=== PATIENT | male | born 1950 | race Caucasian/White ===

== ENCOUNTER → 2017-07-02 | Outpatient (CLI) | payer MEDICARE ==
[2017-07-02 14:55] LABS: Basophils # (A) 0.1 k/uL (0-0.2); Basophils % (A) 1 %; Eosinophils # (A) 0.3 k/uL (0-0.7); Eosinophils % (A) 2 %; HCT 39.7 % (39.0-53.0); HGB 12.6 gm/dL (13.0-17.5); Lymphocytes # (A) 1.2 k/uL (1.0-4.8); Lymphocytes % (A) 12 %; MCH 31.8 pg (25.0-35.0); MCHC 31.8 g/dL (31.0-37.0); MCV 99.9 fL (80.0-100.0); Mean Platelet Volume 7.4; Monocytes # (A) 0.6 k/uL (0-1.0); Monocytes % (A) 5 %; Neutrophils # (A) 8.3 k/uL (1.3-7.7); Neutrophils % (A) 79 %; Platelet Count 384 k/uL (150-450); RBC 3.98 m/uL (4.30-5.90); WBC 10.5 k/uL (3.8-10.6)
[2017-07-02 15:05] LABS: Anion Gap 10 mmol/L; Carbon Dioxide 27 mmol/L (22-30); Chloride 105 mmol/L (98-107); Glucose 65 mg/dL (74-99); Potassium 4.9 mmol/L (3.5-5.1); Sodium 142 mmol/L (137-145)
[2017-07-02 15:06] LABS: ALT 26 U/L (21-72); AST 16 U/L (17-59); Alkaline Phosphatase 98 U/L (38-126); Blood Urea Nitrogen 20 mg/dL (9-20); Calcium 9.2 mg/dL (8.4-10.2); Total Bilirubin 0.2 mg/dL (0.2-1.3); Total Protein 6.8 g/dL (6.3-8.2)
--- NOTE | 2017-07-02 15:07 | US ---
EXAMINATION TYPE: US kidneys/renal and bladder DATE OF EXAM: 07/02/2017 COMPARISON: NONE CLINICAL HISTORY: N14 Analgesic Nephropathy. Patient stated has urinary frequency since had prostatec tasha 2014 EXAM MEASUREMENTS: Right Kidney: 9.0 x 4.1 x 3.5 cm Left Kidney: 10.0 x 5.2 x 5.2 cm Post Void Residual Volume: 49.2 mL Right Kidney: mid probable cortical cyst = 0.6 x 0.7 x 0.7cm, too small to accurately characterize. No hydronephrosis or nephrolithiasis. Left Kidney: No hydronephrosis or nephrolithiasis. Bladder: wnl Bilateral Jets seen: Yes Normal Post Void Residual: yes, as still as < 50ml IMPRESSION: 1. Post void residual is borderline abnormal at 49.2 mL with normal less than 50 mL. 2. Probable right renal cyst. No hydronephrosis or nephrolithiasis of either kidney.
== END | disposition home or self-care (01) ==
LOC: RADUSWWP 13:38
PROVIDERS: ATTEND Internal Medicine
DX: N14.0 Analgesic nephropathy (principal)
CPT/HCPCS: 36415; 76770; 80053; 85025

== ENCOUNTER 2022-11-04 15:43 | Inpatient (IN) | payer MEDICARE ==
[2022-11-04] MEDS ORDERED: SODIUM CHLORIDE 0.9% 1,000 ML IV ONE ×2 (16:17→20:17)
--- NOTE | 2022-11-04 16:21 | ED ---
General Adult HPI - General Chief complaint: Fall Stated complaint: Fall Time Seen by Provider: 11/04/22 15:55 Source: patient, EMS, RN notes reviewed, old records reviewed Mode of arrival: EMS Limitations: altered mental status - History of Present Illness Initial comments: This is a 72-year-old male who presents emergency Department via EMS. EMS gave all of the history. Patient himself does not want seizure. EMS states neighbor was concerned because he hadn't seen him in over a day so he called for a well check when they got there patient was found down and was alert and oriented 1 but no one is able to tell us what his baseline is. Patient has no complaints at this point time but he is history is unreliable and he doesn't really know why is here. - Related Data Home Medications Medication Instructions Recorded Confirmed Albuterol Inhaler [Ventolin Hfa 1 puff INHALATION RT-Q4H PRN 11/04/22 11/04/22 Inhaler] Budesonide/Formoterol Fumarate 2 puff INHALATION RT-BID 11/04/22 11/04/22 [Symbicort 160-4.5 Mcg Inhaler] Divalproex Sodium 250 mg PO BID 11/04/22 11/04/22 LORazepam [Ativan] 0.5 mg PO HS 11/04/22 11/04/22 Metoprolol Tartrate [Lopressor] 25 mg PO DAILY 11/04/22 11/04/22 Montelukast [Singulair] 10 mg PO DAILY 11/04/22 11/04/22 Primidone [Mysoline] 50 mg PO TID 11/04/22 11/04/22 QUEtiapine [SEROquel] 200 mg PO DAILY 11/04/22 11/04/22 Simvastatin [Zocor] 40 mg PO DAILY 11/04/22 11/04/22 Topiramate [Topamax] 1 dose PO DIRECTED 11/04/22 11/04/22 amLODIPine [Norvasc] 10 mg PO DAILY 11/04/22 11/04/22 Allergies Allergy/AdvReac Type Severity Reaction Status Date / Time hops Allergy Rash/Hives Verified 11/04/22 17:29 mold AdvReac Rash/Hives Verified 11/04/22 17:29 Review of Systems ROS Statement: Those systems with pertinent positive or pertinent negative responses have been documented in the HPI. ROS Other: All systems not noted in ROS Statement are negative. Past Medical History Past Medical History: Unable to Obtain History of Any Multi-Drug Resistant Organisms: Unobtainable Past Surgical History: Unable to Obtain Past Psychological History: Unable to Obtain Smoking Status: Unknown if ever smoked Past Alcohol Use History: Unable to Obtain Past Drug Use History: Unable to Obtain General Exam - General Exam Comments Initial Comments: GENERAL: Patient is well-developed and well-nourished. Patient is nontoxic and well- hydrated and is in no acute distress. ENT: Neck is soft and supple. No significant lymphadenopathy is noted. Oropharynx is clear. Moist mucous membranes. Neck has full range of motion without eliciting any pain. EYES: The sclera were anicteric and conjunctiva were pink and moist. Extraocular movements were intact and pupils were equal round and reactive to light. Eyelids were unremarkable. PULMONARY: Unlabored respirations. Good breath sounds bilaterally. No audible rales rhonchi or wheezing was noted. CARDIOVASCULAR: There is a regular rate and rhythm without any murmurs gallops or rubs. ABDOMEN: Soft and nontender with normal bowel sounds. SKIN: Skin is clear with no lesions or rashes and otherwise unremarkable. NEUROLOGIC: Patient is alert and oriented 1. Cranial nerves II through XII are grossly intact. Motor and sensory are also intact. Normal speech, volume and content. Symmetrical smile. MUSCULOSKELETAL: Normal extremities with adequate strength and full range of motion. No lower extremity swelling or edema. No calf tenderness. LYMPHATICS: No significant lymphadenopathy is noted PSYCHIATRIC: Unable to assess Limitations: altered mental status Course Vital Signs 11/04/22 15:45 Temperature 97.0 F L Pulse Rate 87 Respiratory 18 Rate Blood Pressure 175/116 O2 Sat by Pulse 97 Oximetry Medical Decision Making - Medical Decision Making EKG as interpreted by myself EKG shows sinus rhythm at [address] interval 255 QRSs 81 QT interval 334 QTC is 378. Was pt. sent in by a medical professional or institution (, [facility], SPIKE MACHINE OPERATOR, urgent care, hospital, or retirement...) When possible be specific @ -No Did you speak to anyone other than the patient for history (EMS, parent, family, police, friend...)? What history was obtained from this source @ -No Did you review nursing and triage notes (agree or disagree)? Why? @ -I reviewed and agree with nursing and triage notes Were old charts reviewed (outside hosp., previous admission, EMS record, old EKG, old radiological studies, urgent care reports/EKG's, retirement records)? Report findings @ -Prior charts on this patient as well as prior lab work. Differential Diagnosis (chest pain, altered mental status, abdominal pain women, abdominal pain men, vaginal bleeding, weakness, fever, dyspnea, syncope, headache, dizziness, GI bleed, back pain, seizure, CVA, palpatations, mental health, musculoskeletal)? @ -Differential altered mental status EKG interpreted by me (3pts min.). @ -As above X-rays interpreted by me (1pt min.). @ -Chest x-ray is interpreted by myself I see no acute abnormality. CT interpreted by me (1pt min.). @ -CT of the brain shows no acute abnormality U/S interpreted by me (1pt. min.). @ -None done What testing was considered but not performed or refused? (CT, X-rays, U/S, labs)? Why? @ -None What meds were considered but not given or refused? Why? @ -None Did you discuss the management of the patient with other professionals (professionals i.e. , PA, SPIKE MACHINE OPERATOR, lab, RT, psych nurse, social media job titles, department specialist, teacher, gunnery/ordnance officer, housing case manager)? Give summary @ -[facility] Was smoking cessation discussed for >3mins.? @ -No Was critical care preformed (if so, how long)? @ -No Were there social determinants of health that impacted care today? How? (Homelessness, low income, unemployed, alcoholism, drug addiction, transportation, low edu. Level, literacy, decrease access to med. care, custodial, rehab)? @ -No Was there de-escalation of care discussed even if they declined (Discuss DNR or withdrawal of care, Hospice)? DNR status @ -No What co-morbidities impacted this encounter? (DM, HTN, Smoking, COPD, CAD, Cancer, CVA, ARF, Chemo, Hep., AIDS, mental health diagnosis, sleep apnea, morbid obesity)? @ -None Was patient admitted / discharged? Hospital course, mention meds given and route, prescriptions, significant lab abnormalities, going to OR and other pertinent info. @ -Patient had rhabdomyolysis but continued to be altered. Family states is not at his baseline yet. I placed the patient on D5W with 3 A of bicarb at 75 mL an hour. I spoke with [facility] hospitalist agreed to admit the patient admitted the patient I consult the nephrology Undiagnosed new problem with uncertain prognosis? @ -No Drug Therapy requiring intensive monitoring for toxicity (Heparin, Nitro, Insulin, Cardizem)? @ -No Were any procedures done? @ -No Diagnosis/symptom? @ -Rhabdomyolysis Acute, or Chronic, or Acute on Chronic? @ -Acute Uncomplicated (without systemic symptoms) or Complicated (systemic symptoms)? @ -Complicated Side effects of treatment? @ -No Exacerbation, Progression, or Severe Exacerbation? @ -No Poses a threat to life or bodily function? How? (Chest pain, [place], CA, pneumonia, PE, COPD, DKA, ARF, appy, cholecystitis, CVA, Diverticulitis, Homicidal, Suicidal, threat to staff... and all critical care pts) @ -Yes this could lead to completely kidney dysfunction which lead to significant morbidity or mortality Diagnosis/symptom? @ -Altered mental status Acute, or Chronic, or Acute on Chronic? @ -Acute Uncomplicated (without systemic symptoms) or Complicated (systemic symptoms)? @ -Complicated Side effects of treatment? @ -none Exacerbation, Progression, or Severe Exacerbation] @ -no Poses a threat to life or bodily function? @ -no - Lab Data Result diagrams: 11/04/22 16:35 11/04/22 16:35 Lab Results 11/04/22 11/04/22 11/04/22 Range/Units 16:35 16:35 16:35 WBC 12.8 H (3.8-10.6) k/uL RBC 4.22 L (4.30-5.90) m/uL Hgb 13.8 (13.0-17.5) gm/dL Hct 41.1 (39.0-53.0) % MCV 97.2 (80.0-100.0) fL MCH 32.7 (25.0-35.0) pg MCHC 33.6 (31.0-37.0) g/dL RDW 13.7 (11.5-15.5) % Plt Count 325 (150-450) k/uL MPV 7.6 Neutrophils % 84 % Lymphocytes % 8 % Monocytes % 6 % Eosinophils % 0 % Basophils % 0 % Neutrophils # 10.8 H (1.3-7.7) k/uL Lymphocytes # 1.0 (1.0-4.8) k/uL Monocytes # 0.8 (0-1.0) k/uL Eosinophils # 0.0 (0-0.7) k/uL Basophils # 0.0 (0-0.2) k/uL PT 10.3 (9.0-12.0) sec INR 1.0 (<1.2) APTT 22.1 (22.0-30.0) sec Sodium 145 (137-145) mmol/L Potassium 4.1 (3.5-5.1) mmol/L Chloride 110 H (98-107) mmol/L Carbon Dioxide 19 L (22-30) mmol/L Anion Gap 16 mmol/L BUN 35 H (9-20) mg/dL Creatinine 1.29 H (0.66-1.25) mg/dL Est GFR (CKD-EPI)AfAm 64 (>60 ml/min/1.73 sqM) Est GFR (CKD-EPI)NonAf 56 (>60 ml/min/1.73 sqM) Glucose 111 H (74-99) mg/dL Calcium 9.1 (8.4-10.2) mg/dL Total Bilirubin 0.7 (0.2-1.3) mg/dL AST 48 (17-59) U/L ALT 22 (4-49) U/L Alkaline Phosphatase 95 (38-126) U/L Creatine Kinase 2741 H* (55-170) U/L Troponin I (0.000-0.034) ng/mL Total Protein 7.3 (6.3-8.2) g/dL Albumin 4.4 (3.5-5.0) g/dL Urine Color Urine Appearance (Clear) Urine pH (5.0-8.0) Ur Specific [place] (1.001-1.035) Urine Protein (Negative) Urine Glucose (UA) (Negative) Urine Ketones (Negative) Urine Blood (Negative) Urine Nitrite (Negative) Urine Bilirubin (Negative) Urine Urobilinogen (<2.0) mg/dL Ur Leukocyte Esterase (Negative) Urine Opiates Screen (NotDetected) Ur Oxycodone Screen (NotDetected) Urine Methadone Screen (NotDetected) Ur Propoxyphene Screen (NotDetected) Ur Barbiturates Screen (NotDetected) U Tricyclic Antidepress (NotDetected) Ur Phencyclidine Scrn (NotDetected) Ur Amphetamines Screen (NotDetected) U Methamphetamines Scrn (NotDetected) U Benzodiazepines Scrn (NotDetected) Urine Cocaine Screen (NotDetected) U Marijuana (THC) Screen (NotDetected) 11/04/22 11/04/22 Range/Units 16:35 19:31 WBC (3.8-10.6) k/uL RBC (4.30-5.90) m/uL Hgb (13.0-17.5) gm/dL Hct (39.0-53.0) % MCV (80.0-100.0) fL MCH (25.0-35.0) pg MCHC (31.0-37.0) g/dL RDW (11.5-15.5) % Plt Count (150-450) k/uL MPV Neutrophils % % Lymphocytes % % Monocytes % % Eosinophils % % Basophils % % Neutrophils # (1.3-7.7) k/uL Lymphocytes # (1.0-4.8) k/uL Monocytes # (0-1.0) k/uL Eosinophils # (0-0.7) k/uL Basophils # (0-0.2) k/uL PT (9.0-12.0) sec INR (<1.2) APTT (22.0-30.0) sec Sodium (137-145) mmol/L Potassium (3.5-5.1) mmol/L Chloride (98-107) mmol/L Carbon Dioxide (22-30) mmol/L Anion Gap mmol/L BUN (9-20) mg/dL Creatinine (0.66-1.25) mg/dL Est GFR (CKD-EPI)AfAm (>60 ml/min/1.73 sqM) Est GFR (CKD-EPI)NonAf (>60 ml/min/1.73 sqM) Glucose (74-99) mg/dL Calcium (8.4-10.2) mg/dL Total Bilirubin (0.2-1.3) mg/dL AST (17-59) U/L ALT (4-49) U/L Alkaline Phosphatase (38-126) U/L Creatine Kinase (55-170) U/L Troponin I <0.012 (0.000-0.034) ng/mL Total Protein (6.3-8.2) g/dL Albumin (3.5-5.0) g/dL Urine Color Yellow Urine Appearance Clear (Clear) Urine pH 5.5 (5.0-8.0) Ur Specific [place] 1.023 (1.001-1.035) Urine Protein Trace H (Negative) Urine Glucose (UA) Negative (Negative) Urine Ketones 2+ H (Negative) Urine Blood Negative (Negative) Urine Nitrite Negative (Negative) Urine Bilirubin Negative (Negative) Urine Urobilinogen 2.0 (<2.0) mg/dL Ur Leukocyte Esterase Negative (Negative) Urine Opiates Screen Not Detected (NotDetected) Ur Oxycodone Screen Not Detected (NotDetected) Urine Methadone Screen Not Detected (NotDetected) Ur Propoxyphene Screen Not Detected (NotDetected) Ur Barbiturates Screen Detected H (NotDetected) U Tricyclic Antidepress Not Detected (NotDetected) Ur Phencyclidine Scrn Not Detected (NotDetected) Ur Amphetamines Screen Not Detected (NotDetected) U Methamphetamines Scrn Not Detected (NotDetected) U Benzodiazepines Scrn Not Detected (NotDetected) Urine Cocaine Screen Not Detected (NotDetected) U Marijuana (THC) Screen Not Detected (NotDetected) Disposition Clinical Impression: Fall, Altered mental status, Rhabdomyolysis Disposition: ADMITTED IP TO THIS HOSP Referrals: None,Stated [REFERRING] - 1-2 days Time of Disposition: 20:17
[2022-11-04 16:49] LABS: Basophils % (A) 0 %; Eosinophils % (A) 0 %; HCT 41.1 % (39.0-53.0); HGB 13.8 gm/dL (13.0-17.5); Lymphocytes % (A) 8 %; MCH 32.7 pg (25.0-35.0); MCHC 33.6 g/dL (31.0-37.0); MCV 97.2 fL (80.0-100.0); Mean Platelet Volume 7.6; Monocytes # (A) 0.8 k/uL (0-1.0); Monocytes % (A) 6 %; Neutrophils # (A) 10.8 k/uL (1.3-7.7); Neutrophils % (A) 84 %; Platelet Count 325 k/uL (150-450); RBC 4.22 m/uL (4.30-5.90); RDW 13.7 % (11.5-15.5); WBC 12.8 k/uL (3.8-10.6)
[2022-11-04 17:00] LABS: Albumin 4.4 g/dL (3.5-5.0); Calcium 9.1 mg/dL (8.4-10.2); Partial Thromboplastin Time 22.1 sec (22.0-30.0); Potassium 4.1 mmol/L (3.5-5.1); Prothrombin Time 10.3 sec (9.0-12.0); Total Bilirubin 0.7 mg/dL (0.2-1.3); Total Protein 7.3 g/dL (6.3-8.2)
--- NOTE | 2022-11-04 17:04 | XR ---
EXAMINATION TYPE: XR chest 2V DATE OF EXAM: 11/04/2022 COMPARISON: None INDICATION: Altered mental status TECHNIQUE: Frontal and lateral views of the chest are obtained. FINDINGS: The heart size is normal. The pulmonary vasculature is normal. The lungs are clear. IMPRESSION: 1. No acute pulmonary process.
--- NOTE | 2022-11-04 17:25 | CT ---
EXAMINATION TYPE: CT brain wo con DATE OF EXAM: 11/04/2022 COMPARISON: None INDICATION: AMS. pt found on floor by neighbor DLP: 1251.4 mGycm, Automated exposure control for dose reduction was used. CONTRAST: None CT of the brain is performed utilizing 3 mm thick sections through the posterior fossa and 3 mm thick sections through the remaining calvarium. Study is performed within 24 hours of arrival to the hosp ital. No abnormal hyperdensity is present to suggest an acute intracranial hemorrhage. No mass lesion is evident. No acute infarcts are evident. Ventricles and sulci are prominent for the patient age. Paranasal sinuses and mastoid air cells within the [id number] are clear. IMPRESSIONS: 1. Age-related atrophy 2. No acute intracranial process. Follow-up MRI can be performed as clinically indicated
[2022-11-04 19:54] LABS: Appearance,Urine Clear (Clear); Bilirubin,Urine Negative (Negative); Blood,Urine Negative (Negative); Color,Urine Yellow; Glucose,Urine (UA) Negative (Negative); Leukocyte Esterase,Urine Negative (Negative); Nitrite,Urine Negative (Negative); PH, Urine 5.5 (5.0-8.0); Protein,Urine Trace (Negative); Specific Gravity,Urine 1.023 (1.001-1.035)
[2022-11-04 20:01] LABS: Ketones,Urine 2+ (Negative)
[2022-11-04 20:03] LABS: Amphetamine Screen,Urine Not Detected (NotDetected); Barbiturate Screen,Urine Detected (NotDetected); Benzodiazepines Screen,Urine Not Detected (NotDetected); Cocaine Screen,Urine Not Detected (NotDetected); Methadone Screen, Urine Not Detected (NotDetected); Opiate Screen,Urine Not Detected (NotDetected); Oxycodone Screen, Urine Not Detected (NotDetected); Phencyclidine Screen,Urine Not Detected (NotDetected); Tricyclic Antidepressant,Urine Not Detected (NotDetected); Urn Cannabinoid Scrn Not Detected (NotDetected)
[2022-11-04] MEDS: DEXTROSE 5% IN WATER 1,000 ML with SODIUM BICARB (1 MEQ/ML) 150 ML IV SCH (20:45)
[2022-11-04] MEDS ORDERED: LORazepam 0.5 MG TAB PO ONE (22:50)
[2022-11-05] MEDS ORDERED: ALBUTEROL NEBULIZED 2.5 MG/3 ML INHALATION PRN (09:49)
[2022-11-05 11:11] LABS: Glucose,Whole Blood 109 mg/dL (70-110)
--- NOTE | 2022-11-05 11:50 | P.NPCON ---
History of Present Illness - Reason for Consult acute renal failure - History of Present Illness Patient is a 72-year-old male who was admitted to the hospital with complaints of increased weakness. Patient stated he also felt he was confused. He has not been eating much for the past few days as his is sick and has hurt her back. Patient also apparently fell at home and was found by neighbor. He had been down for about a day. Difficult to obtain further details. No previous history of kidney diseases Blood pressure has not been low No history of use of NSAIDs Serum creatinine 1.29 yesterday. CK was elevated at 2741. Patient has been voiding Currently maintained on IV bicarb Review of Systems As per HPI Past Medical History Past Medical History: Unable to Obtain Additional Past Medical History / Comment(s): Prostate Cancer, essential tremors, History of Any Multi-Drug Resistant Organisms: Unobtainable Past Surgical History: Unable to Obtain Past Psychological History: Unable to Obtain Smoking Status: Unknown if ever smoked Past Alcohol Use History: Unable to Obtain Past Drug Use History: Unable to Obtain Medications and Allergies Home Medications Medication Instructions Recorded Confirmed Type Albuterol Inhaler [Ventolin Hfa 1 puff INHALATION RT-Q4H PRN 11/04/22 11/04/22 History Inhaler] Budesonide/Formoterol Fumarate 2 puff INHALATION RT-BID 11/04/22 11/04/22 History [Symbicort 160-4.5 Mcg Inhaler] Divalproex Sodium 250 mg PO BID 11/04/22 11/04/22 History LORazepam [Ativan] 0.5 mg PO HS 11/04/22 11/04/22 History Metoprolol Tartrate [Lopressor] 25 mg PO DAILY 11/04/22 11/04/22 History Montelukast [Singulair] 10 mg PO DAILY 11/04/22 11/04/22 History Primidone [Mysoline] 50 mg PO TID 11/04/22 11/04/22 History QUEtiapine [SEROquel] 200 mg PO DAILY 11/04/22 11/04/22 History Simvastatin [Zocor] 40 mg PO DAILY 11/04/22 11/04/22 History Topiramate [Topamax] See Taper PO DIRECTED 11/04/22 11/05/22 History amLODIPine [Norvasc] 10 mg PO DAILY 11/04/22 11/04/22 History Allergies Allergy/AdvReac Type Severity Reaction Status Date / Time hops Allergy Rash/Hives Verified 11/04/22 17:29 mold AdvReac Rash/Hives Verified 11/04/22 17:29 Physical Exam Vitals: Vital Signs Temp Pulse Resp BP Pulse Ox 11/05/22 11:00 97.4 F L 70 14 147/103 97 11/05/22 10:00 60 16 151/82 97 11/05/22 09:00 66 15 138/93 95 11/05/22 08:00 66 14 146/91 93 L 11/05/22 06:59 64 18 148/93 95 11/05/22 05:25 69 18 96 11/05/22 04:21 67 18 157/97 96 11/05/22 02:23 69 18 152/85 95 11/05/22 00:59 77 18 147/93 98 11/04/22 23:55 74 16 153/107 96 11/04/22 22:27 80 18 146/84 97 11/04/22 21:06 79 20 11/04/22 15:45 97.0 F L 87 18 175/116 97 Intake and Output 11/04/22 11/05/22 11/05/22 22:59 06:59 14:59 Output Total 450 Balance -450 Output: Urine 450 Other: Weight 65.771 kg Patient is awake, comfortable, no acute distress Examination of the heart S1 and S2 Examination of the lungs bilateral breath sounds are heard Abdomen is soft nontender Examination lower extremity shows no significant edema 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 Acute kidney injury, associated with volume depletion currently maintained on IV fluids. Mild component of rhabdo my lysis. Rule out urine retention. 2. Rhabdo my lysis status post fall. Patient is currently off of statins 3. Mild gap metabolic acidosis maintained on IV bicarb etiology possibly r elated to use of Topamax as well as component of acute kidney injury. Possible starvation ketosis as well given the positive ketones in the urine 4. History of fall 5. History of hypertension maintained on Norvasc Lopressor prior to admission Plan: Continue with IV bicarb Check bladder scan rule out urine retention Repeat labs in a.m. Continue to hold statins Thank you for the consultation. We will continue to follow the patient with you during his hospitalization.
--- NOTE | 2022-11-05 13:43 | P.HPIM ---
History of Present Illness H&P Date: 11/05/22 history of present illness; patient is a 72-year-old gentleman with past medical history significant for hypertension, hyperlipidemia, COPD presented to the ER because of altered mental status. Most of the history has been taken from the EMR. Patient was brought in by EMS after being notified by the patient's neighbor who did a wellness check on the patient as he had not seen him in a day.EMS found the patient lying on the floor, patient currently alert to self. Patient was immediately brought to the ER of [facility]. initial lab work done in the ER showedWBC 12.8, hemoglobin 13.8, platelet count 325, sodium 145, potassium 4.1, chloride 110, BUN 35, creatinine 1.29, CK 2741 Chest x-ray negative for acute pulmonary process CT brain showed age-related atrophy, no acute intracranial process Patient was admitted to internal medicine service REVIEW OF SYSTEMS: CONSTITUTIONAL: No fever, no malaise, no fatigue. HEENT: No recent visual problems or hearing problems. Denied any sore throat. CARDIOVASCULAR: No chest pain, orthopnea, PND, no palpitations, no syncope. PULMONARY: No shortness of breath, no cough, no hemoptysis. GASTROINTESTINAL: No diarrhea, no nausea, no vomiting, no abdominal pain. NEUROLOGICAL: No headaches, no weakness, no numbness. HEMATOLOGICAL: Denies any bleeding or petechiae. GENITOURINARY: Denies any burning micturition, frequency, or urgency. MUSCULOSKELETAL/RHEUMATOLOGICAL: Denies any joint pain, swelling, or any muscle pain. ENDOCRINE: Denies any polyuria or polydipsia. The rest of the 14-point review of systems is negative. PHYSICAL EXAMINATION: GENERAL: The patient is alert self place, he gets confused about time, mental status is waxing and waning, not in any acute distress. Well developed, well nourished. HEENT: Pupils are round and equally reacting to light. EOMI. No scleral icterus. No conjunctival pallor. Normocephalic, atraumatic. No pharyngeal erythema. No thyromegaly. CARDIOVASCULAR: S1 and S2 present. No murmurs, rubs, or gallops. PULMONARY: Chest is clear to auscultation, no wheezing or crackles. ABDOMEN: Soft, nontender, nondistended, normoactive bowel sounds. No palpable organomegaly. MUSCULOSKELETAL: No joint swelling or deformity. EXTREMITIES: No cyanosis, clubbing, or pedal edema. NEUROLOGICAL: Gross neurological examination did not reveal any focal deficits. SKIN: No rashes. Assessment and plan Rhabdomyolysis Acute Kidney injury Fall Acute metabolic encephalopathy seizure disorder Hypertension Hyperlipidemia COPD monitor vital signs Monitor CBC Avoid nephrotoxic agents Continue IV fluids Ordered EEG Resume home meds Consult neurology Consult nephrology DVT prophylaxis: Past Medical History Past Medical History: Unable to Obtain Additional Past Medical History / Comment(s): Prostate Cancer, essential tremors, History of Any Multi-Drug Resistant Organisms: Unobtainable Past Surgical History: Unable to Obtain Past Psychological History: Unable to Obtain Smoking Status: Unknown if ever smoked Past Alcohol Use History: Unable to Obtain Past Drug Use History: Unable to Obtain Medications and Allergies Home Medications Medication Instructions Recorded Confirmed Type Albuterol Inhaler [Ventolin Hfa 1 puff INHALATION RT-Q4H PRN 11/04/22 11/04/22 History Inhaler] Budesonide/Formoterol Fumarate 2 puff INHALATION RT-BID 11/04/22 11/04/22 History [Symbicort 160-4.5 Mcg Inhaler] Divalproex Sodium 250 mg PO BID 11/04/22 11/04/22 History LORazepam [Ativan] 0.5 mg PO HS 11/04/22 11/04/22 History Metoprolol Tartrate [Lopressor] 25 mg PO DAILY 11/04/22 11/04/22 History Montelukast [Singulair] 10 mg PO DAILY 11/04/22 11/04/22 History Primidone [Mysoline] 50 mg PO TID 11/04/22 11/04/22 History QUEtiapine [SEROquel] 200 mg PO DAILY 11/04/22 11/04/22 History Simvastatin [Zocor] 40 mg PO DAILY 11/04/22 11/04/22 History Topiramate [Topamax] See Taper PO DIRECTED 11/04/22 11/05/22 History amLODIPine [Norvasc] 10 mg PO DAILY 11/04/22 11/04/22 History Allergies Allergy/AdvReac Type Severity Reaction Status Date / Time hops Allergy Rash/Hives Verified 11/04/22 17:29 mold AdvReac Rash/Hives Verified 05/22/23 17:29 Physical Exam Vitals: Vital Signs Temp Pulse Resp BP Pulse Ox 11/05/22 06:59 64 18 148/93 95 11/05/22 05:25 69 18 96 11/05/22 04:21 67 18 157/97 96 11/05/22 02:23 69 18 152/85 95 11/05/22 00:59 77 18 147/93 98 11/04/22 23:55 74 16 153/107 96 11/04/22 22:27 80 18 146/84 97 11/04/22 21:06 79 20 11/04/22 15:45 97.0 F L 87 18 175/116 97 Intake and Output 11/04/22 11/05/22 11/05/22 22:59 06:59 14:59 Other: Weight 65.771 kg Results CBC & Chem 7: 11/04/22 16:35 11/04/22 16:35 Labs: Abnormal Lab Results - Last 24 Hours (Table) 11/04/22 11/04/22 11/04/22 Range/Units 16:35 16:35 19:31 WBC 12.8 H (3.8-10.6) k/uL RBC 4.22 L (4.30-5.90) m/uL Neutrophils # 10.8 H (1.3-7.7) k/uL Chloride 110 H (98-107) mmol/L Carbon Dioxide 19 L (22-30) mmol/L BUN 35 H (9-20) mg/dL Creatinine 1.29 H (0.66-1.25) mg/dL Glucose 111 H (74-99) mg/dL Creatine Kinase 2741 H* (55-170) U/L Urine Protein Trace H (Negative) Urine Ketones 2+ H (Negative) Ur Barbiturates Screen Detected H (NotDetected)
[2022-11-05] MEDS: DEXTROSE 5% IN WATER 1,000 ML with SODIUM BICARB (1 MEQ/ML) 150 ML IV SCH (15:04)
[2022-11-05 15:53] LABS: Chol/HDL Ratio 3.17 Ratio; LDL Cholesterol,Calculated 60.2 mg/dL (0.0-131.0)
--- NOTE | 2022-11-05 16:04 | P.CNNES ---
History of Present Illness Consult date: 11/05/22 Requesting physician: Fracisco Jaimes Reason for Consult: altered mental status History of Present Illness: This is a 72-year-old gentleman with history of essential tremor who presented emergency department because he was found down on the floor. Some of the history is obtained from the patient's sister as well as medical record. She resides with his but recently the has been at in rehab and the per the patient's sister she does not know much other than that he falls off with his primary takes care of him. According to the sister is seems the patient has an tremor and that he had workup for Parkinson's by his primary and he was told he does not have Parkinson's unsure what workup he had. Patient could not tell us regarding the episode the of how he was found on the floor. Patient denies any history of seizures. Patient is on Topamax at home, which is used for primidone and I'll not sure if it should also use for migraines or any other medical condition. Patient is also on primidone. He is also on Depakote 250 mg 1 tablet twice a day and according to the patient's sister it's for his psych condition. Per the sister he was on even more medications than this. Again patient does not follow up with a neurologist as an outpatient and the he's being managed by his primary physician as an outpatient. Some of the workup during his hospital visit consist of: She is afebrile Initial white blood cell is 12.8 thousand slightly neutrophilic. CK levels 2741. TSH is 1.410. His sodium, calcium, AST ALT are within normal limits. Localizes 111. BUN is 35 and creatinine is 1.29 Urine drug screen is positive for barbiturates. CT of the head is reported as age-related atrophy. No acute intracranial process. Follow-up MRI can be performed as clinically indicated. Review of Systems Review of system is limited with apparent positive and negative as per HPI. Past Medical History Past Medical History: Unable to Obtain Additional Past Medical History / Comment(s): Prostate Cancer, essential tremors, History of Any Multi-Drug Resistant Organisms: Unobtainable Past Surgical History: Unable to Obtain Past Psychological History: Unable to Obtain Smoking Status: Unknown if ever smoked Past Alcohol Use History: Unable to Obtain Past Drug Use History: Unable to Obtain Medications and Allergies Home Medications Medication Instructions Recorded Confirmed Type Albuterol Inhaler [Ventolin Hfa 1 puff INHALATION RT-Q4H PRN 11/04/22 11/04/22 History Inhaler] Budesonide/Formoterol Fumarate 2 puff INHALATION RT-BID 11/04/22 11/04/22 History [Symbicort 160-4.5 Mcg Inhaler] Divalproex Sodium 250 mg PO BID 11/04/22 11/04/22 History LORazepam [Ativan] 0.5 mg PO HS 11/04/22 11/04/22 History Metoprolol Tartrate [Lopressor] 25 mg PO DAILY 11/04/22 11/04/22 History Montelukast [Singulair] 10 mg PO DAILY 11/04/22 11/04/22 History Primidone [Mysoline] 50 mg PO TID 11/04/22 11/04/22 History QUEtiapine [SEROquel] 200 mg PO DAILY 11/04/22 11/04/22 History Simvastatin [Zocor] 40 mg PO DAILY 11/04/22 11/04/22 History Topiramate [Topamax] See Taper PO DIRECTED 11/04/22 11/05/22 History amLODIPine [Norvasc] 10 mg PO DAILY 11/04/22 11/04/22 History Allergies Allergy/AdvReac Type Severity Reaction Status Date / Time hops Allergy Rash/Hives Verified 11/04/22 17:29 mold AdvReac Rash/Hives Verified 11/04/22 17:29 Physical Examination - Vital Signs Vital Signs: Vital Signs Temp Pulse Pulse Resp BP BP Pulse Ox 11/05/22 15:09 97 11/05/22 15:01 98.9 F 69 20 157/55 97 11/05/22 11:00 97.4 F L 70 14 147/103 97 11/05/22 10:00 60 16 151/82 97 11/05/22 09:00 66 15 138/93 95 11/05/22 08:00 66 14 146/91 93 L 11/05/22 06:59 64 18 148/93 95 11/05/22 05:25 69 18 96 11/05/22 04:21 67 18 157/97 96 11/05/22 02:23 69 18 152/85 95 11/05/22 00:59 77 18 147/93 98 11/04/22 23:55 74 16 153/107 96 11/04/22 22:27 80 18 146/84 97 11/04/22 21:06 79 20 Intake and Output 11/05/22 11/05/22 11/05/22 06:59 14:59 22:59 Output Total 450 Balance -450 Output: Urine 450 GENERAL: The patient is lying in bed and is not in acute distress. CHEST: No edema in lowers. LUNG: Not labored breathing. NEUROLOGICAL: Higher mental function: The patient is awake, alert, oriented to self. With options he stated he was in the hospital. He was able to stated the month was October with options but states the year is 2002. He is very slow responding. He is able to name few simple objects (pen and watch). Language is limited. No neglect. Cranial nerves: The pupils are round, equal and reactive to light. NO facial weakness. No dysarthria. Has hypophonia. Otherwise rest of cranial nerves are limited. Motor: The strength is lifting all extremities above gravity without focality. Normal tone and bulk. Has resting tremor of right upper extremity. Cerebellum: Noticed tremor with finger to nose but no ataxia or neglect. Sensation: Sensation is normal to touch throughout. Reflexes (right/left): 1+ throughout. Plantars are mute bilaterally. Results - Laboratory Findings CBC and BMP: 11/04/22 16:35 11/04/22 16:35 Abnormal Lab Findings: Abnormal Labs 11/04/22 11/04/22 11/04/22 16:35 16:35 19:31 WBC 12.8 H RBC 4.22 L Neutrophils # 10.8 H Chloride 110 H Carbon Dioxide 19 L BUN 35 H Creatinine 1.29 H Glucose 111 H Creatine Kinase 2741 H* Urine Protein Trace H Urine Ketones 2+ H Ur Barbiturates Screen Detected H Assessment and Plan Assessment: Is seems the patient was found down at home on the floor. Syncopal episode: Unsure cause. Altered mental status; encephalopathy of unknown etiology at this time. Rhabdomyolysis due to #1 Tremor and it's reported the patient has essential tremor but on examination I felt possibly he has Parkinson's Mood disorder and he is on Depakote Polypharmacy Plan: I'll start the patient on Sinemet 48848 tablet 3 times a day to assess for his Parkinson's and if there is improvement in the tremor. Recommend holding off Topamax. Patient is resumed on his home medication of pipe midone 50 mg 1 tablet 3 times a day for his history of reported essential tremor. But if improvement in tremor with Sinemet then will discontinue Primidone. I ordered MRI of the brain w/ and w/o to assess other causes of tremor. Recommend orthostatic vitals. EEG is ordered by the primary team Vitamin B12, folate is ordered and is pending Recommend psychiatry consultation since patient is on Depakote and Depakote and can cause tremor and patient needs modification of his medication as a result. We'll defer the rest of the medical measure the primary team The plan was discussed with the patient's sister was at bedside as well as the patient nurse Thank you for the consultation Time with Patient: Greater than 30
[2022-11-05] MEDS: CARBIDOPA-LEVODOPA 25-100 MG 1 EACH TAB PO SCH ×2 (17:34→20:34)
[2022-11-05] MEDS: PRIMIDONE 50 MG TAB PO SCH ×2 (17:34→20:34)
[2022-11-05] MEDS: LORazepam 0.5 MG TAB PO SCH (20:34)
[2022-11-05] MEDS: DIVALPROEX 250 MG TABLET.DR PO SCH (20:35)
--- NOTE | 2022-11-05 21:17 | EEG ---
ELECTROENCEPHALOGRAM REPORT CLINICAL HISTORY: This is a 72-year-old gentleman with syncopal episode outside the hospital. The video EEG is obtained to evaluate for seizure epileptiform activity. RELEVANT MEDICATIONS: 1. Topamax. 2. Depakote. 3. Primidone. EEG TYPE: A routine 21-channel EEG is performed with video using the 10/20 electrode placement system. DESCRIPTION: Wakefulness is only obtained. During awake state, the background consists of low-to- moderate voltage of 6 to 7 hertz activity. There is no physiological sleep architecture. There is no focal slowing. There is moderate to significant myogenic artifact. Interictal and ictal is none. ACTIVATION PROCEDURE: Photic stimulation and hyperventilation are not performed. CLINICAL INTERPRETATION: This is an abnormal routine EEG. The background slowing suggestive of mild encephalopathy. Otherwise, there is no focal slowing, epileptiform discharge, or seizure on the EEG. Clinical correlation is recommended. FANNIE / VIKTORIA: [id number] / MTDD
[2022-11-05] MEDS: SYMBICORT 160-4.5 MCG INHALER INHALATION SCH (21:59)
[2022-11-06] MEDS: ACETAMINOPHEN TAB 325 MG TAB PO PRN ×2 (00:40→21:09)
[2022-11-06] MEDS: DEXTROSE 5% IN WATER 1,000 ML with SODIUM BICARB (1 MEQ/ML) 150 ML IV SCH (05:17)
[2022-11-06] MEDS: METOPROLOL TARTRATE 25 MG TAB PO SCH (09:13)
[2022-11-06] MEDS: MONTELUKAST 10 MG TAB PO SCH (09:13)
[2022-11-06] MEDS: amLODIPine 10 MG TAB PO SCH (09:13)
[2022-11-06] MEDS: DIVALPROEX 250 MG TABLET.DR PO SCH ×2 (09:14→21:09)
[2022-11-06] MEDS: QUEtiapine 200 MG TAB PO SCH (09:14)
[2022-11-06] MEDS: PRIMIDONE 50 MG TAB PO SCH ×3 (09:14→21:09)
[2022-11-06] MEDS: CARBIDOPA-LEVODOPA 25-100 MG 1 EACH TAB PO SCH ×3 (09:14→21:09)
[2022-11-06] MEDS: SYMBICORT 160-4.5 MCG INHALER INHALATION SCH ×2 (10:12→21:25)
--- NOTE | 2022-11-06 10:41 | P.PN ---
Subjective Patient is seen for follow-up for acute kidney injury and mild rhabdo my lysis. No complaints today Patient has been voiding No new labs available. Creatinine was 1.29 on initial admission with CK at 2741. Bladder scan was ordered. I do not see a charted Objective - Vital Signs Vital signs: Vital Signs Temp 99.2 F 11/06/22 08:06 Pulse 78 11/06/22 08:06 Resp 18 11/06/22 08:06 BP 158/83 11/06/22 08:06 Pulse Ox 96 11/06/22 10:15 FiO2 Intake & Output 11/05/22 11/06/22 11/06/22 18:59 06:59 18:59 Intake Total 405 0 Output Total 950 900 Balance -545 -900 0 Weight 65.771 kg Intake: Intake, IV Titration 225 Amount Dextrose 5% in Water 1, 225 000 ml @ 75 mls/hr IV . [id number] ESSIE with Sodium Bicarb (1 Meq/ml) 150 ml Rx#:[id number] Oral 180 0 Output: Urine 950 900 Other: Voiding Method Diaper Diaper Diaper External Catheter External Catheter External Catheter # Bowel Movements 1 1 - Exam Patient is awake, comfortable, in no acute distress Examination of the heart S1 and S2 Examination of the lungs bilateral breath sounds are heard Abdomen is soft nontender Examination of lower extremities shows no evidence of edema DUST PULLER exam grossly intact - Labs CBC & Chem 7: 11/04/22 16:35 11/04/22 16:35 Labs: Abnormal Lab Results - Last 24 Hours (Table) 11/05/22 Range/Units 10:07 Triglycerides 154.00 H (0.00-149.00) mg/dL Assessment and Plan Assessment: 1. Acute kidney injury, associated with volume depletion currently maintained on IV fluids. Mild component of rhabdo myolysis. Rule out urine retention. 2. Rhabdo my lysis status post fall. Patient is currently off of statins 3. Mild gap metabolic acidosis maintained on IV bicarb etiology possibly related to use of Topamax as well as component of acute kidney injury. Possible starvation ketosis as well given the positive ketones in the urine 4. History of fall 5. History of hypertension maintained on Norvasc Lopressor prior to admission Plan: Check labs today DC IV bicarb Switch to normal saline Check bladder scan Check ultrasound of the kidneys Repeat labs in a.m.
[2022-11-06 11:01] LABS: Basophils # (A) 0.1 k/uL (0-0.2); Basophils % (A) 1 %; Eosinophils # (A) 0.1 k/uL (0-0.7); Eosinophils % (A) 1 %; HCT 39.5 % (39.0-53.0); HGB 13.6 gm/dL (13.0-17.5); Lymphocytes # (A) 1.3 k/uL (1.0-4.8); Lymphocytes % (A) 12 %; MCH 33.3 pg (25.0-35.0); MCHC 34.3 g/dL (31.0-37.0); MCV 97.1 fL (80.0-100.0); Mean Platelet Volume 8.2; Monocytes # (A) 0.9 k/uL (0-1.0); Monocytes % (A) 9 %; Neutrophils # (A) 8.3 k/uL (1.3-7.7); Neutrophils % (A) 77 %; Platelet Count 262 k/uL (150-450); RBC 4.07 m/uL (4.30-5.90); RDW 13.5 % (11.5-15.5); WBC 10.8 k/uL (3.8-10.6)
[2022-11-06 11:20] LABS: Calcium 8.5 mg/dL (8.4-10.2); Potassium 3.3 mmol/L (3.5-5.1)
[2022-11-06] MEDS: SODIUM CHLORIDE 0.9% 1,000 ML IV SCH (11:24)
[2022-11-06 11:37] LABS: Glucose,Whole Blood 152 mg/dL (70-110)
[2022-11-06] MEDS ORDERED: POTASSIUM CHLORIDE 20 MEQ in WATER FOR INJECTION 1 100ML.BAG IVPB STA (11:55)
--- NOTE | 2022-11-06 12:21 | CT ---
EXAMINATION TYPE: CT brain wo con DATE OF EXAM: 11/06/2022 HISTORY: AMS, not responding CT DLP: 1275.4 mGycm. Automated Exposure Control for Dose Reduction was Utilized. TECHNIQUE: CT scan of the head is performed without contrast. COMPARISON: CT brain 2 days ago. FINDINGS: There is no acute intracranial hemorrhage or midline shift identified. There is mild to m oderate diffuse ventricular and sulcal prominence redemonstrated. Sharp-white matter preparation is fa irly well preserved. The globes are intact and the visualized sinuses are clear. IMPRESSION: No acute intracranial hemorrhage or midline shift. There is [id number] diffuse ce rebral atrophy and chronic small vessel ischemic change redemonstrated. No significant change from r ecent prior CT.
--- NOTE | 2022-11-06 14:14 | US ---
EXAMINATION TYPE: US kidneys/renal and bladder DATE OF EXAM: 11/06/2022 Exam done portable COMPARISON: US 2018 CLINICAL INDICATION: Male, 72 years old with history of cheri; EXAM MEASUREMENTS: Right Kidney: 8.7 x 4.8 x 4.3 cm Left Kidney: 5.5 cm width Right Kidney: 1.4cm anechoic area medial superior pole, cortical medullary differentiation maintaine d. Left Kidney: inferior pole obscured by overlying bowel gas , cortical medullary differentiation main tained. Bladder: wnl IMPRESSION: 1. No evidence for obstructive uropathy. 2. Right renal cyst.
--- NOTE | 2022-11-06 16:29 | P.PN ---
Subjective Progress Note Date: 11/06/22 The patient seen at bedside and upon seeing the patient according to the nurse he was extremely confused and was nonresponsive. Upon seeing him patient was not verbalizing and seems very lethargic but was following few simple commands. Objective - Vital Signs Vital signs: Vital Signs Temp 99.7 F H 11/06/22 16:00 Pulse 94 11/06/22 16:00 Resp 18 11/06/22 16:00 BP 151/80 11/06/22 16:00 Pulse Ox 94 L 11/06/22 16:00 FiO2 Intake & Output 11/05/22 11/06/22 11/06/22 18:59 06:59 18:59 Intake Total 405 0 Output Total 950 900 Balance -545 -900 0 Weight 65.771 kg Intake: Intake, IV Titration 225 Amount Dextrose 5% in Water 1, 225 000 ml @ 75 mls/hr IV . [id number] ESSIE with Sodium Bicarb (1 Meq/ml) 150 ml Rx#:[id number] Oral 180 0 Output: Urine 950 900 Other: Voiding Method Diaper Diaper Diaper External Catheter External Catheter External Catheter # Bowel Movements 1 1 - Exam Neuro: Limited because of his condition. He is appears lethargic but is following few simple commands such as showing thumbs up smiling sticking out his tongue wiggling his toes lifted upper extr emities. He is not verbalizing. Briefly opens his eyes. No facial weakness. Motor strength is limited because of his condition but briefly lifts up his upper extremities above gravity and wiggle his toes. Some of the workup during his hospital visit consist of: is afebrile CK levels 2741--> 1164. TSH is 1.410. Rectal soft folate is 531 Vitamin B12 is 365 His sodium, calcium, AST ALT are within normal limits. Localizes 111. BUN is 35 and creatinine is 1.29 Urine drug screen is positive for barbiturates. CT of the head is reported as age-related atrophy. No acute intracranial process. Follow-up MRI can be performed as clinically indicated. Routine EEG is abnormal. The background slowing suggestive of mild encephalopathy. Otherwise there is no focal slowing, epileptiform discharges or seizure in the EEG. - Labs CBC & Chem 7: 11/06/22 10:44 11/06/22 10:20 Labs: Abnormal Lab Results - Last 24 Hours (Table) 05/24/23 05/24/23 05/24/23 Range/Units 10:20 10:44 11:36 WBC 10.8 H (3.8-10.6) k/uL RBC 4.07 L (4.30-5.90) m/uL Neutrophils # 8.3 H (1.3-7.7) k/uL Sodium 135 L (137-145) mmol/L Potassium 3.3 L (3.5-5.1) mmol/L Chloride 97 L (98-107) mmol/L Glucose 132 H (74-99) mg/dL POC Glucose (mg/dL) 152 H (70-110) mg/dL Creatine Kinase 1164 H* (55-170) U/L Assessment and Plan Assessment: Is seems the patient was found down at home on the floor. Syncopal episode: Unsure cause. Routine EEG is negative for seizure or discharge Altered mental status; encephalopathy of unknown etiology at this time. Rhabdomyolysis due to #1 Tremor and it's reported the patient has essential tremor but on examination I felt possibly he has Parkinson's Mood disorder and he is on Depakote Polypharmacy Plan: Because of his worsening of his altered mental status or get a repeat EEG. And CT of the head is ordered that. MRI the brain is pending Pending orthostatic vitals Continue Sinemet 25-100 1 tab tid which was started during this admission to assess whether there is any improvement in the Parkinson's tremor movements. Recommend holding off Topamax Patient is resumed on his home medication of primidone 50 mg 1 tablet 3 times a day for his history of reported essential tremor. But if improvement in tremor with Sinemet then will discontinue Primidone. Recommend psychiatry consultation since patient is on Depakote and Depakote and can cause tremor and patient needs modification of his medication as a result. We'll defer the rest of the medical measure the primary team The plan was discussed with the patient's nurse. Time with Patient: Less than 30
--- NOTE | 2022-11-06 17:19 | MR ---
EXAMINATION TYPE: MR brain wo/w con DATE OF EXAM: 11/06/2022 COMPARISON: CT brain 11/06/2022 HISTORY: AMS, encephalopathy of unknown cause. CONTRAST: Performed utilizing 7 mL intravenous Gadavist gadolinium contrast. TECHNIQUE: Multiplanar, multiecho imaging on a 3.0 Char magnet is performed through the brain. Stud y is performed within 24 hours of arrival to the hospital. The craniovertebral junction is normal. The pituitary is normal. Optic chiasm is normal. Diffusion-weighted imaging is performed. No abnormal hyperintensity is present to suggest an acute i ntracranial infarct or acute ischemic change. There are scattered punctate areas of hyperintensity on T2 and Inversion Recovery weighted sequences which are non-specific but can be related to microvascular ischemic changes. Ventricles and sulci are prominent for the patient age. No temporal horn dilatation is evident. Following contrast administration, no suspicious enhancement is evident. IMPRESSIONS: 1. Some age-related atrophy. 2. No acute intracranial process.
--- NOTE | 2022-11-06 19:29 | EEG ---
ELECTROENCEPHALOGRAM REPORT CLINICAL HISTORY: This is a 72-year-old gentleman, who presented to the emergency department because of syncopal episode, who has worsening of his confusion today. The video EEG is obtained to evaluate for seizure epileptiform activity. RELEVANT MEDICATIONS: 1. Seroquel. 2. Primidone. 3. Depakote. EEG TYPE: A routine 21-channel EEG is performed with video using the 10/20 electrode placement system. DESCRIPTION: Wakefulness is obtained. The background consists of iib-ec-ummrqbfs voltage of 5 hertz activity. At times, the background consists of nonrhythmic 1 to 2 hertz delta activity. There is no physiological stage 2 sleep architecture. There is no focal slowing. Interictal and ictal is none. ACTIVATION PROCEDURE: Photic stimulation did not evoke a posterior driving response. There is no abnormality during the photic stimulation. Hyperventilation is not performed. CLINICAL INTERPRETATION: This is an abnormal routine EEG. The background slowing is suggestive of moderate-to- severe encephalopathy. Otherwise, there is no focal slowing, epileptiform discharges, or seizure on the EEG. Clinical correlation is recommended. MMEKATERINAL / RAULN: [id number] / LOLIS
[2022-11-06] MEDS: LORazepam 0.5 MG TAB PO SCH (21:09)
--- NOTE | 2022-11-06 21:14 | CDI ---
Documentation Clarification Form Date: 11/06/2022 8:55:40 PM From: Mary Orellana RN CCDS Phone: [phone] Admit Date: 11/04/2022 8:19:00 PM Patient Name: Isidro Wells Visit Number: [id number] Discharge Date: ATTENTION: The Clinical Documentation Specialists (CDI) and [facility] Coding Staff appreciate your assistance in clarifying documentation. Please respond to the clarification below the line at the bottom and electronically sign. The CDI & [facility] Coding staff will review the response and follow-up if needed. Please note: Queries are made part of the Legal Health Record. If you have any questions, please contact the author of this message via ITS. Dr Nice Rhabdomyolysis is documented 11/05, H&P. Additional clarification regarding the type of rhabdomyolysis is requested. History/Risk Factors: 72-year-old Male presents to ED via EMS after a wellness check found the patient lying on the floor and alert to self. Medical History: HTN, COPD and HLD. 11/05, H&P. Clinical Indicators: Creatinine Kinase - 11/04: 2741; 11/06: 1164 11/05, Nephrology consult: Patient also apparently fell at home and was found by neighbor. He had been down for about a day. Treatment: 0.9 NS 1L bolus x 1; 0.9ns 75cc/hr; Dextrose / Water with Sodium Bicarbonate IVPB Please clarify the type of rhabdomyolysis, if known: [ ] Traumatic rhabdomyolysis due to fall [ ] Traumatic rhabdomyolysis due to prolonged immobility [ ] Other, please specify [ ] Unable to Determine (Template Last Revised: August 2020) Traumatic rhabdomyolysis due to fall MTDD
[2022-11-06] MEDS: VANCOMYCIN 1,250 MG in SODIUM CHLORIDE 0.9% 250 ML IVPB SCH (21:26)
[2022-11-07] MEDS ORDERED: CEFEPIME 1 GM in SODIUM CHLORIDE 0.9% 50 ML IVPB SCH ×2
[2022-11-07] MEDS: CEFEPIME 2 GM in SODIUM CHLORIDE 0.9% 100 ML IVPB SCH ×3 (00:19→21:19)
[2022-11-07] MEDS: SODIUM CHLORIDE 0.9% 1,000 ML IV SCH ×2 (00:20→15:35)
[2022-11-07] MEDS: CARBIDOPA-LEVODOPA 25-100 MG 1 EACH TAB PO SCH (08:01)
[2022-11-07] MEDS: amLODIPine 10 MG TAB PO SCH (08:01)
[2022-11-07] MEDS: PRIMIDONE 50 MG TAB PO SCH ×3 (08:01→21:21)
[2022-11-07] MEDS: METOPROLOL TARTRATE 25 MG TAB PO SCH (08:01)
[2022-11-07] MEDS: MONTELUKAST 10 MG TAB PO SCH (08:01)
[2022-11-07] MEDS: DIVALPROEX 250 MG TABLET.DR PO SCH (08:02)
[2022-11-07] MEDS: QUEtiapine 200 MG TAB PO SCH (08:03)
[2022-11-07] MEDS: SYMBICORT 160-4.5 MCG INHALER INHALATION SCH ×2 (08:25→21:18)
[2022-11-07 08:59] LABS: Basophils # (A) 0.1 k/uL (0-0.2); Basophils % (A) 1 %; Eosinophils % (A) 0 %; HCT 40.9 % (39.0-53.0); HGB 13.5 gm/dL (13.0-17.5); Lymphocytes # (A) 1.1 k/uL (1.0-4.8); Lymphocytes % (A) 9 %; MCH 32.7 pg (25.0-35.0); MCHC 32.9 g/dL (31.0-37.0); MCV 99.4 fL (80.0-100.0); Mean Platelet Volume 7.7; Monocytes # (A) 1.1 k/uL (0-1.0); Monocytes % (A) 9 %; Neutrophils # (A) 9.3 k/uL (1.3-7.7); Neutrophils % (A) 79 %; Platelet Count 287 k/uL (150-450); RBC 4.11 m/uL (4.30-5.90); RDW 13.3 % (11.5-15.5); WBC 11.7 k/uL (3.8-10.6)
[2022-11-07 09:34] LABS: Calcium 8.5 mg/dL (8.4-10.2); Potassium 3.6 mmol/L (3.5-5.1)
--- NOTE | 2022-11-07 11:25 | P.PN ---
Subjective Patient is seen for follow-up for acute kidney injury and mild rhabdomyolysis. No complaints today Patient has an external catheter Serum creatinine down to 1.0. CK was down to 1164 Maintained on IV fluids at 75 mL an hour Objective - Vital Signs Vital signs: Vital Signs Temp 98.9 F 11/07/22 08:00 Pulse 101 H 11/07/22 08:00 Resp 18 11/07/22 08:00 BP 169/92 11/07/22 08:00 Pulse Ox 94 L 11/07/22 08:27 FiO2 Intake & Output 11/06/22 11/07/22 11/07/22 18:59 06:59 18:59 Intake Total 0 110 Output Total 250 Balance -250 110 Intake: Oral 0 110 Output: Urine 250 Other: Voiding Method Diaper Diaper Diaper External Catheter External Catheter External Catheter # Bowel Movements 1 1 - Exam Patient is awake, comfortable, in no acute distress Examination of the heart S1 and S2 Examination of the lungs bilateral breath sounds are heard Abdomen is soft nontender Examination of lower extremities shows no evidence of edema JOB HONER exam grossly intact - Labs CBC & Chem 7: 11/07/22 08:41 11/07/22 08:41 Labs: Abnormal Lab Results - Last 24 Hours (Table) 11/06/22 11/06/22 11/06/22 Range/Units 10:20 11:36 23:00 WBC (3.8-10.6) k/uL RBC (4.30-5.90) m/uL Neutrophils # (1.3-7.7) k/uL Monocytes # (0-1.0) k/uL Sodium 135 L (137-145) mmol/L Potassium 3.3 L (3.5-5.1) mmol/L Chloride 97 L (98-107) mmol/L Carbon Dioxide (22-30) mmol/L BUN (9-20) mg/dL Glucose 132 H (74-99) mg/dL POC Glucose (mg/dL) 152 H (70-110) mg/dL Creatine Kinase 1164 H* (55-170) U/L Procalcitonin 0.41 H (0.02-0.09) ng/mL 11/07/22 11/07/22 Range/Units 08:41 08:41 WBC 11.7 H (3.8-10.6) k/uL RBC 4.11 L (4.30-5.90) m/uL Neutrophils # 9.3 H (1.3-7.7) k/uL Monocytes # 1.1 H (0-1.0) k/uL Sodium (137-145) mmol/L Potassium (3.5-5.1) mmol/L Chloride (98-107) mmol/L Carbon Dioxide 21 L (22-30) mmol/L BUN 21 H (9-20) mg/dL Glucose 116 H (74-99) mg/dL POC Glucose (mg/dL) (70-110) mg/dL Creatine Kinase (55-170) U/L Procalcitonin (0.02-0.09) ng/mL Assessment and Plan Assessment: 1. Acute kidney injury, associated with volume depletion currently maintained on IV fluids. Mild component of rhabdo myolysis. No obstructive uropathy on ultrasound. 2. Rhabdo my lysis status post fall. Patient is currently off of statins 3. Mild gap metabolic acidosis maintained on IV bicarb etiology possibly relat ed to use of Topamax as well as component of acute kidney injury. Possible starvation ketosis as well given the positive ketones in the urine 4. History of fall 5. History of hypertension maintained on Norvasc Lopressor prior to admission Plan: Continue to encourage increased oral intake Continue with IV fluids Repeat labs in a.m.
--- NOTE | 2022-11-07 13:38 | P.PN ---
Subjective Progress Note Date: 11/07/22 The patient seen at bedside he continues to be sleepy. Patient is accompanied with her sister. Patient was waking up minimally upon seeing him. Patient had very low grade fever T-max of 100.8 during this admission. This seems the patient had the abdominal distention upon speaking to the primary team. Objective - Vital Signs Vital signs: Vital Signs Temp 98.2 F 11/07/22 12:00 Pulse 90 11/07/22 12:00 Resp 18 11/07/22 12:00 BP 147/77 11/07/22 12:00 Pulse Ox 100 11/07/22 12:00 FiO2 Intake & Output 11/06/22 11/07/22 11/07/22 18:59 06:59 18:59 Intake Total 0 110 Output Total 250 Balance -250 110 Intake: Oral 0 110 Output: Urine 250 Other: Voiding Method Diaper Diaper Diaper External Catheter External Catheter External Catheter # Bowel Movements 1 1 - Exam Neuro: Limited because of his condition. He is appears very drowsy but is awake of a lot of voice. He'll open his eyes and that is oriented to self as well as place. He'll follow simple commands such as showing thumbs up wiggling the toes smiling. His tongue. Language is very limited. No neglect. Briefly opens his eyes. No facial weakness. Severe hypophonia. Motor strength is limited because of his condition but briefly lifts up his upper extremities above gravity and wiggle his toes. Some of the workup during his hospital visit consist of: is afebrile CK levels 2741--> 1164. TSH is 1.410. Rectal soft folate is 531 Vitamin B12 is 365 His sodium, calcium, AST ALT are within normal limits. Localizes 111. BUN is 35 and creatinine is 1.29 Urine drug screen is positive for barbiturates. CT of the head is reported as age-related atrophy. No acute intracranial process. Follow-up MRI can be performed as clinically indicated. PT CT of the head is reported as no acute intracranial hemorrhage or midline shift. There is mild to moderate diffuse cerebral atrophy and chronic small vessel ischemic changes redemonstrated. No significant change from recent prior CT. Routine EEG is abnormal. The background slowing suggestive of mild ence phalopathy. Otherwise there is no focal slowing, epileptiform discharges or seizure in the EEG. Repeat EEG is abnormal. Tobacco slowing suggestive of moderate to severe encephalopathy. Otherwise there is no focal slowing, epileptiform discharges or seizure on the EEG. MR the brain with and without is reported as some age-related atrophy. No acute intracranial process. - Labs CBC & Chem 7: 11/07/22 08:41 11/07/22 08:41 Labs: Abnormal Lab Results - Last 24 Hours (Table) 11/06/22 11/07/22 11/07/22 Range/Units 23:00 08:41 08:41 WBC 11.7 H (3.8-10.6) k/uL RBC 4.11 L (4.30-5.90) m/uL Neutrophils # 9.3 H (1.3-7.7) k/uL Monocytes # 1.1 H (0-1.0) k/uL Carbon Dioxide 21 L (22-30) mmol/L BUN 21 H (9-20) mg/dL Glucose 116 H (74-99) mg/dL Procalcitonin 0.41 H (0.02-0.09) ng/mL Assessment and Plan Assessment: Is seems the patient was found down at home on the floor. Altered mental status; encephalopathy of unknown etiology at this time. He has very low grade fever of unknown cause: We'll rule out central causes versus other causes of underlying infection: Syncopal episode: Unsure cause. Routine EEG is negative for seizure or discharge Rhabdomyolysis due to #1 Tremor and it's reported the patient has essential tremor but on examination I felt possibly he has Parkinson's Mood disorder and he is on Depakote Polypharmacy Plan: I spoke with the ID team and will pursue well with lumbar puncture. ID at notified me that they will place him on empiric antibiotic as well as antiviral. I discontinued Sinemet because of his confusion and we can readdress it was the patient is more awake to see if that helps with the tremors are not. Recommend holding off Topamax Patient is resumed on his home medication of primidone 50 mg 1 tablet 3 times a day for his history of reported essential tremor. But if improvement in tremor with Sinemet then will discontinue Primidone. Consulted psychiatry consultation since patient is on Depakote and Depakote and can cause tremor and patient needs modification of his medication as a result. We'll defer the rest of the medical measure the primary team The plan was discussed with the patient's primary attending and ID team. Time with Patient: Less than 30
--- NOTE | 2022-11-07 14:17 | P.CN ---
Psychiatric Consult - . Consult date: 11/07/22 Consult:: 11/07/22 13:16 IDENTIFYING DATA: This patient is a 72-year-old female, currently and lives with his , they have 2 daughters. REASON FOR REFERRAL: Psychiatry was consulted for being currently on Depakote and has a tremor. HISTORY OF PRESENT ILLNESS: The patient presented to the hospital initially on 11/04 via EMS. Patient was admitted medically for a fall, altered mental status and AK INR also rhabdomyolysis. Patient apparently was called for a wellness check by his neighbor and was found down in his room. Patient was altered however we do not know his original baseline. Patient's urine toxin was positiv e for barbiturates. Patient has been followed by neurology. Patient was seen today at the bedside and was laying in bed, with his eyes closed sleeping. Patient's sister was also in the room and agreeable to speak to technical writer. She names that she has been sitting with him for the past several days. She states that she is not sure what occurred prior to him coming into the hospital. She states that they have had a distant relationship. She claims that she was having visual hallucinations when he first came in the hospital apparently "seeing cockroaches" however he did improve mildly however today he is more obtunded. She claims that his is in a jail with a broken back and cannot help. [employer] Consultant attempted to see/examine patient however patient had his eyes closed and only responded to his name however was mumbling. He did not follow any commands. He did not answer any questions The rest of the social history was given by patient's sister PAST PSYCHIATRIC HISTORY: Patient has a a history of depression. Patient is currently on Depakote Ativan and also Seroquel.[Patient denies any previous psychiatric hospitalizations][Patient denies any psychiatric outpatient follow- up] According to sister patient apparently attempted suicide 3 times in the past. Past Medical History: Unable to Obtain History of Any Multi-Drug Resistant Organisms: Unobtainable Past Surgical History: Unable to Obtain Past Psychological History: Unable to Obtain Smoking Status: Unknown if ever smoked Past Alcohol Use History: Unable to Obtain Past Drug Use History: Unable to Obtain ALLERGIES: as per EMR. CHEMICAL DEPENDENCY HISTORY: as per HPI. FAMILY PSYCHIATRIC/SUBSTANCE USE HISTORY:[denie] SOCIAL HISTORY: Patient was born and raised in [facility]. Patient then moved to the [place] in [place]. 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 Patient did not have any legal history. He has 2 daughters, a also is . MENTAL STATUS EXAM: General Appearance: Patient appears to be thin, tall, has a montiel, eyes closed. Wearing a hospital gown. Balding. Behavior:[Patient is calmly lying in bed without any agitated behavior] Has his eyes closed. Speech: Patient's speech Spontaneous, mumbling, incoherent. Mood/Affect:Unable to assess Suicidality/Homicidality: Unable to assess Perceptions:Unable to assess Though content/process:Unable to assess Memory and concentration:Unable to assess Judgment and insight:Unable to assess IMPRESSIONS: Delirium, etiology unknown History of depression, possible bipolar disorder PLAN: -At this time patient DOES NOT meet criteria for inpatient psychiatric admission. -Delirium precautions recommended with patient including - avoiding use of narcotics and FURNACE CARETAKER sedatives, limit anticholinergic medications when possible, frequent re-orientation, minimize use of restraints, open window shades during the day and close them at night -Would recommend the following medication changes/additions: will hold depakote and seroquel at this time. check ammonia level. -Communicated plan to patient's nurse -Will continue to follow along -appreciate neurology recs -Please contact with any questions. 11/07/22 14:11
[2022-11-07] MEDS: VANCOMYCIN 1,250 MG in SODIUM CHLORIDE 0.9% 250 ML IVPB SCH (15:05)
[2022-11-07] MEDS: ACYCLOVIR SODIUM 650 MG in SODIUM CHLORIDE 0.9% 100 ML IVPB SCH ×2 (15:21→21:28)
--- NOTE | 2022-11-07 16:28 | CT ---
EXAMINATION TYPE: CT abdomen pelvis w con CT DLP: 1407.9 mGycm, Automated exposure control for dose reduction was used. DATE OF EXAM: 11/07/2022 4:03 PM COMPARISON: None CLINICAL INDICATION:Male, 72 years old with history of Fever, abdominal distension; Fever and abdomin al distention. TECHNIQUE: Axial CT of the abdomen and pelvis. Sagittal and coronal reformats were created on a [employer] workstation. Contrast used:100ml mL of Isovue 300 with IV Contrast, Oral contrast used: without Oral Contrast FINDINGS: LOWER CHEST: Unremarkable ABDOMEN LIVER: Unremarkable GALLBLADDER AND BILE DUCTS: The gallbladder is somewhat distended PANCREAS: Unremarkable. SPLEEN: Unremarkable. ADRENAL GLANDS: Unremarkable. KIDNEYS AND URETERS: No evidence of hydronephrosis or renal calculus. The ureters are unremarkable. Simple appearing renal cysts bilaterally. PELVIS BLADDER: Unremarkable REPRODUCTIVE: Unremarkable. ABDOMEN & PELVIS STOMACH AND BOWEL: No evidence of bowel obstruction. Large stool burden throughout the colon. Appendi x is normal. Frontal rectal wall thickening up to 10 mm. PERITONEUM/RETROPERITONEUM: No evidence of pneumoperitoneum or free fluid. VASCULATURE: No evidence of aortic aneurysm. Mild atherosclerosis of the arterial vasculature. MUSCULOSKELETAL: No acute osseous abnormalities LYMPH NODES: No gross evidence for lymphadenopathy. SOFT TISSUE/ABDOMINAL WALL: Fat-containing umbilical hernia. Left inguinal hernia containing loop of colon. IMPRESSION: 1. Circumferential rectal wall thickening correlate for proctitis. No additional finding within the abdomen or pelvis to explain the patient's symptoms. 2. Left inguinal hernia containing loop of sigmoid colon. No evidence for wall thickening suggests s trangulation. 3. Large stool burden throughout the colon.
[2022-11-07] MEDS: ACETAMINOPHEN IV (For NPO) 1,000 MG in EMPTY BAG 1 BAG IVPB PRN (16:48)
--- NOTE | 2022-11-07 18:49 | XR ---
EXAMINATION TYPE: XR chest 1V DATE OF EXAM: 11/07/2022 COMPARISON: 11/04/2022 HISTORY: 72-year-old male with fever TECHNIQUE: Single frontal view of the chest is obtained. FINDINGS: Low lung volumes. Heart size accentuated, likely upper limits of normal. Rightward patient rotation a lters a normal cardiac mediastinal contours. There is patchy retrocardiac/left basilar opacity. No pl eural effusion. IMPRESSION: Hypoventilatory changes. Rotated exam. Patchy retrocardiac atelectasis versus early infi ltrate.
[2022-11-07] MEDS: LORazepam 0.5 MG TAB PO SCH (21:20)
[2022-11-07] MEDS ORDERED: FUROSEMIDE 10 MG/ML 2 ML VIAL IV ONE (22:13)
--- NOTE | 2022-11-07 22:18 | P.CONS ---
History of Present Illness - Reason for Consult Consult date: 11/07/22 Fever, diarrhea Requesting physician: Princess Shrestha - Chief Complaint Mental status changes and weakness x few days - History of Present Illness Patient is a 72-year-old male with a past medical history significant for hypertension hyperlipidemia was brought into the ER on 11/04/2022 by EMS after apparently neighbor was concerned because he has not seen him over the and call for well check patient was found to be on the floor alert and oriented x1 and subsequently was brought into the ER on presentation to the hospital patient was afebrile initially however the patient subsequently has been running a fever with initial fever on 11/05/2022 of 100.8 degrees following right he did have fever 100.4 yesterday and fever 100 degrees Fahrenheit this morning patient remains to be lethargic and unresponsive as per the sister at the bedside no clear history of any nausea or vomiting there was 1 history of possible diarrhea on presentation not confirmed patient is hemodynamically stable and is breathing comfortably on room air most information has been obtained from the chart and talking nursing staff work-up so far including patient did have elevated white count 4.4 admission that is trending down he did have a normal kidney function CK was elevated liver enzymes are normal Protos was mildly elevated 0.41 urine has been negative urine testing was positive for barbiturates COVID testing was negative patient did have a chest x-ray no acute pulmonary process he did have a 2 CTs and MRI did not show any acute findings consult infectious disease for his fever after the patient has been hospitalized for 3 days Review of Systems Positive points has been mentioned in HPI complete review could not be obtained because of his underlying mental status Past Medical History Past Medical History: Unable to Obtain Additional Past Medical History / Comment(s): Prostate Cancer, essential tremors, History of Any Multi-Drug Resistant Organisms: Unobtainable Past Surgical History: Unable to Obtain Past Psychological History: Unable to Obtain Smoking Status: Unknown if ever smoked Past Alcohol Use History: Unable to Obtain Past Drug Use History: Unable to Obtain Medications and Allergies Home Medications Medication Instructions Recorded Confirmed Type Albuterol Inhaler [Ventolin Hfa 1 puff INHALATION RT-Q4H PRN 11/04/22 11/04/22 History Inhaler] Budesonide/Formoterol Fumarate 2 puff INHALATION RT-BID 11/04/22 11/04/22 History [Symbicort 160-4.5 Mcg Inhaler] LORazepam [Ativan] 0.5 mg PO HS 11/04/22 11/04/22 History Montelukast [Singulair] 10 mg PO DAILY 11/04/22 11/04/22 History Primidone [Mysoline] 50 mg PO TID 11/04/22 11/04/22 History Simvastatin [Zocor] 40 mg PO DAILY 11/04/22 11/04/22 History amLODIPine [Norvasc] 10 mg PO DAILY 11/04/22 11/04/22 History Cyanocobalamin [Vitamin B-12 1,000 mcg IM DAILY 2 Days #2 each 11/14/22 Rx Injection] Cyanocobalamin [Vitamin B-12] 1,000 mcg PO DAILY 30 Days #30 tab 11/14/22 Rx Docusate [Colace] 100 mg PO BID cap 11/14/22 Rx HYDROcodone/APAP 5-325MG [Wiley 1 tab PO Q12HR PRN 3 Days #6 tab 11/14/22 Rx 5-325] Metoprolol Tartrate [Lopressor] 25 mg PO BID tab 11/14/22 Rx QUEtiapine [SEROquel] 25 mg PO BID PRN tab 11/14/22 Rx Doxycycline [Vibramycin] 100 mg PO BID 5 Days #10 capsule 11/29/22 Rx Moxifloxacin HCl [Avelox] 400 mg PO DAILY 5 Days #5 tab 11/29/22 Rx Allergies Allergy/AdvReac Type Severity Reaction Status Date / Time hops Allergy Rash/Hives Verified 11/04/22 17:29 mold AdvReac Rash/Hives Verified 11/04/22 17:29 Physical Exam Vitals: Vital Signs Temp Pulse Resp BP BP Pulse Ox 11/07/22 08:27 94 L 11/07/22 08:00 98.9 F 101 H 18 169/92 96 11/07/22 04:00 100 F H 91 20 137/83 93 L 11/07/22 02:00 82 22 11/07/22 00:00 99.5 F 82 22 113/73 92 L 11/06/22 20:00 100.4 F H 83 20 151/81 95 11/06/22 16:00 99.7 F H 94 18 151/80 94 L 11/06/22 14:00 81 18 05/24/23 11:56 81 18 130/75 94 L Intake and Output 11/06/22 11/07/22 11/07/22 22:59 06:59 14:59 Intake Total 0 110 Output Total 250 Balance -250 110 Intake: Oral 0 110 Output: Urine 250 Other: Voiding Method Diaper Diaper Diaper External Catheter External Catheter External Catheter # Bowel Movements 1 1 GENERAL DESCRIPTION: Elderly male lying in bed, no distress. No tachypnea or accessory muscle of respiration use. HEENT: Shows Pallor , no scleral icterus. Oral mucous membrane is dry. No pharyngeal erythema or thrush NECK: Trachea central, no thyromegaly. LUNGS: Unlabored breathing. Decreased breath sounds at the base HEART: S1, S2, regular rate and rhythm. No loud murmur ABDOMEN: Soft, mild distention and left-sided tenderness EXTREMITIES: No edema of feet. SKIN: No rash, no masses palpable. NEUROLOGICAL: The patient is lethargic orientation could not be determined Results CBC & Chem 7: 11/27/22 07:54 11/29/22 07:06 Labs: Abnormal Lab Results - Last 24 Hours (Table) 11/06/22 11/07/22 11/07/22 Range/Units 23:00 08:41 08:41 WBC 11.7 H (3.8-10.6) k/uL RBC 4.11 L (4.30-5.90) m/uL Neutrophils # 9.3 H (1.3-7.7) k/uL Monocytes # 1.1 H (0-1.0) k/uL Carbon Dioxide 21 L (22-30) mmol/L BUN 21 H (9-20) mg/dL Glucose 116 H (74-99) mg/dL Procalcitonin 0.41 H (0.02-0.09) ng/mL Assessment and Plan (1) Fever Status: Acute Code(s): R50.9 - FEVER, UNSPECIFIED SNOMED Code(s): 889580850 Plan: 1patient with fever elevated white count tachycardia meeting criteria for SIRS./Sepsis in this patient presenting to the hospital with decreased level of responsiveness and fall source possibly abdominal and the patient was noted to have significant abdominal distention however the patient also have mental status changes and neck rigidity underlying AIRDROP SYSTEMS TECHNICIAN infection/encephalitis not ready excluded 2-we will obtain a CT of abdominal pelvis with IV contrast we cannot use oral contrast because of his mental status IV contrast was cleared with nephrology 3-obtain anesthesia consult for LP send CSF for cell count differential glucose protein HSV DNA by PCR 4-patient is covered with cefepime and vancomycin we will add acyclovir while waiting for the work-up to be completed Sister at the bedside question concern answered We will follow on clinical condition and cultures to further adjust medication if needed Thank you for this consultation we will follow the patient along with you Time with Patient: Greater than 30
[2022-11-08] MEDS: ACETAMINOPHEN IV (For NPO) 1,000 MG in EMPTY BAG 1 BAG IVPB PRN (00:46)
[2022-11-08 04:04] LABS: Basophils # (A) 0.1 k/uL (0-0.2); Basophils % (A) 1 %; Eosinophils % (A) 0 %; HCT 36.2 % (39.0-53.0); HGB 12.2 gm/dL (13.0-17.5); Lymphocytes % (A) 9 %; MCH 33.3 pg (25.0-35.0); MCHC 33.6 g/dL (31.0-37.0); Mean Platelet Volume 8.1; Monocytes # (A) 0.8 k/uL (0-1.0); Monocytes % (A) 7 %; Neutrophils # (A) 9.1 k/uL (1.3-7.7); Neutrophils % (A) 81 %; Platelet Count 260 k/uL (150-450); RBC 3.66 m/uL (4.30-5.90); RDW 13.3 % (11.5-15.5); WBC 11.2 k/uL (3.8-10.6)
[2022-11-08 04:36] LABS: Calcium 8.2 mg/dL (8.4-10.2); Potassium 3.3 mmol/L (3.5-5.1)
[2022-11-08] MEDS: VANCOMYCIN 1,250 MG in SODIUM CHLORIDE 0.9% 250 ML IVPB SCH (05:07)
[2022-11-08] MEDS: ACYCLOVIR SODIUM 650 MG in SODIUM CHLORIDE 0.9% 100 ML IVPB SCH ×2 (05:11→14:27)
[2022-11-08] MEDS: SYMBICORT 160-4.5 MCG INHALER INHALATION SCH ×2 (08:07→21:17)
--- NOTE | 2022-11-08 09:03 | P.GSCN ---
History of Present Illness Consult date: 11/08/22 Reason for Consult: Incarcerated left inguinal hernia History of present illness: This a 72-year-old male who was admitted to the hospital after being found down at home. She was apparently down for 1 day. He's being treated for rhabdomyolysis. Patient awake CAT scan of the abdomen yesterday. CAT scan shows evidence of a incarcerated left inguinal hernia with sigmoid colon. There is no evidence of bowel obstruction or strangulation on the CAT scan. Clinically the patient does not complain of significant pain at the hernia site. He denies any nausea or vomiting today. Past Medical History Past Medical History: Unable to Obtain Additional Past Medical History / Comment(s): Prostate Cancer, essential tremors, History of Any Multi-Drug Resistant Organisms: Unobtainable Past Surgical History: Unable to Obtain Past Psychological History: Unable to Obtain Smoking Status: Unknown if ever smoked Past Alcohol Use History: Unable to Obtain Past Drug Use History: Unable to Obtain Medications and Allergies Home Medications Medication Instructions Recorded Confirmed Type Albuterol Inhaler [Ventolin Hfa 1 puff INHALATION RT-Q4H PRN 11/04/22 11/04/22 History Inhaler] Budesonide/Formoterol Fumarate 2 puff INHALATION RT-BID 11/04/22 11/04/22 History [Symbicort 160-4.5 Mcg Inhaler] Divalproex Sodium 250 mg PO BID 11/04/22 11/04/22 History LORazepam [Ativan] 0.5 mg PO HS 11/04/22 11/04/22 History Metoprolol Tartrate [Lopressor] 25 mg PO DAILY 11/04/22 11/04/22 History Montelukast [Singulair] 10 mg PO DAILY 11/04/22 11/04/22 History Primidone [Mysoline] 50 mg PO TID 11/04/22 11/04/22 History QUEtiapine [SEROquel] 200 mg PO DAILY 11/04/22 11/04/22 History Simvastatin [Zocor] 40 mg PO DAILY 11/04/22 11/04/22 History Topiramate [Topamax] See Taper PO DIRECTED 11/04/22 11/05/22 History amLODIPine [Norvasc] 10 mg PO DAILY 11/04/22 11/04/22 History Allergies Allergy/AdvReac Type Severity Reaction Status Date / Time hops Allergy Rash/Hives Verified 11/04/22 17:29 mold AdvReac Rash/Hives Verified 11/04/22 17:29 Surgical - Exam Vital Signs Temp Pulse Resp BP Pulse Ox 97.0 F L 87 18 175/116 97 11/04/22 15:45 11/04/22 15:45 11/04/22 15:45 11/04/22 15:45 11/04/22 15:45 - General well nourished, no distress - Eyes PERRL - ENT normal pinna - Neck no masses - Respiratory normal expansion - Cardiovascular Rhythm: regular - Abdomen Incarcerated left inguinal hernia Abdomen: soft, non tender Results - Labs 11/08/22 03:53 11/08/22 03:53 Abnormal Lab Results - Last 24 Hours (Table) 11/07/22 11/08/22 11/08/22 Range/Units 08:41 03:53 03:53 WBC 11.2 H (3.8-10.6) k/uL RBC 3.66 L (4.30-5.90) m/uL Hgb 12.2 L (13.0-17.5) gm/dL Hct 36.2 L (39.0-53.0) % Neutrophils # 9.1 H (1.3-7.7) k/uL Potassium 3.3 L (3.5-5.1) mmol/L Carbon Dioxide 21 L (22-30) mmol/L BUN 21 H 23 H (9-20) mg/dL Glucose 116 H 100 H (74-99) mg/dL Calcium 8.2 L (8.4-10.2) mg/dL Diabetes panel 11/07/22 11/08/22 Range/Units 08:41 03:53 Sodium 138 139 (137-145) mmol/L Potassium 3.6 3.3 L (3.5-5.1) mmol/L Chloride 104 106 (98-107) mmol/L Carbon Dioxide 21 L 22 (22-30) mmol/L BUN 21 H 23 H (9-20) mg/dL Creatinine 1.08 1.13 (0.66-1.25) mg/dL Glucose 116 H 100 H (74-99) mg/dL Calcium 8.5 8.2 L (8.4-10.2) mg/dL Calcium panel 11/07/22 11/08/22 Range/Units 08:41 03:53 Calcium 8.5 8.2 L (8.4-10.2) mg/dL Pituitary panel 11/07/22 11/08/22 Range/Units 08:41 03:53 Sodium 138 139 (137-145) mmol/L Potassium 3.6 3.3 L (3.5-5.1) mmol/L Chloride 104 106 (98-107) mmol/L Carbon Dioxide 21 L 22 (22-30) mmol/L BUN 21 H 23 H (9-20) mg/dL Creatinine 1.08 1.13 (0.66-1.25) mg/dL Glucose 116 H 100 H (74-99) mg/dL Calcium 8.5 8.2 L (8.4-10.2) mg/dL Adrenal panel 11/07/22 11/08/22 Range/Units 08:41 03:53 Sodium 138 139 (137-145) mmol/L Potassium 3.6 3.3 L (3.5-5.1) mmol/L Chloride 104 106 (98-107) mmol/L Carbon Dioxide 21 L 22 (22-30) mmol/L BUN 21 H 23 H (9-20) mg/dL Creatinine 1.08 1.13 (0.66-1.25) mg/dL Glucose 116 H 100 H (74-99) mg/dL Calcium 8.5 8.2 L (8.4-10.2) mg/dL - Imaging CT scan - abdomen: report reviewed (Sigmoid colon in left inguinal hernia) Assessment and Plan Assessment: Incarcerated left inguinal hernia. Patient should have this repaired when he is stable. We will plan for surgery on Friday.
[2022-11-08] MEDS: CEFEPIME 2 GM in SODIUM CHLORIDE 0.9% 100 ML IVPB SCH ×2 (09:45→21:52)
[2022-11-08] MEDS: polyethylene glycoL 3350 17 GM POWD.PACK PO SCH (10:06)
[2022-11-08] MEDS: DOCUSATE 100 MG CAP PO SCH ×3 (10:06→21:53)
--- NOTE | 2022-11-08 10:14 | P.PN ---
Subjective Patient is seen for follow-up for acute kidney injury and mild rhabdomyolysis. No complaints today Patient has an external catheter Serum creatinine down to 1.1. CK was down to 1164 Maintained on IV fluids at 75 mL an hour Abdominal CT done yesterday shows incarcerated left inguinal hernia with sigmoid colon. Currently asymptomatic. Being followed by surgery. Objective - Vital Signs Vital signs: Vital Signs Temp 98.0 F 11/08/22 09:01 Pulse 98 11/08/22 09:01 Resp 19 11/08/22 09:01 BP 154/85 11/08/22 09:01 Pulse Ox 95 11/08/22 09:01 FiO2 Intake & Output 11/07/22 11/08/22 11/08/22 18:59 06:59 18:59 Intake Total 110 Output Total 550 1100 Balance -440 -1100 Weight 65.771 kg Intake: Oral 110 Output: Urine 550 1100 Other: Voiding Method Diaper Diaper Diaper External Catheter External Catheter External Catheter # Voids 1 # Bowel Movements 1 1 - Exam Patient is awake, comfortable, in no acute distress Examination of the heart S1 and S2 Examination of the lungs bilateral breath sounds are heard Abdomen is soft nontender Examination of lower extremities shows no evidence of edema BODYWORK THERAPIST exam grossly intact - Labs CBC & Chem 7: 11/08/22 03:53 11/08/22 03:53 Labs: Abnormal Lab Results - Last 24 Hours (Table) 11/08/22 11/08/22 Range/Units 03:53 03:53 WBC 11.2 H (3.8-10.6) k/uL RBC 3.66 L (4.30-5.90) m/uL Hgb 12.2 L (13.0-17.5) gm/dL Hct 36.2 L (39.0-53.0) % Neutrophils # 9.1 H (1.3-7.7) k/uL Potassium 3.3 L (3.5-5.1) mmol/L BUN 23 H (9-20) mg/dL Glucose 100 H (74-99) mg/dL Calcium 8.2 L (8.4-10.2) mg/dL Assessment and Plan Assessment: 1. Acute kidney injury, associated with volume depletion currently maintained on IV fluids. Mild component of rhabdo myolysis. No obstructive uropathy on ultrasound. 2. Rhabdo my lysis status post fall. Patient is currently off of statins 3. Mild gap metabolic acidosis maintained on IV bicarb etiology possibly rel ated to use of Topamax as well as component of acute kidney injury. Possible starvation ketosis as well given the positive ketones in the urine 4. History of fall 5. History of hypertension maintained on Norvasc Lopressor prior to admission 6. Incarcerated left inguinal hernia, currently asymptomatic, being followed by surgery. Plan: Continue to encourage increased oral intake Continue with IV fluids Repeat labs in a.m.
[2022-11-08] MEDS: METOPROLOL TARTRATE 25 MG TAB PO SCH (10:21)
[2022-11-08] MEDS: amLODIPine 10 MG TAB PO SCH (10:21)
[2022-11-08] MEDS: MONTELUKAST 10 MG TAB PO SCH (10:21)
[2022-11-08] MEDS: PRIMIDONE 50 MG TAB PO SCH ×3 (10:21→21:53)
--- NOTE | 2022-11-08 11:08 | P.PCN ---
Date of Procedure: 11/08/22 Procedure(s) Performed: Preoperative diagnosis: 1-acute encephalitis. 2-altered mental statins Post operative diagnoses: Same as preop diagnosis Procedure= lumbar puncture Anesthesia= local infiltration with lidocaine 1% 2 mL. Condition: stable Complication: none. Description of the procedure procedure risk and benefits discussed with the family, consent signed. Patient in room 379 placed in sitting position , back prepped with chlorhexidine 3 times been local infiltration of the skin and subcutaneous tissue with lidocaine 1% 2 mL for skin and subcu interstitial frustrations at L4 5 levels then 22-gauge Quincke-type needle advanced slowly at L4- 5 interlaminar space there was positive cerebrospinal fluid which was clear, no heme, no paresthesia ,total of 8 ML of clear cerebrospinal fluid collected in 4 different tubes 2 mL in each, then the needle removed and a Band-Aid applied and patient tolerated the procedure well without any complications.
--- NOTE | 2022-11-08 11:58 | P.PN ---
Subjective Progress Note Date: 11/08/22 Patient continues to be spike and fevers and the T-max of 102.2 that was at midnight. Looks somewhat lethargic. Objective - Vital Signs Vital signs: Vital Signs Temp 98.5 F 11/08/22 11:38 Pulse 88 11/08/22 11:38 Resp 20 11/08/22 11:38 BP 154/53 11/08/22 11:38 Pulse Ox 95 11/08/22 11:38 FiO2 Intake & Output 11/07/22 11/08/22 11/08/22 18:59 06:59 18:59 Intake Total 110 Output Total 550 1100 Balance -440 -1100 Weight 65.771 kg Intake: Oral 110 Output: Urine 550 1100 Other: Voiding Method Diaper Diaper Diaper External Catheter External Catheter External Catheter # Voids 1 # Bowel Movements 1 1 - Exam Neuro: Limited because of his condition. He is appears mildly drowsy but is awake of a lot of voice. He'll open his eyes and that is oriented to self as well as place. is able to identify objects such as pen and watch. He'll follow simple commands. Language is very limited. No neglect. Briefly opens his eyes. No facial weakness. Severe hypophonia. Motor strength is limited because of his condition but briefly lifts up his upper extremities above gravity and wiggle his toes. Some of the workup during his hospital visit consist of: febrile with a T-max of 102.2 CK levels 2741--> 1164. TSH is 1.410. Rectal soft folate is 531 Vitamin B12 is 365 His sodium, calcium, AST ALT are within normal limits. Localizes 111. BUN is 35 and creatinine is 1.29 Urine drug screen is positive for barbiturates. CT of the head is reported as age-related atrophy. No acute intracranial process. Follow-up MRI can be performed as clinically indicated. PT CT of the head is reported as no acute intracranial hemorrhage or midline shift. There is mild to moderate diffuse cerebral atrophy and chronic small vessel ischemic changes redemonstrated. No significant change from recent prior CT. Routine EEG is abnormal. The background slowing suggestive of mild encephalopathy. Otherwise there is no focal slowing, epileptiform discharges or seizure in the EEG. Repeat EEG is abnormal. Tobacco slowing suggestive of moderate to severe encephalopathy. Otherwise there is no focal slowing, epileptiform discharges or seizure on the EEG. MR the brain with and without is reported as some age-related atrophy. No acute intracranial process. CT abdomen pelvis is reported as stroke conference old rectal wall thickening correlate for proctitis large stool burden throughout the colon. - Labs CBC & Chem 7: 11/08/22 03:53 11/08/22 03:53 Labs: Abnormal Lab Results - Last 24 Hours (Table) 11/08/22 11/08/22 Range/Units 03:53 03:53 WBC 11.2 H (3.8-10.6) k/uL RBC 3.66 L (4.30-5.90) m/uL Hgb 12.2 L (13.0-17.5) gm/dL Hct 36.2 L (39.0-53.0) % Neutrophils # 9.1 H (1.3-7.7) k/uL Potassium 3.3 L (3.5-5.1) mmol/L BUN 23 H (9-20) mg/dL Glucose 100 H (74-99) mg/dL Calcium 8.2 L (8.4-10.2) mg/dL Microbiology - Last 24 Hours (Table) 11/08/22 05:10 Stool Culture - Preliminary Stool 11/06/22 21:11 Blood Culture - Preliminary Blood 11/06/22 21:05 Blood Culture - Preliminary Blood Assessment and Plan Assessment: Is seems the patient was found down at home on the floor. Altered mental status; encephalopathy of unknown etiology at this time. Patient has a fever unknown exact cause but on the CT of the abdomen and pelvis he has proctitis we'll with large stool in the colon. Cannot rule out central cause. Syncopal episode: Unsure cause. Routine EEG is negative for seizure or discharge Rhabdomyolysis due to #1 Tremor and it's reported the patient has essential tremor but on examination I felt possibly he has Parkinson's Mood disorder and he is on Depakote Polypharmacy Plan: I spoke with the ID team and will pursue well with lumbar puncture. ID placed him on empiric antibiotic as well as antiviral. I discontinued Sinemet because of his confusion and we can readdress it was the patient is more awake to see if that helps with the tremors are not. Recommend holding off Topamax Patient is resumed on his home medication of primidone 50 mg 1 tablet 3 times a day for his history of reported essential tremor. But if improvement in tremor with Sinemet then will discontinue Primidone. Consulted psychiatry consultation since patient is on Depakote and Depakote and can cause tremor and patient needs modification of his medication as a result. We'll defer the rest of the medical measure the primary team Will continue to follow. Time with Patient: Less than 30
[2022-11-08] MEDS ORDERED: POTASSIUM CHLORIDE 20 MEQ in WATER FOR INJECTION 1 100ML.BAG IVPB STA (12:37)
[2022-11-08] MEDS: SODIUM CHLORIDE 0.9% 1,000 ML IV SCH ×2 (13:02→23:33)
[2022-11-08 13:54] LABS: Glucose,CSF 67 mg/dL (40-70); Total Protein,CSF 56 mg/dL (12-60)
[2022-11-08] MEDS ORDERED: QUEtiapine 25 MG TAB PO PRN (13:55)
--- NOTE | 2022-11-08 13:58 | P.PN ---
Progress Note - Text Progress Note Date: 11/08/22 Interval History: Patient was seen today for psychiatric follow-up regarding patient's delirium/ encephalopathy. Patient was seen today laying in bed and had his daughter by his side. Patient was sleeping however was awoken by development writer. He appeared to be mildly more awake today during conversation. He answered more questions compared to yesterday. He knows that he is in "some kind of hospital" and knows his full name. He did state that he is in some pain however was fairly vague on where it is. He did not have any other complaints at this time. He is not able to answer questions about his appetite and also his sleep. At this time patient denies any suicidal or homical ideations, intent or plan. Patient admits to some visual hallucinations however is not experiencing them at this time. Patient denies any side effects from the medications and has been compliant with meds. Mental Status Exam: General Appearance: Patient appears to be thin, tall, has a montiel, more awake today. Wearing a hospital gown. Balding. Behavior:Patient is calmly lying in bed without any agitated behavior, more awake today. Speech: Patient's speech Spontaneous, mumbling, improving mildly Mood/Affect: "Okay" and has a constricted affect Suicidality/Homicidality: Denies Perceptions: Admits to some visual hallucinations, no auditory hallucinations. Though content/process: [place], no delusions. Memory and concentration: He knows his full name, does not know exactly where he is or today's date. Improving concentration. Judgment and insight: Improving mildly IMPRESSIONS: Delirium, etiology unknown History of depression, possible bipolar disorder PLAN: -At this time patient DOES NOT meet criteria for inpatient psychiatric admission. -Delirium precautions recommended with patient including - avoiding use of narcotics and CYCLE LIAISON sedatives, limit anticholinergic medications when possible, frequent re-orientation, minimize use of restraints, open window shades during the day and close them at night -Would recommend the following medication changes/additions: will hold depakote and restart seroquel 25 bid prn for insomnia or psychosis. ammonia level < 9. -Communicated plan to patient's nurse -Will continue to follow along only if needed. -appreciate neurology recs -Please contact with any questions.
[2022-11-08 14:13] LABS: Appearance,CSF Clear; CSF Tube Number 2
[2022-11-08 14:14] LABS: Nucleated Cells, CSF 1 u/L (0-5); Red Blood Cell,CSF 0 u/L (0-10)
[2022-11-08] MEDS ORDERED: ACETAMINOPHEN IV (For NPO) 1,000 MG in EMPTY BAG 1 BAG IVPB STA (15:54)
[2022-11-08] MEDS: metroNIDAZOLE-NS PMX 500 MG in SALINE 1 100ML.BAG IVPB SCH ×2 (16:05→23:32)
[2022-11-08] MEDS: ACETAMINOPHEN TAB 500 MG TAB PO PRN (18:13)
[2022-11-08] MEDS: LORazepam 0.5 MG TAB PO SCH (21:53)
--- NOTE | 2022-11-08 22:27 | P.PN ---
Subjective Progress Note Date: 11/08/22 Principal diagnosis: Fever Patient is a 72-year-old male presenting to the hospital with mental status changes patient was found to be on the floor and this patient has been running a fever with a CT abdominal pelvis did shows evidence of severe stool burden and initial concern for possible strangulated hernia that has been rule out patient also have LP completed which was normal On today's evaluation that is 11/08/2022 the patient overall feels better and has improved he did have a low-grade fever of 99.7 this morning patient is more awake and alert and he is breathing comfortably on room air denies any chest pain or shortness with occasional cough no vomiting has been reported Objective - Vital Signs Vital signs: Vital Signs Temp 98.0 F 11/08/22 09:01 Pulse 98 11/08/22 09:01 Resp 19 11/08/22 09:01 BP 154/85 11/08/22 09:01 Pulse Ox 95 11/08/22 09:01 FiO2 Intake & Output 11/07/22 11/08/22 11/08/22 18:59 06:59 18:59 Intake Total 110 Output Total 550 1100 Balance -440 -1100 Weight 65.771 kg Intake: Oral 110 Output: Urine 550 1100 Other: Voiding Method Diaper Diaper Diaper External Catheter External Catheter External Catheter # Voids 1 # Bowel Movements 1 1 - Exam GENERAL DESCRIPTION: Elderly male lying in bed in no distress RESPIRATORY SYSTEM: Unlabored breathing , decreased breath sounds at bases HEART: S1 S2 regular rate and rhythm ,no loud murmurs ABDOMEN: Soft , no tenderness EXTREMITIES: No edema feet - Labs CBC & Chem 7: 11/08/22 03:53 11/08/22 03:53 Labs: Abnormal Lab Results - Last 24 Hours (Table) 11/08/22 11/08/22 Range/Units 03:53 03:53 WBC 11.2 H (3.8-10.6) k/uL RBC 3.66 L (4.30-5.90) m/uL Hgb 12.2 L (13.0-17.5) gm/dL Hct 36.2 L (39.0-53.0) % Neutrophils # 9.1 H (1.3-7.7) k/uL Potassium 3.3 L (3.5-5.1) mmol/L BUN 23 H (9-20) mg/dL Glucose 100 H (74-99) mg/dL Calcium 8.2 L (8.4-10.2) mg/dL Microbiology - Last 24 Hours (Table) 11/08/22 05:10 Stool Culture - Preliminary Stool 11/06/22 21:11 Blood Culture - Preliminary Blood 11/06/22 21:05 Blood Culture - Preliminary Blood Assessment and Plan (1) Fever Current Visit: Yes Status: Acute Code(s): R50.9 - FEVER, UNSPECIFIED SNOMED Code(s): 105070819 Plan: 1patient with fever elevated white count tachycardia meeting criteria for SIRS./Sepsis in this patient presenting to the hospital with decreased level of responsiveness and fall source possibly abdominal and the patient was noted to have significant abdominal distention however the patient also have mental status changes and neck rigidity underlying GLASS CUTTER HAND infection/encephalitis not ready excluded 2- CT of abdominal pelvis with IV contrast CT did shows circumferential rectal wall thickening correlate for proctitis large stool burden patient LP was normal. 3-We will continue patient on cefepime and Flagyl to cover for GI aerobes and anaerobes discontinue vancomycin and acyclovir. Daughter at the bedside question concern answered Time with Patient: Less than 30
--- NOTE | 2022-11-08 22:31 | P.PN ---
Subjective Progress Note Date: 11/06/22 patient is a 72-year-old gentleman with past medical history significant for hypertension, hyperlipidemia, COPD presented to the ER because of altered mental status. Most of the history has been taken from the EMR. Patient was brought in by EMS after being notified by the patient's neighbor who did a wellness check on the patient as he had not seen him in a day.EMS found the patient lying on the floor, patient currently alert to self. Patient was immediately brought to the ER of [facility]. initial lab work done in the ER showedWBC 12.8, hemoglobin 13.8, platelet count 325, sodium 145, potassium 4.1, chloride 110, BUN 35, creatinine 1.29, CK 2741 Chest x-ray negative for acute pulmonary process CT brain showed age-related atrophy, no acute intracranial process Patient was admitted to internal medicine service 11/06/2022 Patient is currently in the telemetry unit. Extremity continues and nonresponsive. Patient is a lethargic but able to moan and follows simple commands. Rapid response team was called due to unresponsiveness. Patient had CT head done yesterday which showed no acute intracranial hemorrhage or midline shift. There is mild to moderate diffuse cerebral atrophy and chronic small vessel ischemic changes redemonstrated. No significant change from recent prior CT. EEG and MRI was ordered as per neurology recommendations. Patient was also febrile overnight with Tmax 100.8. Currently afebrile. Laboratory data showed WBC 10.8 hemoglobin 13.6 and platelets 262 Sodium 135 potassium 3.3 chloride 97 bicarb is 28, BUN 19 and creatinine 1.05 blood sugar 132 and CPK level trending down to 1164. Bicarb drip has been discontinued. Nephrology and neurology is on board. Current medications reviewed. REVIEW OF SYSTEMS: Review of systems could not be obtained from the patient. PHYSICAL EXAMINATION: GENERAL: The patient is confused about time, mental status is waxing and waning, not in any acute distress. Well developed, well nourished. HEENT: Pupils are round and equally reacting to light. EOMI. No scleral icterus. No conjunctival pallor. Normocephalic, atraumatic. No pharyngeal erythema. No thyromegaly. CARDIOVASCULAR: S1 and S2 present. No murmurs, rubs, or gallops. PULMONARY: Chest is clear to auscultation, no wheezing or crackles. ABDOMEN: Soft, nontender, nondistended, normoactive bowel sounds. No palpable organomegaly. MUSCULOSKELETAL: No joint swelling or deformity. EXTREMITIES: No cyanosis, clubbing, or pedal edema. NEUROLOGICAL: Gross neurological examination did not reveal any focal deficits. Patient is lethargic and somnolent. SKIN: No rashes. Assessment and plan Acute metabolic encephalopathy. fall and Patient was found on the floor. Acute rhabdomyolysis Acute Kidney injury History of mood disorder hypertension Hyperlipidemia COPD Polypharmacy monitor vital signs Monitor CBC and BMP Avoid nephrotoxic agents Patient was on bicarb drip which has been discontinued. MRI and EEG was ordered as per neurology recommendations. Septic work-up with the patient becomes febrile again. Nephrology and neurology is on board. DVT prophylaxis: Heparin subcu Objective - Vital Signs Vital signs: Vital Signs Temp 100.4 F H 11/06/22 20:00 Pulse 83 11/06/22 20:00 Resp 20 11/06/22 20:00 BP 151/81 11/06/22 20:00 Pulse Ox 95 11/06/22 20:00 FiO2 Intake & Output 11/06/22 11/06/22 11/07/22 06:59 18:59 06:59 Intake Total 0 Output Total 900 250 Balance -900 -250 Intake: Oral 0 Output: Urine 900 250 Other: Voiding Method Diaper Diaper Diaper External Catheter External Catheter External Catheter # Bowel Movements 1 1 - Labs CBC & Chem 7: 11/08/22 03:53 11/08/22 03:53 Labs: Abnormal Lab Results - Last 24 Hours (Table) 11/06/22 11/06/22 11/06/22 Range/Units 10:20 10:44 11:36 WBC 10.8 H (3.8-10.6) k/uL RBC 4.07 L (4.30-5.90) m/uL Neutrophils # 8.3 H (1.3-7.7) k/uL Sodium 135 L (137-145) mmol/L Potassium 3.3 L (3.5-5.1) mmol/L Chloride 97 L (98-107) mmol/L Glucose 132 H (74-99) mg/dL POC Glucose (mg/dL) 152 H (70-110) mg/dL Creatine Kinase 1164 H* (55-170) U/L
--- NOTE | 2022-11-08 22:42 | P.PN ---
Subjective Progress Note Date: 11/07/22 patient is a 72-year-old gentleman with past medical history significant for hypertension, hyperlipidemia, COPD presented to the ER because of altered mental status. Most of the history has been taken from the EMR. Patient was brought in by EMS after being notified by the patient's neighbor who did a wellness check on the patient as he had not seen him in a day.EMS found the patient lying on the floor, patient currently alert to self. Patient was immediately brought to the ER of [facility]. initial lab work done in the ER showedWBC 12.8, hemoglobin 13.8, platelet count 325, sodium 145, potassium 4.1, chloride 110, BUN 35, creatinine 1.29, CK 2741 Chest x-ray negative for acute pulmonary process CT brain showed age-related atrophy, no acute intracranial process Patient was admitted to internal medicine service 11/06/2022 Patient is currently in the telemetry unit. Extremity continues and nonresponsive. Patient is a lethargic but able to moan and follows simple commands. Rapid response team was called due to unresponsiveness. Patient had CT head done yesterday which showed no acute intracranial hemorrhage or midline shift. There is mild to moderate diffuse cerebral atrophy and chronic small vessel ischemic changes redemonstrated. No significant change from recent prior CT. EEG and MRI was ordered as per neurology recommendations. Patient was also febrile overnight with Tmax 100.8. Currently afebrile. Laboratory data showed WBC 10.8 hemoglobin 13.6 and platelets 262 Sodium 135 potassium 3.3 chloride 97 bicarb is 28, BUN 19 and creatinine 1.05 blood sugar 132 and CPK level trending down to 1164. Bicarb drip has been discontinued. Nephrology and neurology is on board. 11/07/2022 Patient is currently laying in bed. Able to open his eyes better today. Follows simple commands. Still lethargic and sleepy. Overnight patient was febrile again with Tmax of 100.8. Due to encephalopathy and fever possibly COLLAR STAY FUSER TENDER infection is being considered. Patient was started on broad-spectrum antibiotics. Patient was also noted to have abdominal distention. EEG showed moderate to severe encephalopathic picture. MRI of the brain was done yesterday which showed some age-related atrophy. No acute intracranial process. ID was consulted due to fever and encephalopathy. Laboratory pressure WBC 11.7 hemoglobin 13.5 and platelets 287 Sodium 138 potassium 3.6 chloride 104 bicarb is 21 BUN 21 and creatinine 1.08. Blood sugar is 116 Procalcitonin level is at 0.41. Current medications reviewed. REVIEW OF SYSTEMS: Review of systems could not be obtained from the patient. PHYSICAL EXAMINATION: GENERAL: The patient is confused about time, mental status is waxing and waning, not in any acute distress. Well developed, well nourished. HEENT: Pupils are round and equally reacting to light. EOMI. No scleral icterus. No conjunctival pallor. Normocephalic, atraumatic. No pharyngeal erythema. No thyromegaly. CARDIOVASCULAR: S1 and S2 present. No murmurs, rubs, or gallops. PULMONARY: Chest is clear to auscultation, no wheezing or crackles. ABDOMEN: Soft, nontender, nondistended, normoactive bowel sounds. No palpable organomegaly. MUSCULOSKELETAL: No joint swelling or deformity. EXTREMITIES: No cyanosis, clubbing, or pedal edema. NEUROLOGICAL: Gross neurological examination did not reveal any focal deficits. Patient is lethargic and somnolent. SKIN: No rashes. Assessment and plan Acute metabolic encephalopathy. fall and Patient was found on the floor. Fever. Possible COLLAR STAY FUSER TENDER infection is being considered. Acute rhabdomyolysis. Improving Acute Kidney injury History of mood disorder Hypertension Hyperlipidemia COPD Polypharmacy monitor vital signs Monitor CBC and BMP Avoid nephrotoxic agents Patient was on bicarb drip which has been discontinued. Continue with IV hydration with normal saline. MRI and EEG was was done and reported as above.. Patient will be continued on broad-spectrum antibiotics with vancomycin and cefepime and ID consulted. CT of the abdomen pelvis was ordered. ID, nephrology and neurology is on board. Continue to follow closely. DVT prophylaxis: Heparin subcu Objective - Vital Signs Vital signs: Vital Signs Temp 101.0 F H 11/07/22 14:45 Pulse 95 11/07/22 14:45 Resp 18 11/07/22 14:45 BP 158/78 11/07/22 14:45 Pulse Ox 95 11/07/22 14:45 FiO2 Intake & Output 11/06/22 11/07/22 11/07/22 18:59 06:59 18:59 Intake Total 0 110 Output Total 250 Balance -250 110 Weight 65.771 kg Intake: Oral 0 110 Output: Urine 250 Other: Voiding Method Diaper Diaper Diaper External Catheter External Catheter External Catheter # Bowel Movements 1 1 - Labs CBC & Chem 7: 11/08/22 03:53 11/08/22 03:53 Labs: Abnormal Lab Results - Last 24 Hours (Table) 11/06/22 11/07/22 11/07/22 Range/Units 23:00 08:41 08:41 WBC 11.7 H (3.8-10.6) k/uL RBC 4.11 L (4.30-5.90) m/uL Neutrophils # 9.3 H (1.3-7.7) k/uL Monocytes # 1.1 H (0-1.0) k/uL Carbon Dioxide 21 L (22-30) mmol/L BUN 21 H (9-20) mg/dL Glucose 116 H (74-99) mg/dL Procalcitonin 0.41 H (0.02-0.09) ng/mL
--- NOTE | 2022-11-08 22:49 | P.PN ---
Subjective Progress Note Date: 11/08/22 patient is a 72-year-old gentleman with past medical history significant for hypertension, hyperlipidemia, COPD presented to the ER because of altered mental status. Most of the history has been taken from the EMR. Patient was brought in by EMS after being notified by the patient's neighbor who did a wellness check on the patient as he had not seen him in a day.EMS found the patient lying on the floor, patient currently alert to self. Patient was immediately brought to the ER of [facility]. initial lab work done in the ER showedWBC 12.8, hemoglobin 13.8, platelet count 325, sodium 145, potassium 4.1, chloride 110, BUN 35, creatinine 1.29, CK 2741 Chest x-ray negative for acute pulmonary process CT brain showed age-related atrophy, no acute intracranial process Patient was admitted to internal medicine service 11/06/2022 Patient is currently in the telemetry unit. Extremity continues and nonresponsive. Patient is a lethargic but able to moan and follows simple commands. Rapid response team was called due to unresponsiveness. Patient had CT head done yesterday which showed no acute intracranial hemorrhage or midline shift. There is mild to moderate diffuse cerebral atrophy and chronic small vessel ischemic changes redemonstrated. No significant change from recent prior CT. EEG and MRI was ordered as per neurology recommendations. Patient was also febrile overnight with Tmax 100.8. Currently afebrile. Laboratory data showed WBC 10.8 hemoglobin 13.6 and platelets 262 Sodium 135 potassium 3.3 chloride 97 bicarb is 28, BUN 19 and creatinine 1.05 blood sugar 132 and CPK level trending down to 1164. Bicarb drip has been discontinued. Nephrology and neurology is on board. 11/07/2022 Patient is currently laying in bed. Able to open his eyes better today. Follows simple commands. Still lethargic and sleepy. Overnight patient was febrile again with Tmax of 100.8. Due to encephalopathy and fever possibly DESTINATION SPECIALIST infection is being considered. Patient was started on broad-spectrum antibiotics. Patient was also noted to have abdominal distention. EEG showed moderate to severe encephalopathic picture. MRI of the brain was done yesterday which showed some age-related atrophy. No acute intracranial process. ID was consulted due to fever and encephalopathy. Laboratory pressure WBC 11.7 hemoglobin 13.5 and platelets 287 Sodium 138 potassium 3.6 chloride 104 bicarb is 21 BUN 21 and creatinine 1.08. Blood sugar is 116 Procalcitonin level is at 0.41. 11/08/2022 Patient is more awake and oriented today. Patient was able to communicate with his sister at bedside. Patient did have fever with Tmax of 101.0 yesterday afternoon. Currently on room air. Patient is able to tolerate liquids with one-to-one feeding. Status post LP today. CT of the abdomen pelvis showed circumferential rectal wall thickening correlate for proctitis. No additional finding within the abdomen or pelvis to explain patient's symptoms. Left inguinal hernia containing loops of sigmoid colon. No evidence for wall thickening suggesting strangulation. Large stool burden throughout the colon. Patient did have multiple episodes of diarrhea yesterday. CT was negative. General surgery was consulted for further evaluation of the abnormal CT. Patient was seen by psychiatry and currently Depakote is on hold at continue with Seroquel as needed. Laboratory data showed WBC 11.2 hemoglobin 12.20 platelets 260 sodium 139 potassium 3.3 which is being replaced BUN 20. Creatinine 1.13 and calcium 8.2. Coronavirus PCR not detected. Current medications reviewed. REVIEW OF SYSTEMS: Review of systems could not be obtained from the patient. PHYSICAL EXAMINATION: GENERAL: The patient is awake and alert and oriented x1-2. Not in any acute distress. Well developed, well nourished. HEENT: Pupils are round and equally reacting to light. EOMI. No scleral icterus. No conjunctival pallor. Normocephalic, atraumatic. No pharyngeal erythema. No thyromegaly. CARDIOVASCULAR: S1 and S2 present. No murmurs, rubs, or gallops. PULMONARY: Chest is clear to auscultation, no wheezing or crackles. ABDOMEN: Soft, nontender, nondistended, normoactive bowel sounds. No palpable organomegaly. MUSCULOSKELETAL: No joint swelling or deformity. EXTREMITIES: No cyanosis, clubbing, or pedal edema. NEUROLOGICAL: Gross neurological examination did not reveal any focal deficits. SKIN: No rashes. Assessment and plan Acute metabolic encephalopathy. fall and Patient was found on the floor. Fever. Possible DESTINATION SPECIALIST infection is being considered. Status post LP today. Circumferential rectal wall thickening correlate for proctitis as per CT Left inguinal hernia containing sigmoid colon. No evidence of strangulation. Large stool burden throughout the colon. Acute rhabdomyolysis. Improving Acute Kidney injury History of mood disorder Hypertension Hyperlipidemia COPD Polypharmacy monitor vital signs Monitor CBC and BMP Avoid nephrotoxic agents Patient was on bicarb drip which has been discontinued. Continue with IV hydration with normal saline. MRI and EEG was was done and reported as above.. Patient will be continued on broad-spectrum antibiotics with vancomycin and cefepime and and acyclovir. Follow-up CSF analysis. General surgery was consulted due to likely inguinal hernia. . ID, nephrology and neurology is on board. Continue to follow closely. DVT prophylaxis: Heparin subcu Objective - Vital Signs Vital signs: Vital Signs Temp 98.1 F 11/08/22 20:00 Pulse 85 11/08/22 20:00 Resp 20 11/08/22 20:00 BP 153/84 11/08/22 20:00 Pulse Ox 96 11/08/22 20:00 FiO2 Intake & Output 11/08/22 11/08/22 11/09/22 06:59 18:59 06:59 Intake Total 720 Output Total 1100 500 Balance -1100 220 Weight 65.771 kg Intake: Oral 720 Output: Urine 1100 500 Other: Voiding Method Diaper Diaper External Catheter External Catheter # Voids 1 # Bowel Movements 1 1 - Labs CBC & Chem 7: 11/08/22 03:53 11/08/22 03:53 Labs: Abnormal Lab Results - Last 24 Hours (Table) 11/08/22 11/08/22 Range/Units 03:53 03:53 WBC 11.2 H (3.8-10.6) k/uL RBC 3.66 L (4.30-5.90) m/uL Hgb 12.2 L (13.0-17.5) gm/dL Hct 36.2 L (39.0-53.0) % Neutrophils # 9.1 H (1.3-7.7) k/uL Potassium 3.3 L (3.5-5.1) mmol/L BUN 23 H (9-20) mg/dL Glucose 100 H (74-99) mg/dL Calcium 8.2 L (8.4-10.2) mg/dL Microbiology - Last 24 Hours (Table) 11/08/22 10:50 CSF Culture - Preliminary Cerebral Spinal Fluid 11/08/22 05:10 Stool Culture - Preliminary Stool 11/06/22 21:11 Blood Culture - Preliminary Blood 11/06/22 21:05 Blood Culture - Preliminary Blood
[2022-11-08] MEDS: HEPARIN SODIUM,PORCINE/PF 5,000 UNIT/0.5 ML SYRINGE SQ SCH (23:35)
[2022-11-09] MEDS: SYMBICORT 160-4.5 MCG INHALER INHALATION SCH ×2 (07:44→21:52)
[2022-11-09 08:36] LABS: Basophils % (A) 0 %; Eosinophils % (A) 0 %; HCT 36.7 % (39.0-53.0); HGB 11.9 gm/dL (13.0-17.5); Lymphocytes # (A) 0.9 k/uL (1.0-4.8); Lymphocytes % (A) 9 %; MCH 32.5 pg (25.0-35.0); MCHC 32.4 g/dL (31.0-37.0); MCV 100.3 fL (80.0-100.0); Mean Platelet Volume 8.4; Monocytes # (A) 0.7 k/uL (0-1.0); Monocytes % (A) 7 %; Neutrophils # (A) 8.5 k/uL (1.3-7.7); Neutrophils % (A) 82 %; Platelet Count 301 k/uL (150-450); RBC 3.66 m/uL (4.30-5.90); RDW 13.2 % (11.5-15.5); WBC 10.4 k/uL (3.8-10.6)
[2022-11-09] MEDS: metroNIDAZOLE-NS PMX 500 MG in SALINE 1 100ML.BAG IVPB SCH ×2 (08:56→17:13)
[2022-11-09] MEDS: HEPARIN SODIUM,PORCINE/PF 5,000 UNIT/0.5 ML SYRINGE SQ SCH ×2 (08:56→17:13)
[2022-11-09] MEDS: METOPROLOL TARTRATE 25 MG TAB PO SCH ×3 (08:57→21:58)
[2022-11-09] MEDS: MONTELUKAST 10 MG TAB PO SCH (08:57)
[2022-11-09] MEDS: polyethylene glycoL 3350 17 GM POWD.PACK PO SCH (08:57)
[2022-11-09] MEDS: CEFEPIME 2 GM in SODIUM CHLORIDE 0.9% 100 ML IVPB SCH ×2 (08:57→21:57)
[2022-11-09] MEDS: DOCUSATE 100 MG CAP PO SCH ×2 (08:57→21:58)
[2022-11-09] MEDS: amLODIPine 10 MG TAB PO SCH (08:57)
[2022-11-09] MEDS: PRIMIDONE 50 MG TAB PO SCH ×3 (08:57→21:58)
--- NOTE | 2022-11-09 09:51 | P.PN ---
Progress Note - Text Progress Note Date: 11/09/22 Patient's resting comfortably in his bed. He denies any significant abdominal pain. On exam vital signs are stable. Abdomen soft. Left inguinal hernia is stable. The hernia is partially incarcerated. Large left inguinal hernia containing sigmoid colon. Patient will undergo repair on Friday.
--- NOTE | 2022-11-09 09:54 | P.PN ---
Subjective Progress Note Date: 11/09/22 Principal diagnosis: This is a 72-year-old male seen in consultation because of acute kidney injury because of volume depletion as well as mild rhabdomyolysis from fall. CK levels was trace and 41, went down to 1164 today's ago Creatinine was 1.29, improved to 1.08 and further to 1.13 as of yesterday today's labs are pending He is somewhat weak and tired but denies any other complaints. No chest pain nausea vomiting headache fever chills shortness of breath Objective - Vital Signs Vital signs: Vital Signs Temp 97.9 F 11/09/22 04:00 Pulse 97 11/09/22 04:00 Resp 20 11/09/22 04:00 BP 171/85 11/09/22 04:00 Pulse Ox 92 L 11/09/22 04:00 FiO2 Intake & Output 11/08/22 11/09/22 11/09/22 18:59 06:59 18:59 Intake Total 720 715 110 Output Total 500 Balance 220 715 110 Weight 65.771 kg Intake: Intake, IV Titration 475 Amount Sodium Chloride 0.9% 1, 375 000 ml @ 75 mls/hr IV . [id number] [facility] Rx#:[id number] metroNIDAZOLE-NS PMX 500 100 mg In Saline 1 100ml.bag @ 100 mls/hr IVPB Q8HR [facility] Rx#:[id number] Oral 720 240 110 Output: Urine 500 Other: Voiding Method Diaper Diaper External Catheter External Catheter # Voids 800 # Bowel Movements 1 Exam she is awake alert oriented but weak and somewhat slow to respond HEENT exam no JVP neck is supple no facial asymmetry Lungs clear to auscultation good air entry Heart sounds unremarkable Abdomen soft nontender Extremity no edema Neurologically awake alert - Labs CBC & Chem 7: 11/09/22 08:06 11/08/22 03:53 Labs: Abnormal Lab Results - Last 24 Hours (Table) 11/09/22 Range/Units 08:06 RBC 3.66 L (4.30-5.90) m/uL Hgb 11.9 L (13.0-17.5) gm/dL Hct 36.7 L (39.0-53.0) % MCV 100.3 H (80.0-100.0) fL Neutrophils # 8.5 H (1.3-7.7) k/uL Lymphocytes # 0.9 L (1.0-4.8) k/uL Microbiology - Last 24 Hours (Table) 11/06/22 21:11 Blood Culture - Preliminary Blood 11/06/22 21:05 Blood Culture - Preliminary Blood 11/08/22 10:50 CSF Culture - Preliminary Cerebral Spinal Fluid 11/08/22 05:10 Stool Culture - Preliminary Stool Assessment and Plan Assessment: Impression 1. Acute kidney injury secondary to volume depletion and mild have rhabdomyolysis from fall. Creatinine improved to 2. Hypertension blood pressure about target. 3. Incarcerated left inguinal hernia currently being followed by surgery Recommendation 1. Patient is off of IV fluids. Will watch him with labs today and further management will follow
[2022-11-09 11:03] LABS: African American GFR (CKD) >90 (>60 ml/min/1.73 sqM); Anion Gap 13 mmol/L; Blood Urea Nitrogen 23 mg/dL (9-20); Calcium 8.7 mg/dL (8.4-10.2); Carbon Dioxide 20 mmol/L (22-30); Chloride 107 mmol/L (98-107); Glucose 116 mg/dL (74-99); Non-African American GFR(CKD) 82 (>60 ml/min/1.73 sqM); Potassium 3.6 mmol/L (3.5-5.1); Sodium 140 mmol/L (137-145)
[2022-11-09 11:04] LABS: ALT 29 U/L (4-49); AST 44 U/L (17-59); Alkaline Phosphatase 99 U/L (38-126); Total Bilirubin 0.8 mg/dL (0.2-1.3); Total Protein 5.8 g/dL (6.3-8.2)
[2022-11-09 11:05] LABS: C Reactive Protein 44.3 mg/dL (<1.0)
[2022-11-09] MEDS: ACETAMINOPHEN TAB 500 MG TAB PO PRN ×2 (12:38→21:58)
--- NOTE | 2022-11-09 16:10 | P.PN ---
Subjective Progress Note Date: 11/09/22 Patient seen at bedside and he is about the same. He continues to have low grade fevers. Objective - Vital Signs Vital signs: Vital Signs Temp 100.6 F H 11/09/22 12:00 Pulse 92 11/09/22 14:00 Resp 18 11/09/22 14:00 BP 179/95 11/09/22 12:00 Pulse Ox 95 11/09/22 12:00 FiO2 Intake & Output 11/08/22 11/09/22 11/09/22 18:59 06:59 18:59 Intake Total 720 715 110 Output Total 500 Balance 220 715 110 Weight 65.771 kg Intake: Intake, IV Titration 475 Amount Sodium Chloride 0.9% 1, 375 000 ml @ 75 mls/hr IV . [id number] [facility] Rx#:[id number] metroNIDAZOLE-NS PMX 500 100 mg In Saline 1 100ml.bag @ 100 mls/hr IVPB Q8HR [facility] Rx#:[id number] Oral 720 240 110 Output: Urine 500 Other: Voiding Method Diaper Diaper Diaper External Catheter External Catheter External Catheter # Voids 800 # Bowel Movements 1 1 - Exam Neuro: Limited because of his condition. He is appears mildly drowsy but is awake of a lot of voice. He'll open his eyes and that is oriented to self as well as place. is able to identify objects such as pen and watch. He'll follow simple commands. Language is very limited. No neglect. Briefly opens his eyes. No facial weakness. Severe hypophonia. Motor strength is limited because of his condition but briefly lifts up his upper extremities above gravity and wiggle his toes. Some of the workup during his hospital visit consist of: febrile: 100.6 CK levels 2741--> 1164. TSH is 1.410. Serum folate is 531 Vitamin B12 is 365 Sodium, calcium, AST ALT are within normal limits. Localizes 111. BUN is 35 and creatinine is 1.29 Urine drug screen is positive for barbiturates. CSF: clear, colorless, rbc 0, total nucelated cell 1, glucose 67, protein 56. HSVI/II not detected CT of the head is reported as age-related atrophy. No acute intracranial process. Follow-up MRI can be performed as clinically indicated. PT CT of the head is reported as no acute intracranial hemorrhage or midline shift. There is mild to moderate diffuse cerebral atrophy and chronic small vessel ischemic changes redemonstrated. No significant change from recent prior CT. Routine EEG is abnormal. The background slowing suggestive of mild encephalopathy. Otherwise there is no focal slowing, epileptiform discharges or seizure in the EEG. Repeat EEG is abnormal. Tobacco slowing suggestive of moderate to severe encephalopathy. Otherwise there is no focal slowing, epileptiform discharges or seizure on the EEG. MR the brain with and without is reported as some age-related atrophy. No acute intracranial process. CT abdomen pelvis is reported as stroke conference old rectal wall thickening correlate for proctitis large stool burden throughout the colon. - Labs CBC & Chem 7: 11/09/22 08:06 11/09/22 08:06 Labs: Abnormal Lab Results - Last 24 Hours (Table) 11/09/22 11/09/22 Range/Units 08:06 08:06 RBC 3.66 L (4.30-5.90) m/uL Hgb 11.9 L (13.0-17.5) gm/dL Hct 36.7 L (39.0-53.0) % MCV 100.3 H (80.0-100.0) fL Neutrophils # 8.5 H (1.3-7.7) k/uL Lymphocytes # 0.9 L (1.0-4.8) k/uL Carbon Dioxide 20 L (22-30) mmol/L BUN 23 H (9-20) mg/dL Glucose 116 H (74-99) mg/dL C-Reactive Protein 44.3 H (<1.0) mg/dL Total Protein 5.8 L (6.3-8.2) g/dL Albumin 3.0 L (3.5-5.0) g/dL Microbiology - Last 24 Hours (Table) 11/06/22 21:11 Blood Culture - Preliminary Blood 11/06/22 21:05 Blood Culture - Preliminary Blood 11/08/22 10:50 CSF Culture - Preliminary Cerebral Spinal Fluid Assessment and Plan Assessment: Is seems the patient was found down at home on the floor. Altered mental status; encephalopathy of unknown etiology at this time. Patient has a fever unknown exact cause but on the CT of the abdomen and pelvis he has proctitis we'll with large stool in the colon. CSF study is negative. Syncopal episode: Unsure cause. Routine EEG is negative for seizure or discharge Rhabdomyolysis due to #1 Tremor and it's reported the patient has essential tremor but on examination I felt possibly he has Parkinson's Mood disorder and he is on Depakote Polypharmacy Plan: ID team and will defer antibiotic management to them. CSF study is negative. I was told by nurse that general surgery is considering surgery this Friday for large left inguinal hernia. I discontinued Sinemet because of his confusion and we can readdress it was the patient is more awake to see if that helps with the tremors are not. Recommend holding off Topamax Patient is resumed on his home medication of p rimidone 50 mg 1 tablet 3 times a day for his history of reported essential tremor. But if improvement in tremor with Sinemet then will discontinue Primidone. Consulted psychiatry consultation since patient is on Depakote and Depakote and can cause tremor and patient needs modification of his medication as a result. We'll defer the rest of the medical measure the primary team The plan is discussed with I.D. team Maribell and his nurse. Will continue to follow sporadically. Time with Patient: Less than 30
[2022-11-09] MEDS: SODIUM CHLORIDE 0.9% 1,000 ML IV SCH (17:13)
[2022-11-09] MEDS: LORazepam 0.5 MG TAB PO SCH (21:58)
[2022-11-10] MEDS: metroNIDAZOLE-NS PMX 500 MG in SALINE 1 100ML.BAG IVPB SCH ×3 (00:14→16:11)
[2022-11-10] MEDS: HEPARIN SODIUM,PORCINE/PF 5,000 UNIT/0.5 ML SYRINGE SQ SCH ×3 (00:14→16:11)
[2022-11-10] MEDS: SODIUM CHLORIDE 0.9% 1,000 ML IV SCH ×2 (01:36→16:11)
[2022-11-10] MEDS: METOPROLOL TARTRATE 25 MG TAB PO SCH ×2 (08:43→21:25)
[2022-11-10] MEDS: CEFEPIME 2 GM in SODIUM CHLORIDE 0.9% 100 ML IVPB SCH ×2 (08:43→21:25)
[2022-11-10] MEDS: amLODIPine 10 MG TAB PO SCH (08:43)
[2022-11-10] MEDS: PRIMIDONE 50 MG TAB PO SCH ×3 (08:43→21:25)
[2022-11-10] MEDS: MONTELUKAST 10 MG TAB PO SCH (08:43)
[2022-11-10] MEDS: polyethylene glycoL 3350 17 GM POWD.PACK PO SCH (08:45)
[2022-11-10] MEDS: DOCUSATE 100 MG CAP PO SCH ×2 (08:46→21:25)
[2022-11-10] MEDS: SYMBICORT 160-4.5 MCG INHALER INHALATION SCH ×2 (09:02→20:46)
--- NOTE | 2022-11-10 09:02 | P.PN ---
Subjective Progress Note Date: 11/10/22 Principal diagnosis: This is a 72-year-old male seen in consultation because of acute kidney injury because of volume depletion as well as mild rhabdomyolysis from fall. CK levels was 2741 , went down to 1164 dated 11/06/2022. Creatinine was 1.29, improved to 0.9 as of yesterday He is profoundly weak, has a low-grade temperature of 100.6 as of yesterday but afebrile this morning. and has 2 loose stools according to nursing staff. C. diff is negative He denies chest pain nausea vomiting headache fever chills shortness of breath His blood pressure is somewhat high, 173/ 77, 182/78 with a heart rate in the 80s, currently on amlodipine 10 mg metoprolol 25 twice a day dose increased yesterday from 1 tablet 2 tablets yesterday . He is also on IV normal 75 mL an hour Objective - Vital Signs Vital signs: Vital Signs Temp 98.3 F 11/10/22 04:00 Pulse 89 11/10/22 07:42 Resp 22 11/10/22 07:42 BP 173/77 11/10/22 04:00 Pulse Ox 94 L 11/10/22 04:00 FiO2 Intake & Output 11/09/22 11/10/22 11/10/22 18:59 06:59 18:59 Intake Total 220 10 10 Output Total 400 Balance 220 -390 10 Intake: IV 10 10 Invasive Line 3 10 10 Oral 220 Output: Urine 400 Other: Voiding Method Diaper Diaper Diaper External Catheter External Catheter External Catheter # Bowel Movements 1 1 On examination is awake alert but profoundly weak and somewhat tremulous. HEENT exam no JVP neck is supple no facial asymmetry Lungs clear to auscultation but air entry is less than optimal Heart sounds unremarkable Abdomen soft nontender Extremity exam was no edema neurologically awake alert but profoundly weak - Labs CBC & Chem 7: 11/09/22 08:06 11/09/22 08:06 Labs: Abnormal Lab Results - Last 24 Hours (Table) 11/09/22 Range/Units 08:06 Carbon Dioxide 20 L (22-30) mmol/L BUN 23 H (9-20) mg/dL Glucose 116 H (74-99) mg/dL C-Reactive Protein 44.3 H (<1.0) mg/dL Total Protein 5.8 L (6.3-8.2) g/dL Albumin 3.0 L (3.5-5.0) g/dL Microbiology - Last 24 Hours (Table) 11/08/22 05:10 Stool Culture - Preliminary Stool 11/08/22 10:50 CSF Gram Stain - Preliminary Cerebral Spinal Fluid CSF Culture - Preliminary 11/06/22 21:11 Blood Culture - Preliminary Blood 11/06/22 21:05 Blood Culture - Preliminary Blood Assessment and Plan Assessment: Impression 1. Acute kidney injury secondary to volume depletion and mild rhabdomyolysis from fall. Creatinine improved to 0.9 2. Hypertension blood pressure above target, but given he fell and 8 is unclear why blood pressure should be allowed to remain somewhat high in the 140-150 range. 3. Low-grade temperature not feeling well tired. Does have Incarcerated left inguinal hernia currently being followed by surgery Recommendation 1. Maintain IV fluids normal saline at 75 an hour given his low intake and 2 loose stools. 2. He needs to be worked up for the cause of his not feeling well and low-grade temperature We will sign off as his renal function is normal
--- NOTE | 2022-11-10 10:28 | P.PN ---
Progress Note - Text Progress Note Date: 11/10/22 Patient Marcelina stable. His left inguinal hernia. Partially incarcerated. Abdomen is soft. There is no significant tenderness. Patient be scheduled for elective repair of incarcerated left inguinal hernia on Friday.
[2022-11-10 10:50] LABS: Basophils % (A) 0 %; Eosinophils % (A) 0 %; HCT 34.2 % (39.0-53.0); HGB 11.4 gm/dL (13.0-17.5); Lymphocytes % (A) 10 %; MCHC 33.4 g/dL (31.0-37.0); Mean Platelet Volume 8.1; Monocytes # (A) 0.8 k/uL (0-1.0); Monocytes % (A) 8 %; Neutrophils # (A) 7.7 k/uL (1.3-7.7); Neutrophils % (A) 80 %; Platelet Count 322 k/uL (150-450); RBC 3.45 m/uL (4.30-5.90); RDW 13.2 % (11.5-15.5); WBC 9.6 k/uL (3.8-10.6)
[2022-11-10 10:59] LABS: African American GFR (CKD) >90 (>60 ml/min/1.73 sqM); Anion Gap 11 mmol/L; Blood Urea Nitrogen 22 mg/dL (9-20); Calcium 8.1 mg/dL (8.4-10.2); Carbon Dioxide 21 mmol/L (22-30); Chloride 109 mmol/L (98-107); Glucose 117 mg/dL (74-99); Non-African American GFR(CKD) 86 (>60 ml/min/1.73 sqM); Potassium 3.3 mmol/L (3.5-5.1); Sodium 141 mmol/L (137-145)
[2022-11-10] MEDS ORDERED: Potassium Replacement Protocol 1 EACH MISC MISCELLANE PRN (11:56)
--- NOTE | 2022-11-10 12:42 | P.PN ---
Subjective Progress Note Date: 11/10/22 The patient is seen at bedside and per nurse is about the same. Objective - Vital Signs Vital signs: Vital Signs Temp 99.8 F H 11/10/22 08:00 Pulse 96 11/10/22 08:00 Resp 20 11/10/22 08:00 BP 176/87 11/10/22 08:00 Pulse Ox 94 L 11/10/22 09:02 FiO2 Intake & Output 11/09/22 11/10/22 11/10/22 18:59 06:59 18:59 Intake Total 220 10 10 Output Total 400 Balance 220 -390 10 Intake: IV 10 10 Invasive Line 3 10 10 Oral 220 Output: Urine 400 Other: Voiding Method Diaper Diaper Diaper External Catheter External Catheter External Catheter # Voids 3 # Bowel Movements 1 1 - Exam Neuro: Limited because of his condition. He is appears mildly drowsy but is awake of a lot of voice. He'll open his eyes and that is oriented to self as well as place. is able to identify objects such as pen and watch. He'll follow simple commands. Language is very limited. No neglect. Briefly opens his eyes. No facial weakness. Severe hypophonia. Motor strength is limited because of his condition but briefly lifts up his upper extremities above gravity and wiggle his toes. Some of the workup during his hospital visit consist of: febrile: 100.6 CK levels 2741--> 1164. TSH is 1.410. Serum folate is 531 Vitamin B12 is 365 Sodium, calcium, AST ALT are within normal limits. Localizes 111. BUN is 35 and creatinine is 1.29 Urine drug screen is positive for barbiturates. CSF: clear, colorless, rbc 0, total nucelated cell 1, glucose 67, protein 56. HSVI/II not detected CT of the head is reported as age-related atrophy. No acute intracranial process. Follow-up MRI can be performed as clinically indicated. PT CT of the head is reported as no acute intracranial hemorrhage or midline shift. There is mild to moderate diffuse cerebral atrophy and chronic small vessel ischemic changes redemonstrated. No significant change from recent prior CT. Routine EEG is abnormal. The background slowing suggestive of mild e ncephalopathy. Otherwise there is no focal slowing, epileptiform discharges or seizure in the EEG. Repeat EEG is abnormal. Tobacco slowing suggestive of moderate to severe encephalopathy. Otherwise there is no focal slowing, epileptiform discharges or seizure on the EEG. MR the brain with and without is reported as some age-related atrophy. No acute intracranial process. CT abdomen pelvis is reported as stroke conference old rectal wall thickening correlate for proctitis large stool burden throughout the colon. - Labs CBC & Chem 7: 11/10/22 09:57 11/10/22 09:57 Labs: Abnormal Lab Results - Last 24 Hours (Table) 11/10/22 11/10/22 Range/Units 09:57 09:57 RBC 3.45 L (4.30-5.90) m/uL Hgb 11.4 L (13.0-17.5) gm/dL Hct 34.2 L (39.0-53.0) % Potassium 3.3 L (3.5-5.1) mmol/L Chloride 109 H (98-107) mmol/L Carbon Dioxide 21 L (22-30) mmol/L BUN 22 H (9-20) mg/dL Glucose 117 H (74-99) mg/dL Calcium 8.1 L (8.4-10.2) mg/dL Microbiology - Last 24 Hours (Table) 11/08/22 16:20 Blood Culture - Preliminary Blood 11/06/22 21:11 Blood Culture - Preliminary Blood 11/06/22 21:05 Blood Culture - Preliminary Blood 11/08/22 05:10 Stool Culture - Preliminary Stool 11/08/22 10:50 CSF Gram Stain - Preliminary Cerebral Spinal Fluid CSF Culture - Preliminary Assessment and Plan Assessment: Is seems the patient was found down at home on the floor. Altered mental status; encephalopathy of unknown etiology at this time. Patient has a fever unknown exact cause but on the CT of the abdomen and pelvis he has proctitis we'll with large stool in the colon. CSF study is negative. Syncopal episode: Unsure cause. Routine EEG is negative for seizure or discharge Rhabdomyolysis due to #1 Tremor and it's reported the patient has essential tremor but on examination I felt possibly he has Parkinson's Mood disorder and he is on Depakote Polypharmacy Plan: ID team is on board and will defer antibiotic management to them. CSF study is negative. General surgery is considering surgery this Friday for large left inguinal hernia. I discontinued Sinemet couple days ago (which was tried here during hospital) because of his confusion and we can readdress it once patient is more awake to see if that helps with the tremors are not for concern of Parkinson's disease. Recommend continue holding off Topamax Patient is resumed on his home medic ation of primidone 50 mg 1 tablet 3 times a day for his history of reported essential tremor. But if improvement in tremor with Sinemet then will discontinue Primidone. Consulted psychiatry consultation since patient is on Depakote and Depakote and can cause tremor and patient needs modification of his medication as a result. We'll defer the rest of the medical measure the primary team The plan is discussed with his niece and his nurse. Will continue to follow sporadically. Dr. Maynard will start neurology service tomorrow A.M. Time with Patient: Less than 30
[2022-11-10] MEDS: POTASSIUM CHLORIDE ER 20 MEQ TAB.ER PO SCH ×2 (15:00→16:10)
[2022-11-10] MEDS: LORazepam 0.5 MG TAB PO SCH (21:25)
[2022-11-10] MEDS: ACETAMINOPHEN TAB 500 MG TAB PO PRN (21:26)
[2022-11-11] MEDS: metroNIDAZOLE-NS PMX 500 MG in SALINE 1 100ML.BAG IVPB SCH ×3 (00:50→15:34)
[2022-11-11] MEDS: HEPARIN SODIUM,PORCINE/PF 5,000 UNIT/0.5 ML SYRINGE SQ SCH ×3 (00:50→15:33)
--- NOTE | 2022-11-11 02:50 | P.PN ---
Subjective Progress Note Date: 11/09/22 patient is a 72-year-old gentleman with past medical history significant for hypertension, hyperlipidemia, COPD presented to the ER because of altered mental status. Most of the history has been taken from the EMR. Patient was brought in by EMS after being notified by the patient's neighbor who did a wellness check on the patient as he had not seen him in a day.EMS found the patient lying on the floor, patient currently alert to self. Patient was immediately brought to the ER of [facility]. initial lab work done in the ER showedWBC 12.8, hemoglobin 13.8, platelet count 325, sodium 145, potassium 4.1, chloride 110, BUN 35, creatinine 1.29, CK 2741 Chest x-ray negative for acute pulmonary process CT brain showed age-related atrophy, no acute intracranial process Patient was admitted to internal medicine service 11/06/2022 Patient is currently in the telemetry unit. Extremity continues and nonresponsive. Patient is a lethargic but able to moan and follows simple commands. Rapid response team was called due to unresponsiveness. Patient had CT head done yesterday which showed no acute intracranial hemorrhage or midline shift. There is mild to moderate diffuse cerebral atrophy and chronic small vessel ischemic changes redemonstrated. No significant change from recent prior CT. EEG and MRI was ordered as per neurology recommendations. Patient was also febrile overnight with Tmax 100.8. Currently afebrile. Laboratory data showed WBC 10.8 hemoglobin 13.6 and platelets 262 Sodium 135 potassium 3.3 chloride 97 bicarb is 28, BUN 19 and creatinine 1.05 blood sugar 132 and CPK level trending down to 1164. Bicarb drip has been discontinued. Nephrology and neurology is on board. 11/07/2022 Patient is currently laying in bed. Able to open his eyes better today. Follows simple commands. Still lethargic and sleepy. Overnight patient was febrile again with Tmax of 100.8. Due to encephalopathy and fever possibly FERMENTATION SCIENTIST infection is being considered. Patient was started on broad-spectrum antibiotics. Patient was also noted to have abdominal distention. EEG showed moderate to severe encephalopathic picture. MRI of the brain was done yesterday which showed some age-related atrophy. No acute intracranial process. ID was consulted due to fever and encephalopathy. Laboratory pressure WBC 11.7 hemoglobin 13.5 and platelets 287 Sodium 138 potassium 3.6 chloride 104 bicarb is 21 BUN 21 and creatinine 1.08. Blood sugar is 116 Procalcitonin level is at 0.41. 11/08/2022 Patient is more awake and oriented today. Patient was able to communicate with his sister at bedside. Patient did have fever with Tmax of 101.0 yesterday afternoon. Currently on room air. Patient is able to tolerate liquids with one-to-one feeding. Status post LP today. CT of the abdomen pelvis showed circumferential rectal wall thickening correlate for proctitis. No additional finding within the abdomen or pelvis to explain patient's symptoms. Left inguinal hernia containing loops of sigmoid colon. No evidence for wall thickening suggesting strangulation. Large stool burden throughout the colon. Patient did have multiple episodes of diarrhea yesterday. CT was negative. General surgery was consulted for further evaluation of the abnormal CT. Patient was seen by psychiatry and currently Depakote is on hold at continue with Seroquel as needed. Laboratory data showed WBC 11.2 hemoglobin 12.20 platelets 260 sodium 139 potassium 3.3 which is being replaced BUN 20. Creatinine 1.13 and calcium 8.2. Coronavirus PCR not detected. 11/09/2022 Patient is currently resting in the bed. Awake alert but slow to respond. Mentation is much improved. Feels very weak. Denies any complaints of chest pain or shortness of breath. Patient has been afebrile. Laboratory data showed WBC 10.4 hemoglobin 11.9 platelets 301, sodium 140 potassium 3.6 chloride 107 bicarb is 20 BUN 23 and creatinine 0.94 and blood sugar 116. CRP 44.3. Patient is being continued on antibiotics in the form of cefepime and metronidazole. General surgery is on board. Current medications reviewed. REVIEW OF SYSTEMS: Review of systems could not be obtained from the patient. PHYSICAL EXAMINATION: GENERAL: The patient is awake and alert and oriented x1-2. Not in any acute distress. Well developed, well nourished. HEENT: Pupils are round and equally reacting to light. EOMI. No scleral icterus. No conjunctival pallor. Normocephalic, atraumatic. No pharyngeal erythema. No thyromegaly. CARDIOVASCULAR: S1 and S2 present. No murmurs, rubs, or gallops. PULMONARY: Chest is clear to auscultation, no wheezing or crackles. ABDOMEN: Soft, nontender, nondistended, normoactive bowel sounds. No palpable organomegaly. MUSCULOSKELETAL: No joint swelling or deformity. EXTREMITIES: No cyanosis, clubbing, or pedal edema. NEUROLOGICAL: Gross neurological examination did not reveal any focal deficits. SKIN: No rashes. Assessment and plan Acute metabolic encephalopathy. fall and Patient was found on the floor. improving. Circumferential rectal wall thickening correlate for proctitis as per CT Left inguinal hernia containing sigmoid colon. No evidence of strangulation. Large stool burden throughout the colon. resolved. Fever. Status post LP. CSF analysis showed no evidence of infection. Acute rhabdomyolysis. Improving Acute Kidney injury. resolved, History of mood disorder Hypertension Hyperlipidemia COPD Polypharmacy monitor vital signs Monitor CBC and BMP Avoid nephrotoxic agents Patient was on bicarb drip which has been discontinued. Continue with IV hydration with normal saline. MRI and EEG was was done and reported as above.. Status post LP. No evidence of infection. Vancomycin has been discontinued. General surgery was consulted due to likely inguinal hernia.Patient is on cefepime and Flagyl for intra-abdominal infection . ID, nephrology and neurology is on board. Continue to follow closely. DVT prophylaxis: Heparin subcu Objective - Vital Signs Vital signs: Vital Signs Temp 101.3 F H 11/09/22 20:00 Pulse 93 11/09/22 20:00 Resp 28 H 11/09/22 20:00 BP 176/83 11/09/22 20:00 Pulse Ox 93 L 11/09/22 20:00 FiO2 Intake & Output 11/09/22 11/09/22 11/10/22 06:59 18:59 06:59 Intake Total 715 220 Balance 715 220 Intake: Intake, IV Titration 475 Amount Sodium Chloride 0.9% 1, 375 000 ml @ 75 mls/hr IV . [id number] ESSIE Rx#:[id number] metroNIDAZOLE-NS PMX 500 100 mg In Saline 1 100ml.bag @ 100 mls/hr IVPB Q8HR ESSIE Rx#:[id number] Oral 240 220 Other: Voiding Method Diaper Diaper External Catheter External Catheter # Voids 800 # Bowel Movements 1 - Labs CBC & Chem 7: 11/10/22 09:57 11/10/22 09:57 Labs: Abnormal Lab Results - Last 24 Hours (Table) 11/09/22 11/09/22 Range/Units 08:06 08:06 RBC 3.66 L (4.30-5.90) m/uL Hgb 11.9 L (13.0-17.5) gm/dL Hct 36.7 L (39.0-53.0) % MCV 100.3 H (80.0-100.0) fL Neutrophils # 8.5 H (1.3-7.7) k/uL Lymphocytes # 0.9 L (1.0-4.8) k/uL Carbon Dioxide 20 L (22-30) mmol/L BUN 23 H (9-20) mg/dL Glucose 116 H (74-99) mg/dL C-Reactive Protein 44.3 H (<1.0) mg/dL Total Protein 5.8 L (6.3-8.2) g/dL Albumin 3.0 L (3.5-5.0) g/dL Microbiology - Last 24 Hours (Table) 11/06/22 21:11 Blood Culture - Preliminary Blood 11/06/22 21:05 Blood Culture - Preliminary Blood
--- NOTE | 2022-11-11 02:52 | P.PN ---
Subjective Progress Note Date: 11/10/22 patient is a 72-year-old gentleman with past medical history significant for hypertension, hyperlipidemia, COPD presented to the ER because of altered mental status. Most of the history has been taken from the EMR. Patient was brought in by EMS after being notified by the patient's neighbor who did a wellness check on the patient as he had not seen him in a day.EMS found the patient lying on the floor, patient currently alert to self. Patient was immediately brought to the ER of [facility]. initial lab work done in the ER showedWBC 12.8, hemoglobin 13.8, platelet count 325, sodium 145, potassium 4.1, chloride 110, BUN 35, creatinine 1.29, CK 2741 Chest x-ray negative for acute pulmonary process CT brain showed age-related atrophy, no acute intracranial process Patient was admitted to internal medicine service 11/06/2022 Patient is currently in the telemetry unit. Extremity continues and nonresponsive. Patient is a lethargic but able to moan and follows simple commands. Rapid response team was called due to unresponsiveness. Patient had CT head done yesterday which showed no acute intracranial hemorrhage or midline shift. There is mild to moderate diffuse cerebral atrophy and chronic small vessel ischemic changes redemonstrated. No significant change from recent prior CT. EEG and MRI was ordered as per neurology recommendations. Patient was also febrile overnight with Tmax 100.8. Currently afebrile. Laboratory data showed WBC 10.8 hemoglobin 13.6 and platelets 262 Sodium 135 potassium 3.3 chloride 97 bicarb is 28, BUN 19 and creatinine 1.05 blood sugar 132 and CPK level trending down to 1164. Bicarb drip has been discontinued. Nephrology and neurology is on board. 11/07/2022 Patient is currently laying in bed. Able to open his eyes better today. Follows simple commands. Still lethargic and sleepy. Overnight patient was febrile again with Tmax of 100.8. Due to encephalopathy and fever possibly LANOLIN PLANT OPERATOR infection is being considered. Patient was started on broad-spectrum antibiotics. Patient was also noted to have abdominal distention. EEG showed moderate to severe encephalopathic picture. MRI of the brain was done yesterday which showed some age-related atrophy. No acute intracranial process. ID was consulted due to fever and encephalopathy. Laboratory pressure WBC 11.7 hemoglobin 13.5 and platelets 287 Sodium 138 potassium 3.6 chloride 104 bicarb is 21 BUN 21 and creatinine 1.08. Blood sugar is 116 Procalcitonin level is at 0.41. 11/08/2022 Patient is more awake and oriented today. Patient was able to communicate with his sister at bedside. Patient did have fever with Tmax of 101.0 yesterday afternoon. Currently on room air. Patient is able to tolerate liquids with one-to-one feeding. Status post LP today. CT of the abdomen pelvis showed circumferential rectal wall thickening correlate for proctitis. No additional finding within the abdomen or pelvis to explain patient's symptoms. Left inguinal hernia containing loops of sigmoid colon. No evidence for wall thickening suggesting strangulation. Large stool burden throughout the colon. Patient did have multiple episodes of diarrhea yesterday. CT was negative. General surgery was consulted for further evaluation of the abnormal CT. Patient was seen by psychiatry and currently Depakote is on hold at continue with Seroquel as needed. Laboratory data showed WBC 11.2 hemoglobin 12.20 platelets 260 sodium 139 potassium 3.3 which is being replaced BUN 20. Creatinine 1.13 and calcium 8.2. Coronavirus PCR not detected. 11/09/2022 Patient is currently resting in the bed. Awake alert but slow to respond. Mentation is much improved. Feels very weak. Denies any complaints of chest pain or shortness of breath. Patient has been afebrile. Laboratory data showed WBC 10.4 hemoglobin 11.9 platelets 301, sodium 140 potassium 3.6 chloride 107 bicarb is 20 BUN 23 and creatinine 0.94 and blood sugar 116. CRP 44.3. Patient is being continued on antibiotics in the form of cefepime and metronidazole. General surgery is on board. 11/10/2022 Patient is currently lying in the bed. Awake alert but lethargic and weak and drowsy. No complaints of chest pain or shortness of breath. Patient does have left inguinal hernia and possible partially incarcerated. With general surgery is planning for elective repair of hearing on Friday. Otherwise patient is afebrile. Potassium was replaced as per protocol. Laboratory data showed WBC 9.6 hemoglobin 11.1 and platelets 322, sodium 141 potassium 3.3 chloride 109 bicarb is 21 BUN 22 and creatinine 0.9 and calcium 8.1. Current medications reviewed. REVIEW OF SYSTEMS: Review of systems could not be obtained from the patient. PHYSICAL EXAMINATION: GENERAL: The patient is awake and alert and oriented x1-2. Not in any acute distress. Well developed, well nourished. HEENT: Pupils are round and equally reacting to light. EOMI. No scleral icterus. No conjunctival pallor. Normocephalic, atraumatic. No pharyngeal erythema. No thyromegaly. CARDIOVASCULAR: S1 and S2 present. No murmurs, rubs, or gallops. PULMONARY: Chest is clear to auscultation, no wheezing or crackles. ABDOMEN: Soft, nontender, nondistended, normoactive bowel sounds. No palpable organomegaly. MUSCULOSKELETAL: No joint swelling or deformity. EXTREMITIES: No cyanosis, clubbing, or pedal edema. NEUROLOGICAL: Gross neurological examination did not reveal any focal deficits. SKIN: No rashes. Assessment and plan Acute metabolic encephalopathy. fall and Patient was found on the floor. improving. Circumferential rectal wall thickening correlate for proctitis as per CT Left inguinal hernia containing sigmoid colon. Possible partial incarceration.. Large stool burden throughout the colon. resolved. Fever. Status post LP. CSF analysis showed no evidence of infection. Acute rhabdomyolysis. Improving Acute Kidney injury. resolved, History of mood disorder Hypertension Hyperlipidemia COPD Polypharmacy monitor vital signs Monitor CBC and BMP Avoid nephrotoxic agents Patient was on bicarb drip which has been discontinued. Continue with IV hydration with normal saline. MRI and EEG was was done and reported as above.. Status post LP. No evidence of infection. Vancomycin has been discontinued. General surgery was consulted due to likely inguinal hernia.Patient is on cefepime and Flagyl for intra-abdominal infection . ID, nephrology and neurology is on board. General surgery is planning for hernia repair on Friday. Continue to follow closely. DVT prophylaxis: Heparin subcu Objective - Vital Signs Vital signs: Vital Signs Temp 100.9 F H 11/10/22 16:00 Pulse 86 11/10/22 16:00 Resp 18 11/10/22 16:00 BP 130/72 11/10/22 16:00 Pulse Ox 93 L 11/10/22 16:00 FiO2 Intake & Output 11/10/22 11/10/22 11/11/22 06:59 18:59 06:59 Intake Total 10 250 Output Total 400 Balance -390 250 Intake: IV 10 10 Invasive Line 3 10 10 Oral 240 Output: Urine 400 Other: Voiding Method Diaper Diaper External Catheter External Catheter # Voids 4 # Bowel Movements 1 1 - Labs CBC & Chem 7: 11/10/22 09:57 11/10/22 09:57 Labs: Abnormal Lab Results - Last 24 Hours (Table) 11/10/22 11/10/22 Range/Units 09:57 09:57 RBC 3.45 L (4.30-5.90) m/uL Hgb 11.4 L (13.0-17.5) gm/dL Hct 34.2 L (39.0-53.0) % Potassium 3.3 L (3.5-5.1) mmol/L Chloride 109 H (98-107) mmol/L Carbon Dioxide 21 L (22-30) mmol/L BUN 22 H (9-20) mg/dL Glucose 117 H (74-99) mg/dL Calcium 8.1 L (8.4-10.2) mg/dL Microbiology - Last 24 Hours (Table) 11/08/22 10:50 CSF Gram Stain - Preliminary Cerebral Spinal Fluid CSF Culture - Preliminary 11/08/22 16:20 Blood Culture - Preliminary Blood 11/06/22 21:11 Blood Culture - Preliminary Blood 11/06/22 21:05 Blood Culture - Preliminary Blood 11/08/22 05:10 Stool Culture - Preliminary Stool
[2022-11-11] MEDS: SODIUM CHLORIDE 0.9% 1,000 ML IV SCH ×2 (06:14→15:34)
[2022-11-11] MEDS: CEFEPIME 2 GM in SODIUM CHLORIDE 0.9% 100 ML IVPB SCH ×2 (07:57→15:33)
[2022-11-11] MEDS: METOPROLOL TARTRATE 25 MG TAB PO SCH ×2 (07:58→20:59)
[2022-11-11] MEDS: DOCUSATE 100 MG CAP PO SCH ×2 (07:58→21:00)
[2022-11-11] MEDS: amLODIPine 10 MG TAB PO SCH (07:58)
[2022-11-11] MEDS: MONTELUKAST 10 MG TAB PO SCH (07:58)
[2022-11-11] MEDS: PRIMIDONE 50 MG TAB PO SCH ×3 (07:58→20:59)
[2022-11-11] MEDS ORDERED: MIDAZOLAM 2 MG/2 ML VIAL IV PRN (08:46)
[2022-11-11] MEDS ORDERED: ONDANSETRON 4 MG/2 ML VIAL IVP ONE (08:46)
[2022-11-11] MEDS ORDERED: LIDOCAINE 1% (10MG/ML) FOR IV START INTRADERMA PRN (08:46)
[2022-11-11] MEDS ORDERED: DEXAMETHASONE SOD PHOSPHATE 4 MG/ML 1 ML VIAL IV ONE (08:46)
[2022-11-11] MEDS ORDERED: LACTATED RINGERS 1,000 ML IV SCH (08:46)
[2022-11-11] MEDS: SYMBICORT 160-4.5 MCG INHALER INHALATION SCH ×2 (08:48→20:36)
[2022-11-11 09:17] LABS: African American GFR (CKD) >90 (>60 ml/min/1.73 sqM); Anion Gap 10 mmol/L; Blood Urea Nitrogen 23 mg/dL (9-20); Calcium 8.4 mg/dL (8.4-10.2); Carbon Dioxide 20 mmol/L (22-30); Chloride 108 mmol/L (98-107); Creatine Kinase 43 U/L (55-170); Glucose 143 mg/dL (74-99); Non-African American GFR(CKD) >90 (>60 ml/min/1.73 sqM); Potassium 3.8 mmol/L (3.5-5.1); Sodium 138 mmol/L (137-145)
--- NOTE | 2022-11-11 09:27 | P.PN ---
Progress Note - Text Progress Note Date: 11/11/22 Patient's resting comfortable in his bed. He has no new complaints. On exam vitals are stable. Abdomen soft. There is incarcerated left inguinal hernia. Patient will be scheduled for repair of pressure left inguinal hernia tomorrow.
[2022-11-11 10:07] LABS: Basophils % (A) 0 %; Eosinophils # (A) 0.1 k/uL (0-0.7); Eosinophils % (A) 0 %; HCT 37.1 % (39.0-53.0); HGB 12.4 gm/dL (13.0-17.5); Lymphocytes # (A) 1.1 k/uL (1.0-4.8); Lymphocytes % (A) 10 %; MCH 32.9 pg (25.0-35.0); MCHC 33.5 g/dL (31.0-37.0); MCV 98.2 fL (80.0-100.0); Mean Platelet Volume 9.3; Monocytes # (A) 0.7 k/uL (0-1.0); Monocytes % (A) 7 %; Neutrophils % (A) 82 %; Platelet Count 329 k/uL (150-450); RBC 3.78 m/uL (4.30-5.90); RDW 13.8 % (11.5-15.5)
--- NOTE | 2022-11-11 13:01 | P.PN ---
Subjective Progress Note Date: 11/09/22 Principal diagnosis: Fever Patient is a 72-year-old male presenting to the hospital with mental status changes patient was found to be on the floor and this patient has been running a fever with a CT abdominal pelvis did shows evidence of severe stool burden and initial concern for possible strangulated hernia that has been rule out patient also have LP completed which was normal On today's evaluation that is 11/09/2022 the patient did have a low-grade fever of 99.8 this morning patient is more awake and alert, the patient is breathing comfortably on room air denies any chest pain or shortness with occasional cough no vomiting has been reported Objective - Vital Signs Vital signs: Vital Signs Temp 97.9 F 11/09/22 04:00 Pulse 97 11/09/22 04:00 Resp 20 11/09/22 04:00 BP 171/85 11/09/22 04:00 Pulse Ox 92 L 11/09/22 04:00 FiO2 Intake & Output 11/08/22 11/09/22 11/09/22 18:59 06:59 18:59 Intake Total 720 715 110 Output Total 500 Balance 220 715 110 Weight 65.771 kg Intake: Intake, IV Titration 475 Amount Sodium Chloride 0.9% 1, 375 000 ml @ 75 mls/hr IV . [id number] ESSIE Rx#:[id number] metroNIDAZOLE-NS PMX 500 100 mg In Saline 1 100ml.bag @ 100 mls/hr IVPB Q8HR ESSIE Rx#:[id number] Oral 720 240 110 Output: Urine 500 Other: Voiding Method Diaper Diaper External Catheter External Catheter # Voids 800 # Bowel Movements 1 - Exam Elderly male lying in bed in no distress Lungs decreased breath sound on the base Abdomen soft on clinical examination Exam completed with the help of ASSET MANAGEMENT COORDINATOR - Labs CBC & Chem 7: 11/11/22 07:48 11/11/22 07:48 Labs: Abnormal Lab Results - Last 24 Hours (Table) 11/09/22 Range/Units 08:06 RBC 3.66 L (4.30-5.90) m/uL Hgb 11.9 L (13.0-17.5) gm/dL Hct 36.7 L (39.0-53.0) % MCV 100.3 H (80.0-100.0) fL Neutrophils # 8.5 H (1.3-7.7) k/uL Lymphocytes # 0.9 L (1.0-4.8) k/uL Microbiology - Last 24 Hours (Table) 11/06/22 21:11 Blood Culture - Preliminary Blood 11/06/22 21:05 Blood Culture - Preliminary Blood 11/08/22 10:50 CSF Culture - Preliminary Cerebral Spinal Fluid 11/08/22 05:10 Stool Culture - Preliminary Stool Assessment and Plan (1) Fever Current Visit: Yes Status: Acute Code(s): R50.9 - FEVER, UNSPECIFIED SNOMED Code(s): 809064479 Plan: This was a telehealth visit 1patient with fever elevated white count tachycardia meeting criteria for SIRS./Sepsis in this patient presenting to the hospital with decreased level of responsiveness and fall source possibly abdominal and the patient was noted to have significant abdominal distention however the patient also have mental status changes and neck rigidity underlying ELECTRICAL EQUIPMENT TESTER infection/encephalitis not ready excluded 2- CT of abdominal pelvis with IV contrast CT did shows circumferential rectal wall thickening correlate for proctitis large stool burden patient LP was normal. 3-the patient will continue patient on cefepime and Flagyl to cover for GI aerobes and anaerobes and monitor clinical course closely Time with Patient: Less than 30
--- NOTE | 2022-11-11 13:03 | P.PN ---
Subjective Progress Note Date: 11/10/22 Principal diagnosis: Fever Patient is a 72-year-old male presenting to the hospital with mental status changes patient was found to be on the floor and this patient has been running a fever with a CT abdominal pelvis did shows evidence of severe stool burden and initial concern for possible strangulated hernia that has been rule out patient also have LP completed which was normal On today's evaluation that is 11/10/2022 the patient did spike a fever last evening of 101F however did have a low-grade fever of 99.8 this morning patient is more awake and alert, the patient is breathing comfortably on room air denies any chest pain or shortness with occasional cough no vomiting has been reported Objective - Vital Signs Vital signs: Vital Signs Temp 98.1 F 11/10/22 11:48 Pulse 87 11/10/22 11:48 Resp 20 11/10/22 11:48 BP 162/77 11/10/22 11:48 Pulse Ox 94 L 11/10/22 11:48 FiO2 Intake & Output 11/09/22 18:59 Intake Total 250 Balance 250 Intake: IV 10 Invasive Line 3 10 Oral 240 Other: Voiding Method Diaper External Catheter # Voids 4 # Bowel Movements 1 - Exam Elderly male lying in bed in no distress Lungs decreased breath sound on the base Abdomen soft on clinical examination Exam completed with the help of PBX REPAIRER - Labs CBC & Chem 7: 11/11/22 07:48 11/11/22 07:48 Labs: Abnormal Lab Results - Last 24 Hours (Table) 11/11/22 11/11/22 Range/Units 07:48 07:48 WBC 11.0 H (3.8-10.6) k/uL RBC 3.78 L (4.30-5.90) m/uL Hgb 12.4 L (13.0-17.5) gm/dL Hct 37.1 L (39.0-53.0) % Neutrophils # 9.0 H (1.3-7.7) k/uL Chloride 108 H (98-107) mmol/L Carbon Dioxide 20 L (22-30) mmol/L BUN 23 H (9-20) mg/dL Glucose 143 H (74-99) mg/dL Creatine Kinase 43 L (55-170) U/L Microbiology - Last 24 Hours (Table) 11/08/22 16:20 Blood Culture - Preliminary Blood 11/06/22 21:11 Blood Culture - Preliminary Blood 11/06/22 21:05 Blood Culture - Preliminary Blood 11/08/22 10:50 CSF Gram Stain - Preliminary Cerebral Spinal Fluid CSF Culture - Preliminary 11/08/22 05:10 Stool Culture - Final Stool Assessment and Plan (1) Fever Current Visit: Yes Status: Acute Code(s): R50.9 - FEVER, UNSPECIFIED SNOMED Code(s): 628426182 Plan: This was a telehealth visit 1patient with fever elevated white count tachycardia meeting criteria for SIRS./Sepsis in this patient presenting to the hospital with decreased level of responsiveness and fall source possibly abdominal and the patient was noted to have significant abdominal distention however the patient also have mental status changes and neck rigidity underlying CARCASS WASHER infection/encephalitis not ready excluded 2- CT of abdominal pelvis with IV contrast CT did shows circumferential rectal wall thickening correlate for proctitis large stool burden patient LP was normal. 3-the patient is slowly clinically improving and we will continue the patient on cefepime and Flagyl and monitor clinical course closely Time with Patient: Less than 30
--- NOTE | 2022-11-11 13:06 | P.PN ---
Subjective Progress Note Date: 11/11/22 Principal diagnosis: Fever Patient is a 72-year-old male presenting to the hospital with mental status changes patient was found to be on the floor and this patient has been running a fever with a CT abdominal pelvis did shows evidence of severe stool burden and initial concern for possible strangulated hernia that has been rule out patient also have LP completed which was normal On today's evaluation that is 11/11/2022 the patient overall fever pattern has improved the last fever was 100.9 yesterday afternoon, and the patient is afebrile this morning patient is awake and alert he is breathing comfortably on room air denies any chest pain shortness of breath or cough no vomiting or diarrhea has been reported Objective - Vital Signs Vital signs: Vital Signs Temp 98.1 F 11/11/22 11:48 Pulse 87 11/11/22 11:48 Resp 20 11/11/22 11:48 BP 162/77 11/11/22 11:48 Pulse Ox 94 L 11/11/22 11:48 FiO2 Intake & Output 11/10/22 11/11/22 11/11/22 18:59 06:59 18:59 Intake Total 250 200 330 Balance 250 200 330 Intake: IV 10 Invasive Line 3 10 Oral 240 200 330 Other: Voiding Method Diaper Diaper Diaper External Catheter External Catheter # Voids 4 3 2 # Bowel Movements 1 1 - Exam GENERAL DESCRIPTION: An elderly male lying in bed in no distress RESPIRATORY SYSTEM: Unlabored breathing , decreased breath sounds at bases HEART: S1 S2 regular rate and rhythm , ABDOMEN: Soft , mild distention but no tenderness EXTREMITIES: No edema feet - Labs CBC & Chem 7: 11/11/22 07:48 11/11/22 07:48 Labs: Abnormal Lab Results - Last 24 Hours (Table) 11/11/22 11/11/22 Range/Units 07:48 07:48 WBC 11.0 H (3.8-10.6) k/uL RBC 3.78 L (4.30-5.90) m/uL Hgb 12.4 L (13.0-17.5) gm/dL Hct 37.1 L (39.0-53.0) % Neutrophils # 9.0 H (1.3-7.7) k/uL Chloride 108 H (98-107) mmol/L Carbon Dioxide 20 L (22-30) mmol/L BUN 23 H (9-20) mg/dL Glucose 143 H (74-99) mg/dL Creatine Kinase 43 L (55-170) U/L Microbiology - Last 24 Hours (Table) 11/08/22 16:20 Blood Culture - Preliminary Blood 11/06/22 21:11 Blood Culture - Preliminary Blood 11/06/22 21:05 Blood Culture - Preliminary Blood 11/08/22 10:50 CSF Gram Stain - Preliminary Cerebral Spinal Fluid CSF Culture - Preliminary 11/08/22 05:10 Stool Culture - Final Stool Assessment and Plan (1) Fever Current Visit: Yes Status: Acute Code(s): R50.9 - FEVER, UNSPECIFIED SNOMED Code(s): 371913347 Plan: 1patient with fever elevated white count tachycardia meeting criteria for SIRS./Sepsis in this patient presenting to the hospital with decreased level of responsiveness and fall source possibly abdominal and the patient was noted to have significant abdominal distention however the patient also have mental status changes and neck rigidity underlying RN INTERNATIONAL infection/encephalitis not ready excluded 2- CT of abdominal pelvis with IV contrast CT did shows circumferential rectal wall thickening correlate for proctitis large stool burden patient LP was normal. 3-the patient had shown clinical improvement with resolution of his fever we will continue the patient cefepime and Flagyl, surgery is planning for repair of inguinal hernia Time with Patient: Less than 30
--- NOTE | 2022-11-11 19:28 | P.PN ---
Subjective patient is a 72-year-old gentleman with past medical history significant for hypertension, hyperlipidemia, COPD presented to the ER because of altered mental status. Most of the history has been taken from the EMR. Patient was brought in by EMS after being notified by the patient's neighbor who did a wellness check on the patient as he had not seen him in a day.EMS found the patient lying on the floor, patient currently alert to self. Patient was immediately brought to the ER of [facility]. initial lab work done in the ER showedWBC 12.8, hemoglobin 13.8, platelet count 325, sodium 145, potassium 4.1, chloride 110, BUN 35, creatinine 1.29, CK 2741 Chest x-ray negative for acute pulmonary process CT brain showed age-related atrophy, no acute intracranial process Patient was admitted to internal medicine service 11/06/2022 Patient is currently in the telemetry unit. Extremity continues and nonresponsive. Patient is a lethargic but able to moan and follows simple commands. Rapid response team was called due to unresponsiveness. Patient had CT head done yesterday which showed no acute intracranial hemorrhage or midline shift. There is mild to moderate diffuse cerebral atrophy and chronic small vessel ischemic changes redemonstrated. No significant change from recent prior CT. EEG and MRI was ordered as per neurology recommendations. Patient was also febrile overnight with Tmax 100.8. Currently afebrile. Laboratory data showed WBC 10.8 hemoglobin 13.6 and platelets 262 Sodium 135 potassium 3.3 chloride 97 bicarb is 28, BUN 19 and creatinine 1.05 blood sugar 132 and CPK level trending down to 1164. Bicarb drip has been discontinued. Nephrology and neurology is on board. 11/07/2022 Patient is currently laying in bed. Able to open his eyes better today. Follows simple commands. Still lethargic and sleepy. Overnight patient was febrile again with Tmax of 100.8. Due to encephalopathy and fever possibly ENGINEER SYSTEM ADMINISTRATOR infection is being considered. Patient was started on broad-spectrum antibiotics. Patient was also noted to have abdominal distention. EEG showed moderate to severe encephalopathic picture. MRI of the brain was done yesterday which showed some age-related atrophy. No acute intracranial process. ID was consulted due to fever and encephalopathy. Laboratory pressure WBC 11.7 hemoglobin 13.5 and platelets 287 Sodium 138 potassium 3.6 chloride 104 bicarb is 21 BUN 21 and creatinine 1.08. Blood sugar is 116 Procalcitonin level is at 0.41. 11/08/2022 Patient is more awake and oriented today. Patient was able to communicate with his sister at bedside. Patient did have fever with Tmax of 101.0 yesterday afternoon. Currently on room air. Patient is able to tolerate liquids with one-to-one feeding. Status post LP today. CT of the abdomen pelvis showed circumferential rectal wall thickening correlate for proctitis. No additional finding within the abdomen or pelvis to explain patient's symptoms. Left inguinal hernia containing loops of sigmoid colon. No evidence for wall thickening suggesting strangulation. Large stool burden throughout the colon. Patient did have multiple episodes of diarrhea yesterday. CT was negative. General surgery was consulted for further evaluation of the abnormal CT. Patient was seen by psychiatry and currently Depakote is on hold at continue with Seroquel as needed. Laboratory data showed WBC 11.2 hemoglobin 12.20 platelets 260 sodium 139 potass ium 3.3 which is being replaced BUN 20. Creatinine 1.13 and calcium 8.2. Coronavirus PCR not detected. 11/09/2022 Patient is currently resting in the bed. Awake alert but slow to respond. Mentation is much improved. Feels very weak. Denies any complaints of chest pain or shortness of breath. Patient has been afebrile. Laboratory data showed WBC 10.4 hemoglobin 11.9 platelets 301, sodium 140 potassium 3.6 chloride 107 bicarb is 20 BUN 23 and creatinine 0.94 and blood sugar 116. CRP 44.3. Patient is being continued on antibiotics in the form of cefepime and metronidazole. General surgery is on board. 11/10/2022 Patient is currently lying in the bed. Awake alert but lethargic and weak and drowsy. No complaints of chest pain or shortness of breath. Patient does have left inguinal hernia and possible partially incarcerated. With general surgery is planning for elective repair of hearing on Friday. Otherwise patient is afebrile. Potassium was replaced as per protocol. Laboratory data showed WBC 9.6 hemoglobin 11.1 and platelets 322, sodium 141 potassium 3.3 chloride 109 bicarb is 21 BUN 22 and creatinine 0.9 and calcium 8.1. I'm resume the care of the patient 11/11/2022 This is a pleasant 72 years old male with multiple medical problems presents with altered mental status secondary to metabolic encephalopathy and infection was suspected with systemic inflammatory response, his lumbar puncture was unremarkable for ENGINEER SYSTEM ADMINISTRATOR infection, CT was evidence with prostatitis with circumferential wall thickening, his abdomen is still mildly distended. His Rhabdomyolysis and tumor improved Patient is planned by surgery team for left inguinal hernia repair tomorrow Today was awake alert lethargic and weak but is improving, this is confirmed with the daughter at bedside nurse, patient he knows in the hospital he knew the year but could not tell them on 4 date and recognize his daughter and he has insight into his illness. He denies any specific complaint. [facility] thinks he is improving and she is happy with his progress. He still picking up his appetite slowly. He remains on cefepime, IV Flagyl and normal saline and 75 mL/h. Depakote is on hold Objective - Vital Signs Vital signs: Vital Signs Temp 98.1 F 11/11/22 11:48 Pulse 87 11/11/22 11:48 Resp 20 11/11/22 11:48 BP 162/77 11/11/22 11:48 Pulse Ox 94 L 11/11/22 11:48 FiO2 Intake & Output 11/10/22 11/11/22 11/11/22 18:59 06:59 18:59 Intake Total 250 200 330 Balance 250 200 330 Intake: IV 10 Invasive Line 3 10 Oral 240 200 330 Other: Voiding Method Diaper Diaper Diaper External Catheter External Catheter # Voids 4 3 2 # Bowel Movements 1 1 - Exam -GENERAL: The patient is alert and oriented x2-3 partial, lethargic, not in any acute distress. Well developed, well nourished. Generally weak HEENT: Pupils are round and equally reacting to light. EOMI. No scleral icterus. No conjunctival pallor. Normocephalic, atraumatic. No pharyngeal erythema. No thyromegaly. CARDIOVASCULAR: S1 and S2 present. No murmurs, rubs, or gallops. PULMONARY: Chest is clear to auscultation, no wheezing . no crackles. -ABDOMEN: Soft, nontender, mildly distended, normoactive bowel sounds. No palpable organomegaly. MUSCULOSKELETAL: No joint swelling or deformity. EXTREMITIES: No cyanosis, clubbing, or pedal edema. NEUROLOGICAL: Gross neurological examination did not reveal any focal deficits. SKIN: No rashes. no petechiae. - Labs CBC & Chem 7: 11/11/22 07:48 11/11/22 07:48 Labs: Abnormal Lab Results - Last 24 Hours (Table) 11/11/22 11/11/22 Range/Units 07:48 07:48 WBC 11.0 H (3.8-10.6) k/uL RBC 3.78 L (4.30-5.90) m/uL Hgb 12.4 L (13.0-17.5) gm/dL Hct 37.1 L (39.0-53.0) % Neutrophils # 9.0 H (1.3-7.7) k/uL Chloride 108 H (98-107) mmol/L Carbon Dioxide 20 L (22-30) mmol/L BUN 23 H (9-20) mg/dL Glucose 143 H (74-99) mg/dL Creatine Kinase 43 L (55-170) U/L Microbiology - Last 24 Hours (Table) 11/08/22 16:20 Blood Culture - Preliminary Blood 11/06/22 21:11 Blood Culture - Preliminary Blood 11/06/22 21:05 Blood Culture - Preliminary Blood 11/08/22 10:50 CSF Gram Stain - Preliminary Cerebral Spinal Fluid CSF Culture - Preliminary 11/08/22 05:10 Stool Culture - Final Stool Assessment and Plan Assessment: Acute metabolic encephalopathy. fall and Patient was found on the floor. improving. Circumferential rectal wall thickening correlate for proctitis as per CT Left inguinal hernia containing sigmoid colon. Possible partial incarceration.. Large stool burden throughout the colon. resolved. Fever. Status post LP. CSF analysis showed no evidence of infection. Acute rhabdomyolysis. Improving Acute Kidney injury. resolved, History of mood disorder Hypertension Hyperlipidemia COPD Polypharmacy Plan: Continue with antibiotic cefepime and IV Flagyl Continue with normal saline Several consultants on the case including ID, neurologist and general surgery Patient is planned to undergo left inguinal hernia repair on 11/11 Labs and medication were reviewed.. Continue same treatment. Continue with symptomatic treatment. Resume home medication. Monitor labs and vitals. DVT and GI prophylaxis. Further recommendations as per clinical course of the patient DVT prophylaxis: Subcutaneous heparin GI Prophylaxis: Pepcid PT/OT: LONG Prognosis is guarded
[2022-11-11] MEDS: LORazepam 0.5 MG TAB PO SCH (20:59)
[2022-11-11] MEDS: FAMOTIDINE 20 MG/2 ML VIAL IV SCH (21:00)
[2022-11-12] MEDS: metroNIDAZOLE-NS PMX 500 MG in SALINE 1 100ML.BAG IVPB SCH ×4 (00:44→23:18)
[2022-11-12] MEDS: CEFEPIME 2 GM in SODIUM CHLORIDE 0.9% 100 ML IVPB SCH ×4 (00:44→23:18)
[2022-11-12] MEDS: HEPARIN SODIUM,PORCINE/PF 5,000 UNIT/0.5 ML SYRINGE SQ SCH ×4 (00:44→23:19)
[2022-11-12] MEDS: SODIUM CHLORIDE 0.9% 1,000 ML IV SCH ×2 (06:26→20:43)
[2022-11-12] MEDS: LACTATED RINGERS 1,000 ML IV SCH (06:32)
[2022-11-12] MEDS ORDERED: HYDROmorphone 0.5 MG/0.5 ML SYRINGE IVP PRN (07:00)
[2022-11-12] MEDS ORDERED: LIDOCAINE 1% (10MG/ML) FOR IV START INTRADERMA PRN (07:00)
[2022-11-12] MEDS ORDERED: MIDAZOLAM 2 MG/2 ML VIAL IV PRN (07:00)
[2022-11-12] MEDS: FAMOTIDINE 20 MG/2 ML VIAL IV SCH ×2 (07:33→20:42)
[2022-11-12] MEDS: SYMBICORT 160-4.5 MCG INHALER INHALATION SCH ×2 (08:17→20:58)
[2022-11-12] MEDS ORDERED: IV FLUID CONTINUATION 1,000 ML IV ONE (09:30)
[2022-11-12] MEDS ORDERED: ONDANSETRON 4 MG/2 ML VIAL ONE (09:54)
[2022-11-12] MEDS ORDERED: NEOSTIGMINE 1 MG/ML 10 ML VIAL ONE (10:04)
[2022-11-12] MEDS ORDERED: ROCURONIUM 10 MG/ML (5 ML VIAL) IV ONE (10:04)
[2022-11-12] MEDS ORDERED: fentaNYL (PF) 50 MCG/ML 2 ML AMP ONE (10:04)
[2022-11-12] MEDS ORDERED: GLYCOPYRROLATE 0.2 MG/ML 2 ML VIAL ONE (10:04)
[2022-11-12] MEDS ORDERED: PROPOFOL 10 MG/ML 20 ML VIAL IV ONE (10:04)
[2022-11-12] MEDS ORDERED: SUCCINYLCHOLINE CHLORIDE 200 MG/10 ML VIAL IV ONE (10:04)
[2022-11-12] MEDS ORDERED: LIDOCAINE 2% INJ 20 MG/ML (2 ML VIAL) ONE (10:04)
[2022-11-12] MEDS ORDERED: BUPIVACAINE (PF) 0.25% 30 ML VIAL SQ ONE (10:30)
[2022-11-12] MEDS ORDERED: HYDROmorphone 1 MG/ML 1 ML SYRINGE IVP PRN (10:55)
--- NOTE | 2022-11-12 10:55 | P.OP ---
Date of Procedure: 11/12/22 Preoperative Diagnosis: Incarcerated left inguinal hernia Postoperative Diagnosis: Incarcerated left inguinal hernia Procedure(s) Performed: (Repair of incarcerated left inguinal hernia with Prolene hernia mesh system plug Anesthesia: HALI Surgeon: Cb Fischer Estimated Blood Loss (ml): 5 Pathology: none sent Condition: stable Disposition: PACU Description of Procedure: DESCRIPTION OF PROCEDURE: The patient was placed in the supine position after receiving adequate anesthesia. Patients groin was prepped and draped in the usual sterile fashion. A standard hernia incision was made and the subcutaneous tissues were divided with electrocautery. The fascia of the external oblique was exposed. A good the fascia was made with #15 blade. The fascia was then opened with pair of Metzenbaum scissors. A Weitlaner retractor was placed in the wound and the cord structures were grasped and dissected free from the inguinal canal. A rubber Cayetano drain was placed around the cord structures. The hernial sac was seen on the anterior-medial portion of the cord and this was dissected free from the cord. The hernia sac was then invaginated to the peritoneal cavity. Using blunt finger dissection, the preperitoneal space was dissected and then the Prolene hernial mesh plug was placed into the prepared space. The inferior leaf was expanded. The superior leaf was secured to the pubic tubercle using 2-0 Prolene suture. The lateral portion of the superior leaf was incised and cords tied and secured to the transversalis fascia using 2-0 Prolene suture. Fascia of the external oblique was then closed using #0 Vicryl suture. The Cayetano drain was removed. The Scarpas fascia was then closed with 3-0 Vicryl suture and skin was closed with antonio. The patient tolerated the procedure well.
[2022-11-12] MEDS: DOCUSATE 100 MG CAP PO SCH ×2 (11:37→20:42)
[2022-11-12] MEDS: amLODIPine 10 MG TAB PO SCH (12:00)
[2022-11-12] MEDS: PRIMIDONE 50 MG TAB PO SCH ×3 (12:00→20:42)
[2022-11-12] MEDS: MONTELUKAST 10 MG TAB PO SCH (12:01)
[2022-11-12] MEDS: METOPROLOL TARTRATE 25 MG TAB PO SCH ×2 (12:01→20:42)
--- NOTE | 2022-11-12 12:53 | P.PN ---
Subjective Progress Note Date: 11/12/22 Principal diagnosis: Fever Patient is a 72-year-old male presenting to the hospital with mental status changes patient was found to be on the floor and this patient has been running a fever with a CT abdominal pelvis did shows evidence of severe stool burden and initial concern for possible strangulated hernia that has been rule out patient also have LP completed which was normal, a patient is status post left inguinal incarcerated hernia repair completed on 11/02/2022 On today's evaluation that is 11/12/2022 the patient is afebrile this morning , patient is awake and alert , the patient is breathing comfortably on room air denies any chest pain shortness of breath or cough no vomiting or diarrhea has been reported Objective - Vital Signs Vital signs: Vital Signs Temp 98.2 F 11/12/22 11:00 Pulse 92 11/12/22 11:32 Resp 16 11/12/22 11:32 BP 168/89 11/12/22 11:32 Pulse Ox 92 L 11/12/22 11:32 FiO2 Intake & Output 11/11/22 11/12/22 11/12/22 18:59 06:59 18:59 Intake Total 420 60 400 Output Total 1000 400 410 Balance -580 -340 -10 Weight 65.771 kg Intake: IV 10 400 Invasive Line 3 10 Oral 420 50 0 Output: Urine 1000 400 400 Estimated Blood Loss 10 Other: Voiding Method Diaper External Catheter External Catheter External Catheter # Voids 2 - Exam GENERAL DESCRIPTION: An elderly male lying in bed in no distress RESPIRATORY SYSTEM: Unlabored breathing , decreased breath sounds at bases HEART: S1 S2 regular rate and rhythm , ABDOMEN: Soft , mild distention but no tenderness EXTREMITIES: No edema feet - Labs CBC & Chem 7: 11/11/22 07:48 11/11/22 07:48 Labs: Microbiology - Last 24 Hours (Table) 11/08/22 05:10 Stool Culture - Final Stool 11/06/22 21:11 Blood Culture - Final Blood 11/06/22 21:05 Blood Culture - Final Blood 11/08/22 16:20 Blood Culture - Preliminary Blood 11/08/22 10:50 CSF Gram Stain - Preliminary Cerebral Spinal Fluid CSF Culture - Preliminary Assessment and Plan (1) Fever Current Visit: Yes Status: Acute Code(s): R50.9 - FEVER, UNSPECIFIED SNOMED Code(s): 354796744 Plan: 1patient with fever elevated white count tachycardia meeting criteria for SIRS./Sepsis in this patient presenting to the hospital with decreased level of responsiveness and fall source possibly abdominal and the patient was noted to have significant abdominal distention however the patient also have mental status changes and neck rigidity underlying ALTERATION MANAGER infection/encephalitis not ready excluded 2- CT of abdominal pelvis with IV contrast CT did shows circumferential rectal wall thickening correlate for proctitis large stool burden and there was concern for possible incarcerated left inguinal hernia, patient LP was normal. 3-the patient had shown clinical improvement with resolution of his fever, the patient is status post repair of the left inguinal incarcerated hernia will continue cefepime and Flagyl and monitor clinical course closely Multiple family member at the bedside questions were answered Time with Patient: Less than 30
--- NOTE | 2022-11-12 13:42 | P.PN ---
Progress Note - Text Progress Note Date: 11/12/22 Interval History: Patient was seen today for psychiatric follow-up regarding patient's delirium/ encephalopathy. Patient has been taking his medications. He was seen today after being seen and evaluated by RECEIVING INSPECTOR. Patient was lying in bed chewing on crackers. She greeted ghost writer and appeared to be more awake today. He only wasn't able to answer some questions today. He was fairly concrete. He was able to give me his full name and his age. He knew he was in the hospital however did not know which one. He did not know today's date. He had fair attention span. Poor eye contact today. Denying any depression or anxiety at this time. did not answer when asked about his sleep. At this time patient denies any suicidal or homical ideations, intent or plan. Patient denies any visual hallucinations. Patient denies any side effects from the medications and has been compliant with meds. Mental Status Exam: General Appearance: Patient appears to be thin, tall, has a montiel, more awake today. Wearing a hospital gown. Balding. Behavior:Patient is calmly lying in bed without any agitated behavior, more awake today watching television Speech: Patient's speech Spontaneous, moire clear, improving mildly. concrete. Mood/Affect: "Ok" and has a constricted affect Suicidality/Homicidality: Denies Perceptions: Admits to some visual hallucinations, no auditory hallucinations. Though content/process: [place], no delusions. Memory and concentration: He knows his full name, does not know exactly where he is or today's date. Improving concentration. Judgment and insight: limited, Improving mildly IMPRESSIONS: Delirium, etiology unknown History of depression, possible bipolar disorder PLAN: -At this time patient DOES NOT meet criteria for inpatient psychiatric admission. -Delirium precautions recommended with patient including - avoiding use of narcotics and SOAP DRIER OPERATOR sedatives, limit anticholinergic medications when possible, frequent re-orientation, minimize use of restraints, open window shades during the day and close them at night -Would recommend the following medication changes/additions:continue with seroquel 25 bid prn for insomnia or psychosis -Communicated plan to patient's nurse -at this time psychiatry will sign off. -appreciate neurology recs -Please contact with any questions.
--- NOTE | 2022-11-12 19:20 | P.PN ---
Subjective Progress Note Date: 11/12/22 Patient was initially seen by Dr. Los Marin. Please refer to his note for details. Patient is a 72-year-old male came with altered mental status, CSF is negative. Patient has proctitis. Patient does have tremors, need to rule out Parkinson's. Patient is laying comfortably in the bed. He admits to having headache, and states it is 12 on a scale of 1-10. He could not tell home as he lives with. He knows his first name, but could not tell me the last time his age on what building he is in. Telemetry monitoring showing sinus rhythm. Some of the workup during his hospital visit consist of: febrile: 100.6 CK levels 2741--> 1164. TSH is 1.410. Serum folate is 531 Vitamin B12 is 365 Sodium, calcium, AST ALT are within normal limits. Localizes 111. BUN is 35 and creatinine is 1.29 Urine drug screen is positive for barbiturates. CSF: clear, colorless, rbc 0, total nucelated cell 1, glucose 67, protein 56. HSVI/II not detected CT of the head is reported as age-related atrophy. No acute intracranial process. Follow-up MRI can be performed as clinically indicated. PT CT of the head is reported as no acute intracranial hemorrhage or midline shift. There is mild to moderate diffuse cerebral atrophy and chronic small vessel ischemic changes redemonstrated. No significant change from recent prior CT. Routine EEG is abnormal. The background slowing suggestive of mild encephalopathy. Otherwise there is no focal slowing, epileptiform discharges or seizure in the EEG. Repeat EEG is abnormal. Tobacco slowing suggestive of moderate to severe encephalopathy. Otherwise there is no focal slowing, epileptiform discharges or seizure on the EEG. MR the brain with and without is reported as some age-related atrophy. No acute intracranial process. CT abdomen pelvis is reported as stroke conference old rectal wall thickening correlate for proctitis large stool burden throughout the colon. Objective - Vital Signs Vital signs: Vital Signs Temp 98.4 F 11/12/22 16:00 Pulse 92 11/12/22 11:32 Resp 18 11/12/22 16:00 BP 148/89 11/12/22 16:00 Pulse Ox 94 L 11/12/22 16:00 FiO2 Intake & Output 11/11/22 11/12/22 11/12/22 18:59 06:59 18:59 Intake Total 420 60 640 Output Total 1000 400 760 Balance -580 -340 -120 Weight 65.771 kg Intake: IV 10 400 Invasive Line 3 10 Oral 420 50 240 Output: Urine 1000 400 750 Estimated Blood Loss 10 Other: Voiding Method Diaper External Catheter External Catheter External Catheter # Voids 2 - Exam Patient is an elderly male, sitting comfortably in the bed. He has slightly slow mentation. He speaks with husky voice. He has some chin tremor. No tremors of his extremities at rest. However on holding his arms up, there is moderate tremor with posture. Also moderate tremor for [id number] testing. Tone is at least moderately to severely increased bilaterally. No tremors of the lower extremity is. 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 Sporadic very brief resting tremor left upper extremity was noted. - Labs CBC & Chem 7: 11/13/22 07:42 11/13/22 07:42 Labs: Microbiology - Last 24 Hours (Table) 11/08/22 10:50 CSF Gram Stain - Preliminary Cerebral Spinal Fluid CSF Culture - Preliminary 11/08/22 05:10 Stool Culture - Final Stool 11/06/22 21:11 Blood Culture - Final Blood 11/06/22 21:05 Blood Culture - Final Blood 11/08/22 16:20 Blood Culture - Preliminary Blood Assessment and Plan Assessment: Is seems the patient was found down at home on the floor. Altered mental status; encephalopathy of unknown etiology at this time. Patient has a fever unknown exact cause but on the CT of the abdomen and pelvis he has proctitis with large stool burden in the colon. CSF study is negative. Syncopal episode: Unsure cause. Routine EEG is negative for seizure or seizure discharge Rhabdomyolysis due to #1 Postural and intention tremor, moderate degree, with bradykinesia, chin tremor, and moderate rigidity bilaterally, suggestive of possible parkinsonian symptoms. No tremors at rest however noticeable, except only once noted transiently involving left arm.. Mood disorder and he is on Depakote Polypharmacy Plan: ID team is on board and will defer antibiotic management to them. CSF study is negative. General surgery is considering surgery this Friday for large left inguinal hernia. Dr. Marin apparently gave a trial of Sinemet, which did not help, therefore it was discontinued. Recommend patient undergo NEO SCAN as an outpatient. If Parkinson's is confirmed, then would recommend re-introducing Sinemet. Dr. Marin has helped Topamax Patient is resumed on his home medication of primidone 50 mg 1 tablet 3 times a day for his history of reported essential tremor. Psychiatry on board, who believed patient has delirium, and bipolar disorder. Recommended Seroquel 25 mg twice a day, as needed for agitation and insomnia. Patient used to be on Depakote, which has been discontinued. We'll defer the rest of the medical measure the primary team Recommend patient follow up with neurologist as an outpatient for management of tremors.
[2022-11-12] MEDS: LORazepam 0.5 MG TAB PO SCH (20:42)
[2022-11-12] MEDS: HYDROcodone/APAP 7.5-325MG 1 EACH TAB PO PRN (20:52)
--- NOTE | 2022-11-12 22:19 | P.PN ---
Subjective patient is a 72-year-old gentleman with past medical history significant for hypertension, hyperlipidemia, COPD presented to the ER because of altered mental status. Most of the history has been taken from the EMR. Patient was brought in by EMS after being notified by the patient's neighbor who did a wellness check on the patient as he had not seen him in a day.EMS found the patient lying on the floor, patient currently alert to self. Patient was immediately brought to the ER of [facility]. initial lab work done in the ER showedWBC 12.8, hemoglobin 13.8, platelet count 325, sodium 145, potassium 4.1, chloride 110, BUN 35, creatinine 1.29, CK 2741 Chest x-ray negative for acute pulmonary process CT brain showed age-related atrophy, no acute intracranial process Patient was admitted to internal medicine service 11/06/2022 Patient is currently in the telemetry unit. Extremity continues and nonresponsive. Patient is a lethargic but able to moan and follows simple commands. Rapid response team was called due to unresponsiveness. Patient had CT head done yesterday which showed no acute intracranial hemorrhage or midline shift. There is mild to moderate diffuse cerebral atrophy and chronic small vessel ischemic changes redemonstrated. No significant change from recent prior CT. EEG and MRI was ordered as per neurology recommendations. Patient was also febrile overnight with Tmax 100.8. Currently afebrile. Laboratory data showed WBC 10.8 hemoglobin 13.6 and platelets 262 Sodium 135 potassium 3.3 chloride 97 bicarb is 28, BUN 19 and creatinine 1.05 blood sugar 132 and CPK level trending down to 1164. Bicarb drip has been discontinued. Nephrology and neurology is on board. 11/07/2022 Patient is currently laying in bed. Able to open his eyes better today. Follows simple commands. Still lethargic and sleepy. Overnight patient was febrile again with Tmax of 100.8. 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 Patient was started on broad-spectrum antibiotics. Patient was also noted to have abdominal distention. EEG showed moderate to severe encephalopathic picture. MRI of the brain was done yesterday which showed some age-related atrophy. No acute intracranial process. ID was consulted due to fever and encephalopathy. Laboratory pressure WBC 11.7 hemoglobin 13.5 and platelets 287 Sodium 138 potassium 3.6 chloride 104 bicarb is 21 BUN 21 and creatinine 1.08. Blood sugar is 116 Procalcitonin level is at 0.41. 11/08/2022 Patient is more awake and oriented today. Patient was able to communicate with his sister at bedside. Patient did have fever with Tmax of 101.0 yesterday afternoon. Currently on room air. Patient is able to tolerate liquids with one-to-one feeding. Status post LP today. CT of the abdomen pelvis showed circumferential rectal wall thickening correlate for proctitis. No additional finding within the abdomen or pelvis to explain patient's symptoms. Left inguinal hernia containing loops of sigmoid colon. No evidence for wall thickening suggesting strangulation. Large stool burden throughout the colon. Patient did have multiple episodes of diarrhea yesterday. CT was negative. General surgery was consulted for further evaluation of the abnormal CT. Patient was seen by psychiatry and currently Depakote is on hold at continue with Seroquel as needed. Laboratory data showed WBC 11.2 hemoglobin 12.20 platelets 260 sodium 139 potass ium 3.3 which is being replaced BUN 20. Creatinine 1.13 and calcium 8.2. Coronavirus PCR not detected. 11/09/2022 Patient is currently resting in the bed. Awake alert but slow to respond. Mentation is much improved. Feels very weak. Denies any complaints of chest pain or shortness of breath. Patient has been afebrile. Laboratory data showed WBC 10.4 hemoglobin 11.9 platelets 301, sodium 140 potassium 3.6 chloride 107 bicarb is 20 BUN 23 and creatinine 0.94 and blood sugar 116. CRP 44.3. Patient is being continued on antibiotics in the form of cefepime and metronidazole. General surgery is on board. 11/10/2022 Patient is currently lying in the bed. Awake alert but lethargic and weak and drowsy. No complaints of chest pain or shortness of breath. Patient does have left inguinal hernia and possible partially incarcerated. With general surgery is planning for elective repair of hearing on Friday. Otherwise patient is afebrile. Potassium was replaced as per protocol. Laboratory data showed WBC 9.6 hemoglobin 11.1 and platelets 322, sodium 141 potassium 3.3 chloride 109 bicarb is 21 BUN 22 and creatinine 0.9 and calcium 8.1. I'm resume the care of the patient 11/11/2022 This is a pleasant 72 years old male with multiple medical problems presents with altered mental status secondary to metabolic encephalopathy and infection was suspected with systemic inflammatory response, his lumbar puncture was unremarkable for SCHOOL BUSINESS ADMINISTRATOR infection, CT was evidence with prostatitis with circumferential wall thickening, his abdomen is still mildly distended. His Rhabdomyolysis and tumor improved Patient is planned by surgery team for left inguinal hernia repair tomorrow Today was awake alert lethargic and weak but is improving, this is confirmed with the daughter at bedside nurse, patient he knows in the hospital he knew the year but could not tell them on 4 date and recognize his daughter and he has insight into his illness. He denies any specific complaint. Daughter at [facility] thinks he is improving and she is happy with his progress. He still picking up his appetite slowly. He remains on cefepime, IV Flagyl and normal saline and 75 mL/h. Depakote is on hold 11/12/2022 Patient today is awake alert, still very weak generally, he is talking in low voice and looks tired but patient reports improvement compared to yesterday. Patient is improving slowly and gradually. He denies specific complaint however he has poor appetite Patient underwent left inguinal hernia repair today with surgery team Patient methylmalonic acid is still pending for borderline low vitamin B12 Patient remains on cefepime and IV Flagyl. Neurology input is a appreciated and noted Psych consult signed off the case Objective - Vital Signs Vital signs: Vital Signs Temp 98.3 F 11/12/22 12:00 Pulse 92 11/12/22 11:32 Resp 20 11/12/22 12:00 BP 166/89 11/12/22 12:00 Pulse Ox 93 L 11/12/22 12:00 FiO2 Intake & Output 11/11/22 11/12/22 11/12/22 18:59 06:59 18:59 Intake Total 420 60 400 Output Total 1000 400 410 Balance -580 -340 -10 Weight 65.771 kg Intake: IV 10 400 Invasive Line 3 10 Oral 420 50 0 Output: Urine 1000 400 400 Estimated Blood Loss 10 Other: Voiding Method Diaper External Catheter External Catheter External Catheter # Voids 2 - Exam -GENERAL: The patient is alert and oriented x2-3 partial, lethargic, not in any acute distress. Well developed, well nourished. Generally weak HEENT: Pupils are round and equally reacting to light. EOMI. No scleral icterus. No conjunctival pallor. Normocephalic, atraumatic. No pharyngeal erythema. No thyromegaly. CARDIOVASCULAR: S1 and S2 present. No murmurs, rubs, or gallops. PULMONARY: Chest is clear to auscultation, no wheezing . no crackles. -ABDOMEN: Soft, nontender, mildly distended, normoactive bowel sounds. No palpable organomegaly. MUSCULOSKELETAL: No joint swelling or deformity. EXTREMITIES: No cyanosis, clubbing, or pedal edema. NEUROLOGICAL: Gross neurological examination did not reveal any focal deficits. SKIN: No rashes. no petechiae. - Labs CBC & Chem 7: 11/11/22 07:48 11/11/22 07:48 Labs: Microbiology - Last 24 Hours (Table) 11/08/22 05:10 Stool Culture - Final Stool 11/06/22 21:11 Blood Culture - Final Blood 11/06/22 21:05 Blood Culture - Final Blood 11/08/22 16:20 Blood Culture - Preliminary Blood Assessment and Plan Assessment: Acute metabolic encephalopathy. fall and Patient was found on the floor. improving. Circumferential rectal wall thickening correlate for proctitis as per CT Left inguinal hernia containing sigmoid colon. Possible partial incarceration.. Status post hernia repair on 11/12 Large stool burden throughout the colon. resolved. Fever. Status post LP. CSF analysis showed no evidence of infection. Acute rhabdomyolysis. Improving Acute Kidney injury. resolved, History of mood disorder Hypertension Hyperlipidemia COPD Polypharmacy Plan: Continue with antibiotic cefepime and IV Flagyl Continue with normal saline Several consultants on the case including ID, neurologist and general surgery Patient is planned to undergo left inguinal hernia repair on 11/11 Labs and medication were reviewed.. Continue same treatment. Continue with symptomatic treatment. Resume home medication. Monitor labs and vitals. DVT and GI prophylaxis. Further recommendations as per clinical course of the patient DVT prophylaxis: Subcutaneous heparin GI Prophylaxis: Pepcid PT/OT: LONG Prognosis is guarded
[2022-11-13] MEDS: LACTATED RINGERS 1,000 ML IV SCH (06:09)
[2022-11-13] MEDS: SYMBICORT 160-4.5 MCG INHALER INHALATION SCH ×2 (08:34→20:58)
[2022-11-13 08:36] LABS: Basophils % (A) 0 %; Eosinophils # (A) 0.1 k/uL (0-0.7); Eosinophils % (A) 1 %; HCT 34.9 % (39.0-53.0); HGB 11.5 gm/dL (13.0-17.5); Lymphocytes # (A) 1.3 k/uL (1.0-4.8); Lymphocytes % (A) 11 %; MCH 32.5 pg (25.0-35.0); MCHC 32.8 g/dL (31.0-37.0); MCV 98.9 fL (80.0-100.0); Monocytes # (A) 0.6 k/uL (0-1.0); Monocytes % (A) 5 %; Neutrophils # (A) 9.6 k/uL (1.3-7.7); Neutrophils % (A) 81 %; Platelet Count 499 k/uL (150-450); RBC 3.53 m/uL (4.30-5.90); RDW 13.6 % (11.5-15.5); WBC 11.8 k/uL (3.8-10.6)
[2022-11-13] MEDS: HEPARIN SODIUM,PORCINE/PF 5,000 UNIT/0.5 ML SYRINGE SQ SCH ×3 (08:51→23:43)
[2022-11-13] MEDS: PRIMIDONE 50 MG TAB PO SCH ×3 (08:51→20:46)
[2022-11-13] MEDS: DOCUSATE 100 MG CAP PO SCH ×2 (08:51→20:46)
[2022-11-13] MEDS: MONTELUKAST 10 MG TAB PO SCH (08:51)
[2022-11-13] MEDS: amLODIPine 10 MG TAB PO SCH (08:51)
[2022-11-13] MEDS: METOPROLOL TARTRATE 25 MG TAB PO SCH ×2 (08:51→20:46)
[2022-11-13] MEDS: CEFEPIME 2 GM in SODIUM CHLORIDE 0.9% 100 ML IVPB SCH ×3 (08:52→23:43)
[2022-11-13 09:07] LABS: African American GFR (CKD) >90 (>60 ml/min/1.73 sqM); Anion Gap 10 mmol/L; Blood Urea Nitrogen 27 mg/dL (9-20); Calcium 8.2 mg/dL (8.4-10.2); Carbon Dioxide 23 mmol/L (22-30); Chloride 107 mmol/L (98-107); Glucose 98 mg/dL (74-99); Non-African American GFR(CKD) 86 (>60 ml/min/1.73 sqM); Sodium 140 mmol/L (137-145)
[2022-11-13] MEDS: metroNIDAZOLE-NS PMX 500 MG in SALINE 1 100ML.BAG IVPB SCH ×3 (11:43→23:43)
[2022-11-13] MEDS: ACETAMINOPHEN TAB 500 MG TAB PO PRN (11:43)
[2022-11-13] MEDS: FAMOTIDINE 20 MG/2 ML VIAL IV SCH ×2 (11:44→20:46)
--- NOTE | 2022-11-13 12:53 | P.PN ---
Subjective patient is a 72-year-old gentleman with past medical history significant for hypertension, hyperlipidemia, COPD presented to the ER because of altered mental status. Most of the history has been taken from the EMR. Patient was brought in by EMS after being notified by the patient's neighbor who did a wellness check on the patient as he had not seen him in a day.EMS found the patient lying on the floor, patient currently alert to self. Patient was immediately brought to the ER of [facility]. initial lab work done in the ER showedWBC 12.8, hemoglobin 13.8, platelet count 325, sodium 145, potassium 4.1, chloride 110, BUN 35, creatinine 1.29, CK 2741 Chest x-ray negative for acute pulmonary process CT brain showed age-related atrophy, no acute intracranial process Patient was admitted to internal medicine service 11/06/2022 Patient is currently in the telemetry unit. Extremity continues and nonresponsive. Patient is a lethargic but able to moan and follows simple commands. Rapid response team was called due to unresponsiveness. Patient had CT head done yesterday which showed no acute intracranial hemorrhage or midline shift. There is mild to moderate diffuse cerebral atrophy and chronic small vessel ischemic changes redemonstrated. No significant change from recent prior CT. EEG and MRI was ordered as per neurology recommendations. Patient was also febrile overnight with Tmax 100.8. Currently afebrile. Laboratory data showed WBC 10.8 hemoglobin 13.6 and platelets 262 Sodium 135 potassium 3.3 chloride 97 bicarb is 28, BUN 19 and creatinine 1.05 blood sugar 132 and CPK level trending down to 1164. Bicarb drip has been discontinued. Nephrology and neurology is on board. 11/07/2022 Patient is currently laying in bed. Able to open his eyes better today. Follows simple commands. Still lethargic and sleepy. Overnight patient was febrile again with Tmax of 100.8. 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 Patient was started on broad-spectrum antibiotics. Patient was also noted to have abdominal distention. EEG showed moderate to severe encephalopathic picture. MRI of the brain was done yesterday which showed some age-related atrophy. No acute intracranial process. ID was consulted due to fever and encephalopathy. Laboratory pressure WBC 11.7 hemoglobin 13.5 and platelets 287 Sodium 138 potassium 3.6 chloride 104 bicarb is 21 BUN 21 and creatinine 1.08. Blood sugar is 116 Procalcitonin level is at 0.41. 11/08/2022 Patient is more awake and oriented today. Patient was able to communicate with his sister at bedside. Patient did have fever with Tmax of 101.0 yesterday afternoon. Currently on room air. Patient is able to tolerate liquids with one-to-one feeding. Status post LP today. CT of the abdomen pelvis showed circumferential rectal wall thickening correlate for proctitis. No additional finding within the abdomen or pelvis to explain patient's symptoms. Left inguinal hernia containing loops of sigmoid colon. No evidence for wall thickening suggesting strangulation. Large stool burden throughout the colon. Patient did have multiple episodes of diarrhea yesterday. CT was negative. General surgery was consulted for further evaluation of the abnormal CT. Patient was seen by psychiatry and currently Depakote is on hold at continue with Seroquel as needed. Laboratory data showed WBC 11.2 hemoglobin 12.20 platelets 260 sodium 139 potass ium 3.3 which is being replaced BUN 20. Creatinine 1.13 and calcium 8.2. Coronavirus PCR not detected. 11/09/2022 Patient is currently resting in the bed. Awake alert but slow to respond. Mentation is much improved. Feels very weak. Denies any complaints of chest pain or shortness of breath. Patient has been afebrile. Laboratory data showed WBC 10.4 hemoglobin 11.9 platelets 301, sodium 140 potassium 3.6 chloride 107 bicarb is 20 BUN 23 and creatinine 0.94 and blood sugar 116. CRP 44.3. Patient is being continued on antibiotics in the form of cefepime and metronidazole. General surgery is on board. 11/10/2022 Patient is currently lying in the bed. Awake alert but lethargic and weak and drowsy. No complaints of chest pain or shortness of breath. Patient does have left inguinal hernia and possible partially incarcerated. With general surgery is planning for elective repair of hearing on Friday. Otherwise patient is afebrile. Potassium was replaced as per protocol. Laboratory data showed WBC 9.6 hemoglobin 11.1 and platelets 322, sodium 141 potassium 3.3 chloride 109 bicarb is 21 BUN 22 and creatinine 0.9 and calcium 8.1. I'm resume the care of the patient 11/11/2022 This is a pleasant 72 years old male with multiple medical problems presents with altered mental status secondary to metabolic encephalopathy and infection was suspected with systemic inflammatory response, his lumbar puncture was unremarkable for SENIOR COPYWRITER infection, CT was evidence with prostatitis with circumferential wall thickening, his abdomen is still mildly distended. His Rhabdomyolysis and tumor improved Patient is planned by surgery team for left inguinal hernia repair tomorrow Today was awake alert lethargic and weak but is improving, this is confirmed with the daughter at bedside nurse, patient he knows in the hospital he knew the year but could not tell them on 4 date and recognize his daughter and he has insight into his illness. He denies any specific complaint. Daughter at [facility] thinks he is improving and she is happy with his progress. He still picking up his appetite slowly. He remains on cefepime, IV Flagyl and normal saline and 75 mL/h. Depakote is on hold 11/12/2022 Patient today is awake alert, still very weak generally, he is talking in low voice and looks tired but patient reports improvement compared to yesterday. Patient is improving slowly and gradually. He denies specific complaint however he has poor appetite Patient underwent left inguinal hernia repair today with surgery team Patient methylmalonic acid is still pending for borderline low vitamin B12 Patient remains on cefepime and IV Flagyl. Neurology input is a appreciated and noted Psych consult signed off the case \ 11/13/2022 Patient had left inguinal hernia repair yesterday, today wound is healing and closed with significant tenderness. He still has poor appetite. He didn't have bowel movement, no passing gases. No other new complaint, he is generally weak improving slowly and gradually After the help for discharge in 24-48 hours if his GI function improves and he is able to eat more he is remaining on cefepime and IV Flagyl and normal saline 75 ml/h Objective - Vital Signs Vital signs: Vital Signs Temp 98.2 F 11/13/22 08:50 Pulse 89 11/13/22 08:50 Resp 20 11/13/22 08:50 BP 158/77 11/13/22 08:50 Pulse Ox 93 L 11/13/22 08:50 FiO2 Intake & Output 11/12/22 11/13/22 11/13/22 18:59 06:59 18:59 Intake Total 640 340 118 Output Total 760 600 450 Balance -120 -260 -332 Weight 65.771 kg Intake: IV 400 Intake, IV Titration 100 Amount metroNIDAZOLE-NS PMX 500 100 mg In Saline 1 100ml.bag @ 100 mls/hr IVPB Q8HR [facility] Rx#:[id number] Oral 240 240 118 Output: Urine 750 600 450 Estimated Blood Loss 10 Other: Voiding Method External Catheter External Catheter - Exam -GENERAL: The patient is alert and oriented x2-3 partial, lethargic, not in any acute distress. Well developed, well nourished. Generally weak HEENT: Pupils are round and equally reacting to light. EOMI. No scleral icterus. No conjunctival pallor. Normocephalic, atraumatic. No pharyngeal erythema. No thyromegaly. CARDIOVASCULAR: S1 and S2 present. No murmurs, rubs, or gallops. PULMONARY: Chest is clear to auscultation, no wheezing . no crackles. -ABDOMEN: Soft, nontender, mildly distended, normoactive bowel sounds. No palpable organomegaly. MUSCULOSKELETAL: No joint swelling or deformity. EXTREMITIES: No cyanosis, clubbing, or pedal edema. NEUROLOGICAL: Gross neurological examination did not reveal any focal deficits. SKIN: No rashes. no petechiae. - Labs CBC & Chem 7: 11/13/22 07:42 11/13/22 07:42 Labs: Abnormal Lab Results - Last 24 Hours (Table) 11/13/22 11/13/22 Range/Units 07:42 07:42 WBC 11.8 H (3.8-10.6) k/uL RBC 3.53 L (4.30-5.90) m/uL Hgb 11.5 L (13.0-17.5) gm/dL Hct 34.9 L (39.0-53.0) % Plt Count 499 H (150-450) k/uL Neutrophils # 9.6 H (1.3-7.7) k/uL BUN 27 H (9-20) mg/dL Calcium 8.2 L (8.4-10.2) mg/dL Microbiology - Last 24 Hours (Table) 11/08/22 16:20 Blood Culture - Preliminary Blood 11/08/22 10:50 CSF Gram Stain - Final Cerebral Spinal Fluid CSF Culture - Final 11/08/22 05:10 Stool Culture - Final Stool Assessment and Plan Assessment: Acute metabolic encephalopathy. fall and Patient was found on the floor. improving. Circumferential rectal wall thickening correlate for proctitis as per CT Left inguinal hernia containing sigmoid colon. Possible partial incarceration.. Status post hernia repair on 11/12 Large stool burden throughout the colon. resolved. Fever. Status post LP. CSF analysis showed no evidence of infection. Acute rhabdomyolysis. Improving Acute Kidney injury. resolved, History of mood disorder Hypertension Hyperlipidemia COPD Polypharmacy Plan: Continue with antibiotic cefepime and IV Flagyl Continue with normal saline Several consultants on the case including ID, neurologist and general surgery Patient is planned to undergo left inguinal hernia repair on 11/11 Labs and medication were reviewed.. Continue same treatment. Continue with symptomatic treatment. Resume home medication. Monitor labs and vitals. DVT and GI prophylaxis. Further recommendations as per clinical course of the patient DVT prophylaxis: Subcutaneous heparin GI Prophylaxis: Pepcid PT/OT: LONG Prognosis is guarded
--- NOTE | 2022-11-13 13:52 | P.PN ---
Subjective Progress Note Date: 11/13/22 Principal diagnosis: Fever Patient is a 72-year-old male presenting to the hospital with mental status changes patient was found to be on the floor and this patient has been running a fever with a CT abdominal pelvis did shows evidence of severe stool burden and initial concern for possible strangulated hernia that has been rule out patient also have LP completed which was normal, a patient is status post left inguinal incarcerated hernia repair completed on 11/12/2022 On today's evaluation that is 11/13/2022 the patient remains to be afebrile, the patient is breathing comfortably on room air, the patient denies any chest pain shortness of breath or cough no vomiting or diarrhea has been reported Objective - Vital Signs Vital signs: Vital Signs Temp 98.2 F 11/13/22 08:50 Pulse 89 11/13/22 08:50 Resp 20 11/13/22 08:50 BP 158/77 11/13/22 08:50 Pulse Ox 93 L 11/13/22 08:50 FiO2 Intake & Output 11/12/22 11/13/22 11/13/22 18:59 06:59 18:59 Intake Total 640 340 118 Output Total 760 600 450 Balance -120 -260 -332 Weight 65.771 kg Intake: IV 400 Intake, IV Titration 100 Amount metroNIDAZOLE-NS PMX 500 100 mg In Saline 1 100ml.bag @ 100 mls/hr IVPB Q8HR [facility] Rx#:[id number] Oral 240 240 118 Output: Urine 750 600 450 Estimated Blood Loss 10 Other: Voiding Method External Catheter External Catheter - Exam GENERAL DESCRIPTION: An elderly male lying in bed in no distress RESPIRATORY SYSTEM: Unlabored breathing , decreased breath sounds at bases HEART: S1 S2 regular rate and rhythm , ABDOMEN: Soft , mild distention but no tenderness EXTREMITIES: No edema feet - Labs CBC & Chem 7: 11/13/22 07:42 11/13/22 07:42 Labs: Abnormal Lab Results - Last 24 Hours (Table) 11/13/22 11/13/22 Range/Units 07:42 07:42 WBC 11.8 H (3.8-10.6) k/uL RBC 3.53 L (4.30-5.90) m/uL Hgb 11.5 L (13.0-17.5) gm/dL Hct 34.9 L (39.0-53.0) % Plt Count 499 H (150-450) k/uL Neutrophils # 9.6 H (1.3-7.7) k/uL BUN 27 H (9-20) mg/dL Calcium 8.2 L (8.4-10.2) mg/dL Microbiology - Last 24 Hours (Table) 11/08/22 16:20 Blood Culture - Preliminary Blood 11/08/22 10:50 CSF Gram Stain - Final Cerebral Spinal Fluid CSF Culture - Final 11/08/22 05:10 Stool Culture - Final Stool 11/06/22 21:11 Blood Culture - Final Blood 11/06/22 21:05 Blood Culture - Final Blood Assessment and Plan (1) Fever Current Visit: Yes Status: Acute Code(s): R50.9 - FEVER, UNSPECIFIED SNOMED Code(s): 813564578 Plan: 1patient with fever elevated white count tachycardia meeting criteria for SIRS./Sepsis in this patient presenting to the hospital with decreased level of responsiveness and fall source possibly abdominal and the patient was noted to have significant abdominal distention however the patient also have mental sta tus changes and neck rigidity underlying [employer] infection/encephalitis not ready excluded 2- CT of abdominal pelvis with IV contrast CT did shows circumferential rectal wall thickening correlate for proctitis large stool burden and there was concern for possible incarcerated left inguinal hernia, patient LP was normal. 3-the patient had shown clinical improvement with resolution of his fever, the patient is status post repair of the left inguinal incarcerated hernia 4- patient will continue cefepime and Flagyl and monitor clinical course closely Time with Patient: Less than 30
[2022-11-13] MEDS: SODIUM CHLORIDE 0.9% 1,000 ML IV SCH ×2 (15:05→23:54)
--- NOTE | 2022-11-13 15:24 | P.PN ---
Subjective Progress Note Date: 11/13/22 CHIEF COMPLAINT: Incarcerated left inguinal hernia HISTORY OF PRESENT ILLNESS: Patient is postop day #1 status post open repair of incarcerated left inguinal hernia with Prolene hernia mesh system plug for incarcerated left inguinal hernia. Patient reports pain is controlled. Denies any nausea or vomiting. He is having flatus. Tolerating regular diet. Afebrile. WBC 11.8 Hgb 11.5 PHYSICAL EXAM: VITAL SIGNS: Reviewed. GENERAL: Well-developed in no acute distress. ABDOMEN: Soft. Nondistended. Nontender. Left inguinal incision clean dry and intact NEUROLOGIC: Alert and oriented. Cranial nerves II through XII grossly intact. ASSESSMENT: 1. Incarcerated left inguinal hernia status post open repair of incarcerated left inguinal hernia with Prolene hernia mesh system plug 2. Proctitis PLAN: -Continue supportive care -Continue antibiotics per ID service -Continue pain management -Encouraged patient to increase activity level -Patient can be discharged from surgical standpoint when medically cleared Physician Investigations Consultant note has been reviewed by physician. Signing provider agrees with the documented findings, assessment, and plan of care. Objective - Vital Signs Vital signs: Vital Signs Temp 98.2 F 11/13/22 08:50 Pulse 89 11/13/22 08:50 Resp 20 11/13/22 08:50 BP 158/77 11/13/22 08:50 Pulse Ox 93 L 11/13/22 08:50 FiO2 Intake & Output 11/12/22 11/13/22 11/13/22 18:59 06:59 18:59 Intake Total 640 340 118 Output Total 760 600 450 Balance -120 260 -332 Weight 65.771 kg 65.771 kg Intake: IV 400 Intake, IV Titration 100 Amount metroNIDAZOLE-NS PMX 500 100 mg In Saline 1 100ml.bag @ 100 mls/hr IVPB Q8HR [facility] Rx#:[id number] Oral 240 240 118 Output: Urine 750 600 450 Estimated Blood Loss 10 Other: Voiding Method External Catheter External Catheter - Labs CBC & Chem 7: 11/13/22 07:42 11/13/22 07:42 Labs: Abnormal Lab Results - Last 24 Hours (Table) 11/13/22 11/13/22 Range/Units 07:42 07:42 WBC 11.8 H (3.8-10.6) k/uL RBC 3.53 L (4.30-5.90) m/uL Hgb 11.5 L (13.0-17.5) gm/dL Hct 34.9 L (39.0-53.0) % Plt Count 499 H (150-450) k/uL Neutrophils # 9.6 H (1.3-7.7) k/uL BUN 27 H (9-20) mg/dL Calcium 8.2 L (8.4-10.2) mg/dL Microbiology - Last 24 Hours (Table) 11/08/22 16:20 Blood Culture - Preliminary Blood 11/08/22 10:50 CSF Gram Stain - Final Cerebral Spinal Fluid CSF Culture - Final
[2022-11-13] MEDS: HYDROcodone/APAP 7.5-325MG 1 EACH TAB PO PRN (16:41)
--- NOTE | 2022-11-13 18:21 | P.PN ---
Subjective Progress Note Date: 11/13/22 11/13/2022: Patient was seen for a follow-up. Patient is laying comfortably in the bed. Offers no complaints. 11/12/2022: Patient was initially seen by Dr. Los Marin. Please refer to his note for details. Patient is a 72-year-old male came with altered mental status, CSF is negative. Patient has proctitis. Patient does have tremors, need to rule out Parkinson's. Patient is laying comfortably in the bed. He admits to having headache, and states it is 12 on a scale of 1-10. He could not tell home as he lives with. He knows his first name, but could not tell me the last time his age on what building he is in. Telemetry monitoring showing sinus rhythm. Some of the workup during his hospital visit consist of: febrile: 100.6 CK levels 2741--> 1164. TSH is 1.410. Serum folate is 531 Vitamin B12 is 365 Sodium, calcium, AST ALT are within normal limits. Localizes 111. BUN is 35 and creatinine is 1.29 Urine drug screen is positive for barbiturates. CSF: clear, colorless, rbc 0, total nucelated cell 1, glucose 67, protein 56. HSVI/II not detected CT of the head is reported as age-related atrophy. No acute intracranial process. Follow-up MRI can be performed as clinically indicated. PT CT of the head is reported as no acute intracranial hemorrhage or midline shift. There is mild to moderate diffuse cerebral atrophy and chronic small vessel ischemic changes redemonstrated. No significant change from recent prior CT. Routine EEG is abnormal. The background slowing suggestive of mild encephalopathy. Otherwise there is no focal slowing, epileptiform discharges or seizure in the EEG. Repeat EEG is abnormal. Tobacco slowing suggestive of moderate to severe encephalopathy. Otherwise there is no focal slowing, epileptiform discharges or seizure on the EEG. MR the brain with and without is reported as some age-related atrophy. No acute intracranial process. CT abdomen pelvis is reported as stroke conference old rectal wall thickening correlate for proctitis large stool burden throughout the colon. Objective - Vital Signs Vital signs: Vital Signs Temp 98.2 F 11/13/22 08:50 Pulse 91 11/13/22 12:00 Resp 18 11/13/22 12:00 BP 140/79 11/13/22 12:00 Pulse Ox 94 L 05/31/23 12:00 FiO2 Intake & Output 11/12/22 11/13/22 11/13/22 18:59 06:59 18:59 Intake Total 640 340 128 Output Total 760 600 450 Balance -120 260 -322 Weight 65.771 kg 65.771 kg Intake: IV 400 10 Invasive Line 3 10 Intake, IV Titration 100 Amount metroNIDAZOLE-NS PMX 500 100 mg In Saline 1 100ml.bag @ 100 mls/hr IVPB Q8HR [facility] Rx#:[id number] Oral 240 240 118 Output: Urine 750 600 450 Estimated Blood Loss 10 Other: Voiding Method External Catheter External Catheter External Catheter - Exam Patient is an elderly male, laying comfortably in the bed. He has slightly slow mentation. He speaks with husky voice. He has some chin tremor. No tremors of his extremities at rest. However on holding his arms up, there is moderate tremor with posture. Also moderate tremor for [id number] testing. Tone is increases mild to moderately on the right with cogwheeling, and moderately on the left. No tremors at rest noted. No tremors of the lower extremity is. 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 - Labs CBC & Chem 7: 11/13/22 07:42 11/13/22 07:42 Labs: Abnormal Lab Results - Last 24 Hours (Table) 11/11/22 11/13/22 11/13/22 Range/Units 07:48 07:42 07:42 WBC 11.8 H (3.8-10.6) k/uL RBC 3.53 L (4.30-5.90) m/uL Hgb 11.5 L (13.0-17.5) gm/dL Hct 34.9 L (39.0-53.0) % Plt Count 499 H (150-450) k/uL Neutrophils # 9.6 H (1.3-7.7) k/uL BUN 27 H (9-20) mg/dL Calcium 8.2 L (8.4-10.2) mg/dL Methylmalonic Acid 0.52 H (<0.40) umol/L Microbiology - Last 24 Hours (Table) 11/08/22 16:20 Blood Culture - Preliminary Blood 11/08/22 10:50 CSF Gram Stain - Final Cerebral Spinal Fluid CSF Culture - Final Assessment and Plan Assessment: It seems the patient was found down at home on the floor. Altered mental status; encephalopathy of unknown etiology at this time. Patient has a fever unknown exact cause but on the CT of the abdomen and pelvis he has proctitis with large stool burden in the colon. CSF study is negative. Syncopal episode: Unsure cause. Routine EEG is negative for seizure or seizure discharge Rhabdomyolysis due to #1 Postural and intention tremor, moderate degree, with bradykinesia, chin tremor, and moderate rigidity bilaterally, suggestive of possible parkinsonian symptoms. No tremors at rest however noticeable, except only once noted transiently involving left arm.. Mood disorder and he is on Depakote Polypharmacy Plan: ID team is on board and will defer antibiotic management to them. CSF study is negative. General surgery is considering surgery this Friday for large left inguinal hernia. Dr. Marin apparently gave a trial of Sinemet, which did not help, therefore it was discontinued. Recommend patient undergo NEO SCAN as an outpatient. If Parkinson's is confirmed, then would recommend re-introducing Sinemet. Dr. Marin has held [facility] Patient is resumed on his home medication of primidone 50 mg 1 tablet 3 times a day for his history of reported essential t remor. Psychiatry on board, who believed patient has delirium, and bipolar disorder. Recommended Seroquel 25 mg twice a day, as needed for agitation and insomnia. Patient used to be on Depakote, which has been discontinued. We'll defer the rest of the medical measure the primary team Recommend patient follow up with neurologist as an outpatient for management of tremors. Neurologically clear. Dr. Los Marin resuming neurology service in the morning.
[2022-11-13] MEDS: LORazepam 0.5 MG TAB PO SCH (20:46)
[2022-11-14] MEDS: ACETAMINOPHEN TAB 500 MG TAB PO PRN (04:31)
[2022-11-14] MEDS: SYMBICORT 160-4.5 MCG INHALER INHALATION SCH ×2 (08:31→20:34)
[2022-11-14] MEDS: CYANOCOBALAMIN 1,000 MCG/ML 1 ML VIAL IM SCH (08:59)
[2022-11-14] MEDS: FAMOTIDINE 20 MG/2 ML VIAL IV SCH ×2 (08:59→21:14)
[2022-11-14] MEDS: CEFEPIME 2 GM in SODIUM CHLORIDE 0.9% 100 ML IVPB SCH ×3 (08:59→23:33)
[2022-11-14] MEDS: metroNIDAZOLE-NS PMX 500 MG in SALINE 1 100ML.BAG IVPB SCH ×3 (08:59→23:33)
[2022-11-14] MEDS: DOCUSATE 100 MG CAP PO SCH ×2 (09:00→21:14)
[2022-11-14] MEDS: PRIMIDONE 50 MG TAB PO SCH ×3 (09:00→21:13)
[2022-11-14] MEDS: amLODIPine 10 MG TAB PO SCH (09:00)
[2022-11-14] MEDS: HYDROcodone/APAP 7.5-325MG 1 EACH TAB PO PRN (09:00)
[2022-11-14] MEDS: MONTELUKAST 10 MG TAB PO SCH (09:00)
[2022-11-14] MEDS: METOPROLOL TARTRATE 25 MG TAB PO SCH ×2 (09:00→21:13)
[2022-11-14] MEDS: HEPARIN SODIUM,PORCINE/PF 5,000 UNIT/0.5 ML SYRINGE SQ SCH ×3 (09:00→23:33)
--- NOTE | 2022-11-14 14:03 | P.PN ---
Subjective Progress Note Date: 11/14/22 Principal diagnosis: Fever Patient is a 72-year-old male presenting to the hospital with mental status changes patient was found to be on the floor and this patient has been running a fever with a CT abdominal pelvis did shows evidence of severe stool burden and initial concern for possible strangulated hernia that has been rule out patient also have LP completed which was normal, a patient is status post left inguinal incarcerated hernia repair completed on 11/12/2022 On today's evaluation that is 11/14/2022 the patient to be afebrile, the patient is breathing comfortably on room air, the patient denies any chest pain shortness of breath or cough, but denies any nausea no vomiting or diarrhea has been reported Objective - Vital Signs Vital signs: Vital Signs Temp 96.6 F L 11/14/22 08:58 Pulse 79 11/14/22 08:58 Resp 18 11/14/22 08:58 BP 152/86 11/14/22 08:58 Pulse Ox 97 11/14/22 08:58 FiO2 Intake & Output 11/13/22 11/14/22 11/14/22 18:59 06:59 18:59 Intake Total 128 340 10 Output Total 450 600 Balance -322 -260 10 Weight 65.771 kg Intake: IV 10 10 Invasive Line 3 10 10 Intake, IV Titration 100 Amount metroNIDAZOLE-NS PMX 500 100 mg In Saline 1 100ml.bag @ 100 mls/hr IVPB Q8HR [facility] Rx#:[id number] Oral 118 240 Output: Urine 450 600 Other: Voiding Method External Catheter External Catheter External Catheter - Exam GENERAL DESCRIPTION: An elderly male lying in bed in no distress RESPIRATORY SYSTEM: Unlabored breathing , decreased breath sounds at bases HEART: S1 S2 regular rate and rhythm , ABDOMEN: Soft , mild distention but no tenderness EXTREMITIES: No edema feet - Labs CBC & Chem 7: 11/13/22 07:42 11/13/22 07:42 Labs: Abnormal Lab Results - Last 24 Hours (Table) 11/11/22 Range/Units 07:48 Methylmalonic Acid 0.52 H (<0.40) umol/L Microbiology - Last 24 Hours (Table) 11/08/22 16:20 Blood Culture - Final Blood Assessment and Plan (1) Fever Current Visit: Yes Status: Acute Code(s): R50.9 - FEVER, UNSPECIFIED SNOMED Code(s): 495804606 Plan: 1patient with fever elevated white count tachycardia meeting criteria for SIRS./Sepsis in this patient presenting to the hospital with decreased level of responsiveness and fall source possibly abdominal and the patient was noted to have significant abdominal distention however the patient also have mental status changes and neck rigidity underlying [employer] infection/encephalitis not ready excluded 2- CT of abdominal pelvis with IV contrast CT did shows circumferential rectal wall thickening correlate for proctitis large stool burden and there was concern for possible incarcerated left inguinal hernia, patient LP was normal.the patient is status post repair of the left inguinal incarcerated hernia 3-the patient had shown clinical improvement with resolution of his fever, patient will continue cefepime and Flagyl and we will try a short course of oral Ceftin and Flagyl on discharged Time with Patient: Less than 30
[2022-11-14] MEDS: LACTATED RINGERS 1,000 ML IV SCH (14:42)
[2022-11-14] MEDS: SODIUM CHLORIDE 0.9% 1,000 ML IV SCH (14:42)
--- NOTE | 2022-11-14 14:46 | P.DS ---
Providers Date of admission: 11/04/22 20:19 Attending physician: Starr Vargas Consults: 11/04/22 20:17 Consult Physician Urgent Consulting Provider: Lisa Alfaro Consult Reason/Comments: Rhabdomyolysis Do you want consulting provider notified?: Yes 11/05/22 09:49 Consult Physician Urgent Consulting Provider: Los Marin Consult Reason/Comments: altered mental status Do you want consulting provider notified?: Yes 11/06/22 16:29 Consult Physician Routine Consulting Provider: Moses aCrney Consult Reason/Comments: on depakote for mental but has tremor Do you want consulting provider notified?: Already Contacted 11/06/22 20:48 Consult Physician Routine Consulting Provider: Twin Torrez Consult Reason/Comments: fevers, diarrhea Do you want consulting provider notified?: Yes, Notify in am 11/07/22 12:55 Consult to Anesthesia Stat Consulting Provider: Anesthesia,Services Consult Reason/Comments: LP/CSF 11/07/22 20:04 Consult Physician Routine Consulting Provider: Cb Fischer Consult Reason/Comments: hernia strangulation Do you want consulting provider notified?: Yes Primary care physician: [facility] Course: Diagnoses: Acute metabolic encephalopathy. fall and Patient was found on the floor. improving. Circumferential rectal wall thickening correlate for proctitis as per CT Left inguinal hernia containing sigmoid colon. Possible partial incarceration.. Status post hernia repair on 11/12 Large stool burden throughout the colon. resolved. Fever. Status post LP. CSF analysis showed no evidence of infection. Acute rhabdomyolysis. Improving Acute Kidney injury. resolved, History of mood disorder Hypertension Hyperlipidemia COPD Polypharmacy Hospital course: patient is a 72-year-old gentleman with past medical history significant for hypertension, hyperlipidemia, COPD presented to the ER because of altered mental status. Patient found to have metabolic/toxic encephalopathy secondary to colitis and prostatitis. Also he had tremor and rhabdomyolysis. And his been evaluated by several consultants including neurologist vp [employer] general surgery and infectious disease team as well as psychiatrist. (Psychiatrist and n ephrologist signed off) patient had CT of the abdomen pelvis showed circumferential rectal wall thickening correlate for proctitis. Patient has been treated with broad-spectrum antibiotics cefepime and Flagyl and patient showed interval improvement. A neurological workup like CSF was negative. Also patient underwent left inguinal hernia repair with Gen. surgery team 2 days ago and he tolerated the procedure well. Patient keep improving every day and he feels better and he thinks he can be discharged to rehab today. Patient still generally weak and with low voice but is improving slowly and e very day. He denies any more abdominal pain, he has small bowel movement. He is picking up his diet slowly and gradually as well. He has evidence of low vitamin B12 which is replacement is a started. Patient may benefit from checking the level of vitamin B12 and 2-3 months. Patient on the day of discharge denies chest pain or dyspnea, no other new neurological: GI or urinary symptoms. Patient was cleared for discharge by all consultants including infectious disease team, neurologist and general surgery team (confirmed with bed side nurse) Patient will be discharged on short course of oral antibiotics psychiatrist stopped his Depakote because of his tremor, history of murmur improved however neurologist recommends NEO scan as an outpatient. Also patient will require follow-up with the neurologist as an outpatient Problems and management plan were discussed with the patient and he verbalized understanding and acceptance Patient was found stable and can be discharged home in guarded prognosis however he needs follow-up as an outpatient. Patient was instructed to follow up with PCP within one week and patient agrees Recommend patient follow up with surgeon Dr. Perla in 1-2 weeks Recommend patient follow up with neurologist Dr. Trimble or Dr. Street in 1-2 weeks.(Neurologist Recommend patient undergo NEO SCAN as an outpatient. If Parkinson's is confirmed, then would recommend re-introducing Sinemet.) Physical exam -Gen: patient is a AAOx3, no distress. Generally weak CVS: S1-S2, RRR, no murmur Lungs: B/L CTA, no wheezing Abdomen: soft, no distention, no tenderness, positive bowel sounds Extremity: no leg edema or induration Neuro: Cranial nerves are grossly intact. No tremor. Sensation is intact. Motor is symmetrical with no evidence of weakness. Time spent more than 35 minutes Plan - Discharge Summary Discharge Rx Participant: No New Discharge Prescriptions: New cefUROXime axetiL [Ceftin] 500 mg PO BID 7 Days #14 tab metroNIDAZOLE [Flagyl] 500 mg PO TID #21 tab Cyanocobalamin [Vitamin B-12] 1,000 mcg PO DAILY 30 Days #30 tab Cyanocobalamin [Vitamin B-12 Injection] 1,000 mcg IM DAILY 2 Days #2 each Docusate [Colace] 100 mg PO BID cap Metoprolol Tartrate [Lopressor] 25 mg PO BID tab HYDROcodone/APAP 5-325MG [Makinen 5-325] 1 tab PO Q12HR PRN 3 Days #6 tab PRN Reason: Pain QUEtiapine [SEROquel] 25 mg PO BID PRN tab PRN Reason: psychosis or insomnia Continue Budesonide/Formoterol Fumarate [Symbicort 160-4.5 Mcg Inhaler] 2 puff INHALATION RT-BID Albuterol Inhaler [Ventolin Hfa Inhaler] 1 puff INHALATION RT-Q4H PRN PRN Reason: Shortness Of Breath Primidone [Mysoline] 50 mg PO TID Montelukast [Singulair] 10 mg PO DAILY Simvastatin [Zocor] 40 mg PO DAILY LORazepam [Ativan] 0.5 mg PO HS amLODIPine [Norvasc] 10 mg PO DAILY Discontinued Divalproex Sodium 250 mg PO BID Topiramate [Topamax] See Taper PO DIRECTED Metoprolol Tartrate [Lopressor] 25 mg PO DAILY QUEtiapine [SEROquel] 200 mg PO DAILY Discharge Medication List Albuterol Inhaler [Ventolin Hfa Inhaler] 1 puff INHALATION RT-Q4H PRN 11/04/22 [History] Budesonide/Formoterol Fumarate [Symbicort 160-4.5 Mcg Inhaler] 2 puff INHALATION RT-BID 11/04/22 [History] LORazepam [Ativan] 0.5 mg PO HS 11/04/22 [History] Montelukast [Singulair] 10 mg PO DAILY 11/04/22 [History] Primidone [Mysoline] 50 mg PO TID 11/04/22 [History] Simvastatin [Zocor] 40 mg PO DAILY 11/04/22 [History] amLODIPine [Norvasc] 10 mg PO DAILY 11/04/22 [History] Cyanocobalamin [Vitamin B-12 Injection] 1,000 mcg IM DAILY 2 Days #2 each 11/14/22 [Rx] Cyanocobalamin [Vitamin B-12] 1,000 mcg PO DAILY 30 Days #30 tab 11/14/22 [Rx] Docusate [Colace] 100 mg PO BID cap 11/14/22 [Rx] HYDROcodone/APAP 5-325MG [Makinen 5-325] 1 tab PO Q12HR PRN 3 Days #6 tab 11/14/22 [Rx] Metoprolol Tartrate [Lopressor] 25 mg PO BID tab 11/14/22 [Rx] QUEtiapine [SEROquel] 25 mg PO BID PRN tab 11/14/22 [Rx] cefUROXime axetiL [Ceftin] 500 mg PO BID 7 Days #14 tab 11/14/22 [Rx] metroNIDAZOLE [Flagyl] 500 mg PO TID #21 tab 11/14/22 [Rx] Follow up Appointment(s)/Referral(s): Chaim Street MD [Medical Doctor] - 2 Weeks (Neurologist Recommend patient undergo NEO SCAN as an outpatient. If Parkinson's is confirmed, then would recommend re-introducing Sinemet.) None,Stated [REFERRING] - 1-2 days Edgar Trimble DO [STAFF PHYSICIAN] - 2 Weeks (Neurologist Recommend patient undergo NEO SCAN as an outpatient. If Parkinson's is confirmed, then would recommend re-introducing Sinemet.) Cb Fischer MD [STAFF PHYSICIAN] - 1 Week Activity/Diet/Wound Care/Special Instructions: Neurologist Recommend patient undergo NEO SCAN as an outpatient (for his tremor). If Parkinson's is confirmed, then would recommend re-introducing Sinemet. we recommend dysphagia level I.pureed diet with nectar thick liquids and one-to-one supervision Activity as tolerated Discharge Disposition: TRANSFER TO SNF/ECF
--- NOTE | 2022-11-14 15:07 | P.PN ---
Subjective Progress Note Date: 11/14/22 CHIEF COMPLAINT: Incarcerated left inguinal hernia HISTORY OF PRESENT ILLNESS: Patient is postop day #2 status post open repair of incarcerated left inguinal hernia with Prolene hernia mesh system plug for incarcerated left inguinal hernia. Patient reports pain is controlled. Denies any nausea or vomiting. He is having flatus. Tolerating regular diet. Afebrile. Patient anticipating discharge to [facility] possibly today. PHYSICAL EXAM: VITAL SIGNS: Reviewed. GENERAL: Well-developed in no acute distress. ABDOMEN: Soft. Nondistended. Nontender. Left inguinal incision clean dry and intact ASSESSMENT: 1. Incarcerated left inguinal hernia status post open repair of incarcerated left inguinal hernia with Prolene hernia mesh system plug 2. Proctitis PLAN: -Okay for discharge from surgical standpoint -Antibiotics per infectious disease service -Surgical service will sign off. Please call with any questions or concerns. Physician Director Skills note has been reviewed by physician. Signing provider agrees with the documented findings, assessment, and plan of care. Objective - Vital Signs Vital signs: Vital Signs Temp 96.6 F L 11/14/22 08:58 Pulse 84 11/14/22 12:00 Resp 18 11/14/22 12:00 BP 140/79 11/14/22 12:00 Pulse Ox 97 11/14/22 12:00 FiO2 Intake & Output 11/13/22 11/14/22 11/14/22 18:59 06:59 18:59 Intake Total 128 340 20 Output Total 450 600 Balance -322 -260 20 Weight 65.771 kg Intake: IV 10 20 Invasive Line 3 10 20 Intake, IV Titration 100 Amount metroNIDAZOLE-NS PMX 500 100 mg In Saline 1 100ml.bag @ 100 mls/hr IVPB Q8HR [facility] Rx#:[id number] Oral 118 240 Output: Urine 450 600 Other: Voiding Method External Catheter External Catheter External Catheter - Labs CBC & Chem 7: 11/13/22 07:42 11/13/22 07:42 Labs: Abnormal Lab Results - Last 24 Hours (Table) 11/11/22 Range/Units 07:48 Methylmalonic Acid 0.52 H (<0.40) umol/L Microbiology - Last 24 Hours (Table) 11/08/22 16:20 Blood Culture - Final Blood
[2022-11-14] MEDS: LORazepam 0.5 MG TAB PO SCH (21:13)
[2022-11-15] MEDS: SODIUM CHLORIDE 0.9% 1,000 ML IV SCH ×2 (01:46→21:17)
[2022-11-15] MEDS: LACTATED RINGERS 1,000 ML IV SCH (05:40)
--- NOTE | 2022-11-15 08:35 | US ---
EXAMINATION TYPE: US venous doppler duplex UE LT DATE OF EXAM: 11/15/2022 COMPARISON: NONE CLINICAL INDICATION: Male, 72 years old with history of swollen limb; edema SIDE PERFORMED: Left Left Arm: Negative for DVT Grayscale, color doppler, spectral doppler imaging performed of the deep veins of the left upper extr emity. There is normal flow, compressibility and vascular waveforms. IMPRESSION: No ultrasound evidence for acute deep or superficial venous thrombosis in the left upper extremity.
[2022-11-15] MEDS: SYMBICORT 160-4.5 MCG INHALER INHALATION SCH ×2 (09:08→21:56)
[2022-11-15] MEDS: HEPARIN SODIUM,PORCINE/PF 5,000 UNIT/0.5 ML SYRINGE SQ SCH ×2 (09:12→17:16)
[2022-11-15] MEDS: amLODIPine 10 MG TAB PO SCH (09:13)
[2022-11-15] MEDS: DOCUSATE 100 MG CAP PO SCH ×2 (09:13→21:25)
[2022-11-15] MEDS: METOPROLOL TARTRATE 25 MG TAB PO SCH ×2 (09:13→21:25)
[2022-11-15] MEDS: MONTELUKAST 10 MG TAB PO SCH (09:13)
[2022-11-15] MEDS: metroNIDAZOLE-NS PMX 500 MG in SALINE 1 100ML.BAG IVPB SCH ×2 (09:13→17:16)
[2022-11-15] MEDS: PRIMIDONE 50 MG TAB PO SCH ×3 (09:13→21:25)
[2022-11-15] MEDS: FAMOTIDINE 20 MG/2 ML VIAL IV SCH ×2 (09:14→21:25)
[2022-11-15] MEDS: CYANOCOBALAMIN 1,000 MCG/ML 1 ML VIAL IM SCH (09:15)
[2022-11-15] MEDS: CEFEPIME 2 GM in SODIUM CHLORIDE 0.9% 100 ML IVPB SCH ×2 (10:49→17:17)
[2022-11-15] MEDS: HYDROcodone/APAP 7.5-325MG 1 EACH TAB PO PRN (12:16)
--- NOTE | 2022-11-15 15:15 | P.PN ---
Subjective Progress Note Date: 11/15/22 Principal diagnosis: Fever Patient is a 72-year-old male presenting to the hospital with mental status changes patient was found to be on the floor and this patient has been running a fever with a CT abdominal pelvis did shows evidence of severe stool burden and initial concern for possible strangulated hernia that has been rule out patient also have LP completed which was normal, a patient is status post left inguinal incarcerated hernia repair completed on 11/12/2022 On today's evaluation that is 11/15/2022 the patient remains to be afebrile, the patient is sitting up in the chair and is breathing comfortably on room air, the patient denies any chest pain shortness of breath or cough, but denies any nausea no vomiting or diarrhea has been reported Objective - Vital Signs Vital signs: Vital Signs Temp 98.1 F 11/15/22 11:13 Pulse 85 11/15/22 11:13 Resp 16 11/15/22 11:13 BP 108/69 11/15/22 11:13 Pulse Ox 95 11/15/22 11:13 FiO2 Intake & Output 11/14/22 11/15/22 11/15/22 18:59 06:59 18:59 Intake Total 500 118 Output Total 700 650 Balance -200 -650 118 Weight 65.771 kg Intake: IV 20 Invasive Line 3 20 Oral 480 118 Output: Urine 700 650 Other: Voiding Method External Catheter External Catheter External Catheter - Exam GENERAL DESCRIPTION: An elderly male lying in bed in no distress RESPIRATORY SYSTEM: Unlabored breathing , decreased breath sounds at bases HEART: S1 S2 regular rate and rhythm , ABDOMEN: Soft , mild distention but no tenderness EXTREMITIES: No edema feet - Labs CBC & Chem 7: 11/13/22 07:42 11/13/22 07:42 Labs: Microbiology - Last 24 Hours (Table) 11/08/22 16:20 Blood Culture - Final Blood Assessment and Plan (1) Fever Current Visit: Yes Status: Acute Code(s): R50.9 - FEVER, UNSPECIFIED SNOMED Code(s): 460343893 Plan: 1patient with fever elevated white count tachycardia meeting criteria for SIRS./Sepsis in this patient presenting to the hospital with decreased level of responsiveness and fall source possibly abdominal and the patient was noted to have significant abdominal distention however the patient also have mental status changes and neck rigidity underlying [employer] infection/encephalitis not ready excluded 2- CT of abdominal pelvis with IV contrast CT did shows circumferential rectal wall thickening correlate for proctitis large stool burden and there was concern for possible incarcerated left inguinal hernia, patient LP was normal.the patient is status post repair of the left inguinal incarcerated hernia 3-the patient has shownown clinical improvement and did have resolution of his fever, patient will continue cefepime and Flagyl , plan is to finish therapy with short course of oral Ceftin and Flagyl on discharge Time with Patient: Less than 30
[2022-11-15] MEDS: LORazepam 0.5 MG TAB PO SCH (21:25)
--- NOTE | 2022-11-15 22:56 | P.PN ---
Subjective patient is a 72-year-old gentleman with past medical history significant for hypertension, hyperlipidemia, COPD presented to the ER because of altered mental status. Most of the history has been taken from the EMR. Patient was brought in by EMS after being notified by the patient's neighbor who did a wellness check on the patient as he had not seen him in a day.EMS found the patient lying on the floor, patient currently alert to self. Patient was immediately brought to the ER of [facility]. initial lab work done in the ER showedWBC 12.8, hemoglobin 13.8, platelet count 325, sodium 145, potassium 4.1, chloride 110, BUN 35, creatinine 1.29, CK 2741 Chest x-ray negative for acute pulmonary process CT brain showed age-related atrophy, no acute intracranial process Patient was admitted to internal medicine service 11/06/2022 Patient is currently in the telemetry unit. Extremity continues and nonresponsive. Patient is a lethargic but able to moan and follows simple commands. Rapid response team was called due to unresponsiveness. Patient had CT head done yesterday which showed no acute intracranial hemorrhage or midline shift. There is mild to moderate diffuse cerebral atrophy and chronic small vessel ischemic changes redemonstrated. No significant change from recent prior CT. EEG and MRI was ordered as per neurology recommendations. Patient was also febrile overnight with Tmax 100.8. Currently afebrile. Laboratory data showed WBC 10.8 hemoglobin 13.6 and platelets 262 Sodium 135 potassium 3.3 chloride 97 bicarb is 28, BUN 19 and creatinine 1.05 blood sugar 132 and CPK level trending down to 1164. Bicarb drip has been discontinued. Nephrology and neurology is on board. 11/07/2022 Patient is currently laying in bed. Able to open his eyes better today. Follows simple commands. Still lethargic and sleepy. Overnight patient was febrile again with Tmax of 100.8. Due to encephalopathy and fever possibly [employer] infection is being considered. Patient was started on broad-spectrum antibiotics. Patient was also noted to have abdominal distention. EEG showed moderate to severe encephalopathic picture. MRI of the brain was done yesterday which showed some age-related atrophy. No acute intracranial process. ID was consulted due to fever and encephalopathy. Laboratory pressure WBC 11.7 hemoglobin 13.5 and platelets 287 Sodium 138 potassium 3.6 chloride 104 bicarb is 21 BUN 21 and creatinine 1.08. Blood sugar is 116 Procalcitonin level is at 0.41. 11/08/2022 Patient is more awake and oriented today. Patient was able to communicate with his sister at bedside. Patient did have fever with Tmax of 101.0 yesterday afternoon. Currently on room air. Patient is able to tolerate liquids with one-to-one feeding. Status post LP today. CT of the abdomen pelvis showed circumferential rectal wall thickening correlate for proctitis. No additional finding within the abdomen or pelvis to explain patient's symptoms. Left inguinal hernia containing loops of sigmoid colon. No evidence for wall thickening suggesting strangulation. Large stool burden throughout the colon. Patient did have multiple episodes of diarrhea yesterday. CT was negative. General surgery was consulted for further evaluation of the abnormal CT. Patient was seen by psychiatry and currently Depakote is on hold at continue with Seroquel as needed. Laboratory data showed WBC 11.2 hemoglobin 12.20 platelets 260 sodium 139 potass ium 3.3 which is being replaced BUN 20. Creatinine 1.13 and calcium 8.2. Coronavirus PCR not detected. 11/09/2022 Patient is currently resting in the bed. Awake alert but slow to respond. Mentation is much improved. Feels very weak. Denies any complaints of chest pain or shortness of breath. Patient has been afebrile. Laboratory data showed WBC 10.4 hemoglobin 11.9 platelets 301, sodium 140 potassium 3.6 chloride 107 bicarb is 20 BUN 23 and creatinine 0.94 and blood sugar 116. CRP 44.3. Patient is being continued on antibiotics in the form of cefepime and metronidazole. General surgery is on board. 11/10/2022 Patient is currently lying in the bed. Awake alert but lethargic and weak and drowsy. No complaints of chest pain or shortness of breath. Patient does have left inguinal hernia and possible partially incarcerated. With general surgery is planning for elective repair of hearing on Friday. Otherwise patient is afebrile. Potassium was replaced as per protocol. Laboratory data showed WBC 9.6 hemoglobin 11.1 and platelets 322, sodium 141 potassium 3.3 chloride 109 bicarb is 21 BUN 22 and creatinine 0.9 and calcium 8.1. I'm resume the care of the patient 11/11/2022 This is a pleasant 72 years old male with multiple medical problems presents with altered mental status secondary to metabolic encephalopathy and infection was suspected with systemic inflammatory response, his lumbar puncture was unremarkable for [employer]INE[employer] infection, CT was evidence with prostatitis with circumferential wall thickening, his abdomen is still mildly distended. His Rhabdomyolysis and tumor improved Patient is planned by surgery team for left inguinal hernia repair tomorrow Today was awake alert lethargic and weak but is improving, this is confirmed with the daughter at bedside nurse, patient he knows in the hospital he knew the year but could not tell them on 4 date and recognize his daughter and he has insight into his illness. He denies any specific complaint. Daughter at [facility] thinks he is improving and she is happy with his progress. He still picking up his appetite slowly. He remains on cefepime, IV Flagyl and normal saline and 75 mL/h. Depakote is on hold 11/12/2022 Patient today is awake alert, still very weak generally, he is talking in low voice and looks tired but patient reports improvement compared to yesterday. Patient is improving slowly and gradually. He denies specific complaint however he has poor appetite Patient underwent left inguinal hernia repair today with surgery team Patient methylmalonic acid is still pending for borderline low vitamin B12 Patient remains on cefepime and IV Flagyl. Neurology input is a appreciated and noted Psych consult signed off the case \ 11/13/2022 Patient had left inguinal hernia repair yesterday, today wound is healing and closed with significant tenderness. He still has poor appetite. He didn't have bowel movement, no passing gases. No other new complaint, he is generally weak improving slowly and gradually After the help for discharge in 24-48 hours if his GI function improves and he is able to eat more he is remaining on cefepime and IV Flagyl and normal saline 75 ml/h 11/15/2022 Today patient was noticed to have left upper extremity swelling, ultrasound showed negative for DVT Also patient today. This is still not eating much despite several encouragements, I discussed the case with dietitian, tube feeding could be considered as an option Patient remains confused poor historian and cannot provide much information and answer some of the questions and others does not answer. I discussed the case with caser in who advised patient has a guardian his niece Martha whom I called at [phone]. I discussed the case with her including his clinical situation, discharge placement and feeding. She will come and visit him tomorrow and she will try to encourage him to eat, she wants to wait for 1-2 days before they decide about tube feeding , patient however able to eat some snacks but apparently is not enough for him. Plan of care discussed with the guardian and she is in agreement As per caser in it is difficult placement because patient may need long-term placement and not only rehab. however prognosis remains guarded Currently he is kept on cefepime, IV Flagyl normal saline will be discontinued He remains on intravenous vitamin B12 replacement therapy Objective - Vital Signs Vital signs: Vital Signs Temp 98.1 F 11/15/22 11:13 Pulse 85 11/15/22 13:59 Resp 16 11/15/22 13:59 BP 108/69 11/15/22 11:13 Pulse Ox 95 11/15/22 11:13 FiO2 Intake & Output 11/14/22 11/15/22 11/15/22 18:59 06:59 18:59 Intake Total 500 118 Output Total 700 650 Balance -200 -650 118 Weight 65.771 kg Intake: IV 20 Invasive Line 3 20 Oral 480 118 Output: Urine 700 650 Other: Voiding Method External Catheter External Catheter External Catheter - Exam -GENERAL: The patient is alert and oriented x2-3 partial, lethargic, not in any acute distress. Well developed, well nourished. Generally weak HEENT: Pupils are round and equally reacting to light. EOMI. No scleral icterus. No conjunctival pallor. Normocephalic, atraumatic. No pharyngeal erythema. No thyromegaly. CARDIOVASCULAR: S1 and S2 present. No murmurs, rubs, or gallops. PULMONARY: Chest is clear to auscultation, no wheezing . no crackles. -ABDOMEN: Soft, nontender, mildly distended, normoactive bowel sounds. No pa lpable organomegaly. MUSCULOSKELETAL: No joint swelling or deformity. EXTREMITIES: No cyanosis, clubbing, or pedal edema. NEUROLOGICAL: Gross neurological examination did not reveal any focal deficits. SKIN: No rashes. no petechiae. - Labs CBC & Chem 7: 11/13/22 07:42 11/13/22 07:42 Labs: Microbiology - Last 24 Hours (Table) 11/08/22 16:20 Blood Culture - Final Blood Assessment and Plan Assessment: Acute metabolic encephalopathy. fall and Patient was found on the floor. improving. Circumferential rectal wall thickening correlate for proctitis as per CT Left inguinal hernia containing sigmoid colon. Possible partial incarceration.. Status post hernia repair on 11/12 Large stool burden throughout the colon. resolved. Fever. Status post LP. CSF analysis showed no evidence of infection. Acute rhabdomyolysis. Improving Acute Kidney injury. resolved, History of mood disorder Hypertension Hyperlipidemia COPD Polypharmacy Plan: Continue with antibiotic cefepime and IV Flagyl Discontinue normal saline Patient has poor eating habits. PEG tube is suggested by dietitian, discussed with the guardian who will come and try to encourage the patient to eat before they decide about tube feeding, also she wants to discuss with his daughter Several consultants on the case including ID, neurologist and general surgery manager inventory on the case for placement Labs and medication were reviewed.. Continue same treatment. Continue with symptomatic treatment. Resume home medication. Monitor labs and vitals. DVT and GI prophylaxis. Further recommendations as per clinical course of the patient DVT prophylaxis: Subcutaneous heparin GI Prophylaxis: Pepcid PT/OT: LONG Prognosis is guarded
[2022-11-16] MEDS: HEPARIN SODIUM,PORCINE/PF 5,000 UNIT/0.5 ML SYRINGE SQ SCH ×3 (01:23→16:59)
[2022-11-16] MEDS: metroNIDAZOLE-NS PMX 500 MG in SALINE 1 100ML.BAG IVPB SCH ×3 (01:23→16:59)
[2022-11-16] MEDS: CEFEPIME 2 GM in SODIUM CHLORIDE 0.9% 100 ML IVPB SCH ×3 (01:23→16:59)
[2022-11-16] MEDS: LACTATED RINGERS 1,000 ML IV SCH (05:29)
[2022-11-16] MEDS: SYMBICORT 160-4.5 MCG INHALER INHALATION SCH ×2 (08:57→21:14)
[2022-11-16] MEDS: amLODIPine 10 MG TAB PO SCH (09:16)
[2022-11-16] MEDS: CYANOCOBALAMIN 1,000 MCG/ML 1 ML VIAL IM SCH (09:16)
[2022-11-16] MEDS: DOCUSATE 100 MG CAP PO SCH ×2 (09:17→20:11)
[2022-11-16] MEDS: PRIMIDONE 50 MG TAB PO SCH ×3 (09:17→20:11)
[2022-11-16] MEDS: FAMOTIDINE 20 MG/2 ML VIAL IV SCH ×2 (09:17→20:10)
[2022-11-16] MEDS: METOPROLOL TARTRATE 25 MG TAB PO SCH ×2 (09:17→20:11)
[2022-11-16] MEDS: MONTELUKAST 10 MG TAB PO SCH (09:17)
--- NOTE | 2022-11-16 15:51 | P.PN ---
Subjective Progress Note Date: 11/16/22 72-year-old gentleman with past medical history significant for hypertension, hyperlipidemia, COPD presented to the ER because of altered mental status. Most of the history has been taken from the EMR. Patient was brought in by EMS after being notified by the patient's neighbor who did a wellness check on the patient as he had not seen him in a day.EMS found the patient lying on the floor, patient currently alert to self. Patient was immediately brought to the ER of [facility]. initial lab work done in the ER showedWBC 12.8, hemoglobin 13.8, platelet count 325, sodium 145, potassium 4.1, chloride 110, BUN 35, creatinine 1.29, CK 2741 Chest x-ray negative for acute pulmonary process CT brain showed age-related atrophy, no acute intracranial process Patient was admitted to internal medicine service 11/06/2022 Patient is currently in the telemetry unit. Extremity continues and nonre sponsive. Patient is a lethargic but able to moan and follows simple commands. Rapid response team was called due to unresponsiveness. Patient had CT head done yesterday which showed no acute intracranial hemorrhage or midline shift. There is mild to moderate diffuse cerebral atrophy and chronic small vessel ischemic changes redemonstrated. No significant change from recent prior CT. EEG and MRI was ordered as per neurology recommendations. Patient was also febrile overnight with Tmax 100.8. Currently afebrile. Laboratory data showed WBC 10.8 hemoglobin 13.6 and platelets 262 Sodium 135 potassium 3.3 chloride 97 bicarb is 28, BUN 19 and creatinine 1.05 blood sugar 132 and CPK level trending down to 1164. Bicarb drip has been discontinued. Nephrology and neurology is on board. 11/07/2022 Patient is currently laying in bed. Able to open his eyes better today. Follows simple commands. Still lethargic and sleepy. Overnight patient was febrile again with Tmax of 100.8. Due to encephalopathy and fever possibly NURSING HOME MANAGER infection is being considered. Patient was started on broad-spectrum antibiotics. Patient was also noted to have abdominal distention. EEG showed moderate to severe encephalopathic picture. MRI of the brain was done yesterday which showed some age-related atrophy. No acute intracranial process. ID was consulted due to fever and encephalopathy. Laboratory pressure WBC 11.7 hemoglobin 13.5 and platelets 287 Sodium 138 potassium 3.6 chloride 104 bicarb is 21 BUN 21 and creatinine 1.08. Blood sugar is 116 Procalcitonin level is at 0.41. 11/08/2022 Patient is more awake and oriented today. Patient was able to communicate with his sister at bedside. Patient did have fever with Tmax of 101.0 yesterday afternoon. Currently on room air. Patient is able to tolerate liquids with one-to-one feeding. Status post LP today. CT of the abdomen pelvis showed circumferential rectal wall thickening correlate for proctitis. No additional finding within the abdomen or pelvis to explain patient's symptoms. Left inguinal hernia containing loops of sigmoid colon. No evidence for wall thickening suggesting strangulation. Large stool burden throughout the colon. Patient did have multiple episodes of diarrhea yesterday. CT was negative. General surgery was consulted for further evaluation of the abnormal CT. Patient was seen by psychiatry and currently Depakote is on hold at continue with Seroquel as needed. Laboratory data showed WBC 11.2 hemoglobin 12.20 platelets 260 sodium 139 potassium 3.3 which is being replaced BUN 20. Creatinine 1.13 and calcium 8.2. Coronavirus PCR not detected. 11/09/2022 Patient is currently resting in the bed. Awake alert but slow to respond. Mentation is much improved. Feels very weak. Denies any complaints of chest pain or shortness of breath. Patient has been afebrile. Laboratory data showed WBC 10.4 hemoglobin 11.9 platelets 301, sodium 140 potassium 3.6 chloride 107 bicarb is 20 BUN 23 and creatinine 0.94 and blood sugar 116. CRP 44.3. Patient is being continued on antibiotics in the form of cefepime and metronidazole. General surgery is on board. 11/10/2022 Patient is currently lying in the bed. Awake alert but lethargic and weak and drowsy. No complaints of chest pain or shortness of breath. Patient does have left inguinal hernia and possible partially incarcerated. With general surgery is planning for elective repair of hearing on Friday. Otherwise patient is afebrile. Potassium was replaced as per protocol. Laboratory data showed WBC 9.6 hemoglobin 11.1 and platelets 322, sodium 141 po tassium 3.3 chloride 109 bicarb is 21 BUN 22 and creatinine 0.9 and calcium 8.1. I'm resume the care of the patient 11/11/2022 This is a pleasant 72 years old male with multiple medical problems presents with altered mental status secondary to metabolic encephalopathy and infection was suspected with systemic inflammatory response, his lumbar puncture was unremarkable for NURSING HOME MANAGER infection, CT was evidence with prostatitis with circumferential wall thickening, his abdomen is still mildly distended. His Rhabdomyolysis and tumor improved Patient is planned by surgery team for left inguinal hernia repair tomorrow Today was awake alert lethargic and weak but is improving, this is confirmed with the daughter at bedside nurse, patient he knows in the hospital he knew the year but could not tell them on 4 date and recognize his daughter and he has insight into his illness. He denies any specific complaint. Daughter at bedside thinks he is improving and she is happy with his progress. He still picking up his appetite slowly. He remains on cefepime, IV Flagyl and normal saline and 75 mL/h. Depakote is on hold 11/12/2022 Patient today is awake alert, still very weak generally, he is talking in low voice and looks tired but patient reports improvement compared to yesterday. Patient is improving slowly and gradually. He denies specific complaint however he has poor appetite Patient underwent left inguinal hernia repair today with surgery team Patient methylmalonic acid is still pending for borderline low vitamin B12 Patient remains on cefepime and IV Flagyl. Neurology input is a appreciated and noted Psych consult signed off the case \ 11/13/2022 Patient had left inguinal hernia repair yesterday, today wound is healing and closed with significant tenderness. He still has poor appetite. He didn't have bowel movement, no passing gases. No other new complaint, he is generally weak improving slowly and gradually After the help for discharge in 24-48 hours if his GI function improves and he is able to eat more he is remaining on cefepime and IV Flagyl and normal saline 75 ml/h 11/15/2022 Today patient was noticed to have left upper extremity swelling, ultrasound showed negative for DVT Also patient today. This is still not eating much despite several encouragements, I discussed the case with dietitian, tube feeding could be considered as an option Patient remains confused poor historian and cannot provide much information and answer some of the questions and others does not answer. I discussed the case with employment evaluator/case manager who advised patient has a guardian his niece Martha whom I called at [phone]. I discussed the case with her including his clinical situation, discharge placement and feeding. She will come and visit him tomorrow and she will try to encourage him to eat, she wants to wait for 1-2 days before they decide about tube feeding , patient however able to eat some snacks but apparently is not enough for him. Plan of care discussed with the guardian and she is in agreement As per employment evaluator/case manager it is difficult placement because patient may need long-term placement and not only rehab. however prognosis remains guarded Currently he is kept on cefepime, IV Flagyl normal saline will be discontinued He remains on intravenous vitamin B12 replacement therapy 11/16 No new events, Per DPOA okay for feeding tube Will consult Surgery Objective - Vital Signs Vital signs: Vital Signs Temp 96.9 F L 11/16/22 09:13 Pulse 75 11/16/22 14:00 Resp 16 11/16/22 14:00 BP 145/77 11/16/22 12:00 Pulse Ox 96 11/16/22 12:00 FiO2 Intake & Output 11/15/22 11/16/22 11/16/22 18:59 06:59 18:59 Intake Total 236 240 Output Total 800 Balance 236 -800 240 Weight 65.771 kg Intake: Oral 236 240 Output: Urine 800 Other: Voiding Method External Catheter External Catheter External Catheter - Exam GENERAL: The patient is alert and oriented x1 lethargic, not in any acute distress. Well developed,mal nourished. Generally weak HEENT: Pupils are round and equally reacting to light. EOMI. No scleral icterus. No conjunctival pallor. Normocephalic, atraumatic. No pharyngeal erythema. No thyromegaly. CARDIOVASCULAR: S1 and S2 present. No murmurs, rubs, or gallops. PULMONARY: Chest is clear to auscultation, no wheezing . no crackles. ABDOMEN: Soft, nontender, mildly distended, . No palpable organomegaly. MUSCULOSKELETAL: No joint swelling or deformity. EXTREMITIES: No cyanosis, clubbing, or pedal edema. NEUROLOGICAL: Gross neurological examination did not reveal any focal deficits. SKIN: No rashes. no petechiae. - Labs CBC & Chem 7: 11/13/22 07:42 11/13/22 07:42 Assessment and Plan Assessment: Assessment: * Acute metabolic encephalopathy. * Acute Circumferential rectal wall thickening proctitis as per CT * Left inguinal hernia containing sigmoid colon. Possible partial incarceration.. Status post hernia repair on 11/12/22 * Malnutrition * Fever. Status post LP. CSF analysis showed no evidence of infection. * Acute rhabdomyolysis * Acute Kidney injury. resolved, * History of mood disorder * Hypertension * Hyperlipidemia * COPD * Polypharmacy Plan: Continue with antibiotic cefepime and IV Flagyl> ID following PEG tube is suggested by dietitian,per guardian discussed with his daughter, Zora for feeding tube consultants on the case including ID, neurologist and general surgery contract administration manager on the case for placement Labs and medication were reviewed. DVT prophylaxis: Subcutaneous heparin GI Prophylaxis: Pepcid
--- NOTE | 2022-11-16 17:24 | P.GSCN ---
History of Present Illness Consult date: 11/16/22 History of present illness: Consult for feeding tube placement. He denies abdominal pain. He is on pureed diet. Will need further assessment for feeding tube. Past Medical History Past Medical History: Unable to Obtain Additional Past Medical History / Comment(s): Prostate Cancer, essential tremors, History of Any Multi-Drug Resistant Organisms: Unobtainable Past Surgical History: Unable to Obtain Past Psychological History: Unable to Obtain Smoking Status: Unknown if ever smoked Past Alcohol Use History: Unable to Obtain Past Drug Use History: Unable to Obtain Medications and Allergies Home Medications Medication Instructions Recorded Confirmed Type Albuterol Inhaler [Ventolin Hfa 1 puff INHALATION RT-Q4H PRN 11/04/22 11/04/22 History Inhaler] Budesonide/Formoterol Fumarate 2 puff INHALATION RT-BID 11/04/22 11/04/22 History [Symbicort 160-4.5 Mcg Inhaler] LORazepam [Ativan] 0.5 mg PO HS 11/04/22 11/04/22 History Montelukast [Singulair] 10 mg PO DAILY 11/04/22 11/04/22 History Primidone [Mysoline] 50 mg PO TID 11/04/22 11/04/22 History Simvastatin [Zocor] 40 mg PO DAILY 11/04/22 11/04/22 History amLODIPine [Norvasc] 10 mg PO DAILY 11/04/22 11/04/22 History Cyanocobalamin [Vitamin B-12 1,000 mcg IM DAILY 2 Days #2 each 11/14/22 Rx Injection] Cyanocobalamin [Vitamin B-12] 1,000 mcg PO DAILY 30 Days #30 tab 11/14/22 Rx Docusate [Colace] 100 mg PO BID cap 11/14/22 Rx HYDROcodone/APAP 5-325MG [Ismay 1 tab PO Q12HR PRN 3 Days #6 tab 11/14/22 Rx 5-325] Metoprolol Tartrate [Lopressor] 25 mg PO BID tab 11/14/22 Rx QUEtiapine [SEROquel] 25 mg PO BID PRN tab 11/14/22 Rx cefUROXime axetiL [Ceftin] 500 mg PO BID 7 Days #14 tab 11/14/22 Rx metroNIDAZOLE [Flagyl] 500 mg PO TID #21 tab 11/14/22 Rx Allergies Allergy/AdvReac Type Severity Reaction Status Date / Time hops Allergy Rash/Hives Verified 11/04/22 17:29 mold AdvReac Rash/Hives Verified 11/04/22 17:29 Surgical - Exam Vital Signs Temp Pulse Resp BP Pulse Ox 97.0 F L 87 18 175/116 97 11/04/22 15:45 11/04/22 15:45 11/04/22 15:45 11/04/22 15:45 11/04/22 15:45 Results - Labs 11/13/22 07:42 11/13/22 07:42
--- NOTE | 2022-11-16 19:44 | P.PN ---
Subjective Progress Note Date: 11/16/22 Principal diagnosis: Fever Patient is a 72-year-old male presenting to the hospital with mental status changes patient was found to be on the floor and this patient has been running a fever with a CT abdominal pelvis did shows evidence of severe stool burden and initial concern for possible strangulated hernia that has been rule out patient also have LP completed which was normal, a patient is status post left inguinal incarcerated hernia repair completed on 11/12/2022 On today's evaluation that is 11/16/2022 the patient continues to be afebrile, the patient is breathing comfortably on room air, the patient denies any chest pain shortness of breath or cough,Pt denies any nausea no vomiting or diarrhea has been reported Objective - Vital Signs Vital signs: Vital Signs Temp 96.9 F L 11/16/22 09:13 Pulse 85 11/16/22 09:34 Resp 16 11/16/22 09:34 BP 152/81 11/16/22 09:13 Pulse Ox 96 11/16/22 09:13 FiO2 Intake & Output 11/15/22 11/16/22 11/16/22 18:59 06:59 18:59 Intake Total 236 120 Output Total 800 Balance 236 -800 120 Weight 65.771 kg Intake: Oral 236 120 Output: Urine 800 Other: Voiding Method External Catheter External Catheter External Catheter - Exam GENERAL DESCRIPTION: An elderly male lying in bed in no distress RESPIRATORY SYSTEM: Unlabored breathing , decreased breath sounds at bases HEART: S1 S2 regular rate and rhythm , ABDOMEN: Soft , mild distention but no tenderness EXTREMITIES: No edema feet - Labs CBC & Chem 7: 11/13/22 07:42 11/13/22 07:42 Assessment and Plan (1) Fever Current Visit: Yes Status: Acute Code(s): R50.9 - FEVER, UNSPECIFIED SNOMED Code(s): 894614600 Plan: 1patient with fever elevated white count tachycardia meeting criteria for SIRS./Sepsis in this patient presenting to the hospital with decreased level of responsiveness and fall source possibly abdominal and the patient was noted to have significant abdominal distention however the patient also have mental status changes and neck rigidity 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
[2022-11-16] MEDS: HYDROcodone/APAP 7.5-325MG 1 EACH TAB PO PRN (20:11)
[2022-11-16] MEDS: LORazepam 0.5 MG TAB PO SCH (20:11)
[2022-11-16] MEDS: ACETAMINOPHEN TAB 500 MG TAB PO PRN (20:11)
[2022-11-17] MEDS: metroNIDAZOLE-NS PMX 500 MG in SALINE 1 100ML.BAG IVPB SCH ×3 (00:23→17:29)
[2022-11-17] MEDS: CEFEPIME 2 GM in SODIUM CHLORIDE 0.9% 100 ML IVPB SCH ×3 (00:23→17:28)
[2022-11-17] MEDS: HEPARIN SODIUM,PORCINE/PF 5,000 UNIT/0.5 ML SYRINGE SQ SCH ×3 (00:24→17:29)
[2022-11-17 07:41] LABS: HCT 35.3 % (39.0-53.0); HGB 11.4 gm/dL (13.0-17.5); MCH 32.6 pg (25.0-35.0); MCHC 32.4 g/dL (31.0-37.0); MCV 100.8 fL (80.0-100.0); Mean Platelet Volume 8.3; Platelet Count 815 k/uL (150-450); RDW 13.5 % (11.5-15.5); WBC 14.1 k/uL (3.8-10.6)
[2022-11-17 07:43] LABS: African American GFR (CKD) >90 (>60 ml/min/1.73 sqM); Anion Gap 7 mmol/L; Blood Urea Nitrogen 18 mg/dL (9-20); Calcium 8.1 mg/dL (8.4-10.2); Carbon Dioxide 24 mmol/L (22-30); Chloride 104 mmol/L (98-107); Glucose 102 mg/dL (74-99); Non-African American GFR(CKD) >90 (>60 ml/min/1.73 sqM); Potassium 4.4 mmol/L (3.5-5.1); Sodium 135 mmol/L (137-145)
[2022-11-17] MEDS: SYMBICORT 160-4.5 MCG INHALER INHALATION SCH ×2 (09:48→20:41)
[2022-11-17] MEDS: METOPROLOL TARTRATE 25 MG TAB PO SCH ×2 (10:07→20:46)
[2022-11-17] MEDS: amLODIPine 10 MG TAB PO SCH (10:08)
[2022-11-17] MEDS: DOCUSATE 100 MG CAP PO SCH ×2 (10:08→20:46)
[2022-11-17] MEDS: MONTELUKAST 10 MG TAB PO SCH (10:08)
[2022-11-17] MEDS: PRIMIDONE 50 MG TAB PO SCH ×3 (10:08→20:46)
[2022-11-17] MEDS: FAMOTIDINE 20 MG/2 ML VIAL IV SCH ×2 (10:09→20:46)
[2022-11-17] MEDS: CYANOCOBALAMIN 1,000 MCG/ML 1 ML VIAL IM SCH (10:09)
--- NOTE | 2022-11-17 13:33 | P.PN ---
Subjective Progress Note Date: 11/17/22 Pathology note reviewed with features of oropharyngeal dysphagia. May benefit from gastrostomy tube placement. Further assessment pending discussion with his surgeon. Objective - Vital Signs Vital signs: Vital Signs Temp 97.5 F L 11/17/22 12:00 Pulse 76 11/17/22 12:00 Resp 16 11/17/22 12:00 BP 153/77 11/17/22 12:00 Pulse Ox 96 11/17/22 12:00 FiO2 Intake & Output 11/16/22 11/17/22 11/17/22 18:59 06:59 18:59 Intake Total 360 240 Output Total 750 1100 550 Balance -390 -1100 -310 Intake: Oral 360 240 Output: Urine 750 1100 550 Other: Voiding Method External Catheter External Catheter External Catheter - Labs CBC & Chem 7: 11/17/22 06:13 11/17/22 06:13 Labs: Abnormal Lab Results - Last 24 Hours (Table) 11/17/22 11/17/22 Range/Units 06:13 06:13 WBC 14.1 H (3.8-10.6) k/uL RBC 3.50 L (4.30-5.90) m/uL Hgb 11.4 L (13.0-17.5) gm/dL Hct 35.3 L (39.0-53.0) % MCV 100.8 H (80.0-100.0) fL Plt Count 815 H (150-450) k/uL Sodium 135 L (137-145) mmol/L Glucose 102 H (74-99) mg/dL Calcium 8.1 L (8.4-10.2) mg/dL
--- NOTE | 2022-11-17 14:17 | P.PN ---
Subjective Progress Note Date: 11/17/22 72-year-old gentleman with past medical history significant for hypertension, hyperlipidemia, COPD presented to the ER because of altered mental status. Most of the history has been taken from the EMR. Patient was brought in by EMS after being notified by the patient's neighbor who did a wellness check on the patient as he had not seen him in a day.EMS found the patient lying on the floor, patient currently alert to self. Patient was immediately brought to the ER of [facility]. initial lab work done in the ER showedWBC 12.8, hemoglobin 13.8, platelet count 325, sodium 145, potassium 4.1, chloride 110, BUN 35, creatinine 1.29, CK 2741 Chest x-ray negative for acute pulmonary process CT brain showed age-related atrophy, no acute intracranial process Patient was admitted to internal medicine service 11/06/2022 Patient is currently in the telemetry unit. Extremity continues and nonre sponsive. Patient is a lethargic but able to moan and follows simple commands. Rapid response team was called due to unresponsiveness. Patient had CT head done yesterday which showed no acute intracranial hemorrhage or midline shift. There is mild to moderate diffuse cerebral atrophy and chronic small vessel ischemic changes redemonstrated. No significant change from recent prior CT. EEG and MRI was ordered as per neurology recommendations. Patient was also febrile overnight with Tmax 100.8. Currently afebrile. Laboratory data showed WBC 10.8 hemoglobin 13.6 and platelets 262 Sodium 135 potassium 3.3 chloride 97 bicarb is 28, BUN 19 and creatinine 1.05 blood sugar 132 and CPK level trending down to 1164. Bicarb drip has been discontinued. Nephrology and neurology is on board. 11/07/2022 Patient is currently laying in bed. Able to open his eyes better today. Follows simple commands. Still lethargic and sleepy. Overnight patient was febrile again with Tmax of 100.8. Due to encephalopathy and fever possibly [employer] infection is being considered. Patient was started on broad-spectrum antibiotics. Patient was also noted to have abdominal distention. EEG showed moderate to severe encephalopathic picture. MRI of the brain was done yesterday which showed some age-related atrophy. No acute intracranial process. ID was consulted due to fever and encephalopathy. Laboratory pressure WBC 11.7 hemoglobin 13.5 and platelets 287 Sodium 138 potassium 3.6 chloride 104 bicarb is 21 BUN 21 and creatinine 1.08. Blood sugar is 116 Procalcitonin level is at 0.41. 11/08/2022 Patient is more awake and oriented today. Patient was able to communicate with his sister at bedside. Patient did have fever with Tmax of 101.0 yesterday afternoon. Currently on room air. Patient is able to tolerate liquids with one-to-one feeding. Status post LP today. CT of the abdomen pelvis showed circumferential rectal wall thickening correlate for proctitis. No additional finding within the abdomen or pelvis to explain patient's symptoms. Left inguinal hernia containing loops of sigmoid colon. No evidence for wall thickening suggesting strangulation. Large stool burden throughout the colon. Patient did have multiple episodes of diarrhea yesterday. CT was negative. General surgery was consulted for further evaluation of the abnormal CT. Patient was seen by psychiatry and currently Depakote is on hold at continue with Seroquel as needed. Laboratory data showed WBC 11.2 hemoglobin 12.20 platelets 260 sodium 139 potassium 3.3 which is being replaced BUN 20. Creatinine 1.13 and calcium 8.2. Coronavirus PCR not detected. 11/09/2022 Patient is currently resting in the bed. Awake alert but slow to respond. Mentation is much improved. Feels very weak. Denies any complaints of chest pain or shortness of breath. Patient has been afebrile. Laboratory data showed WBC 10.4 hemoglobin 11.9 platelets 301, sodium 140 potassium 3.6 chloride 107 bicarb is 20 BUN 23 and creatinine 0.94 and blood sugar 116. CRP 44.3. Patient is being continued on antibiotics in the form of cefepime and metronidazole. General surgery is on board. 11/10/2022 Patient is currently lying in the bed. Awake alert but lethargic and weak and drowsy. No complaints of chest pain or shortness of breath. Patient does have left inguinal hernia and possible partially incarcerated. With general surgery is planning for elective repair of hearing on Friday. Otherwise patient is afebrile. Potassium was replaced as per protocol. Laboratory data showed WBC 9.6 hemoglobin 11.1 and platelets 322, sodium 141 po tassium 3.3 chloride 109 bicarb is 21 BUN 22 and creatinine 0.9 and calcium 8.1. I'm resume the care of the patient 11/11/2022 This is a pleasant 72 years old male with multiple medical problems presents with altered mental status secondary to metabolic encephalopathy and infection was suspected with systemic inflammatory response, his lumbar puncture was unremarkable for [employer] infection, CT was evidence with prostatitis with circumferential wall thickening, his abdomen is still mildly distended. His Rhabdomyolysis and tumor improved Patient is planned by surgery team for left inguinal hernia repair tomorrow Today was awake alert lethargic and weak but is improving, this is confirmed with the daughter at bedside nurse, patient he knows in the hospital he knew the year but could not tell them on 4 date and recognize his daughter and he has insight into his illness. He denies any specific complaint. Daughter at bedside thinks he is improving and she is happy with his progress. He still picking up his appetite slowly. He remains on cefepime, IV Flagyl and normal saline and 75 mL/h. Depakote is on hold 11/12/2022 Patient today is awake alert, still very weak generally, he is talking in low voice and looks tired but patient reports improvement compared to yesterday. Patient is improving slowly and gradually. He denies specific complaint however he has poor appetite Patient underwent left inguinal hernia repair today with surgery team Patient methylmalonic acid is still pending for borderline low vitamin B12 Patient remains on cefepime and IV Flagyl. Neurology input is a appreciated and noted Psych consult signed off the case \ 11/13/2022 Patient had left inguinal hernia repair yesterday, today wound is healing and closed with significant tenderness. He still has poor appetite. He didn't have bowel movement, no passing gases. No other new complaint, he is generally weak improving slowly and gradually After the help for discharge in 24-48 hours if his GI function improves and he is able to eat more he is remaining on cefepime and IV Flagyl and normal saline 75 ml/h 11/15/2022 Today patient was noticed to have left upper extremity swelling, ultrasound showed negative for DVT Also patient today. This is still not eating much despite several encouragements, I discussed the case with dietitian, tube feeding could be considered as an option Patient remains confused poor historian and cannot provide much information and answer some of the questions and others does not answer. I discussed the case with manager of case management who advised patient has a guardian his niece Martha whom I called at [phone]. I discussed the case with her including his clinical situation, discharge placement and feeding. She will come and visit him tomorrow and she will try to encourage him to eat, she wants to wait for 1-2 days before they decide about tube feeding , patient however able to eat some snacks but apparently is not enough for him. Plan of care discussed with the guardian and she is in agreement As per manager of case management it is difficult placement because patient may need long-term placement and not only rehab. however prognosis remains guarded Currently he is kept on cefepime, IV Flagyl normal saline will be discontinued He remains on intravenous vitamin B12 replacement therapy 11/16 No new events, Per DPOA okay for feeding tube Will consult Surgery 11/17 Right ankle swollen , X ray ordered , Denies pain Objective - Vital Signs Vital signs: Vital Signs Temp 97.5 F L 11/17/22 12:00 Pulse 76 11/17/22 12:00 Resp 16 11/17/22 12:00 BP 153/77 11/17/22 12:00 Pulse Ox 96 11/17/22 12:00 FiO2 Intake & Output 11/16/22 11/17/22 11/17/22 18:59 06:59 18:59 Intake Total 360 240 Output Total 750 1100 550 Balance -390 -1100 -310 Intake: Oral 360 240 Output: Urine 750 1100 550 Other: Voiding Method External Catheter External Catheter External Catheter - Exam GENERAL: The patient is alert and oriented x1 lethargic, not in any acute distress. Well developed,mal nourished. Generally weak HEENT: Pupils are round and equally reacting to light. EOMI. No scleral icterus. No conjunctival pallor. Normocephalic, atraumatic. No pharyngeal erythema. No thyromegaly. CARDIOVASCULAR: S1 and S2 present. No murmurs, rubs, or gallops. PULMONARY: Chest is clear to auscultation, no wheezing . no crackles. ABDOMEN: Soft, nontender, mildly distended, . No palpable organomegaly. MUSCULOSKELETAL:Right ankle swelling EXTREMITIES: No cyanosis, clubbing, or pedal edema. NEUROLOGICAL: Gross neurological examination did not reveal any focal deficits. SKIN: No rashes. no petechiae. - Labs CBC & Chem 7: 11/17/22 06:13 11/17/22 06:13 Labs: Abnormal Lab Results - Last 24 Hours (Table) 11/17/22 11/17/22 Range/Units 06:13 06:13 WBC 14.1 H (3.8-10.6) k/uL RBC 3.50 L (4.30-5.90) m/uL Hgb 11.4 L (13.0-17.5) gm/dL Hct 35.3 L (39.0-53.0) % MCV 100.8 H (80.0-100.0) fL Plt Count 815 H (150-450) k/uL Sodium 135 L (137-145) mmol/L Glucose 102 H (74-99) mg/dL Calcium 8.1 L (8.4-10.2) mg/dL Assessment and Plan Assessment: Assessment: * Acute metabolic encephalopathy. * Acute Circumferential rectal wall thickening proctitis as per CT * Left inguinal hernia containing sigmoid colon. Possible partial incarceration.. Status post hernia repair on 11/12/22 * Malnutrition * Fever. Status post LP. CSF analysis showed no evidence of infection. * Acute rhabdomyolysis * Acute Kidney injury. resolved, * History of mood disorder * Hypertension * Hyperlipidemia * COPD * Polypharmacy Plan: Continue with antibiotic cefepime and IV Flagyl> ID following PEG tube is suggested by dietitian,per guardian discussed with his daughter, Ernst lorenz for feeding tube [employer] consulted Consultants on the case including ID, neurologist and general surgery senior accounting manager on the case for placement Labs and medication were reviewed. DVT prophylaxis: Subcutaneous heparin GI Prophylaxis: Pepcid
--- NOTE | 2022-11-17 16:10 | US ---
EXAMINATION TYPE: US venous doppler duplex LE RT DATE OF EXAM: 11/17/2022 4:01 PM COMPARISON: NONE CLINICAL INDICATION: Male, 72 years old with history of swelling, r/o dvt; Swelling R/O DVT. SIDE PERFORMED: Right TECHNIQUE: The lower extremity deep venous system is examined utilizing real time linear array sonog chaim with graded compression, doppler sonography and color-flow sonography. VESSELS IMAGED: Common Femoral Vein Deep Femoral Vein Greater Saphenous Vein * Femoral Vein Popliteal Vein Small Saphenous Vein * Proximal Calf Veins (* superficial vessels) Right Leg: No evidence of DVT. IMPRESSION: No evidence for DVT at this time.
--- NOTE | 2022-11-17 18:34 | XR ---
EXAMINATION TYPE: XR ankle limited RT DATE OF EXAM: 11/17/2022 6:16 PM INDICATION: Patient age:Male; 72 years old; Reason for study: pain; PHH. COMPARISON: No relevant priors TECHNIQUE: The right ankle is imaged in frontal, lateral and oblique projections. FINDINGS: There is no evidence of acute osseous pathology. The joint spaces are well-preserved without evidenc e of subluxation or dislocation. Moderate soft tissue swelling around the ankle. No radiopaque foreig n bodies are identified. Small calcaneal bone spur is identified. Degenerative changes of the mid and hindfoot. IMPRESSION: 1. No evidence of acute fracture. 2. Subcutaneous swelling around the ankle likely secondary to underlying soft tissue injury. 2. Mild osteoarthritic changes.
[2022-11-17] MEDS: LORazepam 0.5 MG TAB PO SCH (20:46)
[2022-11-17] MEDS: LACTATED RINGERS 1,000 ML IV SCH (20:47)
--- NOTE | 2022-11-17 22:29 | P.PN ---
Subjective Progress Note Date: 11/17/22 Principal diagnosis: Fever Patient is a 72-year-old male presenting to the hospital with mental status changes patient was found to be on the floor and this patient has been running a fever with a CT abdominal pelvis did shows evidence of severe stool burden and initial concern for possible strangulated hernia that has been rule out patient also have LP completed which was normal, a patient is status post left inguinal incarcerated hernia repair completed on 11/12/2022 On today's evaluation that is 11/17/2022 the patient remains to be afebrile, the patient is breathing comfortably on room air, the patient denies any chest pain shortness of breath or cough,the patient denies any nausea no vomiting or diarrhea has been reported , pt has been c/o pain to the right knee and was noticed to have swelling and redness to the right ankle , no trauma Objective - Vital Signs Vital signs: Vital Signs Temp 97.5 F L 11/17/22 12:00 Pulse 76 11/17/22 12:00 Resp 16 11/17/22 12:00 BP 153/77 11/17/22 12:00 Pulse Ox 96 11/17/22 12:00 FiO2 Intake & Output 11/16/22 11/17/22 11/17/22 18:59 06:59 18:59 Intake Total 360 240 Output Total 750 1100 550 Balance -390 -1100 -310 Intake: Oral 360 240 Output: Urine 750 1100 550 Other: Voiding Method External Catheter External Catheter External Catheter - Exam GENERAL DESCRIPTION: An elderly male lying in bed in no distress RESPIRATORY SYSTEM: Unlabored breathing , decreased breath sounds at bases HEART: S1 S2 regular rate and rhythm , ABDOMEN: Soft , mild distention but no tenderness EXTREMITIES: R ankle with erythma and warmth - Labs CBC & Chem 7: 11/17/22 06:13 11/17/22 06:13 Labs: Abnormal Lab Results - Last 24 Hours (Table) 11/17/22 11/17/22 Range/Units 06:13 06:13 WBC 14.1 H (3.8-10.6) k/uL RBC 3.50 L (4.30-5.90) m/uL Hgb 11.4 L (13.0-17.5) gm/dL Hct 35.3 L (39.0-53.0) % MCV 100.8 H (80.0-100.0) fL Plt Count 815 H (150-450) k/uL Sodium 135 L (137-145) mmol/L Glucose 102 H (74-99) mg/dL Calcium 8.1 L (8.4-10.2) mg/dL Assessment and Plan (1) Fever Current Visit: Yes Status: Acute Code(s): R50.9 - FEVER, UNSPECIFIED SNOMED Code(s): 183763262 Plan: 1patient with fever elevated white count tachycardia meeting criteria for SIRS./Sepsis in this patient presenting to the hospital with decreased level of responsiveness and fall source possibly abdominal and the patient was noted to have significant abdominal distention however the patient also have mental status changes and neck rigidity underlying [employer] infection/encephalitis not ready excluded 2- CT of abdominal pelvis with IV contrast CT did shows circumferential rectal wall thickening correlate for proctitis large stool burden and there was concern for possible incarcerated left inguinal hernia, patient LP was normal.the patient is status post repair of the left inguinal incarcerated hernia 3-the patient has shown clinical improvement and did have resolution of his fe he, patient will continue cefepime 4- Pt was noticed to have more swelling to right leg , especially the R ankle , doppler has been ordered and will brian the area of redness and keep it off pressure , discussed with nursing staff and family at bed side Time with Patient: Less than 30
[2022-11-18] MEDS: CEFEPIME 2 GM in SODIUM CHLORIDE 0.9% 100 ML IVPB SCH ×4 (00:59→23:54)
[2022-11-18] MEDS: HEPARIN SODIUM,PORCINE/PF 5,000 UNIT/0.5 ML SYRINGE SQ SCH ×4 (00:59→23:54)
[2022-11-18] MEDS: FAMOTIDINE 20 MG/2 ML VIAL IV SCH ×2 (07:42→20:06)
[2022-11-18] MEDS: CYANOCOBALAMIN 500 MCG TAB PO SCH (07:42)
[2022-11-18] MEDS: PRIMIDONE 50 MG TAB PO SCH ×3 (07:43→21:20)
[2022-11-18] MEDS: DOCUSATE 100 MG CAP PO SCH ×2 (07:43→20:05)
[2022-11-18] MEDS: METOPROLOL TARTRATE 25 MG TAB PO SCH ×2 (07:43→20:05)
[2022-11-18] MEDS: MONTELUKAST 10 MG TAB PO SCH (07:43)
[2022-11-18] MEDS: amLODIPine 10 MG TAB PO SCH (07:43)
[2022-11-18] MEDS: SYMBICORT 160-4.5 MCG INHALER INHALATION SCH ×2 (08:45→21:05)
[2022-11-18] MEDS: LACTATED RINGERS 1,000 ML IV SCH ×2 (09:36→23:53)
[2022-11-18 09:41] LABS: Basophils % (A) 0 %; Eosinophils # (A) 0.2 k/uL (0-0.7); Eosinophils % (A) 2 %; HGB 10.9 gm/dL (13.0-17.5); Lymphocytes # (A) 1.6 k/uL (1.0-4.8); Lymphocytes % (A) 14 %; MCH 31.7 pg (25.0-35.0); MCHC 32.2 g/dL (31.0-37.0); MCV 98.5 fL (80.0-100.0); Mean Platelet Volume 7.9; Monocytes # (A) 0.7 k/uL (0-1.0); Monocytes % (A) 6 %; Neutrophils # (A) 9.1 k/uL (1.3-7.7); Neutrophils % (A) 77 %; Platelet Count 896 k/uL (150-450); RBC 3.45 m/uL (4.30-5.90); RDW 13.5 % (11.5-15.5); WBC 11.9 k/uL (3.8-10.6)
[2022-11-18 10:03] LABS: ALT 44 U/L (4-49); AST 41 U/L (17-59); African American GFR (CKD) >90 (>60 ml/min/1.73 sqM); Albumin 2.6 g/dL (3.5-5.0); Alkaline Phosphatase 122 U/L (38-126); Anion Gap 10 mmol/L; Blood Urea Nitrogen 19 mg/dL (9-20); Calcium 8.2 mg/dL (8.4-10.2); Carbon Dioxide 22 mmol/L (22-30); Chloride 104 mmol/L (98-107); Glucose 114 mg/dL (74-99); Non-African American GFR(CKD) >90 (>60 ml/min/1.73 sqM); Potassium 3.7 mmol/L (3.5-5.1); Sodium 136 mmol/L (137-145); Total Bilirubin 0.4 mg/dL (0.2-1.3); Total Protein 5.7 g/dL (6.3-8.2); Uric Acid 4.1 mg/dL (3.5-8.5)
[2022-11-18 11:14] LABS: C Reactive Protein 14.3 mg/dL (<1.0)
--- NOTE | 2022-11-18 13:16 | P.PN ---
Subjective Progress Note Date: 11/18/22 72-year-old gentleman with past medical history significant for hypertension, hyperlipidemia, COPD presented to the ER because of altered mental status. Most of the history has been taken from the EMR. Patient was brought in by EMS after being notified by the patient's neighbor who did a wellness check on the patient as he had not seen him in a day.EMS found the patient lying on the floor, patient currently alert to self. Patient was immediately brought to the ER of [facility]. initial lab work done in the ER showedWBC 12.8, hemoglobin 13.8, platelet count 325, sodium 145, potassium 4.1, chloride 110, BUN 35, creatinine 1.29, CK 2741 Chest x-ray negative for acute pulmonary process CT brain showed age-related atrophy, no acute intracranial process Patient was admitted to internal medicine service 11/06/2022 Patient is currently in the telemetry unit. Extremity continues and nonre sponsive. Patient is a lethargic but able to moan and follows simple commands. Rapid response team was called due to unresponsiveness. Patient had CT head done yesterday which showed no acute intracranial hemorrhage or midline shift. There is mild to moderate diffuse cerebral atrophy and chronic small vessel ischemic changes redemonstrated. No significant change from recent prior CT. EEG and MRI was ordered as per neurology recommendations. Patient was also febrile overnight with Tmax 100.8. Currently afebrile. Laboratory data showed WBC 10.8 hemoglobin 13.6 and platelets 262 Sodium 135 potassium 3.3 chloride 97 bicarb is 28, BUN 19 and creatinine 1.05 blood sugar 132 and CPK level trending down to 1164. Bicarb drip has been discontinued. Nephrology and neurology is on board. 11/07/2022 Patient is currently laying in bed. Able to open his eyes better today. Follows simple commands. Still lethargic and sleepy. Overnight patient was febrile again with Tmax of 100.8. Due to encephalopathy and fever possibly [employer] infection is being considered. Patient was started on broad-spectrum antibiotics. Patient was also noted to have abdominal distention. EEG showed moderate to severe encephalopathic picture. MRI of the brain was done yesterday which showed some age-related atrophy. No acute intracranial process. ID was consulted due to fever and encephalopathy. Laboratory pressure WBC 11.7 hemoglobin 13.5 and platelets 287 Sodium 138 potassium 3.6 chloride 104 bicarb is 21 BUN 21 and creatinine 1.08. Blood sugar is 116 Procalcitonin level is at 0.41. 11/08/2022 Patient is more awake and oriented today. Patient was able to communicate with his sister at bedside. Patient did have fever with Tmax of 101.0 yesterday afternoon. Currently on room air. Patient is able to tolerate liquids with one-to-one feeding. Status post LP today. CT of the abdomen pelvis showed circumferential rectal wall thickening correlate for proctitis. No additional finding within the abdomen or pelvis to explain patient's symptoms. Left inguinal hernia containing loops of sigmoid colon. No evidence for wall thickening suggesting strangulation. Large stool burden throughout the colon. Patient did have multiple episodes of diarrhea yesterday. CT was negative. General surgery was consulted for further evaluation of the abnormal CT. Patient was seen by psychiatry and currently Depakote is on hold at continue with Seroquel as needed. Laboratory data showed WBC 11.2 hemoglobin 12.20 platelets 260 sodium 139 potassium 3.3 which is being replaced BUN 20. Creatinine 1.13 and calcium 8.2. Coronavirus PCR not detected. 11/09/2022 Patient is currently resting in the bed. Awake alert but slow to respond. Mentation is much improved. Feels very weak. Denies any complaints of chest pain or shortness of breath. Patient has been afebrile. Laboratory data showed WBC 10.4 hemoglobin 11.9 platelets 301, sodium 140 potassium 3.6 chloride 107 bicarb is 20 BUN 23 and creatinine 0.94 and blood sugar 116. CRP 44.3. Patient is being continued on antibiotics in the form of cefepime and metronidazole. General surgery is on board. 11/10/2022 Patient is currently lying in the bed. Awake alert but lethargic and weak and drowsy. No complaints of chest pain or shortness of breath. Patient does have left inguinal hernia and possible partially incarcerated. With general surgery is planning for elective repair of hearing on Friday. Otherwise patient is afebrile. Potassium was replaced as per protocol. Laboratory data showed WBC 9.6 hemoglobin 11.1 and platelets 322, sodium 141 po tassium 3.3 chloride 109 bicarb is 21 BUN 22 and creatinine 0.9 and calcium 8.1. I'm resume the care of the patient 11/11/2022 This is a pleasant 72 years old male with multiple medical problems presents with altered mental status secondary to metabolic encephalopathy and infection was suspected with systemic inflammatory response, his lumbar puncture was unremarkable for [employer] infection, CT was evidence with prostatitis with circumferential wall thickening, his abdomen is still mildly distended. His Rhabdomyolysis and tumor improved Patient is planned by surgery team for left inguinal hernia repair tomorrow Today was awake alert lethargic and weak but is improving, this is confirmed with the daughter at bedside nurse, patient he knows in the hospital he knew the year but could not tell them on 4 date and recognize his daughter and he has insight into his illness. He denies any specific complaint. Daughter at bedside thinks he is improving and she is happy with his progress. He still picking up his appetite slowly. He remains on cefepime, IV Flagyl and normal saline and 75 mL/h. Depakote is on hold 11/12/2022 Patient today is awake alert, still very weak generally, he is talking in low voice and looks tired but patient reports improvement compared to yesterday. Patient is improving slowly and gradually. He denies specific complaint however he has poor appetite Patient underwent left inguinal hernia repair today with surgery team Patient methylmalonic acid is still pending for borderline low vitamin B12 Patient remains on cefepime and IV Flagyl. Neurology input is a appreciated and noted Psych consult signed off the case \ 11/13/2022 Patient had left inguinal hernia repair yesterday, today wound is healing and closed with significant tenderness. He still has poor appetite. He didn't have bowel movement, no passing gases. No other new complaint, he is generally weak improving slowly and gradually After the help for discharge in 24-48 hours if his GI function improves and he is able to eat more he is remaining on cefepime and IV Flagyl and normal saline 75 ml/h 11/15/2022 Today patient was noticed to have left upper extremity swelling, ultrasound showed negative for DVT Also patient today. This is still not eating much despite several encouragements, I discussed the case with dietitian, tube feeding could be considered as an option Patient remains confused poor historian and cannot provide much information and answer some of the questions and others does not answer. I discussed the case with shelter case manager who advised patient has a guardian his niece Martha whom I called at [phone]. I discussed the case with her including his clinical situation, discharge placement and feeding. She will come and visit him tomorrow and she will try to encourage him to eat, she wants to wait for 1-2 days before they decide about tube feeding , patient however able to eat some snacks but apparently is not enough for him. Plan of care discussed with the guardian and she is in agreement As per shelter case manager it is difficult placement because patient may need long-term placement and not only rehab. however prognosis remains guarded Currently he is kept on cefepime, IV Flagyl normal saline will be discontinued He remains on intravenous vitamin B12 replacement therapy 11/16 No new events, Per DPOA okay for feeding tube Will consult Surgery 11/17 Right ankle swollen , X ray ordered , Denies pain 11/18 Right ankle x-ray does show joint effusion, no fracture noted. K plan discussed with patient power for sports attorney and flory with feeding tube placement general surgery following Noted to have elevated platelet count peripheral smear ordered Objective - Vital Signs Vital signs: Vital Signs Temp 98.7 F 11/18/22 12:00 Pulse 85 11/18/22 12:00 Resp 18 11/18/22 12:00 BP 149/76 11/18/22 12:00 Pulse Ox 91 L 11/18/22 12:00 FiO2 Intake & Output 11/17/22 11/18/22 11/18/22 18:59 06:59 18:59 Intake Total 360 Output Total 850 900 Balance -490 -900 Intake: Oral 360 Output: Urine 850 900 Other: Voiding Method External Catheter External Catheter External Catheter - Exam GENERAL: The patient is alert and oriented x1 lethargic, not in any acute distress. Well developed,mal nourished. Generally weak HEENT: Pupils are round and equally reacting to light. EOMI. No scleral icterus. No conjunctival pallor. Normocephalic, atraumatic. No pharyngeal erythema. No thyromegaly. CARDIOVASCULAR: S1 and S2 present. No murmurs, rubs, or gallops. PULMONARY: Chest is clear to auscultation, no wheezing . no crackles. ABDOMEN: Soft, nontender, mildly distended, . No palpable organomegaly. MUSCULOSKELETAL:Right ankle swelling EXTREMITIES: No cyanosis, clubbing, or pedal edema. NEUROLOGICAL: Gross neurological examination did not reveal any focal deficits. SKIN: No rashes. no petechiae. - Labs CBC & Chem 7: 11/18/22 09:10 11/18/22 09:10 Labs: Abnormal Lab Results - Last 24 Hours (Table) 11/18/22 11/18/22 Range/Units 09:10 09:10 WBC 11.9 H (3.8-10.6) k/uL RBC 3.45 L (4.30-5.90) m/uL Hgb 10.9 L (13.0-17.5) gm/dL Hct 34.0 L (39.0-53.0) % Plt Count 896 H (150-450) k/uL Neutrophils # 9.1 H (1.3-7.7) k/uL Sodium 136 L (137-145) mmol/L Glucose 114 H (74-99) mg/dL Calcium 8.2 L (8.4-10.2) mg/dL C-Reactive Protein 14.3 H (<1.0) mg/dL Total Protein 5.7 L (6.3-8.2) g/dL Albumin 2.6 L (3.5-5.0) g/dL Assessment and Plan Assessment: Assessment: * Acute metabolic encephalopathy. * Acute Circumferential rectal wall thickening proctitis as per CT * Left inguinal hernia containing sigmoid colon. Possible partial incarceration.. Status post hernia repair on 11/12/22 * Malnutrition * Fever. Status post LP. CSF analysis showed no evidence of infection. * Acute rhabdomyolysis * Acute Kidney injury. resolved * History of mood disorder * Hypertension * Hyperlipidemia * COPD * Polypharmacy Plan: Continue with antibiotic cefepime > ID following PEG tube is suggested by dietitian,per guardian discussed with his daughter, Flory for feeding tube Surgery consulted Consultants on the case including ID, neurologist and general surgery marketing program manager on the case for placement>> patient will need long-term placement Labs and medication were reviewed. DVT prophylaxis: Subcutaneous heparin GI Prophylaxis: Pepcid
--- NOTE | 2022-11-18 13:19 | P.PN ---
Subjective Progress Note Date: 11/18/22 CHIEF COMPLAINT: Incarcerated left inguinal hernia HISTORY OF PRESENT ILLNESS: Patient is status post open repair of incarcerated left inguinal hernia with Prolene hernia mesh system plug for incarcerated left inguinal hernia on 11/12/22. Surgical service was re-consulted in regards to dysphagia and poor oral intake and need for PEG tube placement. PHYSICAL EXAM: VITAL SIGNS: Reviewed. GENERAL: Well-developed in no acute distress. ABDOMEN: Soft. Nondistended. Nontender. Left inguinal incision clean dry and intact ASSESSMENT: 1. Severe protein calorie malnutrition, poor oral intake and dysphagia 2. Incarcerated left inguinal hernia status post open repair of incarcerated left inguinal hernia with Prolene hernia mesh system plug 3. Proctitis PLAN: -Plan for PEG tube placement tomorrow, 11/19/[address] Fischer -Keep patient nothing by mouth after midnight Physician [employer] Operations Specialist note has been reviewed by physician. Signing provider agrees with the documented findings, assessment, and plan of care. Objective - Vital Signs Vital signs: Vital Signs Temp 98.7 F 11/18/22 12:00 Pulse 85 11/18/22 12:00 Resp 18 11/18/22 12:00 BP 149/76 11/18/22 12:00 Pulse Ox 91 L 11/18/22 12:00 FiO2 Intake & Output 11/17/22 11/18/22 11/18/22 18:59 06:59 18:59 Intake Total 360 Output Total 850 900 Balance -490 -900 Intake: Oral 360 Output: Urine 850 900 Other: Voiding Method External Catheter External Catheter External Catheter - Labs CBC & Chem 7: 11/18/22 09:10 11/18/22 09:10 Labs: Abnormal Lab Results - Last 24 Hours (Table) 11/18/22 11/18/22 Range/Units 09:10 09:10 WBC 11.9 H (3.8-10.6) k/uL RBC 3.45 L (4.30-5.90) m/uL Hgb 10.9 L (13.0-17.5) gm/dL Hct 34.0 L (39.0-53.0) % Plt Count 896 H (150-450) k/uL Neutrophils # 9.1 H (1.3-7.7) k/uL Sodium 136 L (137-145) mmol/L Glucose 114 H (74-99) mg/dL Calcium 8.2 L (8.4-10.2) mg/dL C-Reactive Protein 14.3 H (<1.0) mg/dL Total Protein 5.7 L (6.3-8.2) g/dL Albumin 2.6 L (3.5-5.0) g/dL
[2022-11-18] MEDS: LORazepam 0.5 MG TAB PO SCH (20:06)
--- NOTE | 2022-11-19 08:20 | P.OP ---
Date of Procedure: 11/19/22 Preoperative Diagnosis: Routine calorie malnutrition Postoperative Diagnosis: Protein calorie malnutrition Procedure(s) Performed: EGD with PEG tube placement Anesthesia: MAC, local Surgeon: Cb Fischer Pathology: none sent Condition: stable Disposition: PACU Description of Procedure: The patient received IV sedation. Next the gastroscope placed oropharynx passed in the esophagus and stomach. There is no evidence of any outlet obstruction. Stomach was insufflated with air. The light reflux seen the anterior abdominal wall. The abdomen was prepped and draped usual fashion. The skin was incised. And the needles placed and stomach under direct visualization. The needle was snared. And the wires placed through the needle and the wire was snared and brought the oropharynx. The PEG tube was placed over top the wire brought down to the stomach. The PEG tube was secured. At the 3 cm brian. The one-piece bolster was used. Patient tolerated procedure well.
[2022-11-19] MEDS: METOPROLOL TARTRATE 25 MG TAB PO SCH (08:22)
[2022-11-19] MEDS: CEFEPIME 2 GM in SODIUM CHLORIDE 0.9% 100 ML IVPB SCH ×3 (08:22→23:19)
[2022-11-19] MEDS: DOCUSATE 100 MG CAP PO SCH ×2 (08:22→21:35)
[2022-11-19] MEDS: amLODIPine 10 MG TAB PO SCH (08:22)
[2022-11-19] MEDS: CYANOCOBALAMIN 500 MCG TAB PO SCH (08:22)
[2022-11-19] MEDS: PRIMIDONE 50 MG TAB PO SCH ×3 (08:22→21:35)
[2022-11-19] MEDS: MONTELUKAST 10 MG TAB PO SCH (08:22)
[2022-11-19] MEDS: HEPARIN SODIUM,PORCINE/PF 5,000 UNIT/0.5 ML SYRINGE SQ SCH ×3 (08:23→23:18)
[2022-11-19] MEDS: ACETAMINOPHEN TAB 500 MG TAB PO PRN (08:25)
[2022-11-19] MEDS: FAMOTIDINE 20 MG/2 ML VIAL IV SCH ×2 (08:25→21:35)
[2022-11-19] MEDS: SYMBICORT 160-4.5 MCG INHALER INHALATION SCH ×2 (09:15→21:52)
[2022-11-19 12:38] LABS: HGB 11.5 gm/dL (13.0-17.5); MCH 31.1 pg (25.0-35.0); MCHC 31.9 g/dL (31.0-37.0); MCV 97.6 fL (80.0-100.0); Mean Platelet Volume 7.8; Platelet Count 973 k/uL (150-450); RBC 3.69 m/uL (4.30-5.90); RDW 13.8 % (11.5-15.5); WBC 15.2 k/uL (3.8-10.6)
[2022-11-19] MEDS: LACTATED RINGERS 1,000 ML IV SCH (12:38)
--- NOTE | 2022-11-19 12:43 | P.PN ---
Subjective Progress Note Date: 11/19/22 72-year-old gentleman with past medical history significant for hypertension, hyperlipidemia, COPD presented to the ER because of altered mental status. Most of the history has been taken from the EMR. Patient was brought in by EMS after being notified by the patient's neighbor who did a wellness check on the patient as he had not seen him in a day.EMS found the patient lying on the floor, patient currently alert to self. Patient was immediately brought to the ER of [facility]. initial lab work done in the ER showedWBC 12.8, hemoglobin 13.8, platelet count 325, sodium 145, potassium 4.1, chloride 110, BUN 35, creatinine 1.29, CK 2741 Chest x-ray negative for acute pulmonary process CT brain showed age-related atrophy, no acute intracranial process Patient was admitted to internal medicine service 11/06/2022 Patient is currently in the telemetry unit. Extremity continues and nonre sponsive. Patient is a lethargic but able to moan and follows simple commands. Rapid response team was called due to unresponsiveness. Patient had CT head done yesterday which showed no acute intracranial hemorrhage or midline shift. There is mild to moderate diffuse cerebral atrophy and chronic small vessel ischemic changes redemonstrated. No significant change from recent prior CT. EEG and MRI was ordered as per neurology recommendations. Patient was also febrile overnight with Tmax 100.8. Currently afebrile. Laboratory data showed WBC 10.8 hemoglobin 13.6 and platelets 262 Sodium 135 potassium 3.3 chloride 97 bicarb is 28, BUN 19 and creatinine 1.05 blood sugar 132 and CPK level trending down to 1164. Bicarb drip has been discontinued. Nephrology and neurology is on board. 11/07/2022 Patient is currently laying in bed. Able to open his eyes better today. Follows simple commands. Still lethargic and sleepy. Overnight patient was febrile again with Tmax of 100.8. 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 Patient was started on broad-spectrum antibiotics. Patient was also noted to have abdominal distention. EEG showed moderate to severe encephalopathic picture. MRI of the brain was done yesterday which showed some age-related atrophy. No acute intracranial process. ID was consulted due to fever and encephalopathy. Laboratory pressure WBC 11.7 hemoglobin 13.5 and platelets 287 Sodium 138 potassium 3.6 chloride 104 bicarb is 21 BUN 21 and creatinine 1.08. Blood sugar is 116 Procalcitonin level is at 0.41. 11/08/2022 Patient is more awake and oriented today. Patient was able to communicate with his sister at bedside. Patient did have fever with Tmax of 101.0 yesterday afternoon. Currently on room air. Patient is able to tolerate liquids with one-to-one feeding. Status post LP today. CT of the abdomen pelvis showed circumferential rectal wall thickening correlate for proctitis. No additional finding within the abdomen or pelvis to explain patient's symptoms. Left inguinal hernia containing loops of sigmoid colon. No evidence for wall thickening suggesting strangulation. Large stool burden throughout the colon. Patient did have multiple episodes of diarrhea yesterday. CT was negative. General surgery was consulted for further evaluation of the abnormal CT. Patient was seen by psychiatry and currently Depakote is on hold at continue with Seroquel as needed. Laboratory data showed WBC 11.2 hemoglobin 12.20 platelets 260 sodium 139 potassium 3.3 which is being replaced BUN 20. Creatinine 1.13 and calcium 8.2. Coronavirus PCR not detected. 11/09/2022 Patient is currently resting in the bed. Awake alert but slow to respond. Mentation is much improved. Feels very weak. Denies any complaints of chest pain or shortness of breath. Patient has been afebrile. Laboratory data showed WBC 10.4 hemoglobin 11.9 platelets 301, sodium 140 potassium 3.6 chloride 107 bicarb is 20 BUN 23 and creatinine 0.94 and blood sugar 116. CRP 44.3. Patient is being continued on antibiotics in the form of cefepime and metronidazole. General surgery is on board. 11/10/2022 Patient is currently lying in the bed. Awake alert but lethargic and weak and drowsy. No complaints of chest pain or shortness of breath. Patient does have left inguinal hernia and possible partially incarcerated. With general surgery is planning for elective repair of hearing on Friday. Otherwise patient is afebrile. Potassium was replaced as per protocol. Laboratory data showed WBC 9.6 hemoglobin 11.1 and platelets 322, sodium 141 po tassium 3.3 chloride 109 bicarb is 21 BUN 22 and creatinine 0.9 and calcium 8.1. I'm resume the care of the patient 11/11/2022 This is a pleasant 72 years old male with multiple medical problems presents with altered mental status secondary to metabolic encephalopathy and infection was suspected with systemic inflammatory response, his lumbar puncture was unremarkable for PACK TRAIN DRIVER infection, CT was evidence with prostatitis with circumferential wall thickening, his abdomen is still mildly distended. His Rhabdomyolysis and tumor improved Patient is planned by surgery team for left inguinal hernia repair tomorrow Today was awake alert lethargic and weak but is improving, this is confirmed with the daughter at bedside nurse, patient he knows in the hospital he knew the year but could not tell them on 4 date and recognize his daughter and he has insight into his illness. He denies any specific complaint. Daughter at bedside thinks he is improving and she is happy with his progress. He still picking up his appetite slowly. He remains on cefepime, IV Flagyl and normal saline and 75 mL/h. Depakote is on hold 11/12/2022 Patient today is awake alert, still very weak generally, he is talking in low voice and looks tired but patient reports improvement compared to yesterday. Patient is improving slowly and gradually. He denies specific complaint however he has poor appetite Patient underwent left inguinal hernia repair today with surgery team Patient methylmalonic acid is still pending for borderline low vitamin B12 Patient remains on cefepime and IV Flagyl. Neurology input is a appreciated and noted Psych consult signed off the case \ 11/13/2022 Patient had left inguinal hernia repair yesterday, today wound is healing and closed with significant tenderness. He still has poor appetite. He didn't have bowel movement, no passing gases. No other new complaint, he is generally weak improving slowly and gradually After the help for discharge in 24-48 hours if his GI function improves and he is able to eat more he is remaining on cefepime and IV Flagyl and normal saline 75 ml/h 11/15/2022 Today patient was noticed to have left upper extremity swelling, ultrasound showed negative for DVT Also patient today. This is still not eating much despite several encouragements, I discussed the case with dietitian, tube feeding could be considered as an option Patient remains confused poor historian and cannot provide much information and answer some of the questions and others does not answer. I discussed the case with case management specialist who advised patient has a guardian his niece Martha whom I called at [phone]. I discussed the case with her including his clinical situation, discharge placement and feeding. She will come and visit him tomorrow and she will try to encourage him to eat, she wants to wait for 1-2 days before they decide about tube feeding , patient however able to eat some snacks but apparently is not enough for him. Plan of care discussed with the guardian and she is in agreement As per case management specialist it is difficult placement because patient may need long-term placement and not only rehab. however prognosis remains guarded Currently he is kept on cefepime, IV Flagyl normal saline will be discontinued He remains on intravenous vitamin B12 replacement therapy 11/16 No new events, Per DPOA okay for feeding tube Will consult Surgery 11/17 Right ankle swollen , X ray ordered , Denies pain 11/18 Right ankle x-ray does show joint effusion, no fracture noted. plan discussed with patient power for corporate associate attorney and flory with feeding tube placement general surgery following Noted to have elevated platelet count peripheral smear ordered 11/19 Patient is status post PEG tube placement. Continue IV antibiotics, right ankle swelling improved topical diclofenac ointment ordered Objective - Vital Signs Vital signs: Vital Signs Temp 99.2 F 11/19/22 08:00 Pulse 89 11/19/22 12:09 Resp 18 11/19/22 12:09 BP 155/80 11/19/22 08:00 Pulse Ox 93 L 11/19/22 09:15 FiO2 Intake & Output 11/18/22 11/19/22 11/19/22 18:59 06:59 18:59 Intake Total 900 300 Output Total 550 500 Balance 900 -250 -500 Weight 65.771 kg Intake: Oral 900 300 Output: Urine 550 500 Other: Voiding Method External Catheter External Catheter External Catheter - Exam GENERAL: The patient is alert and oriented x1 lethargic, not in any acute distress. Well developed,mal nourished. Generally weak HEENT: Pupils are round and equally reacting to light. EOMI. No scleral icterus. No conjunctival pallor. Normocephalic, atraumatic CARDIOVASCULAR: S1 and S2 present. No murmurs, rubs, or gallops. PULMONARY: Chest is clear to auscultation, no wheezing . no crackles. ABDOMEN: Soft, nontender, not distended, . No palpable organomegaly. PEG tube i n place MUSCULOSKELETAL:Right ankle swelling EXTREMITIES: No cyanosis, clubbing, or pedal edema. NEUROLOGICAL: Gross neurological examination did not reveal any focal deficits. SKIN: No rashes. no petechiae. - Labs CBC & Chem 7: 11/19/22 11:55 11/18/22 09:10 Labs: Abnormal Lab Results - Last 24 Hours (Table) 11/18/22 11/19/22 Range/Units 09:10 11:55 WBC 11.9 H 15.2 H (3.8-10.6) k/uL RBC 3.45 L 3.69 L (4.30-5.90) m/uL Hgb 10.9 L 11.5 L (13.0-17.5) gm/dL Hct 34.0 L 36.0 L (39.0-53.0) % Plt Count 896 H 973 H (150-450) k/uL Neutrophils # 9.1 H (1.3-7.7) k/uL Pathologist Review See comment A Assessment and Plan Assessment: Assessment: * Acute metabolic encephalopathy. * Acute Circumferential rectal wall thickening proctitis as per CT * Left inguinal hernia containing sigmoid colon. Possible partial incarceration.. Status post hernia repair on 11/12/22 * Severe protein calorie Malnutrition * Fever. Status post LP. CSF analysis showed no evidence of infection * Right lower extremity swelling DVT ruled out * Acute rhabdomyolysis resolved * Thrombocytosis reactive * Acute Kidney injury. resolved * History of mood disorder * Hypertension * Hyperlipidemia * COPD * Polypharmacy Plan: Continue with antibiotic cefepime > ID following PEG tube in place>> nutrition to assist with internal feeding Consultants on the case including ID, neurologist and general surgery api product manager on the case for placement>> patient will need long-term placement Noted to have elevated platelet count will monitor, peripheral smear ordered Labs and medication were reviewed. DVT prophylaxis: Subcutaneous heparin GI Prophylaxis: Pepcid
[2022-11-19] MEDS: DICLOFENAC SODIUM GEL 100 GM TUBE TOPICAL SCH ×4 (12:47→21:35)
[2022-11-19 12:51] LABS: African American GFR (CKD) >90 (>60 ml/min/1.73 sqM); Anion Gap 13 mmol/L; Blood Urea Nitrogen 19 mg/dL (9-20); Calcium 8.7 mg/dL (8.4-10.2); Carbon Dioxide 22 mmol/L (22-30); Chloride 101 mmol/L (98-107); Glucose 117 mg/dL (74-99); Non-African American GFR(CKD) >90 (>60 ml/min/1.73 sqM); Potassium 4.8 mmol/L (3.5-5.1); Sodium 136 mmol/L (137-145)
[2022-11-19] MEDS: LORazepam 0.5 MG TAB PO SCH (21:35)
[2022-11-19] MEDS: METOPROLOL TARTRATE 50 MG TAB PO SCH (21:35)
--- NOTE | 2022-11-19 22:53 | P.PN ---
Subjective Progress Note Date: 11/18/22 Principal diagnosis: Fever Patient is a 72-year-old male presenting to the hospital with mental status changes patient was found to be on the floor and this patient has been running a fever with a CT abdominal pelvis did shows evidence of severe stool burden and initial concern for possible strangulated hernia that has been rule out patient also have LP completed which was normal, a patient is status post left inguinal incarcerated hernia repair completed on 11/12/2022 On today's evaluation that is 11/18/2022 the patient continues to be afebrile, the patient is breathing comfortably on room air, the patient is slightly sleepy lethargic and not a good historian today no vomiting no diarrhea or any other changes reported by nursing staff Objective - Vital Signs Vital signs: Vital Signs Temp 98.6 F 11/18/22 07:43 Pulse 81 11/18/22 07:43 Resp 18 11/18/22 07:43 BP 156/79 11/18/22 07:43 Pulse Ox 93 L 11/18/22 08:45 FiO2 Intake & Output 11/17/22 11/18/22 11/18/22 18:59 06:59 18:59 Intake Total 360 Output Total 850 900 Balance -490 -900 Intake: Oral 360 Output: Urine 850 900 Other: Voiding Method External Catheter External Catheter External Catheter - Exam GENERAL DESCRIPTION: An elderly male lying in bed in no distress RESPIRATORY SYSTEM: Unlabored breathing , decreased breath sounds at bases HEART: S1 S2 regular rate and rhythm , ABDOMEN: Soft , mild distention but no tenderness EXTREMITIES: R ankle with erythma and warmth - Labs CBC & Chem 7: 11/19/22 11:55 11/19/22 11:55 Labs: Abnormal Lab Results - Last 24 Hours (Table) 11/18/22 11/18/22 Range/Units 09:10 09:10 WBC 11.9 H (3.8-10.6) k/uL RBC 3.45 L (4.30-5.90) m/uL Hgb 10.9 L (13.0-17.5) gm/dL Hct 34.0 L (39.0-53.0) % Plt Count 896 H (150-450) k/uL Neutrophils # 9.1 H (1.3-7.7) k/uL Sodium 136 L (137-145) mmol/L Glucose 114 H (74-99) mg/dL Calcium 8.2 L (8.4-10.2) mg/dL C-Reactive Protein 14.3 H (<1.0) mg/dL Total Protein 5.7 L (6.3-8.2) g/dL Albumin 2.6 L (3.5-5.0) g/dL Assessment and Plan (1) Fever Current Visit: Yes Status: Acute Code(s): R50.9 - FEVER, UNSPECIFIED SNOMED Code(s): 797272531 Plan: 1patient with fever elevated white count tachycardia meeting criteria for SIRS./Sepsis in this patient presenting to the hospital with decreased level of responsiveness and fall source possibly abdominal and the patient was noted to have significant abdominal distention however the patient also have mental status changes and neck rigidity underlying BOX TOE BUFFER infection/encephalitis not ready excluded 2- CT of abdominal pelvis with IV contrast CT did shows circumferential rectal wall thickening correlate for proctitis large stool burden and there was concern for possible incarcerated left inguinal hernia, patient LP was normal.the patient is status post repair of the left inguinal incarcerated hernia 3-the patient has shown clinical improvement and did have resolution of his fe he, patient white count is mildly elevated, continue with the cefepime Time with Patient: Less than 30
--- NOTE | 2022-11-19 22:54 | P.PN ---
Subjective Progress Note Date: 11/19/22 Principal diagnosis: Fever Patient is a 72-year-old male presenting to the hospital with mental status changes patient was found to be on the floor and this patient has been running a fever with a CT abdominal pelvis did shows evidence of severe stool burden and initial concern for possible strangulated hernia that has been rule out patient also have LP completed which was normal, a patient is status post left inguinal incarcerated hernia repair completed on 11/12/2022, patient is status post PEG tube placement on 11/19/2022 On today's evaluation that is 11/19/2022 the patient remains to be afebrile, the patient is breathing comfortably on room air, the patient is sleepy lethargic just returned from PEG tube placement and did not provide any history, no other changes reported by the nursing staff Objective - Vital Signs Vital signs: Vital Signs Temp 99.2 F 11/19/22 08:00 Pulse 89 11/19/22 12:09 Resp 18 11/19/22 12:09 BP 155/80 11/19/22 08:00 Pulse Ox 93 L 11/19/22 09:15 FiO2 Intake & Output 11/18/22 11/19/22 11/19/22 18:59 06:59 18:59 Intake Total 900 300 Output Total 550 500 Balance 900 -250 -500 Weight 65.771 kg Intake: Oral 900 300 Output: Urine 550 500 Other: Voiding Method External Catheter External Catheter External Catheter - Exam GENERAL DESCRIPTION: An elderly male lying in bed in no distress RESPIRATORY SYSTEM: Unlabored breathing , decreased breath sounds at bases HEART: S1 S2 regular rate and rhythm , ABDOMEN: Soft , mild distention but no tenderness EXTREMITIES: R ankle with erythma and warmth - Labs CBC & Chem 7: 11/19/22 11:55 11/19/22 11:55 Labs: Abnormal Lab Results - Last 24 Hours (Table) 11/18/22 11/19/22 Range/Units 09:10 11:55 WBC 11.9 H 15.2 H (3.8-10.6) k/uL RBC 3.45 L 3.69 L (4.30-5.90) m/uL Hgb 10.9 L 11.5 L (13.0-17.5) gm/dL Hct 34.0 L 36.0 L (39.0-53.0) % Plt Count 896 H 973 H (150-450) k/uL Neutrophils # 9.1 H (1.3-7.7) k/uL Pathologist Review See comment A Assessment and Plan (1) Fever Current Visit: Yes Status: Acute Code(s): R50.9 - FEVER, UNSPECIFIED SNOMED Code(s): 609506470 Plan: 1patient with fever elevated white count tachycardia meeting criteria for SIRS./Sepsis in this patient presenting to the hospital with decreased level of responsiveness and fall source possibly abdominal and the patient was noted to have significant abdominal distention however the patient also have mental status changes and neck rigidity underlying MEASUREMENT SPECIALIST infection/encephalitis not ready excluded 2- CT of abdominal pelvis with IV contrast CT did shows circumferential rectal wall thickening correlate for proctitis large stool burden and there was concern for possible incarcerated left inguinal hernia, patient LP was normal.the patient is status post repair of the left inguinal incarcerated hernia 3-the patient has shown clinical improvement and did have resolution of his fever, patient white count is down to 11,000 today, we will continue the patient on cefepime and monitor his clinical course closely
[2022-11-20] MEDS: LACTATED RINGERS 1,000 ML IV SCH ×2 (04:20→21:30)
[2022-11-20] MEDS: ACETAMINOPHEN TAB 500 MG TAB PO PRN ×2 (04:20→21:39)
[2022-11-20] MEDS: SYMBICORT 160-4.5 MCG INHALER INHALATION SCH ×2 (09:23→21:31)
[2022-11-20] MEDS: CYANOCOBALAMIN 500 MCG TAB PO SCH (09:39)
[2022-11-20] MEDS: MONTELUKAST 10 MG TAB PO SCH (09:39)
[2022-11-20] MEDS: CEFEPIME 2 GM in SODIUM CHLORIDE 0.9% 100 ML IVPB SCH (09:39)
[2022-11-20] MEDS: PRIMIDONE 50 MG TAB PO SCH ×3 (09:40→21:29)
[2022-11-20] MEDS: METOPROLOL TARTRATE 50 MG TAB PO SCH ×2 (09:40→21:29)
[2022-11-20] MEDS: FAMOTIDINE 20 MG/2 ML VIAL IV SCH ×2 (09:40→21:29)
[2022-11-20] MEDS: DOCUSATE 100 MG CAP PO SCH ×2 (09:40→21:29)
[2022-11-20] MEDS: amLODIPine 10 MG TAB PO SCH (09:40)
[2022-11-20] MEDS: DICLOFENAC SODIUM GEL 100 GM TUBE TOPICAL SCH ×4 (09:40→21:29)
[2022-11-20] MEDS: HEPARIN SODIUM,PORCINE/PF 5,000 UNIT/0.5 ML SYRINGE SQ SCH ×2 (09:41→18:17)
--- NOTE | 2022-11-20 11:17 | XR ---
EXAMINATION TYPE: XR chest 1V portable DATE OF EXAM: 11/20/2022 11:02 AM COMPARISON: Chest radiographs from 11/07/2022 TECHNIQUE: XR chest 1V portable Portable AP radiograph of the chest. CLINICAL INDICATION:Male, 72 years old with history of fever; FINDINGS: Lungs/Pleura: There is no evidence of pleural effusion, focal consolidation, or pneumothorax. Pulmonary vascularity: Unremarkable. Heart/mediastinum: Cardiomediastinal silhouette is enlarged and stable. Musculoskeletal: No acute osseous pathology. IMPRESSION: No acute cardiopulmonary disease/process.
[2022-11-20 11:56] LABS: HCT 35.7 % (39.0-53.0); HGB 11.6 gm/dL (13.0-17.5); MCH 31.7 pg (25.0-35.0); MCHC 32.5 g/dL (31.0-37.0); MCV 97.6 fL (80.0-100.0); Mean Platelet Volume 8.2; Platelet Count 907 k/uL (150-450); RBC 3.65 m/uL (4.30-5.90); RDW 13.9 % (11.5-15.5); WBC 16.3 k/uL (3.8-10.6)
[2022-11-20 12:12] LABS: African American GFR (CKD) >90 (>60 ml/min/1.73 sqM); Anion Gap 13 mmol/L; Blood Urea Nitrogen 19 mg/dL (9-20); Calcium 8.7 mg/dL (8.4-10.2); Carbon Dioxide 21 mmol/L (22-30); Chloride 102 mmol/L (98-107); Glucose 105 mg/dL (74-99); Non-African American GFR(CKD) >90 (>60 ml/min/1.73 sqM); Potassium 4.5 mmol/L (3.5-5.1); Sodium 136 mmol/L (137-145)
--- NOTE | 2022-11-20 12:27 | P.PN ---
Subjective Progress Note Date: 11/20/22 72-year-old gentleman with past medical history significant for hypertension, hyperlipidemia, COPD presented to the ER because of altered mental status. Most of the history has been taken from the EMR. Patient was brought in by EMS after being notified by the patient's neighbor who did a wellness check on the patient as he had not seen him in a day.EMS found the patient lying on the floor, patient currently alert to self. Patient was immediately brought to the ER of [facility]. initial lab work done in the ER showedWBC 12.8, hemoglobin 13.8, platelet count 325, sodium 145, potassium 4.1, chloride 110, BUN 35, creatinine 1.29, CK 2741 Chest x-ray negative for acute pulmonary process CT brain showed age-related atrophy, no acute intracranial process Patient was admitted to internal medicine service 11/06/2022 Patient is currently in the telemetry unit. Extremity continues and nonre sponsive. Patient is a lethargic but able to moan and follows simple commands. Rapid response team was called due to unresponsiveness. Patient had CT head done yesterday which showed no acute intracranial hemorrhage or midline shift. There is mild to moderate diffuse cerebral atrophy and chronic small vessel ischemic changes redemonstrated. No significant change from recent prior CT. EEG and MRI was ordered as per neurology recommendations. Patient was also febrile overnight with Tmax 100.8. Currently afebrile. Laboratory data showed WBC 10.8 hemoglobin 13.6 and platelets 262 Sodium 135 potassium 3.3 chloride 97 bicarb is 28, BUN 19 and creatinine 1.05 blood sugar 132 and CPK level trending down to 1164. Bicarb drip has been discontinued. Nephrology and neurology is on board. 11/07/2022 Patient is currently laying in bed. Able to open his eyes better today. Follows simple commands. Still lethargic and sleepy. Overnight patient was febrile again with Tmax of 100.8. Due to encephalopathy and fever possibly RAILWAY SHUNTER infection is being considered. Patient was started on broad-spectrum antibiotics. Patient was also noted to have abdominal distention. EEG showed moderate to severe encephalopathic picture. MRI of the brain was done yesterday which showed some age-related atrophy. No acute intracranial process. ID was consulted due to fever and encephalopathy. Laboratory pressure WBC 11.7 hemoglobin 13.5 and platelets 287 Sodium 138 potassium 3.6 chloride 104 bicarb is 21 BUN 21 and creatinine 1.08. Blood sugar is 116 Procalcitonin level is at 0.41. 11/08/2022 Patient is more awake and oriented today. Patient was able to communicate with his sister at bedside. Patient did have fever with Tmax of 101.0 yesterday afternoon. Currently on room air. Patient is able to tolerate liquids with one-to-one feeding. Status post LP today. CT of the abdomen pelvis showed circumferential rectal wall thickening correlate for proctitis. No additional finding within the abdomen or pelvis to explain patient's symptoms. Left inguinal hernia containing loops of sigmoid colon. No evidence for wall thickening suggesting strangulation. Large stool burden throughout the colon. Patient did have multiple episodes of diarrhea yesterday. CT was negative. General surgery was consulted for further evaluation of the abnormal CT. Patient was seen by psychiatry and currently Depakote is on hold at continue with Seroquel as needed. Laboratory data showed WBC 11.2 hemoglobin 12.20 platelets 260 sodium 139 potassium 3.3 which is being replaced BUN 20. Creatinine 1.13 and calcium 8.2. Coronavirus PCR not detected. 11/09/2022 Patient is currently resting in the bed. Awake alert but slow to respond. Mentation is much improved. Feels very weak. Denies any complaints of chest pain or shortness of breath. Patient has been afebrile. Laboratory data showed WBC 10.4 hemoglobin 11.9 platelets 301, sodium 140 potassium 3.6 chloride 107 bicarb is 20 BUN 23 and creatinine 0.94 and blood sugar 116. CRP 44.3. Patient is being continued on antibiotics in the form of cefepime and metronidazole. General surgery is on board. 11/10/2022 Patient is currently lying in the bed. Awake alert but lethargic and weak and drowsy. No complaints of chest pain or shortness of breath. Patient does have left inguinal hernia and possible partially incarcerated. With general surgery is planning for elective repair of hearing on Friday. Otherwise patient is afebrile. Potassium was replaced as per protocol. Laboratory data showed WBC 9.6 hemoglobin 11.1 and platelets 322, sodium 141 po tassium 3.3 chloride 109 bicarb is 21 BUN 22 and creatinine 0.9 and calcium 8.1. I'm resume the care of the patient 11/11/2022 This is a pleasant 72 years old male with multiple medical problems presents with altered mental status secondary to metabolic encephalopathy and infection was suspected with systemic inflammatory response, his lumbar puncture was unremarkable for RAILWAY SHUNTER infection, CT was evidence with prostatitis with circumferential wall thickening, his abdomen is still mildly distended. His Rhabdomyolysis and tumor improved Patient is planned by surgery team for left inguinal hernia repair tomorrow Today was awake alert lethargic and weak but is improving, this is confirmed with the daughter at bedside nurse, patient he knows in the hospital he knew the year but could not tell them on 4 date and recognize his daughter and he has insight into his illness. He denies any specific complaint. Daughter at bedside thinks he is improving and she is happy with his progress. He still picking up his appetite slowly. He remains on cefepime, IV Flagyl and normal saline and 75 mL/h. Depakote is on hold 11/12/2022 Patient today is awake alert, still very weak generally, he is talking in low voice and looks tired but patient reports improvement compared to yesterday. Patient is improving slowly and gradually. He denies specific complaint however he has poor appetite Patient underwent left inguinal hernia repair today with surgery team Patient methylmalonic acid is still pending for borderline low vitamin B12 Patient remains on cefepime and IV Flagyl. Neurology input is a appreciated and noted Psych consult signed off the case \ 11/13/2022 Patient had left inguinal hernia repair yesterday, today wound is healing and closed with significant tenderness. He still has poor appetite. He didn't have bowel movement, no passing gases. No other new complaint, he is generally weak improving slowly and gradually After the help for discharge in 24-48 hours if his GI function improves and he is able to eat more he is remaining on cefepime and IV Flagyl and normal saline 75 ml/h 11/15/2022 Today patient was noticed to have left upper extremity swelling, ultrasound showed negative for DVT Also patient today. This is still not eating much despite several encouragements, I discussed the case with dietitian, tube feeding could be considered as an option Patient remains confused poor historian and cannot provide much information and answer some of the questions and others does not answer. I discussed the case with case loader operator who advised patient has a guardian his niece Martha whom I called at [phone]. I discussed the case with her including his clinical situation, discharge placement and feeding. She will come and visit him tomorrow and she will try to encourage him to eat, she wants to wait for 1-2 days before they decide about tube feeding , patient however able to eat some snacks but apparently is not enough for him. Plan of care discussed with the guardian and she is in agreement As per case loader operator it is difficult placement because patient may need long-term placement and not only rehab. however prognosis remains guarded Currently he is kept on cefepime, IV Flagyl normal saline will be discontinued He remains on intravenous vitamin B12 replacement therapy 11/16 No new events, Per DPOA okay for feeding tube Will consult Surgery 11/17 Right ankle swollen , X ray ordered , Denies pain 11/18 Right ankle x-ray does show joint effusion, no fracture noted. plan discussed with patient power for defense attorney and flory with feeding tube placement general surgery following Noted to have elevated platelet count peripheral smear ordered 11/19 Patient is status post PEG tube placement. Continue IV antibiotics, right ankle swelling improved topical diclofenac ointment ordered 11/20> patient was noted to have fever overnight, repeat blood cultures ordered continue patient on IV antibiotic and patient remains alert and oriented to person Objective - Vital Signs Vital signs: Vital Signs Temp 98.7 F 11/20/22 09:15 Pulse 92 11/20/22 09:15 Resp 16 11/20/22 09:15 BP 151/84 11/20/22 09:15 Pulse Ox 93 L 11/20/22 09:23 FiO2 Intake & Output 11/19/22 11/20/22 11/20/22 18:59 06:59 18:59 Intake Total 50 Output Total 1100 600 Balance -1050 -600 Intake: Oral 50 Output: Urine 1100 600 Other: Voiding Method External Catheter External Catheter External Catheter # Bowel Movements 1 - Exam GENERAL: The patient is alert and oriented x1 lethargic, not in any acute distress. Well developed,mal nourished. Generally weak HEENT: Pupils are round and equally reacting to light. EOMI. No scleral icterus. No conjunctival pallor. Normocephalic, atraumatic CARDIOVASCULAR: S1 and S2 present. No murmurs, rubs, or gallops. PULMONARY: Chest is clear to auscultation, no wheezing . no crackles. ABDOMEN: Soft, nontender, not distended, . No palpable organomegaly. PEG tube in place MUSCULOSKELETAL:Right ankle swelling EXTREMITIES: No cyanosis, clubbing, or pedal edema. NEUROLOGICAL: Gross neurological examination did not reveal any focal deficits. SKIN: No rashes. no petechiae. - Labs CBC & Chem 7: 11/20/22 10:37 11/20/22 10:37 Labs: Abnormal Lab Results - Last 24 Hours (Table) 11/19/22 11/19/22 11/20/22 Range/Units 11:55 11:55 10:37 WBC 15.2 H 16.3 H (3.8-10.6) k/uL RBC 3.69 L 3.65 L (4.30-5.90) m/uL Hgb 11.5 L 11.6 L (13.0-17.5) gm/dL Hct 36.0 L 35.7 L (39.0-53.0) % Plt Count 973 H 907 H (150-450) k/uL Sodium 136 L (137-145) mmol/L Carbon Dioxide (22-30) mmol/L Glucose 117 H (74-99) mg/dL 11/20/22 Range/Units 10:37 WBC (3.8-10.6) k/uL RBC (4.30-5.90) m/uL Hgb (13.0-17.5) gm/dL Hct (39.0-53.0) % Plt Count (150-450) k/uL Sodium 136 L (137-145) mmol/L Carbon Dioxide 21 L (22-30) mmol/L Glucose 105 H (74-99) mg/dL Microbiology - Last 24 Hours (Table) 11/18/22 09:10 Blood Culture - Preliminary Blood Assessment and Plan Assessment: Assessment: * Acute metabolic encephalopathy. * Acute Circumferential rectal wall thickening proctitis as per CT * Left inguinal hernia containing sigmoid colon. Possible partial incarceration.. Status post hernia repair on 11/12/22 * Severe protein calorie Malnutrition * Fever. Status post LP. CSF analysis showed no evidence of infection * Right lower extremity swelling DVT ruled out * Acute rhabdomyolysis resolved * Thrombocytosis reactive * Acute Kidney injury. resolved * History of mood disorder * Hypertension * Hyperlipidemia * COPD * Polypharmacy Plan: Continue with antibiotic patient received cefepime transitioned to Zosyn > ID following , repeat blood cultures ordered 6-[address]>> nutrition to assist with internal feeding Consultants on the case including ID, neurologist and general surgery sow manager on the case for placement>> patient will need long-term placement Noted to have elevated platelet count will monitor, peripheral smear ordered Labs and medication were reviewed. DVT prophylaxis: Subcutaneous heparin GI Prophylaxis: Pepcid
[2022-11-20 13:48] LABS: C Reactive Protein 23.7 mg/dL (<1.0)
--- NOTE | 2022-11-20 14:13 | P.PN ---
Subjective Progress Note Date: 11/20/22 Principal diagnosis: Fever Patient is a 72-year-old male presenting to the hospital with mental status changes patient was found to be on the floor and this patient has been running a fever with a CT abdominal pelvis did shows evidence of severe stool burden and initial concern for possible strangulated hernia that has been rule out patient also have LP completed which was normal, a patient is status post left inguinal incarcerated hernia repair completed on 11/12/2022, patient is status post PEG tube placement on 11/19/2022 On today's evaluation that is 11/20/2022 the patient did have a fever last night and this morning off 100.6F, the patient is breathing comfortably on room air, the patient is more awake and alert denies any chest pain or cough no nausea no vomiting or diarrhea has been reported Objective - Vital Signs Vital signs: Vital Signs Temp 99.9 F H 11/20/22 06:07 Pulse 90 11/20/22 03:21 Resp 20 11/20/22 03:21 BP 147/78 11/20/22 03:21 Pulse Ox 93 L 11/20/22 09:23 FiO2 Intake & Output 11/19/22 11/20/22 11/20/22 18:59 06:59 18:59 Intake Total 50 Output Total 1100 600 Balance -1050 -600 Intake: Oral 50 Output: Urine 1100 600 Other: Voiding Method External Catheter External Catheter # Bowel Movements 1 - Exam GENERAL DESCRIPTION: An elderly male lying in bed in no distress RESPIRATORY SYSTEM: Unlabored breathing , decreased breath sounds at bases HEART: S1 S2 regular rate and rhythm , ABDOMEN: Soft , mild distention but no tenderness EXTREMITIES: R ankle with erythma and warmth - Labs CBC & Chem 7: 11/20/22 10:37 11/20/22 10:37 Labs: Abnormal Lab Results - Last 24 Hours (Table) 11/19/22 11/19/22 Range/Units 11:55 11:55 WBC 15.2 H (3.8-10.6) k/uL RBC 3.69 L (4.30-5.90) m/uL Hgb 11.5 L (13.0-17.5) gm/dL Hct 36.0 L (39.0-53.0) % Plt Count 973 H (150-450) k/uL Sodium 136 L (137-145) mmol/L Glucose 117 H (74-99) mg/dL Microbiology - Last 24 Hours (Table) 11/18/22 09:10 Blood Culture - Preliminary Blood Assessment and Plan (1) Fever Current Visit: Yes Status: Acute Code(s): R50.9 - FEVER, UNSPECIFIED SNOMED Code(s): 486949966 Plan: 1patient with fever elevated white count tachycardia meeting criteria for SIRS./Sepsis in this patient presenting to the hospital with decreased level of responsiveness and fall source possibly abdominal and the patient was noted to have significant abdominal distention however the patient also have mental status changes and neck rigidity underlying [employer] infection/encephalitis not ready excluded 2- CT of abdominal pelvis with IV contrast CT did shows circumferential rectal wall thickening correlate for proctitis large stool burden and there was concern for possible incarcerated left inguinal hernia, patient LP was normal.the patient is status post repair of the left inguinal incarcerated hernia 3-the patient did have a new fever and also noticed to have worsening of his whi te count chest x-ray has been negative possible abdominal source antibiotic has been adjusted to Zosyn. Repeat cultures will be followed discussed with the admitting team Time with Patient: Less than 30
[2022-11-20 15:25] LABS: Reticulocyte % 2.9 % (0.5-2.0)
[2022-11-20 15:35] LABS: Appearance,Urine Clear (Clear); Bacteria,Urine Rare /hpf; Bilirubin,Urine Negative (Negative); Blood,Urine Small (Negative); Color,Urine Yellow; Glucose,Urine (UA) Negative (Negative); Ketones,Urine Trace (Negative); Leukocyte Esterase,Urine Negative (Negative); Mucus,Urine Occasional /hpf; Nitrite,Urine Negative (Negative); PH, Urine 6.5 (5.0-8.0); Protein,Urine 2+ (Negative); RBC,Urine 7 /hpf (0-5); Specific Gravity,Urine 1.023 (1.001-1.035); Squamous Epithelial Cell,Urine <1 /hpf (0-4); Urobilinogen,Urine <2.0 mg/dL (<2.0); WBC,Urine 3 /hpf (0-5)
--- NOTE | 2022-11-20 16:48 | P.PN ---
Subjective Progress Note Date: 11/20/22 CHIEF COMPLAINT: Incarcerated left inguinal hernia HISTORY OF PRESENT ILLNESS: Patient is postop day #1 status post PEG tube placement. He denies any abdominal pain. Denies any nausea or vomiting. Patie nt is status post open repair of incarcerated left inguinal hernia with Prolene hernia mesh system plug for incarcerated left inguinal hernia on 11/12/22. Afebrile. WBC 16.3 H 11.6 platelets 907 PHYSICAL EXAM: VITAL SIGNS: Reviewed. GENERAL: Well-developed in no acute distress. ABDOMEN: Soft. Nondistended. Nontender. PEG tube site clean dry and intact ASSESSMENT: 1. Severe protein calorie malnutrition, poor oral intake and dysphagia status post PEG tube placement 2. Incarcerated left inguinal hernia status post open repair of incarcerated left inguinal hernia with Prolene hernia mesh system plug 3. Proctitis PLAN: -Consult dietitian to start PEG tube feedings -Okay to use PEG tube for medications -Continue supportive care Physician Lead Operator note has been reviewed by physician. Signing provider agrees with the documented findings, assessment, and plan of care. Objective - Vital Signs Vital signs: Vital Signs Temp 99.0 F 11/20/22 11:55 Pulse 80 11/20/22 11:55 Resp 16 11/20/22 11:55 BP 145/78 11/20/22 11:55 Pulse Ox 92 L 11/20/22 11:55 FiO2 Intake & Output 11/19/22 11/20/22 11/20/22 18:59 06:59 18:59 Intake Total 50 Output Total 1100 600 Balance -1050 -600 Weight 65.771 kg Intake: Oral 50 Output: Urine 1100 600 Other: Voiding Method External Catheter External Catheter External Catheter # Bowel Movements 1 - Labs CBC & Chem 7: 11/20/22 10:37 11/20/22 10:37 Labs: Abnormal Lab Results - Last 24 Hours (Table) 11/20/22 11/20/22 11/20/22 Range/Units 10:37 10:37 10:37 WBC 16.3 H (3.8-10.6) k/uL RBC 3.65 L (4.30-5.90) m/uL Hgb 11.6 L (13.0-17.5) gm/dL Hct 35.7 L (39.0-53.0) % Plt Count 907 H (150-450) k/uL Retic Count 2.9 H (0.5-2.0) % Sodium 136 L (137-145) mmol/L Carbon Dioxide 21 L (22-30) mmol/L Glucose 105 H (74-99) mg/dL C-Reactive Protein 23.7 H (<1.0) mg/dL Urine Protein (Negative) Urine Ketones (Negative) Urine Blood (Negative) Urine RBC (0-5) /hpf Urine Bacteria (None) /hpf Urine Mucus (None) /hpf 11/20/22 Range/Units 15:20 WBC (3.8-10.6) k/uL RBC (4.30-5.90) m/uL Hgb (13.0-17.5) gm/dL Hct (39.0-53.0) % Plt Count (150-450) k/uL Retic Count (0.5-2.0) % Sodium (137-145) mmol/L Carbon Dioxide (22-30) mmol/L Glucose (74-99) mg/dL C-Reactive Protein (<1.0) mg/dL Urine Protein 2+ H (Negative) Urine Ketones Trace H (Negative) Urine Blood Small H (Negative) Urine RBC 7 H (0-5) /hpf Urine Bacteria Rare H (None) /hpf Urine Mucus Occasional H (None) /hpf Microbiology - Last 24 Hours (Table) 11/18/22 09:10 Blood Culture - Preliminary Blood
--- NOTE | 2022-11-20 17:25 | P.CONS ---
History of Present Illness - Reason for Consult Consult date: 11/20/22 Thrombocytosis - History of Present Illness The patient is a 18-year-old white male with multiple medical problems. He h as been admitted to the hospital now for about 2 weeks. He was initially brought in due to being found on the floor in his house. The patient was lethargic and confused. He also had a fever, and was found to have elevated CPKs though kidney function was normal. Patient has had an extensive workup, with multiple consults, including neurology, nephrology, and ID. So far cultures, including from CSF have remained negative. He continues to have intermittent fevers, low-grade, most recently on 11/19/22, 100.6. His platelet counts on admission were normal and remained so for several days. Started to increase around 11/13/22 and are up into the low 900 range today, leading to this consult. His WBC is mildly elevated with predominant neutrophilia, and he has a mild anemia. The patient's affect and comprehension were quite slow due to which history taking was limited. He however stated that he had not had any blood problems in the past and had not noted any unusual bleeding, prior to his admission. He also denied any history of chronic inflammatory condition prior to admission. Review of Systems Constitutional: Reports fatigue, Reports fever, Reports poor appetite, Reports weight loss Eyes: denies blurred vision, denies pain Ears: deny: decreased hearing, ear discharge, earache, tinnitus Ears, nose, mouth and throat: Denies headache, Denies sore throat Cardiovascular: Reports dyspnea on exertion Respiratory: Reports dyspnea Gastrointestinal: Denies abdominal pain, Denies diarrhea, Denies nausea, Denies vomiting Genitourinary: Reports as per HPI Musculoskeletal: Reports muscle weakness Integumentary: Reports dryness Neurological: Reports as per HPI, Reports change in mentation, Reports change in speech, Reports weakness Psychiatric: Reports confusion Endocrine: Reports fatigue Hematologic/Lymphatic: Reports as per HPI Past Medical History Past Medical History: Unable to Obtain Additional Past Medical History / Comment(s): Prostate Cancer, essential tremors, History of Any Multi-Drug Resistant Organisms: Unobtainable Past Surgical History: Unable to Obtain Past Psychological History: Unable to Obtain Smoking Status: Unknown if ever smoked Past Alcohol Use History: Unable to Obtain Past Drug Use History: Unable to Obtain Medications and Allergies Home Medications Medication Instructions Recorded Confirmed Type Albuterol Inhaler [Ventolin Hfa 1 puff INHALATION RT-Q4H PRN 11/04/22 11/04/22 History Inhaler] Budesonide/Formoterol Fumarate 2 puff INHALATION RT-BID 11/04/22 11/04/22 History [Symbicort 160-4.5 Mcg Inhaler] LORazepam [Ativan] 0.5 mg PO HS 11/04/22 11/04/22 History Montelukast [Singulair] 10 mg PO DAILY 11/04/22 11/04/22 History Primidone [Mysoline] 50 mg PO TID 11/04/22 11/04/22 History Simvastatin [Zocor] 40 mg PO DAILY 11/04/22 11/04/22 History amLODIPine [Norvasc] 10 mg PO DAILY 11/04/22 11/04/22 History Cyanocobalamin [Vitamin B-12 1,000 mcg IM DAILY 2 Days #2 each 11/14/22 Rx Injection] Cyanocobalamin [Vitamin B-12] 1,000 mcg PO DAILY 30 Days #30 tab 11/14/22 Rx Docusate [Colace] 100 mg PO BID cap 11/14/22 Rx HYDROcodone/APAP 5-325MG [[place] 1 tab PO Q12HR PRN 3 Days #6 tab 11/14/22 Rx 5-325] Metoprolol Tartrate [Lopressor] 25 mg PO BID tab 11/14/22 Rx QUEtiapine [SEROquel] 25 mg PO BID PRN tab 11/14/22 Rx cefUROXime axetiL [Ceftin] 500 mg PO BID 7 Days #14 tab 11/14/22 Rx metroNIDAZOLE [Flagyl] 500 mg PO TID #21 tab 11/14/22 Rx Allergies Allergy/AdvReac Type Severity Reaction Status Date / Time hops Allergy Rash/Hives Verified 11/04/22 17:29 mold AdvReac Rash/Hives Verified 11/04/22 17:29 Physical Exam Vitals: Vital Signs Temp Pulse Pulse Resp BP Pulse Ox 11/20/22 11:55 99.0 F 80 16 145/78 92 L 11/20/22 09:23 93 L 11/20/22 09:15 98.7 F 92 92 16 151/84 93 L 11/20/22 06:07 99.9 F H 11/20/22 03:21 100.6 F H 90 20 147/78 92 L 11/19/22 23:16 100.0 F H 86 15 162/94 93 L 11/19/22 19:54 99.3 F 96 18 154/81 91 L Intake and Output 11/20/22 11/20/22 11/20/22 06:59 14:59 22:59 Output Total 600 Balance -600 Output: Urine 600 Other: Voiding Method External Catheter External Catheter # Bowel Movements 1 Weight 65.771 kg - Constitutional General appearance: no acute distress - EENT Eyes: EOMI, PERRLA ENT: hearing grossly normal, normal oropharynx - Neck Neck: no lymphadenopathy Thyroid: bilateral: normal size, enlarged, firm, nodule - Respiratory Respiratory: bilateral: CTA - Cardiovascular Rhythm: regular Heart sounds: normal: S1, S2 - Gastrointestinal General gastrointestinal: normal bowel sounds, soft - Integumentary Dry skin - Neurologic Neurologic: CNII-XII intact - Musculoskeletal Musculoskeletal: generalized weakness, strength equal bilaterally - Psychiatric Lethargic, slow affect and comprehension. Answers mostly with head movements Results CBC & Chem 7: 11/20/22 10:37 11/20/22 10:37 Labs: Abnormal Lab Results - Last 24 Hours (Table) 11/20/22 11/20/22 11/20/22 Range/Units 10:37 10:37 10:37 WBC 16.3 H (3.8-10.6) k/uL RBC 3.65 L (4.30-5.90) m/uL Hgb 11.6 L (13.0-17.5) gm/dL Hct 35.7 L (39.0-53.0) % Plt Count 907 H (150-450) k/uL Retic Count 2.9 H (0.5-2.0) % Sodium 136 L (137-145) mmol/L Carbon Dioxide 21 L (22-30) mmol/L Glucose 105 H (74-99) mg/dL C-Reactive Protein 23.7 H (<1.0) mg/dL Urine Protein (Negative) Urine Ketones (Negative) Urine Blood (Negative) Urine RBC (0-5) /hpf Urine Bacteria (None) /hpf Urine Mucus (None) /hpf 11/20/22 Range/Units 15:20 WBC (3.8-10.6) k/uL RBC (4.30-5.90) m/uL Hgb (13.0-17.5) gm/dL Hct (39.0-53.0) % Plt Count (150-450) k/uL Retic Count (0.5-2.0) % Sodium (137-145) mmol/L Carbon Dioxide (22-30) mmol/L Glucose (74-99) mg/dL C-Reactive Protein (<1.0) mg/dL Urine Protein 2+ H (Negative) Urine Ketones Trace H (Negative) Urine Blood Small H (Negative) Urine RBC 7 H (0-5) /hpf Urine Bacteria Rare H (None) /hpf Urine Mucus Occasional H (None) /hpf Microbiology - Last 24 Hours (Table) 11/18/22 09:10 Blood Culture - Preliminary Blood Comments: Chest x-ray/CT abdomen and pelvis/brain CT and MRI/extremity ultrasounds do not show any significant abnormality Chest x-ray: report reviewed CT scan - abdomen: report reviewed CT Scan - head: report reviewed CT scan - pelvis: report reviewed MRI - head: report reviewed Venous US: report reviewed Assessment and Plan (1) Thrombocythemia Narrative/Plan: The consult was placed for increasing platelet count. The picture is quite consistent with a reactive process. The patient came in with normal plt counts. He has ongoing evidence of SIRS. In addition, he had surgery for incarcerated hernia after which the platelet count started to rise. At this time the primary MPD is highly unlikely. - Check iron studies - DVT prophylaxis - Expect that platelet counts are declined spontaneously as the patient's condition improves. Current Visit: Yes Status: Acute Code(s): D75.839 - THROMBOCYTOSIS, UNSPECIFIED SNOMED Code(s): 1307178 (2) Blood dyscrasia Narrative/Plan: The patient's other dyscrasias include mildly low hemoglobin, and mild leukocy tosis with neutrophilia. This is consistent with effects of inflammation. Check iron studies to rule out iron deficiency, which is already been ordered as part of workup for the presumed reactive thrombo-cytosis. No intervention required at this level Current Visit: Yes Status: Acute Code(s): D75.9 - DISEASE OF BLOOD AND BLOOD-FORMING ORGANS, UNSPECIFIED SNOMED Code(s): 188113414 Plan: Defer to the admitting service and multiple other consultants for management of his several other medical issues
[2022-11-20] MEDS: PIPERACILLIN-TAZOBACTAM 3.375 GM in SODIUM CHLORIDE 0.9% 100 ML IVPB SCH (18:17)
[2022-11-20] MEDS: LORazepam 0.5 MG TAB PO SCH (21:29)
[2022-11-20 22:15] LABS: % Iron Saturation 13.24 (15.00-50.00)
[2022-11-21] MEDS: PIPERACILLIN-TAZOBACTAM 3.375 GM in SODIUM CHLORIDE 0.9% 100 ML IVPB SCH ×4 (00:37→23:56)
[2022-11-21] MEDS: HEPARIN SODIUM,PORCINE/PF 5,000 UNIT/0.5 ML SYRINGE SQ SCH ×4 (00:39→23:56)
[2022-11-21 00:51] LABS: Glucose,Whole Blood 134 mg/dL (70-110)
[2022-11-21] MEDS: LACTATED RINGERS 1,000 ML IV SCH ×2 (05:37→16:23)
[2022-11-21 06:06] LABS: Glucose,Whole Blood 170 mg/dL (70-110)
[2022-11-21] MEDS: SYMBICORT 160-4.5 MCG INHALER INHALATION SCH ×2 (09:13→21:58)
[2022-11-21] MEDS: PRIMIDONE 50 MG TAB PO SCH ×3 (09:28→22:54)
[2022-11-21] MEDS: MONTELUKAST 10 MG TAB PO SCH (09:28)
[2022-11-21] MEDS: CYANOCOBALAMIN 500 MCG TAB PO SCH (09:28)
[2022-11-21] MEDS: DOCUSATE 100 MG CAP PO SCH ×2 (09:28→20:16)
[2022-11-21] MEDS: DICLOFENAC SODIUM GEL 100 GM TUBE TOPICAL SCH ×4 (09:28→22:54)
[2022-11-21] MEDS: amLODIPine 10 MG TAB PO SCH (09:28)
[2022-11-21] MEDS: METOPROLOL TARTRATE 50 MG TAB PO SCH ×2 (09:28→20:17)
[2022-11-21] MEDS: FAMOTIDINE 20 MG/2 ML VIAL IV SCH ×2 (09:28→20:16)
[2022-11-21 09:56] LABS: HCT 32.8 % (39.0-53.0); HGB 10.6 gm/dL (13.0-17.5); MCH 32.1 pg (25.0-35.0); MCHC 32.3 g/dL (31.0-37.0); MCV 99.6 fL (80.0-100.0); Mean Platelet Volume 7.9; Platelet Count 842 k/uL (150-450); RDW 13.7 % (11.5-15.5); WBC 13.5 k/uL (3.8-10.6)
[2022-11-21 10:32] LABS: African American GFR (CKD) >90 (>60 ml/min/1.73 sqM); Anion Gap 10 mmol/L; Blood Urea Nitrogen 20 mg/dL (9-20); Calcium 8.3 mg/dL (8.4-10.2); Carbon Dioxide 26 mmol/L (22-30); Chloride 102 mmol/L (98-107); Glucose 151 mg/dL (74-99); Non-African American GFR(CKD) >90 (>60 ml/min/1.73 sqM); Potassium 4.3 mmol/L (3.5-5.1); Sodium 138 mmol/L (137-145)
[2022-11-21 11:36] LABS: Glucose,Whole Blood 176 mg/dL (70-110)
[2022-11-21] MEDS: IOPAMIDOL CONTRAST (ORAL USE) VIAL PO PRN ×2 (11:43→12:51)
[2022-11-21 12:06] LABS: C Reactive Protein 22.4 mg/dL (<1.0)
--- NOTE | 2022-11-21 12:44 | P.PN ---
Subjective Progress Note Date: 11/21/22 72-year-old gentleman with past medical history significant for hypertension, hyperlipidemia, COPD presented to the ER because of altered mental status. Most of the history has been taken from the EMR. Patient was brought in by EMS after being notified by the patient's neighbor who did a wellness check on the patient as he had not seen him in a day.EMS found the patient lying on the floor, patient currently alert to self. Patient was immediately brought to the ER of [facility]. initial lab work done in the ER showedWBC 12.8, hemoglobin 13.8, platelet count 325, sodium 145, potassium 4.1, chloride 110, BUN 35, creatinine 1.29, CK 2741 Chest x-ray negative for acute pulmonary process CT brain showed age-related atrophy, no acute intracranial process Patient was admitted to internal medicine service 11/06/2022 Patient is currently in the telemetry unit. Extremity continues and nonre sponsive. Patient is a lethargic but able to moan and follows simple commands. Rapid response team was called due to unresponsiveness. Patient had CT head done yesterday which showed no acute intracranial hemorrhage or midline shift. There is mild to moderate diffuse cerebral atrophy and chronic small vessel ischemic changes redemonstrated. No significant change from recent prior CT. EEG and MRI was ordered as per neurology recommendations. Patient was also febrile overnight with Tmax 100.8. Currently afebrile. Laboratory data showed WBC 10.8 hemoglobin 13.6 and platelets 262 Sodium 135 potassium 3.3 chloride 97 bicarb is 28, BUN 19 and creatinine 1.05 blood sugar 132 and CPK level trending down to 1164. Bicarb drip has been discontinued. Nephrology and neurology is on board. 11/07/2022 Patient is currently laying in bed. Able to open his eyes better today. Follows simple commands. Still lethargic and sleepy. Overnight patient was febrile again with Tmax of 100.8. Due to encephalopathy and fever possibly SEWER DIGGER infection is being considered. Patient was started on broad-spectrum antibiotics. Patient was also noted to have abdominal distention. EEG showed moderate to severe encephalopathic picture. MRI of the brain was done yesterday which showed some age-related atrophy. No acute intracranial process. ID was consulted due to fever and encephalopathy. Laboratory pressure WBC 11.7 hemoglobin 13.5 and platelets 287 Sodium 138 potassium 3.6 chloride 104 bicarb is 21 BUN 21 and creatinine 1.08. Blood sugar is 116 Procalcitonin level is at 0.41. 11/08/2022 Patient is more awake and oriented today. Patient was able to communicate with his sister at bedside. Patient did have fever with Tmax of 101.0 yesterday afternoon. Currently on room air. Patient is able to tolerate liquids with one-to-one feeding. Status post LP today. CT of the abdomen pelvis showed circumferential rectal wall thickening correlate for proctitis. No additional finding within the abdomen or pelvis to explain patient's symptoms. Left inguinal hernia containing loops of sigmoid colon. No evidence for wall thickening suggesting strangulation. Large stool burden throughout the colon. Patient did have multiple episodes of diarrhea yesterday. CT was negative. General surgery was consulted for further evaluation of the abnormal CT. Patient was seen by psychiatry and currently Depakote is on hold at continue with Seroquel as needed. Laboratory data showed WBC 11.2 hemoglobin 12.20 platelets 260 sodium 139 potassium 3.3 which is being replaced BUN 20. Creatinine 1.13 and calcium 8.2. Coronavirus PCR not detected. 11/09/2022 Patient is currently resting in the bed. Awake alert but slow to respond. Mentation is much improved. Feels very weak. Denies any complaints of chest pain or shortness of breath. Patient has been afebrile. Laboratory data showed WBC 10.4 hemoglobin 11.9 platelets 301, sodium 140 potassium 3.6 chloride 107 bicarb is 20 BUN 23 and creatinine 0.94 and blood sugar 116. CRP 44.3. Patient is being continued on antibiotics in the form of cefepime and metronidazole. General surgery is on board. 11/10/2022 Patient is currently lying in the bed. Awake alert but lethargic and weak and drowsy. No complaints of chest pain or shortness of breath. Patient does have left inguinal hernia and possible partially incarcerated. With general surgery is planning for elective repair of hearing on Friday. Otherwise patient is afebrile. Potassium was replaced as per protocol. Laboratory data showed WBC 9.6 hemoglobin 11.1 and platelets 322, sodium 141 po tassium 3.3 chloride 109 bicarb is 21 BUN 22 and creatinine 0.9 and calcium 8.1. I'm resume the care of the patient 11/11/2022 This is a pleasant 72 years old male with multiple medical problems presents with altered mental status secondary to metabolic encephalopathy and infection was suspected with systemic inflammatory response, his lumbar puncture was unremarkable for SEWER DIGGER infection, CT was evidence with prostatitis with circumferential wall thickening, his abdomen is still mildly distended. His Rhabdomyolysis and tumor improved Patient is planned by surgery team for left inguinal hernia repair tomorrow Today was awake alert lethargic and weak but is improving, this is confirmed with the daughter at bedside nurse, patient he knows in the hospital he knew the year but could not tell them on 4 date and recognize his daughter and he has insight into his illness. He denies any specific complaint. Daughter at bedside thinks he is improving and she is happy with his progress. He still picking up his appetite slowly. He remains on cefepime, IV Flagyl and normal saline and 75 mL/h. Depakote is on hold 11/12/2022 Patient today is awake alert, still very weak generally, he is talking in low voice and looks tired but patient reports improvement compared to yesterday. Patient is improving slowly and gradually. He denies specific complaint however he has poor appetite Patient underwent left inguinal hernia repair today with surgery team Patient methylmalonic acid is still pending for borderline low vitamin B12 Patient remains on cefepime and IV Flagyl. Neurology input is a appreciated and noted Psych consult signed off the case \ 11/13/2022 Patient had left inguinal hernia repair yesterday, today wound is healing and closed with significant tenderness. He still has poor appetite. He didn't have bowel movement, no passing gases. No other new complaint, he is generally weak improving slowly and gradually After the help for discharge in 24-48 hours if his GI function improves and he is able to eat more he is remaining on cefepime and IV Flagyl and normal saline 75 ml/h 11/15/2022 Today patient was noticed to have left upper extremity swelling, ultrasound showed negative for DVT Also patient today. This is still not eating much despite several encouragements, I discussed the case with dietitian, tube feeding could be considered as an option Patient remains confused poor historian and cannot provide much information and answer some of the questions and others does not answer. I discussed the case with casework supervisor who advised patient has a guardian his niece Martha whom I called at [phone]. I discussed the case with her including his clinical situation, discharge placement and feeding. She will come and visit him tomorrow and she will try to encourage him to eat, she wants to wait for 1-2 days before they decide about tube feeding , patient however able to eat some snacks but apparently is not enough for him. Plan of care discussed with the guardian and she is in agreement As per casework supervisor it is difficult placement because patient may need long-term placement and not only rehab. however prognosis remains guarded Currently he is kept on cefepime, IV Flagyl normal saline will be discontinued He remains on intravenous vitamin B12 replacement therapy 11/16 No new events, Per DPOA okay for feeding tubeWill consult Surgery 11/17 Right ankle swollen , X ray ordered , Denies pain 11/18 Right ankle x-ray does show joint effusion, no fracture noted. plan discussed with patient power for environmental attorney and okay with feeding tube placement general surgery followingNoted to have elevated platelet count peripheral smear ordered 11/19Patient is status post PEG tube placement. Continue IV antibiotics, right ankle swelling improved topical diclofenac ointment ordered 11/20> patient was noted to have fever overnight, repeat blood cultures ordered continue patient on IV antibiotic and patient remains alert and oriented to person 11/21> patient states seen and evaluated bedside, patient is easily arousable however continues to remain confused, did have fever overnight, Care plan discussed with infectious disease recommended with CT abdomen and pelvis with contrast ordered Objective - Vital Signs Vital signs: Vital Signs Temp 98.8 F 11/21/22 08:00 Pulse 81 11/21/22 12:00 Resp 16 11/21/22 08:00 BP 126/70 11/21/22 12:00 Pulse Ox 93 L 11/21/22 12:00 FiO2 21 11/21/22 09:16 Intake & Output 11/20/22 11/21/22 11/21/22 18:59 06:59 18:59 Output Total 600 Balance -600 Weight 85.5 kg Output: Urine 600 Other: Voiding Method External Catheter External Catheter External Catheter # Bowel Movements 1 - Exam GENERAL: The patient is alert and oriented x1 lethargic, not in any acute distress. Appears chronically ill HEENT: Pupils are round and equally reacting to light. EOMI. No scleral icterus. No conjunctival pallor. Normocephalic, atraumatic CARDIOVASCULAR: S1 and S2 present. No murmurs, rubs, or gallops. PULMONARY: Chest is clear to auscultation, no wheezing . no crackles. ABDOMEN: Soft, nontender, not distended, . No palpable organomegaly. PEG tube in place MUSCULOSKELETAL:Right ankle swelling improved EXTREMITIES: No cyanosis, clubbing, or pedal edema. NEUROLOGICAL: Gross neurological examination did not reveal any focal deficits. SKIN: No rashes. no petechiae. - Labs CBC & Chem 7: 11/21/22 08:57 11/21/22 08:57 Labs: Abnormal Lab Results - Last 24 Hours (Table) 11/20/22 11/20/22 11/20/22 Range/Units 10:37 10:37 10:37 WBC (3.8-10.6) k/uL RBC (4.30-5.90) m/uL Hgb (13.0-17.5) gm/dL Hct (39.0-53.0) % Plt Count (150-450) k/uL Retic Count 2.9 H (0.5-2.0) % Glucose (74-99) mg/dL POC Glucose (mg/dL) (70-110) mg/dL Calcium (8.4-10.2) mg/dL Iron 18 L (65-175) UG/DL TIBC 136 L (228-460) UG/DL % Saturation 13.24 L (15.00-50.00) Transferrin 96.8 L (204.0-354.0) mg/dL Ferritin 1185.0 H (22.0-322.0) ng/mL C-Reactive Protein 23.7 H (<1.0) mg/dL Urine Protein (Negative) Urine Ketones (Negative) Urine Blood (Negative) Urine RBC (0-5) /hpf Urine Bacteria (None) /hpf Urine Mucus (None) /hpf 11/20/22 11/21/22 11/21/22 Range/Units 15:20 00:49 06:05 WBC (3.8-10.6) k/uL RBC (4.30-5.90) m/uL Hgb (13.0-17.5) gm/dL Hct (39.0-53.0) % Plt Count (150-450) k/uL Retic Count (0.5-2.0) % Glucose (74-99) mg/dL POC Glucose (mg/dL) 134 H 170 H (70-110) mg/dL Calcium (8.4-10.2) mg/dL Iron (65-175) UG/DL TIBC (228-460) UG/DL % Saturation (15.00-50.00) Transferrin (204.0-354.0) mg/dL Ferritin (22.0-322.0) ng/mL C-Reactive Protein (<1.0) mg/dL Urine Protein 2+ H (Negative) Urine Ketones Trace H (Negative) Urine Blood Small H (Negative) Urine RBC 7 H (0-5) /hpf Urine Bacteria Rare H (None) /hpf Urine Mucus Occasional H (None) /hpf 11/21/22 11/21/22 11/21/22 Range/Units 08:57 08:57 11:33 WBC 13.5 H (3.8-10.6) k/uL RBC 3.30 L (4.30-5.90) m/uL Hgb 10.6 L (13.0-17.5) gm/dL Hct 32.8 L (39.0-53.0) % Plt Count 842 H (150-450) k/uL Retic Count (0.5-2.0) % Glucose 151 H (74-99) mg/dL POC Glucose (mg/dL) 176 H (70-110) mg/dL Calcium 8.3 L (8.4-10.2) mg/dL Iron (65-175) UG/DL TIBC (228-460) UG/DL % Saturation (15.00-50.00) Transferrin (204.0-354.0) mg/dL Ferritin (22.0-322.0) ng/mL C-Reactive Protein 22.4 H (<1.0) mg/dL Urine Protein (Negative) Urine Ketones (Negative) Urine Blood (Negative) Urine RBC (0-5) /hpf Urine Bacteria (None) /hpf Urine Mucus (None) /hpf Microbiology - Last 24 Hours (Table) 11/18/22 09:10 Blood Culture - Preliminary Blood Assessment and Plan Assessment: Assessment: * Acute metabolic encephalopathy. * Acute Circumferential rectal wall thickening proctitis as per CT * Left inguinal hernia containing sigmoid colon. Possible partial incarceration.. Status post hernia repair on 11/12/22 * Severe protein calorie Malnutrition * Fever. Status post LP. CSF analysis showed no evidence of infection * Right lower extremity swelling DVT ruled out * Acute rhabdomyolysis resolved * Thrombocytosis reactive * Acute Kidney injury. resolved * History of mood disorder * Hypertension * Hyperlipidemia * COPD * Polypharmacy Plan: In regards to recurrent fever >>Continue with antibiotic patient received cefepime transitioned to Zosyn on 11/20 > ID following , repeat blood cultures on 11/20 no growth to date, CT abdomen and pelvis ordered In regards to dysphagia PEG tube in place>> nutrition to assist with internal feeding Consultants on the case including ID, neurologist and general surgery biomass power plant manager on the case for placement>> patient will need long-term placement Noted to have elevated platelet count will monitor, peripheral smear ordered Labs and medication were reviewed. DVT prophylaxis: Subcutaneous heparin GI Prophylaxis: Pepcid
--- NOTE | 2022-11-21 13:47 | CT ---
EXAMINATION TYPE: CT abdomen pelvis w con CT DLP: 1211.1 mGycm, Automated exposure control for dose reduction was used. DATE OF EXAM: 11/21/2022 1:33 PM COMPARISON: CT abdomen pelvis most recent from 11/07/2022 . CLINICAL INDICATION:Male, 72 years old with history of EVal for abdominal abscess; Evaluate for abdom inal abscess TECHNIQUE: Standard CT of the abdomen and pelvis following the administration of 100 cc of Isovue 3 00 IV contrast material and oral contrast. Coronal and sagittal reformats were performed. FINDINGS: LOWER CHEST: Right lower lobe subsegmental atelectasis. Elevation the right hemidiaphragm. ABDOMEN LIVER: Unremarkable GALLBLADDER AND BILE DUCTS: Unremarkable. PANCREAS: Unremarkable. SPLEEN: Unremarkable. ADRENAL GLANDS: Unremarkable. KIDNEYS AND URETERS: No evidence of hydronephrosis or renal calculus. The kidneys enhance symmetrical ly. Bilateral stable renal cysts. PELVIS BLADDER: Incompletely distended but grossly unremarkable. REPRODUCTIVE: Prostate is surgically absent. ABDOMEN & PELVIS STOMACH AND BOWEL: PEG tube with balloon in the stomach lumen. The duodenum is unremarkable. No evide nce of bowel obstruction. Enteric contrast reaches the rectum. 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 PERITONEUM: No evidence of pneumoperitoneum or free fluid. Postsurgical changes from left inguinal he rnia repair with a fluid collection with hyperdense material and foci of gas identified in the left i nguinal region measuring up to 4.6 cm (series 201, image 92). Another smaller collection measuring up to 2.3 cm is demonstrated at the opening of the left inguinal ring (series 21, image 81). VASCULATURE: Mild atherosclerotic calcifications are present throughout the abdominal aorta and its b ranches. No evidence of aortic aneurysm. MUSCULOSKELETAL: No acute osseous abnormalities. Scoliotic curvature. Sclerotic focus measuring up to 1.8 cm within the left iliac bone (series 201, image 58) and sclerotic focus within the right tissue tuberosity measuring up to 4.0 cm (series 201, image 83). These demonstrate narrow zone of transitio n. LYMPH NODES: No gross evidence for lymphadenopathy. SOFT TISSUE/ABDOMINAL WALL: Small fat filled umbilical hernia. Few foci of stranding and gas identifi ed within the anterior, wall likely related to medication injection. No organized fluid collection. IMPRESSION: 1. Postsurgical changes from left inguinal hernia repair with a mildly hyperdense 4.5 cm fluid colle ction within the left inguinal canal with few foci of gas. This may represent recent postsurgical singh nges however underlying hematoma and/or abscess is not excluded. Another smaller collection measuring up to 2.3 cm is demonstrated at the opening of the inguinal ring on the left with similar differenti al. Clinical correlation is recommended. 2. Rectal fecaloma without evidence for stercoral colitis. 3. Interval placement of peg tube in appropriate position. 4. Indeterminate left iliac bone and right initial tuberosity sclerotic foci. These may represent brenda ign processes however underlying metastasis is not excluded. Further evaluation with nuclear medicine bone scan is recommended.
--- NOTE | 2022-11-21 16:07 | P.PN ---
Subjective Progress Note Date: 11/21/22 Principal diagnosis: Thrombocytosis In follow-up today patient is not real interactive, he does not answer any of my questions. Objective - Vital Signs Vital signs: Vital Signs Temp 98.8 F 11/21/22 08:00 Pulse 81 11/21/22 14:00 Resp 16 11/21/22 14:00 BP 126/70 11/21/22 12:00 Pulse Ox 93 L 11/21/22 12:00 FiO2 21 11/21/22 09:16 Intake & Output 11/20/22 11/21/22 11/21/22 18:59 06:59 18:59 Output Total 1500 Balance -1500 Weight 85.5 kg 85.5 kg Output: Urine 1500 Other: Voiding Method External Catheter External Catheter External Catheter # Bowel Movements 1 - Constitutional General appearance: Present: average body habitus, no acute distress - EENT Eyes: Present: anicteric sclerae - Respiratory Details: Respirations even and unlabored at rest - Cardiovascular Details: Radial pulse regular - Labs CBC & Chem 7: 11/21/22 08:57 11/21/22 08:57 Labs: Abnormal Lab Results - Last 24 Hours (Table) 11/20/22 11/21/22 11/21/22 Range/Units 10:37 00:49 06:05 WBC (3.8-10.6) k/uL RBC (4.30-5.90) m/uL Hgb (13.0-17.5) gm/dL Hct (39.0-53.0) % Plt Count (150-450) k/uL Glucose (74-99) mg/dL POC Glucose (mg/dL) 134 H 170 H (70-110) mg/dL Calcium (8.4-10.2) mg/dL Iron 18 L (65-175) UG/DL TIBC 136 L (228-460) UG/DL % Saturation 13.24 L (15.00-50.00) Transferrin 96.8 L (204.0-354.0) mg/dL Ferritin 1185.0 H (22.0-322.0) ng/mL C-Reactive Protein (<1.0) mg/dL Procalcitonin (0.02-0.09) ng/mL 11/21/22 11/21/22 11/21/22 Range/Units 08:57 08:57 08:57 WBC 13.5 H (3.8-10.6) k/uL RBC 3.30 L (4.30-5.90) m/uL Hgb 10.6 L (13.0-17.5) gm/dL Hct 32.8 L (39.0-53.0) % Plt Count 842 H (150-450) k/uL Glucose 151 H (74-99) mg/dL POC Glucose (mg/dL) (70-110) mg/dL Calcium 8.3 L (8.4-10.2) mg/dL Iron (65-175) UG/DL TIBC (228-460) UG/DL % Saturation (15.00-50.00) Transferrin (204.0-354.0) mg/dL Ferritin (22.0-322.0) ng/mL C-Reactive Protein 22.4 H (<1.0) mg/dL Procalcitonin 0.19 H (0.02-0.09) ng/mL 11/21/22 Range/Units 11:33 WBC (3.8-10.6) k/uL RBC (4.30-5.90) m/uL Hgb (13.0-17.5) gm/dL Hct (39.0-53.0) % Plt Count (150-450) k/uL Glucose (74-99) mg/dL POC Glucose (mg/dL) 176 H (70-110) mg/dL Calcium (8.4-10.2) mg/dL Iron (65-175) UG/DL TIBC (228-460) UG/DL % Saturation (15.00-50.00) Transferrin (204.0-354.0) mg/dL Ferritin (22.0-322.0) ng/mL C-Reactive Protein (<1.0) mg/dL Procalcitonin (0.02-0.09) ng/mL Microbiology - Last 24 Hours (Table) 11/18/22 09:10 Blood Culture - Preliminary Blood Assessment and Plan (1) Thrombocythemia Current Visit: Yes Status: Acute Priority: Medium Code(s): D75.839 - THROMBOCYTOSIS, UNSPECIFIED SNOMED Code(s): 8742202 Plan: Thrombocytosis -Iron studies indicative of inflammation -Platelet count coming down slowly as patient recovers from acute condition as well as hernia repair PEG tube placement -Most likely reactive thrombocytosis -Continue to monitor platelets -No acute intervention at this time. -Will continue to monitor counts. Additional workup will be ordered if necessary.
[2022-11-21 18:19] LABS: Glucose,Whole Blood 183 mg/dL (70-110)
[2022-11-21] MEDS: ACETAMINOPHEN TAB 500 MG TAB PO PRN (20:16)
[2022-11-21] MEDS: LORazepam 0.5 MG TAB PO SCH (20:17)
--- NOTE | 2022-11-21 22:08 | P.PN ---
Subjective Progress Note Date: 11/21/22 Principal diagnosis: Fever Patient is a 72-year-old male presenting to the hospital with mental status changes patient was found to be on the floor and this patient has been running a fever with a CT abdominal pelvis did shows evidence of severe stool burden and initial concern for possible strangulated hernia that has been rule out patient also have LP completed which was normal, a patient is status post left inguinal incarcerated hernia repair completed on 11/12/2022, patient is status post PEG tube placement on 11/19/2022 On today's evaluation that is 11/21/2022 the patient did have a low-grade fever off 100.2F last night however the patient is afebrile this morning, the patient is more awake and alert and is breathing comfortably on room air, the patient denies any chest pain or cough no nausea no vomiting or diarrhea has been reported Objective - Vital Signs Vital signs: Vital Signs Temp 98.8 F 11/21/22 08:00 Pulse 81 11/21/22 12:00 Resp 16 11/21/22 08:00 BP 126/70 11/21/22 12:00 Pulse Ox 93 L 11/21/22 12:00 FiO2 21 11/21/22 09:16 Intake & Output 11/20/22 11/21/22 11/21/22 18:59 06:59 18:59 Output Total 600 Balance -600 Weight 85.5 kg Output: Urine 600 Other: Voiding Method External Catheter External Catheter External Catheter # Bowel Movements 1 - Exam GENERAL DESCRIPTION: An elderly male lying in bed in no distress RESPIRATORY SYSTEM: Unlabored breathing , decreased breath sounds at bases HEART: S1 S2 regular rate and rhythm , ABDOMEN: Soft , mild distention but no tenderness EXTREMITIES: R ankle with erythma and warmth - Labs CBC & Chem 7: 11/21/22 08:57 11/21/22 08:57 Labs: Abnormal Lab Results - Last 24 Hours (Table) 11/20/22 11/20/22 11/20/22 Range/Units 10:37 10:37 10:37 WBC (3.8-10.6) k/uL RBC (4.30-5.90) m/uL Hgb (13.0-17.5) gm/dL Hct (39.0-53.0) % Plt Count (150-450) k/uL Retic Count 2.9 H (0.5-2.0) % Glucose (74-99) mg/dL POC Glucose (mg/dL) (70-110) mg/dL Calcium (8.4-10.2) mg/dL Iron 18 L (65-175) UG/DL TIBC 136 L (228-460) UG/DL % Saturation 13.24 L (15.00-50.00) Transferrin 96.8 L (204.0-354.0) mg/dL Ferritin 1185.0 H (22.0-322.0) ng/mL C-Reactive Protein 23.7 H (<1.0) mg/dL Urine Protein (Negative) Urine Ketones (Negative) Urine Blood (Negative) Urine RBC (0-5) /hpf Urine Bacteria (None) /hpf Urine Mucus (None) /hpf 11/20/22 11/21/22 11/21/22 Range/Units 15:20 00:49 06:05 WBC (3.8-10.6) k/uL RBC (4.30-5.90) m/uL Hgb (13.0-17.5) gm/dL Hct (39.0-53.0) % Plt Count (150-450) k/uL Retic Count (0.5-2.0) % Glucose (74-99) mg/dL POC Glucose (mg/dL) 134 H 170 H (70-110) mg/dL Calcium (8.4-10.2) mg/dL Iron (65-175) UG/DL TIBC (228-460) UG/DL % Saturation (15.00-50.00) Transferrin (204.0-354.0) mg/dL Ferritin (22.0-322.0) ng/mL C-Reactive Protein (<1.0) mg/dL Urine Protein 2+ H (Negative) Urine Ketones Trace H (Negative) Urine Blood Small H (Negative) Urine RBC 7 H (0-5) /hpf Urine Bacteria Rare H (None) /hpf Urine Mucus Occasional H (None) /hpf 11/21/22 11/21/22 11/21/22 Range/Units 08:57 08:57 11:33 WBC 13.5 H (3.8-10.6) k/uL RBC 3.30 L (4.30-5.90) m/uL Hgb 10.6 L (13.0-17.5) gm/dL Hct 32.8 L (39.0-53.0) % Plt Count 842 H (150-450) k/uL Retic Count (0.5-2.0) % Glucose 151 H (74-99) mg/dL POC Glucose (mg/dL) 176 H (70-110) mg/dL Calcium 8.3 L (8.4-10.2) mg/dL Iron (65-175) UG/DL TIBC (228-460) UG/DL % Saturation (15.00-50.00) Transferrin (204.0-354.0) mg/dL Ferritin (22.0-322.0) ng/mL C-Reactive Protein 22.4 H (<1.0) mg/dL Urine Protein (Negative) Urine Ketones (Negative) Urine Blood (Negative) Urine RBC (0-5) /hpf Urine Bacteria (None) /hpf Urine Mucus (None) /hpf Microbiology - Last 24 Hours (Table) 11/18/22 09:10 Blood Culture - Preliminary Blood Assessment and Plan (1) Fever Current Visit: Yes Status: Acute Code(s): R50.9 - FEVER, UNSPECIFIED SNOMED Code(s): 656375891 Plan: 1patient with fever elevated white count tachycardia meeting criteria for SIRS./Sepsis in this patient presenting to the hospital with decreased level of responsiveness and fall source possibly abdominal and the patient was noted to have significant abdominal distention however the patient also have mental status changes and neck rigidity 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/encephalitis not ready excluded 2- CT of abdominal pelvis with IV contrast CT did shows circumferential rectal wall thickening correlate for proctitis large stool burden and there was concern for possible incarcerated left inguinal hernia, patient LP was normal.the patient is status post repair of the left inguinal incarcerated hernia 3-the patient did have a new fever and also noticed to have worsening of his white count chest x-ray has been negative possible abdominal source antibiotic has been adjusted to Zosyn, the patient fever pattern has improved and the white count is trending down cultures will be followed and the patient continued on Zosyn Time with Patient: Less than 30
[2022-11-22 00:14] LABS: Glucose,Whole Blood 173 mg/dL (70-110)
[2022-11-22 06:10] LABS: Glucose,Whole Blood 176 mg/dL (70-110)
--- NOTE | 2022-11-22 06:46 | P.PN ---
Progress Note - Text Progress Note Date: 11/21/22 Patient [place] stable. He has no new complaints. On exam vital signs are stable. Abdomen soft. Left inguinal hernia incision is clean dry intact. PEG tube site is clean. Patient will continue supportive care.
[2022-11-22 08:08] LABS: HCT 30.5 % (39.0-53.0); HGB 9.7 gm/dL (13.0-17.5); MCH 30.8 pg (25.0-35.0); MCHC 31.7 g/dL (31.0-37.0); Mean Platelet Volume 7.7; Platelet Count 794 k/uL (150-450); RBC 3.14 m/uL (4.30-5.90); RDW 13.8 % (11.5-15.5); WBC 13.2 k/uL (3.8-10.6)
[2022-11-22 08:24] LABS: African American GFR (CKD) >90 (>60 ml/min/1.73 sqM); Anion Gap 10 mmol/L; Blood Urea Nitrogen 18 mg/dL (9-20); Calcium 8.2 mg/dL (8.4-10.2); Carbon Dioxide 25 mmol/L (22-30); Chloride 102 mmol/L (98-107); Glucose 147 mg/dL (74-99); Non-African American GFR(CKD) >90 (>60 ml/min/1.73 sqM); Potassium 4.4 mmol/L (3.5-5.1); Sodium 137 mmol/L (137-145)
[2022-11-22 08:37] LABS: C Reactive Protein 16.7 mg/dL (<1.0)
[2022-11-22] MEDS: SYMBICORT 160-4.5 MCG INHALER INHALATION SCH ×2 (08:54→21:25)
--- NOTE | 2022-11-22 09:06 | P.PN ---
Progress Note - Text Progress Note Date: 11/22/22 Patient [place] stable. There are no acute changes. His abdomen is soft nontender. Patient is stable for discharge from surgical standpoint
[2022-11-22] MEDS: METOPROLOL TARTRATE 50 MG TAB PO SCH ×2 (09:12→19:46)
[2022-11-22] MEDS: CYANOCOBALAMIN 500 MCG TAB PO SCH (09:12)
[2022-11-22] MEDS: PIPERACILLIN-TAZOBACTAM 3.375 GM in SODIUM CHLORIDE 0.9% 100 ML IVPB SCH ×2 (09:13→16:07)
[2022-11-22] MEDS: FAMOTIDINE 20 MG/2 ML VIAL IV SCH ×2 (09:13→19:47)
[2022-11-22] MEDS: DOCUSATE 100 MG CAP PO SCH ×2 (09:13→19:46)
[2022-11-22] MEDS: PRIMIDONE 50 MG TAB PO SCH ×3 (09:13→19:46)
[2022-11-22] MEDS: amLODIPine 10 MG TAB PO SCH (09:13)
[2022-11-22] MEDS: DICLOFENAC SODIUM GEL 100 GM TUBE TOPICAL SCH ×4 (09:13→19:47)
[2022-11-22] MEDS: MONTELUKAST 10 MG TAB PO SCH (09:13)
[2022-11-22] MEDS: HEPARIN SODIUM,PORCINE/PF 5,000 UNIT/0.5 ML SYRINGE SQ SCH ×2 (09:13→16:06)
[2022-11-22 11:50] LABS: Glucose,Whole Blood 172 mg/dL (70-110)
--- NOTE | 2022-11-22 12:28 | P.PN ---
Subjective Progress Note Date: 11/22/22 72-year-old gentleman with past medical history significant for hypertension, hyperlipidemia, COPD presented to the ER because of altered mental status. Most of the history has been taken from the EMR. Patient was brought in by EMS after being notified by the patient's neighbor who did a wellness check on the patient as he had not seen him in a day.EMS found the patient lying on the floor, patient currently alert to self. Patient was immediately brought to the ER of [facility]. initial lab work done in the ER showedWBC 12.8, hemoglobin 13.8, platelet count 325, sodium 145, potassium 4.1, chloride 110, BUN 35, creatinine 1.29, CK 2741 Chest x-ray negative for acute pulmonary process CT brain showed age-related atrophy, no acute intracranial process Patient was admitted to internal medicine service 11/06/2022 Patient is currently in the telemetry unit. Extremity continues and nonre sponsive. Patient is a lethargic but able to moan and follows simple commands. Rapid response team was called due to unresponsiveness. Patient had CT head done yesterday which showed no acute intracranial hemorrhage or midline shift. There is mild to moderate diffuse cerebral atrophy and chronic small vessel ischemic changes redemonstrated. No significant change from recent prior CT. EEG and MRI was ordered as per neurology recommendations. Patient was also febrile overnight with Tmax 100.8. Currently afebrile. Laboratory data showed WBC 10.8 hemoglobin 13.6 and platelets 262 Sodium 135 potassium 3.3 chloride 97 bicarb is 28, BUN 19 and creatinine 1.05 blood sugar 132 and CPK level trending down to 1164. Bicarb drip has been discontinued. Nephrology and neurology is on board. 11/07/2022 Patient is currently laying in bed. Able to open his eyes better today. Follows simple commands. Still lethargic and sleepy. Overnight patient was febrile again with Tmax of 100.8. 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 Patient was started on broad-spectrum antibiotics. Patient was also noted to have abdominal distention. EEG showed moderate to severe encephalopathic picture. MRI of the brain was done yesterday which showed some age-related atrophy. No acute intracranial process. ID was consulted due to fever and encephalopathy. Laboratory pressure WBC 11.7 hemoglobin 13.5 and platelets 287 Sodium 138 potassium 3.6 chloride 104 bicarb is 21 BUN 21 and creatinine 1.08. Blood sugar is 116 Procalcitonin level is at 0.41. 11/08/2022 Patient is more awake and oriented today. Patient was able to communicate with his sister at bedside. Patient did have fever with Tmax of 101.0 yesterday afternoon. Currently on room air. Patient is able to tolerate liquids with one-to-one feeding. Status post LP today. CT of the abdomen pelvis showed circumferential rectal wall thickening correlate for proctitis. No additional finding within the abdomen or pelvis to explain patient's symptoms. Left inguinal hernia containing loops of sigmoid colon. No evidence for wall thickening suggesting strangulation. Large stool burden throughout the colon. Patient did have multiple episodes of diarrhea yesterday. CT was negative. General surgery was consulted for further evaluation of the abnormal CT. Patient was seen by psychiatry and currently Depakote is on hold at continue with Seroquel as needed. Laboratory data showed WBC 11.2 hemoglobin 12.20 platelets 260 sodium 139 potassium 3.3 which is being replaced BUN 20. Creatinine 1.13 and calcium 8.2. Coronavirus PCR not detected. 11/09/2022 Patient is currently resting in the bed. Awake alert but slow to respond. Mentation is much improved. Feels very weak. Denies any complaints of chest pain or shortness of breath. Patient has been afebrile. Laboratory data showed WBC 10.4 hemoglobin 11.9 platelets 301, sodium 140 potassium 3.6 chloride 107 bicarb is 20 BUN 23 and creatinine 0.94 and blood sugar 116. CRP 44.3. Patient is being continued on antibiotics in the form of cefepime and metronidazole. General surgery is on board. 11/10/2022 Patient is currently lying in the bed. Awake alert but lethargic and weak and drowsy. No complaints of chest pain or shortness of breath. Patient does have left inguinal hernia and possible partially incarcerated. With general surgery is planning for elective repair of hearing on Friday. Otherwise patient is afebrile. Potassium was replaced as per protocol. Laboratory data showed WBC 9.6 hemoglobin 11.1 and platelets 322, sodium 141 po tassium 3.3 chloride 109 bicarb is 21 BUN 22 and creatinine 0.9 and calcium 8.1. 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 His Rhabdomyolysis and tumor improved Patient is planned by surgery team for left inguinal hernia repair tomorrow Today was awake alert lethargic and weak but is improving, this is confirmed with the daughter at bedside nurse, patient he knows in the hospital he knew the year but could not tell them on 4 date and recognize his daughter and he has insight into his illness. He denies any specific complaint. Daughter at bedside thinks he is improving and she is happy with his progress. He still picking up his appetite slowly. He remains on cefepime, IV Flagyl and normal saline and 75 mL/h. Depakote is on hold 11/12/2022 Patient today is awake alert, still very weak generally, he is talking in low voice and looks tired but patient reports improvement compared to yesterday. Patient is improving slowly and gradually. He denies specific complaint however he has poor appetite Patient underwent left inguinal hernia repair today with surgery team Patient methylmalonic acid is still pending for borderline low vitamin B12 Patient remains on cefepime and IV Flagyl. Neurology input is a appreciated and noted Psych consult signed off the case \ 11/13/2022 Patient had left inguinal hernia repair yesterday, today wound is healing and closed with significant tenderness. He still has poor appetite. He didn't have bowel movement, no passing gases. No other new complaint, he is generally weak improving slowly and gradually After the help for discharge in 24-48 hours if his GI function improves and he is able to eat more he is remaining on cefepime and IV Flagyl and normal saline 75 ml/h 11/15/2022 Today patient was noticed to have left upper extremity swelling, ultrasound showed negative for DVT Also patient today. This is still not eating much despite several encouragements, I discussed the case with dietitian, tube feeding could be considered as an option Patient remains confused poor historian and cannot provide much information and answer some of the questions and others does not answer. I discussed the case with bilingual case manager who advised patient has a guardian his niece Martha whom I called at [phone]. I discussed the case with her including his clinical situation, discharge placement and feeding. She will come and visit him tomorrow and she will try to encourage him to eat, she wants to wait for 1-2 days before they decide about tube feeding , patient however able to eat some snacks but apparently is not enough for him. Plan of care discussed with the guardian and she is in agreement As per bilingual case manager it is difficult placement because patient may need long-term placement and not only rehab. however prognosis remains guarded Currently he is kept on cefepime, IV Flagyl normal saline will be discontinued He remains on intravenous vitamin B12 replacement therapy 11/16 No new events, Per DPOA okay for feeding tubeWill consult Surgery 11/17 Right ankle swollen , X ray ordered , Denies pain 11/18 Right ankle x-ray does show joint effusion, no fracture noted. plan discussed with patient power for traffic law attorney and [place] with feeding tube placement general surgery followingNoted to have elevated platelet count peripheral smear ordered 11/19Patient is status post PEG tube placement. Continue IV antibiotics, right ankle swelling improved topical diclofenac ointment ordered 11/20> patient was noted to have fever overnight, repeat blood cultures ordered continue patient on IV antibiotic and patient remains alert and oriented to person 11/21> patient states seen and evaluated bedside, patient is easily arousable however continues to remain confused, did have fever overnight, Care plan discussed with infectious disease recommended with CT abdomen and pelvis with contrast ordered 11/22>> patient continues to remain drowsy however easily arousable. Care plan discussed with infectious disease CT findings were reviewed. Continue patient on IV Zosyn at this point we will continue to monitor blood cultures from 11/20 no growth noted, white blood cell count and CRP levels trending down. Platelet count improving as well. Hematology following likely reactive thrombocytosis noted expected length of stay another 4-5 days Objective - Vital Signs Vital signs: Vital Signs Temp 99.8 F H 11/22/22 08:00 Pulse 90 11/22/22 08:00 Resp 18 11/22/22 08:00 BP 147/76 11/22/22 08:00 Pulse Ox 90 L 11/22/22 08:00 FiO2 21 11/21/22 09:16 Intake & Output 11/21/22 11/22/22 11/22/22 18:59 06:59 18:59 Output Total 1500 300 Balance -1500 -300 Weight 85.5 kg 94 kg Output: Urine 1500 300 Other: Voiding Method External Catheter External Catheter External Catheter # Voids 2 # Bowel Movements 1 1 - Exam GENERAL: The patient is alert and oriented x1 lethargic, not in any acute distress. Appears chronically ill, pale-appearing HEENT: Pupils are round and equally reacting to light. EOMI. No scleral icterus. No conjunctival pallor. Normocephalic, atraumatic CARDIOVASCULAR: S1 and S2 present. No murmurs, rubs, or gallops. PULMONARY: Chest is clear to auscultation, no wheezing . no crackles. ABDOMEN: Soft, nontender, not distended, . No palpable organomegaly. PEG tube in place MUSCULOSKELETAL:Right ankle swelling improved EXTREMITIES: Lower symmetry edema noted NEUROLOGICAL: New baseline, lethargic however easily arousable alert and oriented to person and schedule SKIN: No rashes. no petechiae. - Labs CBC & Chem 7: 11/22/22 07:49 11/22/22 07:49 Labs: Abnormal Lab Results - Last 24 Hours (Table) 11/21/22 11/21/22 11/22/22 Range/Units 08:57 18:18 00:11 WBC (3.8-10.6) k/uL RBC (4.30-5.90) m/uL Hgb (13.0-17.5) gm/dL Hct (39.0-53.0) % Plt Count (150-450) k/uL Creatinine (0.66-1.25) mg/dL Glucose (74-99) mg/dL POC Glucose (mg/dL) 183 H 173 H (70-110) mg/dL Calcium (8.4-10.2) mg/dL C-Reactive Protein (<1.0) mg/dL Procalcitonin 0.19 H (0.02-0.09) ng/mL 11/22/22 11/22/22 11/22/22 Range/Units 06:08 07:49 07:49 WBC 13.2 H (3.8-10.6) k/uL RBC 3.14 L (4.30-5.90) m/uL Hgb 9.7 L (13.0-17.5) gm/dL Hct 30.5 L (39.0-53.0) % Plt Count 794 H (150-450) k/uL Creatinine (0.66-1.25) mg/dL Glucose (74-99) mg/dL POC Glucose (mg/dL) 176 H (70-110) mg/dL Calcium (8.4-10.2) mg/dL C-Reactive Protein (<1.0) mg/dL Procalcitonin 0.15 H (0.02-0.09) ng/mL 11/22/22 11/22/22 Range/Units 07:49 11:48 WBC (3.8-10.6) k/uL RBC (4.30-5.90) m/uL Hgb (13.0-17.5) gm/dL Hct (39.0-53.0) % Plt Count (150-450) k/uL Creatinine 0.62 L (0.66-1.25) mg/dL Glucose 147 H (74-99) mg/dL POC Glucose (mg/dL) 172 H (70-110) mg/dL Calcium 8.2 L (8.4-10.2) mg/dL C-Reactive Protein 16.7 H (<1.0) mg/dL Procalcitonin (0.02-0.09) ng/mL Microbiology - Last 24 Hours (Table) 11/18/22 09:10 Blood Culture - Preliminary Blood 11/20/22 10:59 Blood Culture - Preliminary Blood Assessment and Plan Assessment: Assessment: * Acute metabolic encephalopathy. * Acute Circumferential rectal wall thickening proctitis as per CT * Left inguinal hernia containing sigmoid colon. Possible partial incarcer ation.. Status post hernia repair on 11/12/22 * Severe protein calorie Malnutrition * Bleeker Fever. Status post LP. CSF analysis showed no evidence of infection * Right lower extremity swelling DVT ruled out * Acute rhabdomyolysis resolved * Thrombocytosis reactive * Acute Kidney injury. resolved * History of mood disorder * Hypertension * Hyperlipidemia * COPD * Polypharmacy Plan: * In regards to recurrent fever >>Continue with antibiotic patient received cefepime transitioned to Zosyn on 11/20 > ID following , repeat blood cultures on 11/20 no growth to date, CT abdomen and pelvis completed on 11/21 does show postsurgical changes, however the small fluid collection 2.3 cm noted likely seroma, we'll continue to monitor continue IV Zosyn and follow-up on blood cultures * In regards to dysphagia PEG tube in place>> nutrition to assist with internal feeding * Consultants on the case including ID, neurologist and general surgery * manager environmental health on the case for placement>> patient will need long-term placement * Noted to have elevated platelet count will monitor, seen by hematology likely reactive * Labs and medication were reviewed. * DVT prophylaxis: Subcutaneous heparin * GI Prophylaxis: Pepcid * Not medically ready for discharge, barrier to discharge his recurrent fever will need long-term care Time with Patient: Greater than 30
--- NOTE | 2022-11-22 15:58 | P.PN ---
Subjective Progress Note Date: 11/22/22 Principal diagnosis: Fever Patient is a 72-year-old male presenting to the hospital with mental status changes patient was found to be on the floor and this patient has been running a fever with a CT abdominal pelvis did shows evidence of severe stool burden and initial concern for possible strangulated hernia that has been rule out patient also have LP completed which was normal, a patient is status post left inguinal incarcerated hernia repair completed on 11/12/2022, patient is status post PEG tube placement on 11/19/2022 On today's evaluation that is 11/21/2022 the patient has been afebrile he did spike a fever last sed rate of 101.6 and a low grade fever off 100.7, the patient is slightly lethargic and not a good historian, currently on a 2 L nasal cannula oxygen no vomiting or diarrhea has been reported Objective - Vital Signs Vital signs: Vital Signs Temp 99.8 F H 11/22/22 08:00 Pulse 90 11/22/22 08:00 Resp 18 11/22/22 08:00 BP 147/76 11/22/22 08:00 Pulse Ox 90 L 11/22/22 08:00 FiO2 21 11/21/22 09:16 Intake & Output 11/21/22 11/22/22 11/22/22 18:59 06:59 18:59 Output Total 1500 300 Balance -1500 -300 Weight 85.5 kg 94 kg Output: Urine 1500 300 Other: Voiding Method External Catheter External Catheter External Catheter # Voids 2 # Bowel Movements 1 1 - Exam GENERAL DESCRIPTION: An elderly male lying in bed in no distress RESPIRATORY SYSTEM: Unlabored breathing , decreased breath sounds at bases HEART: S1 S2 regular rate and rhythm , ABDOMEN: Soft , mild distention but no tenderness EXTREMITIES: R ankle with erythma and warmth - Labs CBC & Chem 7: 11/22/22 07:49 11/22/22 07:49 Labs: Abnormal Lab Results - Last 24 Hours (Table) 11/21/22 11/21/22 11/21/22 Range/Units 08:57 08:57 18:18 WBC (3.8-10.6) k/uL RBC (4.30-5.90) m/uL Hgb (13.0-17.5) gm/dL Hct (39.0-53.0) % Plt Count (150-450) k/uL Creatinine (0.66-1.25) mg/dL Glucose (74-99) mg/dL POC Glucose (mg/dL) 183 H (70-110) mg/dL Calcium (8.4-10.2) mg/dL C-Reactive Protein 22.4 H (<1.0) mg/dL Procalcitonin 0.19 H (0.02-0.09) ng/mL 11/22/22 11/22/22 11/22/22 Range/Units 00:11 06:08 07:49 WBC (3.8-10.6) k/uL RBC (4.30-5.90) m/uL Hgb (13.0-17.5) gm/dL Hct (39.0-53.0) % Plt Count (150-450) k/uL Creatinine (0.66-1.25) mg/dL Glucose (74-99) mg/dL POC Glucose (mg/dL) 173 H 176 H (70-110) mg/dL Calcium (8.4-10.2) mg/dL C-Reactive Protein (<1.0) mg/dL Procalcitonin 0.15 H (0.02-0.09) ng/mL 11/22/22 11/22/22 11/22/22 Range/Units 07:49 07:49 11:48 WBC 13.2 H (3.8-10.6) k/uL RBC 3.14 L (4.30-5.90) m/uL Hgb 9.7 L (13.0-17.5) gm/dL Hct 30.5 L (39.0-53.0) % Plt Count 794 H (150-450) k/uL Creatinine 0.62 L (0.66-1.25) mg/dL Glucose 147 H (74-99) mg/dL POC Glucose (mg/dL) 172 H (70-110) mg/dL Calcium 8.2 L (8.4-10.2) mg/dL C-Reactive Protein 16.7 H (<1.0) mg/dL Procalcitonin (0.02-0.09) ng/mL Microbiology - Last 24 Hours (Table) 11/18/22 09:10 Blood Culture - Preliminary Blood 11/20/22 10:59 Blood Culture - Preliminary Blood Assessment and Plan (1) Fever Current Visit: Yes Status: Acute Code(s): R50.9 - FEVER, UNSPECIFIED SNOMED Code(s): 841945547 Plan: 1patient with f incarcerated left inguinal hernia, status post operative repair on 11/12/2022 and subsequently did have a PEG tube placement on 11/19/2022 3-the patient did have a new fever and also noticed to have worsening of his white count patient did have a CT of abdominal pelvis completed on 11/21/2022 concerning for 4.5 cm fluid collection in left inguinal area with a few foci of gas concerning for possible abscess patient benefit from drainage of this fluid and sent for culture with the patient's spike in fever despite being on Zosyn will need to cover for gram-positive we will add daptomycin and see clinical response Time with Patient: Less than 30
[2022-11-22] MEDS: LACTATED RINGERS 1,000 ML IV SCH ×2 (17:20→19:46)
[2022-11-22] MEDS: DAPTOmycin 500 MG in SODIUM CHLORIDE 0.9% 50 ML IVPB SCH (17:28)
[2022-11-22 18:17] LABS: Glucose,Whole Blood 152 mg/dL (70-110)
[2022-11-22] MEDS: LORazepam 0.5 MG TAB PO SCH (19:46)
[2022-11-23 00:04] LABS: Glucose,Whole Blood 134 mg/dL (70-110)
[2022-11-23] MEDS: HEPARIN SODIUM,PORCINE/PF 5,000 UNIT/0.5 ML SYRINGE SQ SCH ×3 (01:03→15:09)
[2022-11-23] MEDS: PIPERACILLIN-TAZOBACTAM 3.375 GM in SODIUM CHLORIDE 0.9% 100 ML IVPB SCH ×3 (01:04→15:23)
[2022-11-23 05:56] LABS: Glucose,Whole Blood 197 mg/dL (70-110)
[2022-11-23] MEDS: SYMBICORT 160-4.5 MCG INHALER INHALATION SCH ×2 (08:59→21:06)
[2022-11-23] MEDS: PRIMIDONE 50 MG TAB PO SCH ×3 (09:12→19:47)
[2022-11-23] MEDS: amLODIPine 10 MG TAB PO SCH (09:12)
[2022-11-23] MEDS: DOCUSATE 100 MG CAP PO SCH ×2 (09:12→19:47)
[2022-11-23] MEDS: FAMOTIDINE 20 MG/2 ML VIAL IV SCH ×2 (09:12→19:47)
[2022-11-23] MEDS: CYANOCOBALAMIN 500 MCG TAB PO SCH (09:12)
[2022-11-23] MEDS: MONTELUKAST 10 MG TAB PO SCH (09:12)
[2022-11-23] MEDS: DICLOFENAC SODIUM GEL 100 GM TUBE TOPICAL SCH ×4 (09:12→20:10)
[2022-11-23] MEDS: METOPROLOL TARTRATE 50 MG TAB PO SCH ×2 (09:12→19:47)
[2022-11-23] MEDS: HYDROcodone/APAP 7.5-325MG 1 EACH TAB PO PRN (09:28)
[2022-11-23] MEDS: ACETAMINOPHEN TAB 500 MG TAB PO PRN (09:28)
[2022-11-23 09:38] LABS: HCT 31.8 % (39.0-53.0); HGB 10.1 gm/dL (13.0-17.5); MCH 31.5 pg (25.0-35.0); MCHC 31.8 g/dL (31.0-37.0); MCV 98.9 fL (80.0-100.0); Mean Platelet Volume 7.8; Platelet Count 801 k/uL (150-450); RBC 3.21 m/uL (4.30-5.90); RDW 13.7 % (11.5-15.5); WBC 12.1 k/uL (3.8-10.6)
--- NOTE | 2022-11-23 09:55 | P.PN ---
Subjective Progress Note Date: 11/23/22 Principal diagnosis: Fever Patient is a 72-year-old male presenting to the hospital with mental status changes patient was found to be on the floor and this patient has been running a fever with a CT abdominal pelvis did shows evidence of severe stool burden and initial concern for possible strangulated hernia that has been rule out patient also have LP completed which was normal, a patient is status post left inguinal incarcerated hernia repair completed on 11/12/2022, patient is status post PEG tube placement on 11/19/2022 On today's evaluation that is 11/23/2022 the patient fever pattern has improved and did have a low-grade fever this morning the patient is more awake and alert is breathing comfortably no chest pain or shortness of breath or cough reported no abdominal pain or vomiting Objective - Vital Signs Vital signs: Vital Signs Temp 99.3 F 11/23/22 04:00 Pulse 81 11/23/22 04:00 Resp 19 11/23/22 04:00 BP 127/72 11/23/22 04:00 Pulse Ox 97 11/23/22 04:00 FiO2 21 11/21/22 09:16 Intake & Output 11/22/22 11/23/22 11/23/22 18:59 06:59 18:59 Output Total 100 800 Balance -100 -800 Output: Urine 100 800 Other: Voiding Method External Catheter External Catheter # Voids 1 # Bowel Movements 1 - Exam GENERAL DESCRIPTION: An elderly male lying in bed in no distress RESPIRATORY SYSTEM: Unlabored breathing , decreased breath sounds at bases HEART: S1 S2 regular rate and rhythm , ABDOMEN: Soft , mild distention but no tenderness EXTREMITIES: R ankle with erythma and warmth - Labs CBC & Chem 7: 11/23/22 08:55 11/22/22 07:49 Labs: Abnormal Lab Results - Last 24 Hours (Table) 11/22/22 11/22/22 11/22/22 Range/Units 07:49 07:49 07:49 WBC 13.2 H (3.8-10.6) k/uL RBC 3.14 L (4.30-5.90) m/uL Hgb 9.7 L (13.0-17.5) gm/dL Hct 30.5 L (39.0-53.0) % Plt Count 794 H (150-450) k/uL Creatinine 0.62 L (0.66-1.25) mg/dL Glucose 147 H (74-99) mg/dL POC Glucose (mg/dL) (70-110) mg/dL Calcium 8.2 L (8.4-10.2) mg/dL C-Reactive Protein 16.7 H (<1.0) mg/dL Procalcitonin 0.15 H (0.02-0.09) ng/mL 11/22/22 11/22/22 11/23/22 Range/Units 11:48 18:15 00:03 WBC (3.8-10.6) k/uL RBC (4.30-5.90) m/uL Hgb (13.0-17.5) gm/dL Hct (39.0-53.0) % Plt Count (150-450) k/uL Creatinine (0.66-1.25) mg/dL Glucose (74-99) mg/dL POC Glucose (mg/dL) 172 H 152 H 134 H (70-110) mg/dL Calcium (8.4-10.2) mg/dL C-Reactive Protein (<1.0) mg/dL Procalcitonin (0.02-0.09) ng/mL 11/23/22 Range/Units 05:55 WBC (3.8-10.6) k/uL RBC (4.30-5.90) m/uL Hgb (13.0-17.5) gm/dL Hct (39.0-53.0) % Plt Count (150-450) k/uL Creatinine (0.66-1.25) mg/dL Glucose (74-99) mg/dL POC Glucose (mg/dL) 197 H (70-110) mg/dL Calcium (8.4-10.2) mg/dL C-Reactive Protein (<1.0) mg/dL Procalcitonin (0.02-0.09) ng/mL Assessment and Plan (1) Fever Current Visit: Yes Status: Acute Code(s): R50.9 - FEVER, UNSPECIFIED SNOMED Code(s): 680924212 Plan: 1patient with f incarcerated left inguinal hernia, status post operative repair on 11/12/2022 and subsequently did have a PEG tube placement on 11/19/2022 3-the patient did have a new fever and also noticed to have worsening of his white count patient did have a CT of abdominal pelvis completed on 11/21/2022 concerning for 4.5 cm fluid collection in left inguinal area with a few foci of gas concerning for possible abscess patient benefit from drainage of this fluid, surgery is following the patient the patient fever and white count has responded to addition of daptomycin which should be continued along with Zosyn and monitor clinical course closely Time with Patient: Less than 30
[2022-11-23 09:56] LABS: African American GFR (CKD) >90 (>60 ml/min/1.73 sqM); Anion Gap 8 mmol/L; Blood Urea Nitrogen 16 mg/dL (9-20); Calcium 8.2 mg/dL (8.4-10.2); Carbon Dioxide 28 mmol/L (22-30); Chloride 100 mmol/L (98-107); Glucose 165 mg/dL (74-99); Non-African American GFR(CKD) >90 (>60 ml/min/1.73 sqM); Potassium 4.8 mmol/L (3.5-5.1); Sodium 136 mmol/L (137-145)
[2022-11-23 12:03] LABS: Glucose,Whole Blood 204 mg/dL (70-110)
[2022-11-23] MEDS ORDERED: DEXTROSE 50% SYRINGE 50 ML IVP PRN ×2 (13:21)
[2022-11-23] MEDS ORDERED: INSULIN ASPART (NovoLOG) 100 UNIT/ML VIAL SQ SCH (13:30)
--- NOTE | 2022-11-23 14:46 | XR ---
EXAMINATION TYPE: XR chest 1V DATE OF EXAM: 11/23/2022 COMPARISON: 11/20/2022 HISTORY: 72-year-old male aspiration, shortness of breath TECHNIQUE: Single frontal view of the chest is obtained. FINDINGS: Heart mildly enlarged. Interstitial prominence is unchanged. No new consolidation or pleur al effusion. IMPRESSION: Stable exam with mild cardiomegaly and interstitial prominence. No acute change identifi ed.
[2022-11-23] MEDS: LACTATED RINGERS 1,000 ML IV SCH (15:23)
[2022-11-23] MEDS: DAPTOmycin 500 MG in SODIUM CHLORIDE 0.9% 50 ML IVPB SCH (15:24)
[2022-11-23 17:06] LABS: Glucose,Whole Blood 166 mg/dL (70-110)
[2022-11-23] MEDS: INSULIN ASPART (NovoLOG) 100 UNIT/ML VIAL SQ SCH (17:10)
[2022-11-23] MEDS: LORazepam 0.5 MG TAB PO SCH (19:47)
[2022-11-24 00:39] LABS: Glucose,Whole Blood 206 mg/dL (70-110)
[2022-11-24] MEDS: HEPARIN SODIUM,PORCINE/PF 5,000 UNIT/0.5 ML SYRINGE SQ SCH ×3 (01:11→16:12)
[2022-11-24] MEDS: PIPERACILLIN-TAZOBACTAM 3.375 GM in SODIUM CHLORIDE 0.9% 100 ML IVPB SCH ×3 (01:12→16:13)
[2022-11-24] MEDS: INSULIN ASPART (NovoLOG) 100 UNIT/ML VIAL SQ SCH ×4 (01:13→18:09)
[2022-11-24] MEDS: LACTATED RINGERS 1,000 ML IV SCH ×2 (01:15→12:43)
[2022-11-24 05:57] LABS: Glucose,Whole Blood 190 mg/dL (70-110)
[2022-11-24] MEDS: SYMBICORT 160-4.5 MCG INHALER INHALATION SCH ×2 (08:01→21:34)
[2022-11-24] MEDS: amLODIPine 10 MG TAB PO SCH (08:49)
[2022-11-24] MEDS: MONTELUKAST 10 MG TAB PO SCH (08:49)
[2022-11-24] MEDS: PRIMIDONE 50 MG TAB PO SCH ×3 (08:49→21:24)
[2022-11-24] MEDS: DOCUSATE 100 MG CAP PO SCH ×2 (08:49→21:24)
[2022-11-24] MEDS: FAMOTIDINE 20 MG/2 ML VIAL IV SCH ×2 (08:49→21:24)
[2022-11-24] MEDS: CYANOCOBALAMIN 500 MCG TAB PO SCH (08:49)
[2022-11-24] MEDS: METOPROLOL TARTRATE 50 MG TAB PO SCH ×2 (08:50→21:24)
[2022-11-24] MEDS: DICLOFENAC SODIUM GEL 100 GM TUBE TOPICAL SCH ×4 (08:50→21:24)
[2022-11-24 12:04] LABS: Glucose,Whole Blood 218 mg/dL (70-110)
--- NOTE | 2022-11-24 14:28 | P.PN ---
Subjective Progress Note Date: 11/23/22 72-year-old gentleman with past medical history significant for hypertension, hyperlipidemia, COPD presented to the ER because of altered mental status. Most of the history has been taken from the EMR. Patient was brought in by EMS after being notified by the patient's neighbor who did a wellness check on the patient as he had not seen him in a day.EMS found the patient lying on the floor, patient currently alert to self. Patient was immediately brought to the ER of [facility]. initial lab work done in the ER showedWBC 12.8, hemoglobin 13.8, platelet count 325, sodium 145, potassium 4.1, chloride 110, BUN 35, creatinine 1.29, CK 2741 Chest x-ray negative for acute pulmonary process CT brain showed age-related atrophy, no acute intracranial process Patient was admitted to internal medicine service 11/16 No new events, Per DPOA okay for feeding tubeWill consult Surgery 11/17 Right ankle swollen , X ray ordered , Denies pain 11/18 Right ankle x-ray does show joint effusion, no fracture noted. plan discussed with patient power for collections attorney and [place]kelechi with feeding tube placement g eneral surgery followingNoted to have elevated platelet count peripheral smear ordered 11/19Patient is status post PEG tube placement. Continue IV antibiotics, right ankle swelling improved topical diclofenac ointment ordered 11/20> patient was noted to have fever overnight, repeat blood cultures ordered continue patient on IV antibiotic and patient remains alert and oriented to person 11/21> patient states seen and evaluated bedside, patient is easily arousable however continues to remain confused, did have fever overnight, Care plan discussed with infectious disease recommended with CT abdomen and pelvis with contrast ordered 11/22>> patient continues to remain drowsy however easily arousable. Care plan discussed with infectious disease CT findings were reviewed. Continue patient on IV Zosyn at this point we will continue to monitor blood cultures from 11/20 no growth noted, white blood cell count and CRP levels trending down. Platelet count improving as well. Hematology following likely reactive thrombocytosis noted expected length of stay another 4-5 days 11/23/2022 patient with incarcerated left inguinal hernia, status post operative repair on 11/12/2022 and subsequently did have a PEG tube placement on 11/19/2022 -the patient did have a new fever and also noticed to have worsening of his white count patient did have a CT of abdominal pelvis completed on 11/21/2022 concerning for 4.5 cm fluid collection in left inguinal area with a few foci of gas concerning for possible abscess patient benefit from drainage of this fluid, surgery is following the patient the patient fever and white count has responded to addition of daptomycin which should be continued along with Zosyn and monitor clinical course closely Time with Patient: Less than 30 Objective - Vital Signs Vital signs: Vital Signs Temp 98.9 F 11/23/22 12:00 Pulse 68 11/23/22 13:52 Resp 18 11/23/22 13:52 BP 120/66 11/23/22 12:00 Pulse Ox 97 11/23/22 12:00 FiO2 21 11/21/22 09:16 Intake & Output 11/22/22 11/23/22 11/23/22 18:59 06:59 18:59 Output Total 100 800 Balance -100 -800 Output: Urine 100 800 Other: Voiding Method External Catheter External Catheter External Catheter # Voids 1 # Bowel Movements 1 - Exam GENERAL: The patient is alert and oriented x1 lethargic, not in any acute distress. Appears chronically ill, pale-appearing HEENT: Pupils are round and equally reacting to light. EOMI. No scleral icterus. No conjunctival pallor. Normocephalic, atraumatic CARDIOVASCULAR: S1 and S2 present. No murmurs, rubs, or gallops. PULMONARY: Chest is clear to auscultation, no wheezing . no crackles. ABDOMEN: Soft, nontender, not distended, . No palpable organomegaly. PEG tube in place MUSCULOSKELETAL:Right ankle swelling improved EXTREMITIES: Lower symmetry edema noted NEUROLOGICAL: New baseline, lethargic however easily arousable alert and oriented to person and schedule SKIN: No rashes. no petechiae. - Labs CBC & Chem 7: 11/23/22 08:55 11/23/22 08:55 Labs: Abnormal Lab Results - Last 24 Hours (Table) 11/22/22 11/23/22 11/23/22 Range/Units 18:15 00:03 05:55 WBC (3.8-10.6) k/uL RBC (4.30-5.90) m/uL Hgb (13.0-17.5) gm/dL Hct (39.0-53.0) % Plt Count (150-450) k/uL Sodium (137-145) mmol/L Creatinine (0.66-1.25) mg/dL Glucose (74-99) mg/dL POC Glucose (mg/dL) 152 H 134 H 197 H (70-110) mg/dL Calcium (8.4-10.2) mg/dL 11/23/22 11/23/22 11/23/22 Range/Units 08:55 08:55 12:01 WBC 12.1 H (3.8-10.6) k/uL RBC 3.21 L (4.30-5.90) m/uL Hgb 10.1 L (13.0-17.5) gm/dL Hct 31.8 L (39.0-53.0) % Plt Count 801 H (150-450) k/uL Sodium 136 L (137-145) mmol/L Creatinine 0.62 L (0.66-1.25) mg/dL Glucose 165 H (74-99) mg/dL POC Glucose (mg/dL) 204 H (70-110) mg/dL Calcium 8.2 L (8.4-10.2) mg/dL Assessment and Plan Assessment: * Acute metabolic encephalopathy. * Acute Circumferential rectal wall thickening proctitis as per CT * Left inguinal hernia containing sigmoid colon. Possible partial incarceration.. Status post hernia repair on 11/12/22 * Severe protein calorie Malnutrition * Bleeker Fever. Status post LP. CSF analysis showed no evidence of infection * Right lower extremity swelling DVT ruled out * Acute rhabdomyolysis resolved * Thrombocytosis reactive * Acute Kidney injury. resolved * History of mood disorder * Hypertension * Hyperlipidemia * COPD * Polypharmacy Plan: * In regards to recurrent fever >>Continue with antibiotic patient received cefepime transitioned to Zosyn on 11/20 > ID following , repeat blood cultures on 11/20 no growth to date, CT abdomen and pelvis completed on 11/21 does show postsurgical changes, however the small fluid collection 2.3 cm noted likely seroma, we'll continue to monitor continue IV Zosyn and follow-up on blood cultures * In regards to dysphagia PEG tube in place>> nutrition to assist with internal feeding * Consultants on the case including ID, neurologist and general surgery * bid manager on the case for placement>> patient will need long-term placement * Noted to have elevated platelet count will monitor, seen by hematology likely reactive * Labs and medication were reviewed. * DVT prophylaxis: Subcutaneous heparin * GI Prophylaxis: Pepcid * Not medically ready for discharge, barrier to discharge his recurrent fever will need long-term care
[2022-11-24] MEDS: DAPTOmycin 500 MG in SODIUM CHLORIDE 0.9% 50 ML IVPB SCH (16:16)
[2022-11-24 18:05] LABS: Glucose,Whole Blood 186 mg/dL (70-110)
[2022-11-24 18:45] LABS: Glucose,Whole Blood 159 mg/dL (70-110)
[2022-11-24] MEDS: LORazepam 0.5 MG TAB PO SCH (21:24)
[2022-11-25 00:03] LABS: Glucose,Whole Blood 191 mg/dL (70-110)
[2022-11-25] MEDS: INSULIN ASPART (NovoLOG) 100 UNIT/ML VIAL SQ SCH ×4 (00:21→18:13)
[2022-11-25] MEDS: HEPARIN SODIUM,PORCINE/PF 5,000 UNIT/0.5 ML SYRINGE SQ SCH ×3 (00:21→15:24)
[2022-11-25] MEDS: PIPERACILLIN-TAZOBACTAM 3.375 GM in SODIUM CHLORIDE 0.9% 100 ML IVPB SCH ×3 (00:21→15:24)
[2022-11-25] MEDS: LACTATED RINGERS 1,000 ML IV SCH ×2 (03:50→20:35)
[2022-11-25 06:00] LABS: Glucose,Whole Blood 214 mg/dL (70-110)
[2022-11-25] MEDS: ACETAMINOPHEN TAB 500 MG TAB PO PRN ×2 (06:12→21:00)
[2022-11-25 08:28] LABS: Basophils % (A) 0 %; Eosinophils # (A) 0.2 k/uL (0-0.7); Eosinophils % (A) 2 %; HCT 31.9 % (39.0-53.0); HGB 10.1 gm/dL (13.0-17.5); Lymphocytes # (A) 1.5 k/uL (1.0-4.8); Lymphocytes % (A) 13 %; MCH 30.7 pg (25.0-35.0); MCHC 31.7 g/dL (31.0-37.0); Mean Platelet Volume 7.8; Monocytes # (A) 0.7 k/uL (0-1.0); Monocytes % (A) 6 %; Neutrophils % (A) 78 %; Platelet Count 601 k/uL (150-450); RBC 3.29 m/uL (4.30-5.90); RDW 13.8 % (11.5-15.5); WBC 11.6 k/uL (3.8-10.6)
[2022-11-25] MEDS: SYMBICORT 160-4.5 MCG INHALER INHALATION SCH ×2 (08:40→21:50)
[2022-11-25 08:46] LABS: African American GFR (CKD) >90 (>60 ml/min/1.73 sqM); Anion Gap 9 mmol/L; Blood Urea Nitrogen 17 mg/dL (9-20); Calcium 8.5 mg/dL (8.4-10.2); Carbon Dioxide 25 mmol/L (22-30); Chloride 99 mmol/L (98-107); Glucose 175 mg/dL (74-99); Non-African American GFR(CKD) >90 (>60 ml/min/1.73 sqM); Potassium 4.9 mmol/L (3.5-5.1); Sodium 133 mmol/L (137-145)
[2022-11-25] MEDS: amLODIPine 10 MG TAB PO SCH (09:51)
[2022-11-25] MEDS: CYANOCOBALAMIN 500 MCG TAB PO SCH (09:51)
[2022-11-25] MEDS: MONTELUKAST 10 MG TAB PO SCH (09:51)
[2022-11-25] MEDS: METOPROLOL TARTRATE 50 MG TAB PO SCH ×2 (09:51→20:42)
[2022-11-25] MEDS: PRIMIDONE 50 MG TAB PO SCH ×3 (09:51→20:42)
[2022-11-25] MEDS: FAMOTIDINE 20 MG/2 ML VIAL IV SCH ×2 (09:52→20:42)
[2022-11-25] MEDS: DICLOFENAC SODIUM GEL 100 GM TUBE TOPICAL SCH ×4 (09:52→20:43)
[2022-11-25] MEDS: DOCUSATE 100 MG CAP PO SCH ×2 (09:52→20:42)
[2022-11-25 11:42] LABS: Glucose,Whole Blood 202 mg/dL (70-110)
--- NOTE | 2022-11-25 15:23 | P.PN ---
Subjective Progress Note Date: 11/25/22 This is a 72 year old male who is admitted for altered mental status and rhabdomyolysis patient was found down. Rhabo has resolved, mentation has improved. Patient is currently postoperative day #13 left inguinal hernia repair for an incarcerated hernia, continues with midline drainage bag. Patient underwe nt PEG tube placement d/t dysphagia and is currently receiving enteral feedings with jevity 1.5 and running at goal of 45 mls/hr with 30 ml free water flush every 4 hrs. Patient is being followed by EDUCATIONAL RESOURCE COORDINATOR and continues on pureed dysphagia diet with nectar thick liquids and 1:1 supervision, aspiration precautions. Patient is alert x 2 and quite fatigued. He is working with PT/OT and currently a total assist will require subacute rehab on discharge was unable to tolerate standing at the bedside today. Blood cultures remain negative. White count is 11.6 today, sodium 133. Patient remains febrile up to 100.0 today, likely due to decreased inspiratory effort and needs assistance and encouragement to use incentive spirometer. Chest xray is stable. Review of Systems Constitutional: Reports fatigue Cardio vascular: denied any chest pain, palpitations Gastrointestinal: denied any nausea, vomiting, diarrhea, reports abdominal pain Pulmonary: Denied any shortness of breath cough Neurologic: denied any new focal deficits, All inpatient medications were reviewed and appropriate changes in these medications as dictated in the interval history and assessment and plan. PHYSICAL EXAMINATION: GENERAL: The patient is alert and oriented x2, not in any acute distress. Well developed, well nourished. Fatigued. Ill appearing, thin built. HEENT: Pupils are round and equally reacting to light. EOMI. No scleral icterus. No conjunctival pallor. Normocephalic, atraumatic. No pharyngeal erythema. No thyromegaly. CARDIOVASCULAR: S1 and S2 present. No murmurs, rubs, or gallops. PULMONARY: Chest is clear to auscultation, no wheezing or crackles. ABDOMEN: Soft, tender, nondistended, normoactive bowel sounds. Postsurgical with midline incision. MUSCULOSKELETAL: No joint swelling or deformity. EXTREMITIES: No cyanosis, clubbing, or pedal edema. NEUROLOGICAL: Diffuse generalized weakness. SKIN: No rashes. Assessment Altered mental status from metabolic and toxic encephalopathy/ unknown downtime at home with rhabdomyolysis on admission Status post left inguinal incarcerated hernia repair POD # 13 Continued fever and leukocytosis, with 4.6 cm area of possible abscess/hematoma on CT imaging Severe protein calorie malnutrition and dysphagia status post PEG tube placement Proctitis on admission Large stool burden and fecaloma resolved Left iliac bone/right initial tuberosity sclerotic foci benign vs. underlying metastasis found on CT imaging Acute kidney injury, resolved History of mood disorder Hypertension Hyperlipidemia COPD with no acute exacerbation GI prophylaxis DVT prophylaxis Plan Patient is pending ECF placement and pending f/u notes by social work regarding DC planning. Continue on IV antibiotics with further recommendations by ID Neurology recommending outpatient f/u with Dr. Trimble or Jose on DC and also NEO scan outpatient to r/o Parkinson's. Sinemet has been discontinued. Depakote has been stopped due to tremor. Continue to work with PT/OT daily and encourage increase activity level Encourage IS . F/u labs in the AM The impression and plan of care has been dictated by Indira Miner, Nurse Practitioner as directed. Dr. Lauren MD I have performed a history and physical examination and medical decision making of this patient, discussed the same with the dictator, and agree with the dictators assessment and plan as written, documented as a scribe. Based on total visit time, I have performed more than 50% of this visit. Objective - Vital Signs Vital signs: Vital Signs Temp 100.0 F H 11/25/22 03:49 Pulse 88 11/25/22 03:49 Resp 17 11/25/22 03:49 BP 149/76 11/25/22 03:49 Pulse Ox 92 L 11/25/22 08:44 FiO2 21 11/21/22 09:16 Intake & Output 11/24/22 11/25/22 11/25/22 18:59 06:59 18:59 Intake Total 1560 Output Total 600 1150 Balance -600 410 Intake: IV 900 Lactated Ringers 1,000 ml 900 @ 75 mls/hr IV .[id number] ESSIE Rx#:[id number] Tube Feeding 540 Other 120 Output: Urine 600 1150 Other: Voiding Method External Catheter External Catheter # Bowel Movements 1 1 - Labs CBC & Chem 7: 11/25/22 07:46 11/25/22 07:46 Labs: Abnormal Lab Results - Last 24 Hours (Table) 11/24/22 11/24/22 11/24/22 Range/Units 12:03 18:03 18:43 WBC (3.8-10.6) k/uL RBC (4.30-5.90) m/uL Hgb (13.0-17.5) gm/dL Hct (39.0-53.0) % Plt Count (150-450) k/uL Neutrophils # (1.3-7.7) k/uL Sodium (137-145) mmol/L Creatinine (0.66-1.25) mg/dL Glucose (74-99) mg/dL POC Glucose (mg/dL) 218 H 186 H 159 H (70-110) mg/dL 11/25/22 11/25/22 11/25/22 Range/Units 00:01 05:59 07:46 WBC 11.6 H (3.8-10.6) k/uL RBC 3.29 L (4.30-5.90) m/uL Hgb 10.1 L (13.0-17.5) gm/dL Hct 31.9 L (39.0-53.0) % Plt Count 601 H (150-450) k/uL Neutrophils # 9.0 H (1.3-7.7) k/uL Sodium (137-145) mmol/L Creatinine (0.66-1.25) mg/dL Glucose (74-99) mg/dL POC Glucose (mg/dL) 191 H 214 H (70-110) mg/dL 11/25/22 Range/Units 07:46 WBC (3.8-10.6) k/uL RBC (4.30-5.90) m/uL Hgb (13.0-17.5) gm/dL Hct (39.0-53.0) % Plt Count (150-450) k/uL Neutrophils # (1.3-7.7) k/uL Sodium 133 L (137-145) mmol/L Creatinine 0.65 L (0.66-1.25) mg/dL Glucose 175 H (74-99) mg/dL POC Glucose (mg/dL) (70-110) mg/dL Microbiology - Last 24 Hours (Table) 11/21/22 23:15 Blood Culture - Preliminary Blood Assessment and Plan Time with Patient: Less than 30
[2022-11-25] MEDS: DAPTOmycin 500 MG in SODIUM CHLORIDE 0.9% 50 ML IVPB SCH (17:03)
[2022-11-25 17:53] LABS: Glucose,Whole Blood 196 mg/dL (70-110)
[2022-11-25] MEDS: LORazepam 0.5 MG TAB PO SCH (20:42)
[2022-11-26 00:02] LABS: Glucose,Whole Blood 192 mg/dL (70-110)
[2022-11-26] MEDS: PIPERACILLIN-TAZOBACTAM 3.375 GM in SODIUM CHLORIDE 0.9% 100 ML IVPB SCH ×3 (00:13→15:59)
[2022-11-26] MEDS: HEPARIN SODIUM,PORCINE/PF 5,000 UNIT/0.5 ML SYRINGE SQ SCH ×3 (00:13→15:59)
[2022-11-26] MEDS: INSULIN ASPART (NovoLOG) 100 UNIT/ML VIAL SQ SCH ×4 (00:13→18:00)
[2022-11-26 05:47] LABS: Glucose,Whole Blood 221 mg/dL (70-110)
[2022-11-26] MEDS: LACTATED RINGERS 1,000 ML IV SCH (06:31)
[2022-11-26 07:33] LABS: Basophils % (A) 0 %; Eosinophils # (A) 0.3 k/uL (0-0.7); Eosinophils % (A) 2 %; HCT 32.9 % (39.0-53.0); HGB 10.6 gm/dL (13.0-17.5); Lymphocytes # (A) 1.6 k/uL (1.0-4.8); Lymphocytes % (A) 12 %; MCH 31.6 pg (25.0-35.0); MCHC 32.2 g/dL (31.0-37.0); MCV 98.2 fL (80.0-100.0); Mean Platelet Volume 7.7; Monocytes # (A) 0.5 k/uL (0-1.0); Monocytes % (A) 4 %; Neutrophils # (A) 10.3 k/uL (1.3-7.7); Neutrophils % (A) 80 %; Platelet Count 597 k/uL (150-450); RBC 3.35 m/uL (4.30-5.90); RDW 13.8 % (11.5-15.5); WBC 12.9 k/uL (3.8-10.6)
[2022-11-26] MEDS: SYMBICORT 160-4.5 MCG INHALER INHALATION SCH ×2 (07:52→21:46)
[2022-11-26 07:55] LABS: African American GFR (CKD) >90 (>60 ml/min/1.73 sqM); Anion Gap 11 mmol/L; Blood Urea Nitrogen 18 mg/dL (9-20); Calcium 8.6 mg/dL (8.4-10.2); Carbon Dioxide 23 mmol/L (22-30); Chloride 99 mmol/L (98-107); Glucose 169 mg/dL (74-99); Non-African American GFR(CKD) >90 (>60 ml/min/1.73 sqM); Potassium 4.9 mmol/L (3.5-5.1); Sodium 133 mmol/L (137-145)
[2022-11-26] MEDS: METOPROLOL TARTRATE 50 MG TAB PO SCH ×2 (09:45→20:22)
[2022-11-26] MEDS: amLODIPine 10 MG TAB PO SCH (09:45)
[2022-11-26] MEDS: MONTELUKAST 10 MG TAB PO SCH (09:45)
[2022-11-26] MEDS: PRIMIDONE 50 MG TAB PO SCH ×3 (09:45→20:22)
[2022-11-26] MEDS: CYANOCOBALAMIN 500 MCG TAB PO SCH (09:45)
[2022-11-26] MEDS: SODIUM CHLORIDE 0.9% 1,000 ML IV SCH ×2 (09:45→23:26)
[2022-11-26] MEDS: DOCUSATE 100 MG CAP PO SCH ×2 (09:46→20:22)
[2022-11-26] MEDS: DICLOFENAC SODIUM GEL 100 GM TUBE TOPICAL SCH ×4 (09:47→20:23)
[2022-11-26] MEDS: FAMOTIDINE 20 MG/2 ML VIAL IV SCH ×2 (09:47→20:22)
[2022-11-26 11:39] LABS: Glucose,Whole Blood 154 mg/dL (70-110)
--- NOTE | 2022-11-26 11:40 | XR ---
EXAMINATION TYPE: XR chest 1V portable DATE OF EXAM: 11/26/2022 11:34 AM COMPARISON: Chest radiographs from 11/23/2022 TECHNIQUE: XR chest 1V portable Portable AP radiograph of the chest. CLINICAL INDICATION:Male, 72 years old with history of possible aspiration; FINDINGS: Patient is rotated which limits evaluation. Lungs/Pleura: There is no evidence of pleural effusion, focal consolidation, or pneumothorax. Linear atelectasis within the right lung base. Pulmonary vascularity: Unremarkable. Heart/mediastinum: Cardiomediastinal silhouette is prominent in size. Musculoskeletal: No acute osseous pathology. IMPRESSION: Linear atelectasis within the right lung base. No focal consolidation.
--- NOTE | 2022-11-26 13:45 | P.PN ---
Subjective Progress Note Date: 11/26/22 This is a 72 year old male who is admitted for altered mental status and rhabdomyolysis patient was found down. Rhabo has resolved, mentation has improved. Patient is currently postoperative day #13 left inguinal hernia repair for an incarcerated hernia, continues with midline drainage bag. Patient underwe nt PEG tube placement d/t dysphagia and is currently receiving enteral feedings with jevity 1.5 and running at goal of 45 mls/hr with 30 ml free water flush every 4 hrs. Patient is being followed by [facility] and continues on pureed dysphagia diet with nectar thick liquids and 1:1 supervision, aspiration precautions. Patient is alert x 2 and quite fatigued. He is working with PT/OT and currently a total assist will require subacute rehab on discharge was unable to tolerate standing at the bedside today. Blood cultures remain negative. White count is 11.6 today, sodium 133. Patient remains febrile up to 100.0 today, likely due to decreased inspiratory effort and needs assistance and encouragement to use incentive spirometer. Chest xray is stable. 11/26/2022 Patient is evaluated today on the step-down unit and appears more fatigued than yesterday. Abdomen is more distended and bowel sounds are hypoactive today. Abdominal xray is ordered. General surgery has been re-consulted for further evaluation of the abdominal distention. There was concern patient continues to aspirate on the pureed diet which [facility] was consulted and follow up today confirms patient is aspirating. Patient is more fatigued and total care at this point unable to participate in ADLS and unable to perform IS. Patient has white count of 12.9, fever T-Max overnight of 100.0. Glucose in the 150s. Patient will be given normal saline IV hydration today. Pending input from ID and surgery. Updated gadiel Thomas over the phone who has legal guardianship, regarding hospice care. Per the Neice she will be reaching out to his and daughter and will f/u. Review of Systems Constitutional: Reports fatigue Cardio vascular: denied any chest pain, palpitations Gastrointestinal: denied any nausea, vomiting, diarrhea Pulmonary: Denied any shortness of breath cough Neurologic: denied any new focal deficits, All inpatient medications were reviewed and appropriate changes in these medications as dictated in the interval history and assessment and plan. PHYSICAL EXAMINATION: GENERAL: The patient is alert and oriented x2, not in any acute distress. Well developed, well nourished. Fatigued. Ill appearing, thin built. HEENT: Pupils are round and equally reacting to light. EOMI. No scleral icterus. No conjunctival pallor. Normocephalic, atraumatic. No pharyngeal erythema. No thyromegaly. CARDIOVASCULAR: S1 and S2 present. No murmurs, rubs, or gallops. PULMONARY: Chest is clear to auscultation, no wheezing or crackles. ABDOMEN: Soft, tender, distended, hypoactive bowel sounds. Postsurgical with midline incision. MUSCULOSKELETAL: No joint swelling or deformity. EXTREMITIES: No cyanosis, clubbing, or pedal edema. NEUROLOGICAL: Diffuse generalized weakness. SKIN: No rashes. Assessment Altered mental status from metabolic and toxic encephalopathy/ unknown downtime at home with rhabdomyolysis on admission Status post left inguinal incarcerated hernia repair POD # 14 Continued fever and leukocytosis, with 4.6 cm area of possible abscess/hematoma on CT imaging Severe protein calorie malnutrition and dysphagia status post PEG tube placement Proctitis on admission Large stool burden and fecaloma resolved Left iliac bone/right initial tuberosity sclerotic foci benign vs. underlying metastasis found on CT imaging Acute kidney injury, resolved History of mood disorder Hypertension Hyperlipidemia COPD with no acute exacerbation GI prophylaxis DVT prophylaxis Plan Patient does have insurance auth for ECF which expires today. patient continues to have temp and elevated white count and has increased abdominal distention today. General surgery asked re-evaluate and abdominal xray is ordered. Continue on IV antibiotics with further recommendations by ID Neurology recommending outpatient f/u with Dr. Trimble or Jose on DC and also NEO scan outpatient to r/o Parkinson's. Sinemet has been discontinued. Depakote has been stopped due to tremor. Continue to work with PT/OT daily and encourage increase activity level and encourage incentive spirometer. Patient is currently total care with worsening fatigue. Re-evaluated by speech pathology today and patient is aspirating. Discussed plan of care with patients niece and legal guardian over the phone and recommending hospice at this time and niece will discuss with daughter and follow up with care team. The impression and plan of care has been dictated by Indira Miner, Nurse Practitioner as directed. Dr. Lauren MD I have performed a history and physical examination and medical decision making of this patient, discussed the same with the dictator, and agree with the dictators assessment and plan as written, documented as a scribe. Based on total visit time, I have performed more than 50% of this visit. Objective - Vital Signs Vital signs: Vital Signs Temp 98.5 F 11/26/22 12:25 Pulse 79 11/26/22 12:25 Resp 18 11/26/22 12:25 BP 131/87 11/26/22 12:25 Pulse Ox 96 11/26/22 12:25 FiO2 21 11/21/22 09:16 Intake & Output 11/25/22 11/26/22 11/26/22 18:59 06:59 18:59 Intake Total 180 Output Total 500 Balance 180 -500 Weight 94 kg Intake: Oral 180 Output: Urine 500 Other: Voiding Method External Catheter External Catheter External Catheter # Bowel Movements 1 - Labs CBC & Chem 7: 11/26/22 07:10 11/26/22 07:10 Labs: Abnormal Lab Results - Last 24 Hours (Table) 11/25/22 11/26/22 11/26/22 Range/Units 17:50 00:00 05:45 WBC (3.8-10.6) k/uL RBC (4.30-5.90) m/uL Hgb (13.0-17.5) gm/dL Hct (39.0-53.0) % Plt Count (150-450) k/uL Neutrophils # (1.3-7.7) k/uL Sodium (137-145) mmol/L Creatinine (0.66-1.25) mg/dL Glucose (74-99) mg/dL POC Glucose (mg/dL) 196 H 192 H 221 H (70-110) mg/dL 11/26/22 11/26/22 11/26/22 Range/Units 07:10 07:10 11:37 WBC 12.9 H (3.8-10.6) k/uL RBC 3.35 L (4.30-5.90) m/uL Hgb 10.6 L (13.0-17.5) gm/dL Hct 32.9 L (39.0-53.0) % Plt Count 597 H (150-450) k/uL Neutrophils # 10.3 H (1.3-7.7) k/uL Sodium 133 L (137-145) mmol/L Creatinine 0.59 L (0.66-1.25) mg/dL Glucose 169 H (74-99) mg/dL POC Glucose (mg/dL) 154 H (70-110) mg/dL Microbiology - Last 24 Hours (Table) 11/20/22 10:59 Blood Culture - Final Blood 11/21/22 23:15 Blood Culture - Preliminary Blood Assessment and Plan Time with Patient: Greater than 30
--- NOTE | 2022-11-26 13:46 | XR ---
EXAMINATION TYPE: XR abdomen 1V DATE OF EXAM: 11/26/2022 COMPARISON: CT abdomen pelvis 11/21/2022 HISTORY: Abdominal distention TECHNIQUE: Supine and portable view of the abdomen was obtained with 2 radiographs. FINDINGS: The visualized chest bases are clear. PEG tube is demonstrated overlying the stomach. Moderate coloni c stool with a 6.6 and a rectal fecaloma identified. Hyperdense material is demonstrated throughout t he colon. Multiple pelvic surgical clips identified. No acute osseous abnormality. IMPRESSION: Nonobstructive bowel gas pattern with moderate colonic stool. Correlate for constipation.
--- NOTE | 2022-11-26 14:07 | CDI ---
Documentation Clarification Form Date: 11/26/2022 01:38:32 PM From: Mary Orellana RN CCDS Phone: [phone] Admit Date: 11/04/2022 08:19:00 PM Patient Name: Isidro Wells Visit Number: [id number] Discharge Date: ATTENTION: The Clinical Documentation Specialists (CDI) and [facility] Coding Staff appreciate your assistance in clarifying documentation. Please respond to the clarification below the line at the bottom and electronically sign. The CDI & [facility] Coding staff will review the response and follow-up if needed. Please note: Queries are made part of the Legal Health Record. If you have any questions, please contact the author of this message via ITS. Dr. Ty Aguilar Sepsis is documented 11/07, ID consult which may lack sufficient clinical evidence/support in the medical record. Additional clarification is requested. History/Risk Factors: 72-year-old male hadnt been seen by his neighbor and EMS was called for a well check. The patient presents after being found on the floor by EMS with altered mental status. Medical History: COPD, HTN, HLD and prostate cancer. 11/07, ID consult. Clinical Indicators: 11/04, VSS: B/P 175/116; HR 87; Temp 97.0 F Oral; RR 18; SpO2 97% room air. 11/04, Labs: Wbc 12.8; Neutrophils 10.8; Bun 35; Cr 1.29; Creatinine kinase 2741 11/07, ID Consult: patient with fever elevated white count tachycardia meeting criteria for SIRS./Sepsis in this patient presenting to the hospital with decreased level of responsiveness and fall source possibly abdominal and the patient was noted to have significant abdominal distention however the patient also have mental status changes and neck rigidity underlying CLERK GENERAL infection/encephalitis not ready excluded. 11/07, ID consult: obtain CT of ABD pelvis w/ iv contrast . LP for CSF cell count differential glucose protein HSV, DNA by PCR. 11/07, ABD PELV Circumferential rectal wall thickening correlate for proctitis. Left inguinal hernia containing loop of sigmoid colon . Large stool burden throughout the colon. Treatment: ID consult above; 11/04 0.9NS 1L IV bolus; 11/06 Vancomycin IVPB Q16H d/c 11/08; 11/07 Cefepime IVPB Q12H d/c 11/20. 11/08 Acetaminophen IVPB x 1; 11/08 Metronidazole IVPB Q8HR d/c 11/17; 11/20 Zosyn IVPB Q8H IVPB; 11/22 Daptomycin IVPB Q24 Please clarify if Sepsis is a valid diagnosis? [ X ] Yes, Sepsis is present on admission as evidence by (additional clinical support): ___AMS and Leukocytosis [ ] No, Sepsis is ruled out [ ] Other (please specify diagnosis) [ ] Unable to determine (Template Last Revised: August 2020) MTDD
--- NOTE | 2022-11-26 14:30 | P.PN ---
Subjective Progress Note Date: 11/26/22 CHIEF COMPLAINT: Incarcerated left inguinal hernia HISTORY OF PRESENT ILLNESS: Patient is status post PEG tube placement on 11/19/22. Patient is status post open repair of incarcerated left inguinal hernia with Prolene hernia mesh system plug for incarcerated left inguinal hernia on 11/12/22. Surgical service was asked to reevaluate patient due to abdominal distention. Patient also having low-grade fevers yesterday and white count has gone up from 11.6-12.9. Patient remains on antibiotics and followed by infectious disease. Abdominal x-ray from today shows a nonobstructive bowel gas pattern with moderate colonic stool. Correlate for constipation. Computed tomography scan from 11/21/2022 had mentioned fluid collection in the left inguinal canal. CAT scan results were reviewed with Dr. álvarez. He felt that this was not evidence of an abscess. Patient is tolerating tube feeds. No residuals. Tube feeds are currently at 45 mL per hour. Patient did have a bowel movement today. Patient seen and examined by Dr. álvarez PHYSICAL EXAM: VITAL SIGNS: Reviewed. GENERAL: Well-developed in no acute distress. ABDOMEN: Soft. Nondistended. Nontender. PEG tube site clean dry and intact ASSESSMENT: 1. Severe protein calorie malnutrition, poor oral intake and dysphagia status post PEG tube placement 2. Incarcerated left inguinal hernia status post open repair of incarcerated left inguinal hernia with Prolene hernia mesh system plug 3. Constipation 4. Fluid collection at the left inguinal canal noted on computed tomography scan. Per Dr. Álvarez fluid collection is not an abscess PLAN: -Continue to observe -No surgical intervention planned -Continue PEG tube feedings -Continue stool softeners Physician Seam Sewer note has been reviewed by physician. Signing provider agrees with the documented findings, assessment, and plan of care. Objective - Vital Signs Vital signs: Vital Signs Temp 98.5 F 11/26/22 12:25 Pulse 79 11/26/22 12:25 Resp 18 11/26/22 12:25 BP 131/87 11/26/22 12:25 Pulse Ox 96 11/26/22 12:25 FiO2 21 11/21/22 09:16 Intake & Output 11/25/22 11/26/22 11/26/22 18:59 06:59 18:59 Intake Total 180 Output Total 500 Balance 180 -500 Weight 94 kg Intake: Oral 180 Output: Urine 500 Other: Voiding Method External Catheter External Catheter External Catheter # Bowel Movements 1 - Labs CBC & Chem 7: 11/26/22 07:10 11/26/22 07:10 Labs: Abnormal Lab Results - Last 24 Hours (Table) 11/25/22 11/26/22 11/26/22 Range/Units 17:50 00:00 05:45 WBC (3.8-10.6) k/uL RBC (4.30-5.90) m/uL Hgb (13.0-17.5) gm/dL Hct (39.0-53.0) % Plt Count (150-450) k/uL Neutrophils # (1.3-7.7) k/uL Sodium (137-145) mmol/L Creatinine (0.66-1.25) mg/dL Glucose (74-99) mg/dL POC Glucose (mg/dL) 196 H 192 H 221 H (70-110) mg/dL 11/26/22 11/26/22 11/26/22 Range/Units 07:10 07:10 11:37 WBC 12.9 H (3.8-10.6) k/uL RBC 3.35 L (4.30-5.90) m/uL Hgb 10.6 L (13.0-17.5) gm/dL Hct 32.9 L (39.0-53.0) % Plt Count 597 H (150-450) k/uL Neutrophils # 10.3 H (1.3-7.7) k/uL Sodium 133 L (137-145) mmol/L Creatinine 0.59 L (0.66-1.25) mg/dL Glucose 169 H (74-99) mg/dL POC Glucose (mg/dL) 154 H (70-110) mg/dL Microbiology - Last 24 Hours (Table) 11/20/22 10:59 Blood Culture - Final Blood 11/21/22 23:15 Blood Culture - Preliminary Blood
[2022-11-26] MEDS: DAPTOmycin 500 MG in SODIUM CHLORIDE 0.9% 50 ML IVPB SCH (16:00)
[2022-11-26] MEDS ORDERED: bisacodyL 10 MG SUPP RECTAL STA (16:55)
[2022-11-26 17:51] LABS: Glucose,Whole Blood 177 mg/dL (70-110)
[2022-11-26] MEDS: LORazepam 0.5 MG TAB PO SCH (20:22)
--- NOTE | 2022-11-26 21:57 | P.PN ---
Subjective Progress Note Date: 11/24/22 Principal diagnosis: Fever Patient is a 72-year-old male presenting to the hospital with mental status changes patient was found to be on the floor and this patient has been running a fever with a CT abdominal pelvis did shows evidence of severe stool burden and initial concern for possible strangulated hernia that has been rule out patient also have LP completed which was normal, a patient is status post left inguinal incarcerated hernia repair completed on 11/12/2022, patient is status post PEG tube placement on 11/19/2022 On today's evaluation that is 11/24/2022 the patient did have a low-grade fever of 100F this morning , the patient is more awake and alert is breathing comfortably on 2 L nasal cannula oxygen, the patient denies chest pain or shortness of breath or cough reported no abdominal pain or vomiting Objective - Vital Signs Vital signs: Vital Signs Temp 98.4 F 11/24/22 08:00 Pulse 82 11/24/22 08:00 Resp 19 11/24/22 08:00 BP 130/73 11/24/22 08:00 Pulse Ox 97 11/24/22 08:00 FiO2 21 11/21/22 09:16 Intake & Output 11/23/22 11/24/22 11/24/22 18:59 06:59 18:59 Output Total 600 700 Balance -600 -700 Output: Urine 600 700 Other: Voiding Method External Catheter External Catheter External Catheter - Exam GENERAL DESCRIPTION: An elderly male lying in bed in no distress RESPIRATORY SYSTEM: Unlabored breathing , decreased breath sounds at bases HEART: S1 S2 regular rate and rhythm , ABDOMEN: Soft , mild distention but no tenderness EXTREMITIES: R ankle with erythma and warmth - Labs CBC & Chem 7: 11/26/22 07:10 11/26/22 07:10 Labs: Abnormal Lab Results - Last 24 Hours (Table) 11/23/22 11/24/22 11/24/22 Range/Units 17:05 00:38 05:55 POC Glucose (mg/dL) 166 H 206 H 190 H (70-110) mg/dL 11/24/22 Range/Units 12:03 POC Glucose (mg/dL) 218 H (70-110) mg/dL Microbiology - Last 24 Hours (Table) 11/21/22 23:15 Blood Culture - Preliminary Blood 11/18/22 09:10 Blood Culture - Final Blood 11/20/22 10:59 Blood Culture - Preliminary Blood Assessment and Plan (1) Fever Current Visit: Yes Status: Acute Code(s): R50.9 - FEVER, UNSPECIFIED SNOMED Code(s): 313815516 Plan: 1patient with f incarcerated left inguinal hernia, status post operative repair on 11/12/2022 and subsequently did have a PEG tube placement on 11/19/2022 3-the patient did have a new fever and also noticed to have worsening of his white count patient did have a CT of abdominal pelvis completed on 11/21/2022 concerning for 4.5 cm fluid collection in left inguinal area with a few foci of gas concerning for possible abscess patient benefit from drainage of this fluid, surgery is following the patient the patient fever and white count has responded to addition of daptomycin which should be continued along with Zosyn and continue with supportive care Time with Patient: Less than 30
--- NOTE | 2022-11-26 21:59 | P.PN ---
Subjective Progress Note Date: 11/25/22 Principal diagnosis: Fever Patient is a 72-year-old male presenting to the hospital with mental status changes patient was found to be on the floor and this patient has been running a fever with a CT abdominal pelvis did shows evidence of severe stool burden and initial concern for possible strangulated hernia that has been rule out patient also have LP completed which was normal, a patient is status post left inguinal incarcerated hernia repair completed on 11/12/2022, patient is status post PEG tube placement on 11/19/2022 On today's evaluation that is 11/25/2022 the patient has been running a low- grade fever , the patient is breathing comfortably on 2 L nasal cannula oxygen, the patient denies chest pain or shortness of breath or cough reported no abdominal pain or vomiting Objective - Vital Signs Vital signs: Vital Signs Temp 97.5 F L 11/25/22 09:50 Pulse 83 11/25/22 09:50 Resp 18 11/25/22 09:50 BP 146/84 11/25/22 09:50 Pulse Ox 93 L 11/25/22 09:50 FiO2 21 11/21/22 09:16 Intake & Output 11/24/22 11/25/22 11/25/22 18:59 06:59 18:59 Intake Total 1560 Output Total 600 1150 Balance -600 410 Intake: IV 900 Lactated Ringers 1,000 ml 900 @ 75 mls/hr IV .[id number] [facility] Rx#:[id number] Tube Feeding 540 Other 120 Output: Urine 600 1150 Other: Voiding Method External Catheter External Catheter External Catheter # Bowel Movements 1 1 - Exam GENERAL DESCRIPTION: An elderly male lying in bed in no distress RESPIRATORY SYSTEM: Unlabored breathing , decreased breath sounds at bases HEART: S1 S2 regular rate and rhythm , ABDOMEN: Soft , mild distention but no tenderness EXTREMITIES: R ankle with erythma and warmth - Labs CBC & Chem 7: 11/26/22 07:10 11/26/22 07:10 Labs: Abnormal Lab Results - Last 24 Hours (Table) 11/24/22 11/24/22 11/24/22 Range/Units 12:03 18:03 18:43 WBC (3.8-10.6) k/uL RBC (4.30-5.90) m/uL Hgb (13.0-17.5) gm/dL Hct (39.0-53.0) % Plt Count (150-450) k/uL Neutrophils # (1.3-7.7) k/uL Sodium (137-145) mmol/L Creatinine (0.66-1.25) mg/dL Glucose (74-99) mg/dL POC Glucose (mg/dL) 218 H 186 H 159 H (70-110) mg/dL 11/25/22 11/25/22 11/25/22 Range/Units 00:01 05:59 07:46 WBC 11.6 H (3.8-10.6) k/uL RBC 3.29 L (4.30-5.90) m/uL Hgb 10.1 L (13.0-17.5) gm/dL Hct 31.9 L (39.0-53.0) % Plt Count 601 H (150-450) k/uL Neutrophils # 9.0 H (1.3-7.7) k/uL Sodium (137-145) mmol/L Creatinine (0.66-1.25) mg/dL Glucose (74-99) mg/dL POC Glucose (mg/dL) 191 H 214 H (70-110) mg/dL 11/25/22 Range/Units 07:46 WBC (3.8-10.6) k/uL RBC (4.30-5.90) m/uL Hgb (13.0-17.5) gm/dL Hct (39.0-53.0) % Plt Count (150-450) k/uL Neutrophils # (1.3-7.7) k/uL Sodium 133 L (137-145) mmol/L Creatinine 0.65 L (0.66-1.25) mg/dL Glucose 175 H (74-99) mg/dL POC Glucose (mg/dL) (70-110) mg/dL Microbiology - Last 24 Hours (Table) 11/21/22 23:15 Blood Culture - Preliminary Blood Assessment and Plan (1) Fever Current Visit: Yes Status: Acute Code(s): R50.9 - FEVER, UNSPECIFIED SNOMED Code(s): 305761200 Plan: 1patient with f incarcerated left inguinal hernia, status post operative repair on 11/12/2022 and subsequently did have a PEG tube placement on 11/19/2022 3-the patient did have a new fever and also noticed to have worsening of his white count patient did have a CT of abdominal pelvis completed on 11/21/2022 concerning for 4.5 cm fluid collection in left inguinal area with a few foci of gas concerning for possible abscess patient benefit from drainage of this fluid, surgery to reevaluate the patient tomorrow as per discussion with the primary team continue with vancomycin and Zosyn and continue supportive care Time with Patient: Less than 30
--- NOTE | 2022-11-26 22:00 | P.PN ---
Subjective Progress Note Date: 11/26/22 Principal diagnosis: Fever Patient is a 72-year-old male presenting to the hospital with mental status changes patient was found to be on the floor and this patient has been running a fever with a CT abdominal pelvis did shows evidence of severe stool burden and initial concern for possible strangulated hernia that has been rule out patient also have LP completed which was normal, a patient is status post left inguinal incarcerated hernia repair completed on 11/12/2022, patient is status post PEG tube placement on 11/19/2022 On today's evaluation that is 11/26/2022 the patient is afebrile today, patient is breathing comfortably on 2 L Nasal cannula oxygen has been tolerating his tube feed, no vomiting has been reported. Denies any chest pain shortness breath or cough or abdominal pain Objective - Vital Signs Vital signs: Vital Signs Temp 99.1 F 11/26/22 09:45 Pulse 86 11/26/22 09:45 Resp 16 11/26/22 09:45 BP 127/78 11/26/22 09:45 Pulse Ox 97 11/26/22 09:45 FiO2 21 11/21/22 09:16 Intake & Output 11/25/22 11/26/22 11/26/22 18:59 06:59 18:59 Intake Total 180 Output Total 500 Balance 180 -500 Weight 94 kg Intake: Oral 180 Output: Urine 500 Other: Voiding Method External Catheter External Catheter External Catheter # Bowel Movements 1 - Exam GENERAL DESCRIPTION: An elderly male lying in bed in no distress RESPIRATORY SYSTEM: Unlabored breathing , decreased breath sounds at bases HEART: S1 S2 regular rate and rhythm , ABDOMEN: Soft , mild distention but no tenderness EXTREMITIES: R ankle with erythma and warmth - Labs CBC & Chem 7: 11/26/22 07:10 11/26/22 07:10 Labs: Abnormal Lab Results - Last 24 Hours (Table) 11/25/22 11/25/22 11/26/22 Range/Units 11:40 17:50 00:00 WBC (3.8-10.6) k/uL RBC (4.30-5.90) m/uL Hgb (13.0-17.5) gm/dL Hct (39.0-53.0) % Plt Count (150-450) k/uL Neutrophils # (1.3-7.7) k/uL Sodium (137-145) mmol/L Creatinine (0.66-1.25) mg/dL Glucose (74-99) mg/dL POC Glucose (mg/dL) 202 H 196 H 192 H (70-110) mg/dL 11/26/22 11/26/22 11/26/22 Range/Units 05:45 07:10 07:10 WBC 12.9 H (3.8-10.6) k/uL RBC 3.35 L (4.30-5.90) m/uL Hgb 10.6 L (13.0-17.5) gm/dL Hct 32.9 L (39.0-53.0) % Plt Count 597 H (150-450) k/uL Neutrophils # 10.3 H (1.3-7.7) k/uL Sodium 133 L (137-145) mmol/L Creatinine 0.59 L (0.66-1.25) mg/dL Glucose 169 H (74-99) mg/dL POC Glucose (mg/dL) 221 H (70-110) mg/dL Microbiology - Last 24 Hours (Table) 11/20/22 10:59 Blood Culture - Final Blood 11/21/22 23:15 Blood Culture - Preliminary Blood Assessment and Plan (1) Fever Current Visit: Yes Status: Acute Code(s): R50.9 - FEVER, UNSPECIFIED SNOMED Code(s): 927515546 Plan: 1patient with f incarcerated left inguinal hernia, status post operative repair on 11/12/2022 and subsequently did have a PEG tube placement on 11/19/2022 3-the patient did have a new fever and also noticed to have worsening of his white count patient did have a CT of abdominal pelvis completed on 11/21/2022 concerning for 4.5 cm fluid collection in left inguinal area with a few foci of gas concerning for possible abscess , patient fever pattern has improved chest x-ray is mostly atelectasis as there was a question of possible aspiration awaiting surgical reevaluation continue the daptomycin and Zosyn will recheck his inflammatory markers discussed with the METALLOGRAPHY TEACHER for admitting team Time with Patient: Less than 30
[2022-11-27 00:04] LABS: Glucose,Whole Blood 152 mg/dL (70-110)
[2022-11-27] MEDS: PIPERACILLIN-TAZOBACTAM 3.375 GM in SODIUM CHLORIDE 0.9% 100 ML IVPB SCH ×3 (00:08→18:59)
[2022-11-27] MEDS: HEPARIN SODIUM,PORCINE/PF 5,000 UNIT/0.5 ML SYRINGE SQ SCH ×4 (00:08→21:34)
[2022-11-27] MEDS: INSULIN ASPART (NovoLOG) 100 UNIT/ML VIAL SQ SCH ×4 (00:08→18:41)
[2022-11-27 06:01] LABS: Glucose,Whole Blood 138 mg/dL (70-110)
[2022-11-27] MEDS: SYMBICORT 160-4.5 MCG INHALER INHALATION SCH ×2 (07:45→20:28)
[2022-11-27] MEDS: CYANOCOBALAMIN 500 MCG TAB PO SCH (08:28)
[2022-11-27] MEDS: METOPROLOL TARTRATE 50 MG TAB PO SCH ×2 (08:28→21:35)
[2022-11-27] MEDS: FAMOTIDINE 20 MG/2 ML VIAL IV SCH ×2 (08:29→21:35)
[2022-11-27] MEDS: amLODIPine 10 MG TAB PO SCH (08:29)
[2022-11-27] MEDS: MONTELUKAST 10 MG TAB PO SCH (08:29)
[2022-11-27] MEDS: DOCUSATE 100 MG CAP PO SCH ×2 (08:29→21:35)
[2022-11-27] MEDS: DICLOFENAC SODIUM GEL 100 GM TUBE TOPICAL SCH ×4 (08:29→21:37)
[2022-11-27] MEDS: PRIMIDONE 50 MG TAB PO SCH ×3 (08:29→21:35)
[2022-11-27 08:55] LABS: Basophils % (A) 0 %; Eosinophils # (A) 0.3 k/uL (0-0.7); Eosinophils % (A) 3 %; HCT 32.2 % (39.0-53.0); HGB 10.5 gm/dL (13.0-17.5); Lymphocytes # (A) 1.6 k/uL (1.0-4.8); Lymphocytes % (A) 16 %; MCH 31.9 pg (25.0-35.0); MCHC 32.5 g/dL (31.0-37.0); MCV 98.2 fL (80.0-100.0); Mean Platelet Volume 7.7; Monocytes # (A) 0.7 k/uL (0-1.0); Monocytes % (A) 7 %; Neutrophils # (A) 7.2 k/uL (1.3-7.7); Neutrophils % (A) 72 %; Platelet Count 652 k/uL (150-450); RBC 3.28 m/uL (4.30-5.90); RDW 13.6 % (11.5-15.5); WBC 9.9 k/uL (3.8-10.6)
[2022-11-27 09:31] LABS: ALT 117 U/L (4-49); AST 78 U/L (17-59); African American GFR (CKD) >90 (>60 ml/min/1.73 sqM); Alkaline Phosphatase 251 U/L (38-126); Anion Gap 9 mmol/L; Blood Urea Nitrogen 18 mg/dL (9-20); Calcium 8.6 mg/dL (8.4-10.2); Carbon Dioxide 24 mmol/L (22-30); Chloride 99 mmol/L (98-107); Glucose 128 mg/dL (74-99); Non-African American GFR(CKD) >90 (>60 ml/min/1.73 sqM); Potassium 5.1 mmol/L (3.5-5.1); Sodium 132 mmol/L (137-145); Total Bilirubin 0.4 mg/dL (0.2-1.3); Total Protein 6.5 g/dL (6.3-8.2)
[2022-11-27] MEDS: SODIUM CHLORIDE 0.9% 1,000 ML IV SCH (09:31)
[2022-11-27 11:10] LABS: C Reactive Protein 12.4 mg/dL (<1.0)
[2022-11-27 11:54] LABS: Glucose,Whole Blood 150 mg/dL (70-110)
--- NOTE | 2022-11-27 12:31 | US ---
EXAMINATION TYPE: US abdomen complete DATE OF EXAM: 11/27/2022 COMPARISON: CT 11/21/2022 CLINICAL INDICATION: Male, 72 years old with history of elevated LFT's; elevated LFTs TECHNIQUE: Multiple sonographic images of the abdomen are obtained. FINDINGS: EXAM MEASUREMENTS: Liver Length: 17.2 cm normal less than 15.5 cm. Gallbladder Wall: 0.2 cm CBD: 0.3 cm Spleen: not visualized cm Right Kidney: 10.7x5.0x5.3 cm Left Kidney: not visualized cm CASH ACCOUNTANT NOTES: Pancreas: partially obscured by overlying bowel gas Liver: enlarged, increased attenuation Gallbladder: partially obscured by bowel and rib shadows Evidence for sonographic Molina's sign: No CBD: wnl Spleen: Obscured by overlying bowel gas Right Kidney: Anechoic area superior pole measures: 1.6x1.6x1.8cm Left Kidney: Obscured by overlying bowel gas Upper IVC: wnl Abd Aorta: wnl Exam limited due to rib shadows, bowel gas, and limited patient mobility including inability to turn LLD or move arms away from sides to access scanning windows IMPRESSION: 1. Right renal cyst. 2. Hepatomegaly. 3. Some limitation on the examination due to abundant bowel gas.
--- NOTE | 2022-11-27 15:40 | P.PN ---
Subjective Progress Note Date: 11/27/22 CHIEF COMPLAINT: Incarcerated left inguinal hernia HISTORY OF PRESENT ILLNESS: Patient is status post PEG tube placement on 11/19/22. Patient is status post open repair of incarcerated left inguinal hernia with Prolene hernia mesh system plug for incarcerated left inguinal hernia on 11/12/22. Patient has mild abdominal distention. But he is having loose bowel movements. Tolerating tube feeds at 45 ML. No residual noted per nurse. Denies any nausea vomiting. Denies any abdominal pain. Afebrile. WBC down from 12.9-9.9 Patient seen and examined by Dr. álvarez PHYSICAL EXAM: VITAL SIGNS: Reviewed. GENERAL: Well-developed in no acute distress. ABDOMEN: Soft. Nondistended. Nontender. PEG tube site clean dry and intact. Left inguinal incision site firmness noted. No drainage. Nontender ASSESSMENT: 1. Severe protein calorie malnutrition, poor oral intake and dysphagia status post PEG tube placement 2. Incarcerated left inguinal hernia status post open repair of incarcerated l eft inguinal hernia with Prolene hernia mesh system plug 3. Constipation 4. Seroma at the left internal hernia surgical site. No evidence of abscess. PLAN: -Continue to observe -No surgical intervention planned -Continue PEG tube feedings -Continue stool softeners -Antibiotics per ID service Physician Track Grinder Operator note has been reviewed by physician. Signing provider agrees with the documented findings, assessment, and plan of care. Objective - Vital Signs Vital signs: Vital Signs Temp 97.6 F 11/26/22 20:00 Pulse 82 11/27/22 08:00 Resp 18 11/27/22 08:00 BP 133/79 11/27/22 08:00 Pulse Ox 98 11/27/22 08:00 FiO2 21 11/21/22 09:16 Intake & Output 11/26/22 11/27/22 11/27/22 18:59 06:59 18:59 Intake Total 150 Output Total 1100 1150 500 Balance -950 -1150 -500 Weight 86.5 kg Intake: Intake, IV Titration 150 Amount DAPTOmycin 500 mg In 50 Sodium Chloride 0.9% 50 ml @ 100 mls/hr IVPB Q24H [facility] Rx#:[id number] Piperacillin-Tazobactam 3 100 .375 gm In Sodium Chloride 0.9% 100 ml @ 25 mls/hr IVPB Q8HR [facility] Rx# :[id number] Output: Urine 1100 1150 500 Other: Voiding Method External Catheter External Catheter External Catheter # Voids 1 # Bowel Movements 1 1 - Labs CBC & Chem 7: 11/27/22 07:54 11/27/22 07:54 Labs: Abnormal Lab Results - Last 24 Hours (Table) 11/26/22 11/27/22 11/27/22 Range/Units 17:50 00:00 05:58 RBC (4.30-5.90) m/uL Hgb (13.0-17.5) gm/dL Hct (39.0-53.0) % Plt Count (150-450) k/uL Sodium (137-145) mmol/L Creatinine (0.66-1.25) mg/dL Glucose (74-99) mg/dL POC Glucose (mg/dL) 177 H 152 H 138 H (70-110) mg/dL AST (17-59) U/L ALT (4-49) U/L Alkaline Phosphatase (38-126) U/L C-Reactive Protein (<1.0) mg/dL Albumin (3.5-5.0) g/dL 11/27/22 11/27/22 11/27/22 Range/Units 07:54 07:54 11:40 RBC 3.28 L (4.30-5.90) m/uL Hgb 10.5 L (13.0-17.5) gm/dL Hct 32.2 L (39.0-53.0) % Plt Count 652 H (150-450) k/uL Sodium 132 L (137-145) mmol/L Creatinine 0.60 L (0.66-1.25) mg/dL Glucose 128 H (74-99) mg/dL POC Glucose (mg/dL) 150 H (70-110) mg/dL AST 78 H (17-59) U/L ALT 117 H (4-49) U/L Alkaline Phosphatase 251 H (38-126) U/L C-Reactive Protein 12.4 H (<1.0) mg/dL Albumin 3.0 L (3.5-5.0) g/dL Microbiology - Last 24 Hours (Table) 11/21/22 23:15 Blood Culture - Final Blood
--- NOTE | 2022-11-27 15:46 | P.PN ---
Subjective Progress Note Date: 11/27/22 Principal diagnosis: Fever Patient is a 72-year-old male presenting to the hospital with mental status changes patient was found to be on the floor and this patient has been running a fever with a CT abdominal pelvis did shows evidence of severe stool burden and initial concern for possible strangulated hernia that has been rule out patient also have LP completed which was normal, a patient is status post left inguinal incarcerated hernia repair completed on 11/12/2022, patient is status post PEG tube placement on 11/19/2022 On today's evaluation that is 11/27/2022 the patient remains to be afebrile, patient is breathing comfortably on 2 L Nasal cannula oxygen, the patient has been tolerating his tube feed, no vomiting has been reported., The patient denies any chest pain shortness breath or cough or abdominal pain Objective - Vital Signs Vital signs: Vital Signs Temp 97.6 F 11/26/22 20:00 Pulse 82 11/27/22 08:00 Resp 18 11/27/22 08:00 BP 133/79 11/27/22 08:00 Pulse Ox 98 11/27/22 08:00 FiO2 21 11/21/22 09:16 Intake & Output 11/26/22 11/27/22 11/27/22 18:59 06:59 18:59 Intake Total 150 Output Total 1100 1150 500 Balance -950 -1150 -500 Weight 86.5 kg Intake: Intake, IV Titration 150 Amount DAPTOmycin 500 mg In 50 Sodium Chloride 0.9% 50 ml @ 100 mls/hr IVPB Q24H [facility] Rx#:[id number] Piperacillin-Tazobactam 3 100 .375 gm In Sodium Chloride 0.9% 100 ml @ 25 mls/hr IVPB Q8HR [facility] Rx# :[id number] Output: Urine 1100 1150 500 Other: Voiding Method External Catheter External Catheter External Catheter # Voids 1 # Bowel Movements 1 1 - Exam GENERAL DESCRIPTION: An elderly male lying in bed in no distress RESPIRATORY SYSTEM: Unlabored breathing , decreased breath sounds at bases HEART: S1 S2 regular rate and rhythm , ABDOMEN: Soft , mild distention but no tenderness EXTREMITIES: R ankle with erythma and warmth - Labs CBC & Chem 7: 11/27/22 07:54 11/27/22 07:54 Labs: Abnormal Lab Results - Last 24 Hours (Table) 11/26/22 11/27/22 11/27/22 Range/Units 17:50 00:00 05:58 RBC (4.30-5.90) m/uL Hgb (13.0-17.5) gm/dL Hct (39.0-53.0) % Plt Count (150-450) k/uL Sodium (137-145) mmol/L Creatinine (0.66-1.25) mg/dL Glucose (74-99) mg/dL POC Glucose (mg/dL) 177 H 152 H 138 H (70-110) mg/dL AST (17-59) U/L ALT (4-49) U/L Alkaline Phosphatase (38-126) U/L C-Reactive Protein (<1.0) mg/dL Albumin (3.5-5.0) g/dL 11/27/22 11/27/22 11/27/22 Range/Units 07:54 07:54 11:40 RBC 3.28 L (4.30-5.90) m/uL Hgb 10.5 L (13.0-17.5) gm/dL Hct 32.2 L (39.0-53.0) % Plt Count 652 H (150-450) k/uL Sodium 132 L (137-145) mmol/L Creatinine 0.60 L (0.66-1.25) mg/dL Glucose 128 H (74-99) mg/dL POC Glucose (mg/dL) 150 H (70-110) mg/dL AST 78 H (17-59) U/L ALT 117 H (4-49) U/L Alkaline Phosphatase 251 H (38-126) U/L C-Reactive Protein 12.4 H (<1.0) mg/dL Albumin 3.0 L (3.5-5.0) g/dL Assessment and Plan (1) Fever Current Visit: Yes Status: Acute Code(s): R50.9 - FEVER, UNSPECIFIED SNOMED Code(s): 034082772 Plan: 1patient with f incarcerated left inguinal hernia, status post operative repair on 11/12/2022 and subsequently did have a PEG tube placement on 11/19/2022 3-the patient did have a new fever and also noticed to have worsening of his white count patient did have a CT of abdominal pelvis completed on 11/21/2022 concerning for 4.5 cm fluid collection in left inguinal area with a few foci of gas concerning for possible abscess , patient fever pattern has improved chest x-ray is mostly atelectasis, the patient white count has normalized is currently covered with the Zosyn and daptomycin, which will be continued while inpatient finishing therapy with short course of oral Avelox and doxycycline on discharge Time with Patient: Less than 30
--- NOTE | 2022-11-27 15:50 | P.PN ---
Subjective Progress Note Date: 11/27/22 This is a 72 year old male who is admitted for altered mental status and rhabdomyolysis patient was found down. Rhabo has resolved, mentation has improved. Patient is currently postoperative day #13 left inguinal hernia repair for an incarcerated hernia, continues with midline drainage bag. Patient underwe nt PEG tube placement d/t dysphagia and is currently receiving enteral feedings with jevity 1.5 and running at goal of 45 mls/hr with 30 ml free water flush every 4 hrs. Patient is being followed by [facility] and continues on pureed dysphagia diet with nectar thick liquids and 1:1 supervision, aspiration precautions. Patient is alert x 2 and quite fatigued. He is working with PT/OT and currently a total assist will require subacute rehab on discharge was unable to tolerate standing at the bedside today. Blood cultures remain negative. White count is 11.6 today, sodium 133. Patient remains febrile up to 100.0 today, likely due to decreased inspiratory effort and needs assistance and encouragement to use incentive spirometer. Chest xray is stable. 11/26/2022 Patient is evaluated today on the step-down unit and appears more fatigued than yesterday. Abdomen is more distended and bowel sounds are hypoactive today. Abdominal xray is ordered. General surgery has been re-consulted for further evaluation of the abdominal distention. There was concern patient continues to aspirate on the pureed diet which [facility] was consulted and follow up today confirms patient is aspirating. Patient is more fatigued and total care at this point unable to participate in ADLS and unable to perform IS. Patient has white count of 12.9, fever T-Max overnight of 100.0. Glucose in the 150s. Patient will be given normal saline IV hydration today. Pending input from ID and surgery. Updated gadiel Thomas over the phone who has legal guardianship, regarding hospice care. Per the Neice she will be reaching out to his and daughter and will f/u. 11/27/2022 Patient evaluated today more awake than yesterday. Was given suppository and did have multiple BMS, abdomen is soft today. Patient continues on tube feeds with minimal to no gastric residual. Patient noted to have elevated LFT's today and abdominal ultrasound performed showing hepatomegaly pancreas is partially obscured by overlying bowel gas, gallbladder is partially obscured by bowel and rib shadows. White count normalized to 9.9 today, sodium at 132 which did decrease after initiation of IV fluids. Kidney function normal. Procalcitonin level is negative at this time. Continues on IV daptomycin and IV zosyn. Patient recommended for NPO status by speech therapy and patient has been afebrile the last 48 hours. Hospice has been discussed with the patients legal guardian and family are all on board and requesting to meet with [facility]. The legal guardian/margarita Thomas is out of town until Friday afternoon to meet in person. Patient did not want to discuss hospice. Review of Systems Constitutional: Reports fatigue Cardio vascular: denied any chest pain, palpitations Gastrointestinal: denied any nausea, vomiting, diarrhea Reports mild abdominal pain. Pulmonary: Denied any shortness of breath cough Neurologic: denied any new focal deficits, All inpatient medications were reviewed and appropriate changes in these medications as dictated in the interval history and assessment and plan. PHYSICAL EXAMINATION: GENERAL: The patient is alert and oriented x2-3, not in any acute distress. Well developed, well nourished. Fatigued. Ill appearing, thin built. HEENT: Pupils are round and equally reacting to light. EOMI. No scleral icterus. No conjunctival pallor. Normocephalic, atraumatic. No pharyngeal erythema. No thyromegaly. CARDIOVASCULAR: S1 and S2 present. No murmurs, rubs, or gallops. PULMONARY: Chest is clear to auscultation, no wheezing or crackles. ABDOMEN: Soft, tender, distended, hypoactive bowel sounds. Postsurgical with midline incision. Less distended than yesterday MUSCULOSKELETAL: No joint swelling or deformity. EXTREMITIES: No cyanosis, clubbing, or pedal edema. NEUROLOGICAL: Diffuse generalized weakness. SKIN: No rashes. Assessment Altered mental status from metabolic and toxic encephalopathy/ unknown downtime at home with rhabdomyolysis on admission improved. Status post left inguinal incarcerated hernia repair POD # 15 Fever and leukocytosis have resolved. Severe protein calorie malnutrition and dysphagia status post PEG tube placement Proctitis on admission Large stool burden and fecaloma resolved Left iliac bone/right initial tuberosity sclerotic foci benign vs. underlying metastasis found on CT imaging Acute kidney injury, resolved History of mood disorder Hypertension Hyperlipidemia COPD with no acute exacerbation GI prophylaxis DVT prophylaxis Plan Patient remains on the medical floor PT/OT following closely and will require ECF on discharge has diffuse weakness and total care at this time. Continue on IV antibiotics with further recommendations by ID, noted pro calcitonin is negative. Neurology recommending outpatient f/u with Dr. Trimble or Jose on DC and also NEO scan outpatient to r/o Parkinson's. Sinemet has been discontinued. Depakote has been stopped due to tremor. Speech therapy recommending MBS patient currently NPO and continues on tube feedings. Family on board with hospice and hospice has been consulted for more information. Patient has had prolonged hospital stay, hospice has been discussed in the past and family wanted PEG tube and feedings to see if patient made clinical improvement. White count and fever have improved however patient remains fatigued and total care with PT/OT and not wanting to participate in care. Follow up tomorrow for possible discharge planning ECF. Vs. Hospice care. The impression and plan of care has been dictated by Indira Miner, Nurse Practitioner as directed. Dr. Lauren MD I have performed a history and physical examination and medical decision making of this patient, discussed the same with the dictator, and agree with the dictators assessment and plan as written, documented as a scribe. Based on total visit time, I have performed more than 50% of this visit. Objective - Vital Signs Vital signs: Vital Signs Temp 97.6 F 11/26/22 20:00 Pulse 82 11/27/22 08:00 Resp 18 11/27/22 08:00 BP 133/79 11/27/22 08:00 Pulse Ox 98 11/27/22 08:00 FiO2 21 11/21/22 09:16 Intake & Output 11/26/22 11/27/22 11/27/22 18:59 06:59 18:59 Intake Total 150 Output Total 1100 1150 500 Balance -950 -1150 -500 Weight 86.5 kg Intake: Intake, IV Titration 150 Amount DAPTOmycin 500 mg In 50 Sodium Chloride 0.9% 50 ml @ 100 mls/hr IVPB Q24H [facility] Rx#:[id number] Piperacillin-Tazobactam 3 100 .375 gm In Sodium Chloride 0.9% 100 ml @ 25 mls/hr IVPB Q8HR [facility] Rx# :[id number] Output: Urine 1100 1150 500 Other: Voiding Method External Catheter External Catheter External Catheter # Voids 1 # Bowel Movements 1 1 - Labs CBC & Chem 7: 11/27/22 07:54 11/27/22 07:54 Labs: Abnormal Lab Results - Last 24 Hours (Table) 11/26/22 11/27/22 11/27/22 Range/Units 17:50 00:00 05:58 RBC (4.30-5.90) m/uL Hgb (13.0-17.5) gm/dL Hct (39.0-53.0) % Plt Count (150-450) k/uL Sodium (137-145) mmol/L Creatinine (0.66-1.25) mg/dL Glucose (74-99) mg/dL POC Glucose (mg/dL) 177 H 152 H 138 H (70-110) mg/dL AST (17-59) U/L ALT (4-49) U/L Alkaline Phosphatase (38-126) U/L C-Reactive Protein (<1.0) mg/dL Albumin (3.5-5.0) g/dL 11/27/22 11/27/22 11/27/22 Range/Units 07:54 07:54 11:40 RBC 3.28 L (4.30-5.90) m/uL Hgb 10.5 L (13.0-17.5) gm/dL Hct 32.2 L (39.0-53.0) % Plt Count 652 H (150-450) k/uL Sodium 132 L (137-145) mmol/L Creatinine 0.60 L (0.66-1.25) mg/dL Glucose 128 H (74-99) mg/dL POC Glucose (mg/dL) 150 H (70-110) mg/dL AST 78 H (17-59) U/L ALT 117 H (4-49) U/L Alkaline Phosphatase 251 H (38-126) U/L C-Reactive Protein 12.4 H (<1.0) mg/dL Albumin 3.0 L (3.5-5.0) g/dL Microbiology - Last 24 Hours (Table) 11/21/22 23:15 Blood Culture - Final Blood Assessment and Plan Time with Patient: Less than 30
[2022-11-27 16:29] LABS: Glucose,Whole Blood 135 mg/dL (70-110)
[2022-11-27] MEDS: DAPTOmycin 500 MG in SODIUM CHLORIDE 0.9% 50 ML IVPB SCH (18:59)
[2022-11-27] MEDS: LORazepam 0.5 MG TAB PO SCH (21:34)
[2022-11-28 00:16] LABS: Glucose,Whole Blood 140 mg/dL (70-110)
[2022-11-28] MEDS: INSULIN ASPART (NovoLOG) 100 UNIT/ML VIAL SQ SCH ×4 (00:16→18:46)
[2022-11-28] MEDS: PIPERACILLIN-TAZOBACTAM 3.375 GM in SODIUM CHLORIDE 0.9% 100 ML IVPB SCH ×4 (01:03→23:00)
[2022-11-28 06:21] LABS: Glucose,Whole Blood 157 mg/dL (70-110)
[2022-11-28] MEDS: SYMBICORT 160-4.5 MCG INHALER INHALATION SCH ×2 (07:43→20:45)
[2022-11-28 07:57] LABS: ALT 121 U/L (4-49); African American GFR (CKD) >90 (>60 ml/min/1.73 sqM); Albumin 3.2 g/dL (3.5-5.0); Anion Gap 7 mmol/L; Blood Urea Nitrogen 26 mg/dL (9-20); Calcium 8.8 mg/dL (8.4-10.2); Carbon Dioxide 23 mmol/L (22-30); Chloride 102 mmol/L (98-107); Glucose 141 mg/dL (74-99); Non-African American GFR(CKD) >90 (>60 ml/min/1.73 sqM); Sodium 132 mmol/L (137-145); Total Bilirubin 0.6 mg/dL (0.2-1.3); Total Protein 6.9 g/dL (6.3-8.2)
[2022-11-28 08:11] LABS: Potassium 5.4 mmol/L (3.5-5.1)
[2022-11-28 08:12] LABS: AST 74 U/L (17-59); Alkaline Phosphatase 233 U/L (38-126); Magnesium 1.9 mg/dL (1.6-2.3)
[2022-11-28] MEDS ORDERED: ACETAMINOPHEN TAB 500 MG TAB PEG/G-TUBE PRN (09:19)
[2022-11-28] MEDS ORDERED: HYDROcodone/APAP 7.5-325MG 1 EACH TAB PEG/G-TUBE PRN (09:19)
[2022-11-28] MEDS ORDERED: SODIUM ZIRCONIUM CYCLOSILICATE 10 GM PACKET PEG/G-TUBE ONE (09:30)
[2022-11-28] MEDS: DOCUSATE 100 MG CAP PO SCH ×2 (10:07→20:13)
[2022-11-28] MEDS: HEPARIN SODIUM,PORCINE/PF 5,000 UNIT/0.5 ML SYRINGE SQ SCH ×3 (10:17→22:59)
[2022-11-28] MEDS: FAMOTIDINE 20 MG/2 ML VIAL IV SCH ×2 (10:18→20:26)
[2022-11-28] MEDS: DICLOFENAC SODIUM GEL 100 GM TUBE TOPICAL SCH ×4 (10:18→20:26)
[2022-11-28] MEDS: amLODIPine 10 MG TAB PO SCH (10:25)
[2022-11-28] MEDS: MONTELUKAST 10 MG TAB PO SCH (10:25)
[2022-11-28] MEDS: CYANOCOBALAMIN 500 MCG TAB PO SCH (10:25)
[2022-11-28] MEDS: PRIMIDONE 50 MG TAB PO SCH (10:25)
[2022-11-28] MEDS: METOPROLOL TARTRATE 50 MG TAB PO SCH (10:25)
--- NOTE | 2022-11-28 11:55 | P.PN ---
Subjective Progress Note Date: 11/28/22 CHIEF COMPLAINT: Incarcerated left inguinal hernia HISTORY OF PRESENT ILLNESS: Patient is status post PEG tube placement on 11/19/22. Patient is status post open repair of incarcerated left inguinal hernia with Prolene hernia mesh system plug for incarcerated left inguinal hernia on 11/12/22. Patient has mild abdominal distention. But he is having loose bowel movements. Tolerating tube feeds at 45 ML. No residual noted per nurse. Denies any nausea vomiting. Denies any abdominal pain. Afebrile. WBC down from 12.9-9.9 yesterday. Awaiting decision about possible discharge to hospice house. Patient seen and examined by Dr. álvarez PHYSICAL EXAM: VITAL SIGNS: Reviewed. GENERAL: Well-developed in no acute distress. ABDOMEN: Soft. mildly distended. Nontender. PEG tube site clean dry and intact. Left inguinal incision site firmness noted. No drainage. Nontender ASSESSMENT: 1. Severe protein calorie malnutrition, poor oral intake and dysphagia status post PEG tube placement 2. Incarcerated left inguinal hernia status post open repair of incarcerated left inguinal hernia with Prolene hernia mesh system plug 3. Constipation 4. Seroma at the left internal hernia surgical site. No evidence of abscess. PLAN: -No surgical intervention planned -Continue PEG tube feedings -Continue stool softeners -Antibiotics per ID service -Awaiting decision about possible discharge to Hospice House Physician Caregivers Non Medical note has been reviewed by physician. Signing provider agrees with the documented findings, assessment, and plan of care. Objective - Vital Signs Vital signs: Vital Signs Temp 98.2 F 11/28/22 08:00 Pulse 98 11/28/22 08:00 Resp 16 11/28/22 08:00 BP 131/77 11/28/22 08:00 Pulse Ox 96 11/28/22 08:00 FiO2 21 11/21/22 09:16 Intake & Output 11/27/22 11/28/22 11/28/22 18:59 06:59 18:59 Output Total 1300 650 300 Balance -1300 -650 -300 Output: Urine 1300 650 300 Other: Voiding Method External Catheter External Catheter External Catheter # Bowel Movements 1 - Labs CBC & Chem 7: 11/27/22 07:54 11/28/22 06:52 Labs: Abnormal Lab Results - Last 24 Hours (Table) 11/27/22 11/27/22 11/28/22 Range/Units 11:40 16:22 00:14 Sodium (137-145) mmol/L Potassium (3.5-5.1) mmol/L BUN (9-20) mg/dL Glucose (74-99) mg/dL POC Glucose (mg/dL) 150 H 135 H 140 H (70-110) mg/dL AST (17-59) U/L ALT (4-49) U/L Alkaline Phosphatase (38-126) U/L Albumin (3.5-5.0) g/dL 11/28/22 11/28/22 Range/Units 06:20 06:52 Sodium 132 L (137-145) mmol/L Potassium 5.4 H (3.5-5.1) mmol/L BUN 26 H (9-20) mg/dL Glucose 141 H (74-99) mg/dL POC Glucose (mg/dL) 157 H (70-110) mg/dL AST 74 H (17-59) U/L ALT 121 H (4-49) U/L Alkaline Phosphatase 233 H (38-126) U/L Albumin 3.2 L (3.5-5.0) g/dL Microbiology - Last 24 Hours (Table) 11/21/22 23:15 Blood Culture - Final Blood
[2022-11-28 12:02] LABS: Glucose,Whole Blood 162 mg/dL (70-110)
--- NOTE | 2022-11-28 12:30 | P.PN ---
Subjective Progress Note Date: 11/28/22 This is a 72 year old male who is admitted for altered mental status and rhabdomyolysis patient was found down. Rhabo has resolved, mentation has improved. Patient is currently postoperative day #13 left inguinal hernia repair for an incarcerated hernia, continues with midline drainage bag. Patient underwe nt PEG tube placement d/t dysphagia and is currently receiving enteral feedings with jevity 1.5 and running at goal of 45 mls/hr with 30 ml free water flush every 4 hrs. Patient is being followed by [facility] and continues on pureed dysphagia diet with nectar thick liquids and 1:1 supervision, aspiration precautions. Patient is alert x 2 and quite fatigued. He is working with PT/OT and currently a total assist will require subacute rehab on discharge was unable to tolerate standing at the bedside today. Blood cultures remain negative. White count is 11.6 today, sodium 133. Patient remains febrile up to 100.0 today, likely due to decreased inspiratory effort and needs assistance and encouragement to use incentive spirometer. Chest xray is stable. 11/26/2022 Patient is evaluated today on the step-down unit and appears more fatigued than yesterday. Abdomen is more distended and bowel sounds are hypoactive today. Abdominal xray is ordered. General surgery has been re-consulted for further evaluation of the abdominal distention. There was concern patient continues to aspirate on the pureed diet which [facility] was consulted and follow up today confirms patient is aspirating. Patient is more fatigued and total care at this point unable to participate in ADLS and unable to perform IS. Patient has white count of 12.9, fever T-Max overnight of 100.0. Glucose in the 150s. Patient will be given normal saline IV hydration today. Pending input from ID and surgery. Updated gadiel Thomas over the phone who has legal guardianship, regarding hospice care. Per the Neice she will be reaching out to his and daughter and will f/u. 11/27/2022 Patient evaluated today more awake than yesterday. Was given suppository and did have multiple BMS, abdomen is soft today. Patient continues on tube feeds with minimal to no gastric residual. Patient noted to have elevated LFT's today and abdominal ultrasound performed showing hepatomegaly pancreas is partially obscured by overlying bowel gas, gallbladder is partially obscured by bowel and rib shadows. White count normalized to 9.9 today, sodium at 132 which did decrease after initiation of IV fluids. Kidney function normal. Procalcitonin level is negative at this time. Continues on IV daptomycin and IV zosyn. Patient recommended for NPO status by speech therapy and patient has been afebrile the last 48 hours. Hospice has been discussed with the patients legal guardian and family are all on board and requesting to meet with [facility]. The legal guardian/margarita Thomas is out of town until Friday afternoon to meet in person. Patient did not want to discuss hospice. 11/28/2022 Patient evaluated today resting in bed. Alert x 2. Continues with diffuse weakness. Liver enzymes remain elevated. Fluids have been discontinued. Sodium 132 today. Remains on antibiotics in the form of IV zosyn and IV daptomycin. Patient reports improved pain and discomfort. ID recommending course of oral avelox and doxycycline on discharge. Stable for discharge from surgery. Review of Systems Constitutional: Reports fatigue Cardio vascular: denied any chest pain, palpitations Gastrointestinal: denied any nausea, vomiting, diarrhea Reports mild abdominal pain. Pulmonary: Denied any shortness of breath cough Neurologic: denied any new focal deficits, All inpatient medications were reviewed and appropriate changes in these medications as dictated in the interval history and assessment and plan. PHYSICAL EXAMINATION: GENERAL: The patient is alert and oriented x2-3, not in any acute distress. Well developed, well nourished. Fatigued. Ill appearing, thin built. HEENT: Pupils are round and equally reacting to light. EOMI. No scleral icterus. No conjunctival pallor. Normocephalic, atraumatic. No pharyngeal erythema. No thyromegaly. CARDIOVASCULAR: S1 and S2 present. No murmurs, rubs, or gallops. PULMONARY: Chest is clear to auscultation, no wheezing or crackles. ABDOMEN: Soft, tender, distended, hypoactive bowel sounds. Postsurgical with midline incision. Less distended than yesterday MUSCULOSKELETAL: No joint swelling or deformity. EXTREMITIES: No cyanosis, clubbing, or pedal edema. NEUROLOGICAL: Diffuse generalized weakness. SKIN: No rashes. Assessment Altered mental status from metabolic and toxic encephalopathy/ unknown downtime at home with rhabdomyolysis on admission improved. Status post left inguinal incarcerated hernia repair POD # 16 Fever and leukocytosis have resolved. Severe protein calorie malnutrition and dysphagia status post PEG tube placement Proctitis on admission Large stool burden and fecaloma resolved Left iliac bone/right initial tuberosity sclerotic foci benign vs. underlying metastasis found on CT imaging Acute kidney injury, resolved History of mood disorder Hypertension Hyperlipidemia COPD with no acute exacerbation GI prophylaxis DVT prophylaxis Plan Patient remains on the medical floor PT/OT following closely and will require ECF on discharge has diffuse weakness and total care at this time. Continue IV antibiotics with recommendations for oral doxycycline and avelox on discharge per ID. Cleared by surgery. Neurology recommending outpatient f/u with Dr. Trimble or Jose on DC and also NEO scan outpatient to r/o Parkinson's. Sinemet has been discontinued. Depakote has been stopped due to tremor. Family on board with hospice and hospice has been consulted for more information. Patient has had prolonged hospital stay, hospice has been discussed in the past and family wanted PEG tube and feedings to see if patient made clinical improvement. White count and fever have improved however patient remains fatigued and total care with PT/OT and not wanting to participate in care. Diet was advanced and patient continues to aspirate. Speech therapy recommending MBS patient currently NPO and continues on tube feedings. Pending discharge planning with [facility]. The impression and plan of care has been dictated by Indira Miner, Nurse Practitioner as directed. Dr. Lauren MD I have performed a history and physical examination and medical decision making of this patient, discussed the same with the dictator, and agree with the dictators assessment and plan as written, documented as a scribe. Based on total visit time, I have performed more than 50% of this visit. Objective - Vital Signs Vital signs: Vital Signs Temp 98.2 F 11/28/22 08:00 Pulse 98 11/28/22 08:00 Resp 16 11/28/22 08:00 BP 131/77 11/28/22 08:00 Pulse Ox 96 11/28/22 08:00 FiO2 21 11/21/22 09:16 Intake & Output 11/27/22 11/28/22 11/28/22 18:59 06:59 18:59 Output Total 1300 650 300 Balance -1300 -650 -300 Output: Urine 1300 650 300 Other: Voiding Method External Catheter External Catheter External Catheter # Bowel Movements 1 - Labs CBC & Chem 7: 11/27/22 07:54 11/28/22 06:52 Labs: Abnormal Lab Results - Last 24 Hours (Table) 11/27/22 11/28/22 11/28/22 Range/Units 16:22 00:14 06:20 Sodium (137-145) mmol/L Potassium (3.5-5.1) mmol/L BUN (9-20) mg/dL Glucose (74-99) mg/dL POC Glucose (mg/dL) 135 H 140 H 157 H (70-110) mg/dL AST (17-59) U/L ALT (4-49) U/L Alkaline Phosphatase (38-126) U/L Albumin (3.5-5.0) g/dL 11/28/22 11/28/22 Range/Units 06:52 12:00 Sodium 132 L (137-145) mmol/L Potassium 5.4 H (3.5-5.1) mmol/L BUN 26 H (9-20) mg/dL Glucose 141 H (74-99) mg/dL POC Glucose (mg/dL) 162 H (70-110) mg/dL AST 74 H (17-59) U/L ALT 121 H (4-49) U/L Alkaline Phosphatase 233 H (38-126) U/L Albumin 3.2 L (3.5-5.0) g/dL Microbiology - Last 24 Hours (Table) 11/21/22 23:15 Blood Culture - Final Blood Assessment and Plan Time with Patient: Less than 30
[2022-11-28 13:12] VITALS: BMI 29.0
--- NOTE | 2022-11-28 15:23 | P.PN ---
Subjective Progress Note Date: 11/28/22 Principal diagnosis: Fever Patient is a 72-year-old male presenting to the hospital with mental status changes patient was found to be on the floor and this patient has been running a fever with a CT abdominal pelvis did shows evidence of severe stool burden and initial concern for possible strangulated hernia that has been rule out patient also have LP completed which was normal, a patient is status post left inguinal incarcerated hernia repair completed on 11/12/2022, patient is status post PEG tube placement on 11/19/2022 On today's evaluation that is 11/28/2022 the patient continues to be afebrile, patient is breathing comfortably on 2 L Nasal cannula oxygen, the patient is more awake and alert today he is breathing comfortably no chest pain or shortness of breath or cough. No abdominal pain tolerating his tube feeds Objective - Vital Signs Vital signs: Vital Signs Temp 98.2 F 11/28/22 08:00 Pulse 89 11/28/22 12:00 Resp 18 11/28/22 12:00 BP 134/81 11/28/22 12:00 Pulse Ox 94 L 11/28/22 12:00 FiO2 21 11/21/22 09:16 Intake & Output 11/27/22 11/28/22 11/28/22 18:59 06:59 18:59 Output Total 1300 650 300 Balance -1300 -650 -300 Output: Urine 1300 650 300 Other: Voiding Method External Catheter External Catheter External Catheter # Bowel Movements 1 - Exam GENERAL DESCRIPTION: An elderly male lying in bed in no distress RESPIRATORY SYSTEM: Unlabored breathing , decreased breath sounds at bases HEART: S1 S2 regular rate and rhythm , ABDOMEN: Soft , mild distention but no tenderness EXTREMITIES: R ankle with erythma and warmth - Labs CBC & Chem 7: 11/27/22 07:54 11/28/22 06:52 Labs: Abnormal Lab Results - Last 24 Hours (Table) 11/27/22 11/28/22 11/28/22 Range/Units 16:22 00:14 06:20 Sodium (137-145) mmol/L Potassium (3.5-5.1) mmol/L BUN (9-20) mg/dL Glucose (74-99) mg/dL POC Glucose (mg/dL) 135 H 140 H 157 H (70-110) mg/dL AST (17-59) U/L ALT (4-49) U/L Alkaline Phosphatase (38-126) U/L Albumin (3.5-5.0) g/dL 11/28/22 11/28/22 Range/Units 06:52 12:00 Sodium 132 L (137-145) mmol/L Potassium 5.4 H (3.5-5.1) mmol/L BUN 26 H (9-20) mg/dL Glucose 141 H (74-99) mg/dL POC Glucose (mg/dL) 162 H (70-110) mg/dL AST 74 H (17-59) U/L ALT 121 H (4-49) U/L Alkaline Phosphatase 233 H (38-126) U/L Albumin 3.2 L (3.5-5.0) g/dL Microbiology - Last 24 Hours (Table) 11/21/22 23:15 Blood Culture - Final Blood Assessment and Plan (1) Fever Current Visit: Yes Status: Acute Code(s): R50.9 - FEVER, UNSPECIFIED SNOMED Code(s): 317982196 Plan: 1patient with f incarcerated left inguinal hernia, status post operative repair on 11/12/2022 and subsequently did have a PEG tube placement on 11/19/2022 3-the patient did have a new fever and also noticed to have worsening of his w deric count patient did have a CT of abdominal pelvis completed on 11/21/2022 concerning for 4.5 cm fluid collection in left inguinal area with a few foci of gas concerning for possible abscess , patient fever pattern has improved chest x-ray is mostly atelectasis, the patient white count has normalized is currently covered with the Zosyn and daptomycin, plan is for short course of oral Avelox and doxycycline on discharge however if hospice antibiotics can be discontinued Time with Patient: Less than 30
[2022-11-28 16:59] LABS: Glucose,Whole Blood 145 mg/dL (70-110)
[2022-11-28] MEDS: DAPTOmycin 500 MG in SODIUM CHLORIDE 0.9% 50 ML IVPB SCH (18:45)
[2022-11-28] MEDS: PRIMIDONE 50 MG TAB PEG/G-TUBE SCH ×2 (18:46→20:26)
[2022-11-28 19:56] VITALS: RESP 16
[2022-11-28] MEDS: METOPROLOL TARTRATE 50 MG TAB PEG/G-TUBE SCH (20:26)
[2022-11-28] MEDS ORDERED: LORazepam 0.5 MG TAB PEG/G-TUBE SCH (21:00)
[2022-11-29 00:11] LABS: Glucose,Whole Blood 172 mg/dL (70-110)
[2022-11-29] MEDS: INSULIN ASPART (NovoLOG) 100 UNIT/ML VIAL SQ SCH ×4 (01:06→18:24)
[2022-11-29 06:08] LABS: Glucose,Whole Blood 171 mg/dL (70-110)
[2022-11-29] MEDS: SYMBICORT 160-4.5 MCG INHALER INHALATION SCH (07:59)
[2022-11-29 08:00] LABS: ALT 111 U/L (4-49); AST 60 U/L (17-59); African American GFR (CKD) >90 (>60 ml/min/1.73 sqM); Albumin 3.1 g/dL (3.5-5.0); Alkaline Phosphatase 232 U/L (38-126); Anion Gap 11 mmol/L; Blood Urea Nitrogen 29 mg/dL (9-20); Calcium 8.8 mg/dL (8.4-10.2); Carbon Dioxide 19 mmol/L (22-30); Chloride 103 mmol/L (98-107); Glucose 143 mg/dL (74-99); Non-African American GFR(CKD) >90 (>60 ml/min/1.73 sqM); Potassium 5.2 mmol/L (3.5-5.1); Sodium 133 mmol/L (137-145); Total Bilirubin 0.5 mg/dL (0.2-1.3); Total Protein 6.6 g/dL (6.3-8.2)
[2022-11-29 08:16] VITALS: TEMP 98.1
[2022-11-29] MEDS: METOPROLOL TARTRATE 50 MG TAB PEG/G-TUBE SCH (08:41)
[2022-11-29] MEDS: PIPERACILLIN-TAZOBACTAM 3.375 GM in SODIUM CHLORIDE 0.9% 100 ML IVPB SCH ×2 (08:42→16:05)
[2022-11-29] MEDS: HEPARIN SODIUM,PORCINE/PF 5,000 UNIT/0.5 ML SYRINGE SQ SCH ×2 (08:42→16:05)
[2022-11-29] MEDS: PRIMIDONE 50 MG TAB PEG/G-TUBE SCH ×2 (08:42→16:05)
[2022-11-29] MEDS: FAMOTIDINE 20 MG/2 ML VIAL IV SCH (08:42)
[2022-11-29] MEDS: DOCUSATE 100 MG CAP PO SCH (08:48)
[2022-11-29] MEDS ORDERED: MONTELUKAST 10 MG TAB PEG/G-TUBE SCH (09:00)
[2022-11-29] MEDS ORDERED: amLODIPine 10 MG TAB PEG/G-TUBE SCH (09:00)
[2022-11-29] MEDS ORDERED: CYANOCOBALAMIN 500 MCG TAB PEG/G-TUBE SCH (09:00)
[2022-11-29] MEDS ORDERED: DOCUSATE ORAL SOLN 100 MG/10 ML CUP PO SCH (09:15)
--- NOTE | 2022-11-29 10:11 | XR ---
EXAMINATION TYPE: XR chest 1V portable DATE OF EXAM: 11/29/2022 COMPARISON: 11/26/2022 INDICATION: Hypoxia TECHNIQUE: Single frontal view of the chest is obtained. Patient is rotated to the right. FINDINGS: The heart size is normal. The pulmonary vasculature is normal. Mild right perihilar infiltrate is present. IMPRESSION: 1. Mild right perihilar infiltrate. Correlate for atelectasis or atypical pulmonary edema. Follow-up can be performed.
--- NOTE | 2022-11-29 11:39 | P.PN ---
Subjective Progress Note Date: 11/29/22 CHIEF COMPLAINT: Incarcerated left inguinal hernia HISTORY OF PRESENT ILLNESS: Patient is status post PEG tube placement on 11/19/22. Patient is status post open repair of incarcerated left inguinal hernia with Prolene hernia mesh system plug for incarcerated left inguinal hernia on 11/12/22. Patient is tolerating tube feeds at 45 ML. No residual noted per nurse. Denies any nausea vomiting. Denies any abdominal pain. He is having bowel movements. Afebrile. WBC 9.9 on 11/27. Awaiting decision about possible discharge to hospice house. Patient seen and examined by Dr. álvarez PHYSICAL EXAM: VITAL SIGNS: Reviewed. GENERAL: Well-developed in no acute distress. ABDOMEN: Soft. mildly distended. Nontender. PEG tube site clean dry and intact. Left inguinal incision site decrease in firmness noted. No drainage. Nontender ASSESSMENT: 1. Severe protein calorie malnutrition, poor oral intake and dysphagia status post PEG tube placement 2. Incarcerated left inguinal hernia status post open repair of incarcerated left inguinal hernia with Prolene hernia mesh system plug 3. Constipation 4. Seroma at the left internal hernia surgical site. No evidence of abscess. PLAN: -No surgical intervention planned -Continue PEG tube feedings -Continue stool softeners -Antibiotics per ID service -Okay for discharge from surgical standpoint -Awaiting decision about possible discharge to Hospice House Physician Stone Engraver note has been reviewed by physician. Signing provider agrees with the documented findings, assessment, and plan of care. Objective - Vital Signs Vital signs: Vital Signs Temp 98.1 F 11/29/22 08:15 Pulse 92 11/29/22 10:07 Resp 16 11/29/22 10:07 BP 131/69 11/29/22 08:15 Pulse Ox 93 L 11/29/22 08:15 FiO2 21 11/21/22 09:16 Intake & Output 11/28/22 11/29/22 11/29/22 18:59 06:59 18:59 Output Total 300 1000 Balance -300 -1000 Weight 86.5 kg 86.1 kg Output: Urine 300 1000 Other: Voiding Method External Catheter External Catheter External Catheter # Bowel Movements 1 - Labs CBC & Chem 7: 11/27/22 07:54 11/29/22 07:06 Labs: Abnormal Lab Results - Last 24 Hours (Table) 11/28/22 11/28/2223 Range/Units 12:00 16:57 00:09 Sodium (137-145) mmol/L Potassium (3.5-5.1) mmol/L Carbon Dioxide (22-30) mmol/L BUN (9-20) mg/dL Glucose (74-99) mg/dL POC Glucose (mg/dL) 162 H 145 H 172 H (70-110) mg/dL AST (17-59) U/L ALT (4-49) U/L Alkaline Phosphatase (38-126) U/L Albumin (3.5-5.0) g/dL 11/29/22 11/29/22 Range/Units 06:07 07:06 Sodium 133 L (137-145) mmol/L Potassium 5.2 H (3.5-5.1) mmol/L Carbon Dioxide 19 L (22-30) mmol/L BUN 29 H (9-20) mg/dL Glucose 143 H (74-99) mg/dL POC Glucose (mg/dL) 171 H (70-110) mg/dL AST 60 H (17-59) U/L ALT 111 H (4-49) U/L Alkaline Phosphatase 232 H (38-126) U/L Albumin 3.1 L (3.5-5.0) g/dL
[2022-11-29 11:57] LABS: Glucose,Whole Blood 163 mg/dL (70-110)
[2022-11-29] MEDS: DICLOFENAC SODIUM GEL 100 GM TUBE TOPICAL SCH ×3 (12:17→18:23)
--- NOTE | 2022-11-29 15:18 | P.PN ---
Subjective Progress Note Date: 11/29/22 Principal diagnosis: Fever Patient is a 72-year-old male presenting to the hospital with mental status changes patient was found to be on the floor and this patient has been running a fever with a CT abdominal pelvis did shows evidence of severe stool burden and initial concern for possible strangulated hernia that has been rule out patient also have LP completed which was normal, a patient is status post left inguinal incarcerated hernia repair completed on 11/12/2022, patient is status post PEG tube placement on 11/19/2022 On today's evaluation that is 11/29/2022 the patient remains to be afebrile, patient is breathing comfortably on 2 L Nasal cannula oxygen, the patient is breathing comfortably, the patient denies chest pain or shortness of breath or cough. No abdominal pain tolerating his tube feeds Objective - Vital Signs Vital signs: Vital Signs Temp 98.1 F 11/29/22 08:15 Pulse 80 11/29/22 14:51 Resp 16 11/29/22 14:51 BP 130/66 11/29/22 11:30 Pulse Ox 92 L 11/29/22 11:30 FiO2 21 11/21/22 09:16 Intake & Output 11/28/22 11/29/22 11/29/22 18:59 06:59 18:59 Output Total 300 1000 650 Balance -300 -1000 -650 Weight 86.5 kg 86.1 kg Output: Urine 300 1000 650 Other: Voiding Method External Catheter External Catheter External Catheter # Bowel Movements 1 - Exam GENERAL DESCRIPTION: An elderly male lying in bed in no distress RESPIRATORY SYSTEM: Unlabored breathing , decreased breath sounds at bases HEART: S1 S2 regular rate and rhythm , ABDOMEN: Soft , mild distention but no tenderness EXTREMITIES: R ankle with erythma and warmth - Labs CBC & Chem 7: 11/27/22 07:54 11/29/22 07:06 Labs: Abnormal Lab Results - Last 24 Hours (Table) 11/28/22 11/29/22 11/29/22 Range/Units 16:57 00:09 06:07 Sodium (137-145) mmol/L Potassium (3.5-5.1) mmol/L Carbon Dioxide (22-30) mmol/L BUN (9-20) mg/dL Glucose (74-99) mg/dL POC Glucose (mg/dL) 145 H 172 H 171 H (70-110) mg/dL AST (17-59) U/L ALT (4-49) U/L Alkaline Phosphatase (38-126) U/L Albumin (3.5-5.0) g/dL 11/29/22 11/29/22 Range/Units 07:06 11:56 Sodium 133 L (137-145) mmol/L Potassium 5.2 H (3.5-5.1) mmol/L Carbon Dioxide 19 L (22-30) mmol/L BUN 29 H (9-20) mg/dL Glucose 143 H (74-99) mg/dL POC Glucose (mg/dL) 163 H (70-110) mg/dL AST 60 H (17-59) U/L ALT 111 H (4-49) U/L Alkaline Phosphatase 232 H (38-126) U/L Albumin 3.1 L (3.5-5.0) g/dL Assessment and Plan (1) Fever Current Visit: Yes Status: Acute Code(s): R50.9 - FEVER, UNSPECIFIED SNOMED Code(s): 017090885 Plan: 1patient with f incarcerated left inguinal hernia, status post operative repair on 11/12/2022 and subsequently did have a PEG tube placement on 11/19/2022 3-the patient did have a new fever and also noticed to have worsening of his white count patient did have a CT of abdominal pelvis completed on 11/21/2022 concerning for 4.5 cm fluid collection in left inguinal area with a few foci of gas concerning for possible abscess , patient fever pattern has improved chest x-ray is mostly atelectasis, the patient white count has normalized is currently covered with the Zosyn and daptomycin, plan is for short course of oral Avelox and doxycycline on discharge however if it the patient is switched to hospice antibodies can be safely discontinued Time with Patient: Less than 30
[2022-11-29 16:01] VITALS: BP 124/68; PULSE 87
--- NOTE | 2022-11-29 16:03 | P.DS ---
Providers Date of admission: 11/04/22 20:19 Attending physician: Starr Vargas Consults: 11/04/22 20:17 Consult Physician Urgent Consulting Provider: Lisa Alfaro Consult Reason/Comments: Rhabdomyolysis Do you want consulting provider notified?: Yes 11/05/22 09:49 Consult Physician Urgent Consulting Provider: [place] Consult Reason/Comments: altered mental status Do you want consulting provider notified?: Yes 11/06/22 16:29 Consult Physician Routine Consulting Provider: Moses Carney Consult Reason/Comments: on depakote for mental but has tremor Do you want consulting provider notified?: Already Contacted 11/06/22 20:48 Consult Physician Routine Consulting Provider: Twin Torrez Consult Reason/Comments: fevers, diarrhea Do you want consulting provider notified?: Yes, Notify in am 11/07/22 12:55 Consult to Anesthesia Stat Consulting Provider: Anesthesia,Services Consult Reason/Comments: LP/CSF 11/16/22 15:52 Consult Physician Routine Consulting Provider: Cb Fischer Consult Reason/Comments: Peg tube placement Do you want consulting provider notified?: Yes 11/19/22 14:45 Consult Physician Routine Consulting Provider: Danie Gaspar Consult Reason/Comments: Thrombocytosis,Worsening Do you want consulting provider notified?: Yes 11/26/22 11:36 Consult Physician Routine Consulting Provider: Cb Fischer Consult Reason/Comments: abdominal distention, fever Do you want consulting provider notified?: Yes Primary care physician: Saundra Patterson Hospital Course: Final Diagnosis Poor functional status with low karnofsky score Altered mental status from metabolic and toxic encephalopathy/ unknown downtime at home with rhabdomyolysis on admission improved. Status post left inguinal incarcerated hernia repair POD # 17 Fever and leukocytosis have resolved. Severe protein calorie malnutrition and dysphagia status post PEG tube placement Continue aspiration and failed advancing diet currently NPO Severe deconditioning and medical debility Proctitis on admission Large stool burden and fecaloma resolved Left iliac bone/right initial tuberosity sclerotic foci benign vs. underlying metastasis found on CT imaging Acute kidney injury, resolved History of mood disorder Hypertension Hyperlipidemia COPD with no acute exacerbation Do Not Resuscitate/Do Not Intubate Discharge Disposition Patient will be discharged to [facility] today. Patient has had prolonged hospital stay with worsening functionality and dysphagia required PEG tube placement and total care at this time. Family and legal guardian following with Hospice for discharge planning Hospital Course This is a 72 year old male with medical history of COPD, hypertension, hyperlipidemia. Came to the hospital for altered mental status patient was found lying on the floor alert to self after a wellness check was performed by patients neighbor. Patient was brought to the hospital for further evaluation. Patient on admission had sodium of 145, creatinine 1.29 and CK elevated at 2741. Patient was admitted for altered mental status and further work up. Patient had lumbar puncture as part of work up which was negative. Had right ankle xray showing soft tissue injury. Patient had continued abdominal pain and distention. An abdmoinal pelvis CT was completed showing circumferential wall thickening correlate for proctitis. there was left inguinal hernia containing loop of sig moid colon. No evidence for wall thickening to suggest strangulation. Patient is currently postoperative day #13 left inguinal hernia repair for an incarcerated hernia. Patient underwent PEG tube placement d/t dysphagia and is currently receiving enteral feedings with jevity 1.5 and running at goal of 55 mls/hr with 30 ml free water flush every 4 hrs. Patient is being followed by MENTAL HEALTH PROFESSIONAL. Patient was advanced to pureed dysphagia diet with nectar thick liquids and 1:1 supervision, aspiration precautions. Patient had evidence of aspiration and had continued fever. F/U abdominal CT was ordered and a rectal fecaloma was found, there was a 4.5 cm fluid collection within the left inguinal canal and a new foci of gas. Unable to exclude hematoma or abscess. Surgery evaluation and felt this was a seroma and patient was treated with suppository for the conspitation. Speech therapy confirms patient is aspirating and patient was placed back NPO. Patient is alert x 2 and quite fatigued. He is working with PT/OT and currently a total assist. His white count and fever have improved. Clinically the patient is at a poor functionality. Medically deconditioned. His neice has been placed temporary guardian and after an extensive hospital stay hospice evaluation requested and decision to transfer to hospice house. Thank you for allowing us to participate in the care of this patient. The impression and plan of care has been dictated by Indira Miner, Nurse Practitioner as directed. Dr. Lauren MD I have performed a history and physical examination and medical decision making of this patient, discussed the same with the dictator, and agree with the dictators assessment and plan as written, documented as a scribe. Based on total visit time, I have performed more than 50% of this visit. Patient Condition at Discharge: Poor Plan - Discharge Summary Discharge Rx Participant: No New Discharge Prescriptions: New Cyanocobalamin [Vitamin B-12] 1,000 mcg PO DAILY 30 Days #30 tab Cyanocobalamin [Vitamin B-12 Injection] 1,000 mcg IM DAILY 2 Days #2 each Moxifloxacin HCl [Avelox] 400 mg PO DAILY 5 Days #5 tab Docusate [Colace] 100 mg PO BID cap Metoprolol Tartrate [Lopressor] 25 mg PO BID tab HYDROcodone/APAP 5-325MG [[place] 5-325] 1 tab PO Q12HR PRN 3 Days #6 tab PRN Reason: Pain QUEtiapine [SEROquel] 25 mg PO BID PRN tab PRN Reason: psychosis or insomnia Doxycycline [Vibramycin] 100 mg PO BID 5 Days #10 capsule Continue Budesonide/Formoterol Fumarate [Symbicort 160-4.5 Mcg Inhaler] 2 puff INHALATION RT-BID Albuterol Inhaler [Ventolin Hfa Inhaler] 1 puff INHALATION RT-Q4H PRN PRN Reason: Shortness Of Breath Primidone [Mysoline] 50 mg PO TID Montelukast [Singulair] 10 mg PO DAILY Simvastatin [Zocor] 40 mg PO DAILY LORazepam [Ativan] 0.5 mg PO HS amLODIPine [Norvasc] 10 mg PO DAILY Discontinued Divalproex Sodium 250 mg PO BID Topiramate [Topamax] See Taper PO DIRECTED Metoprolol Tartrate [Lopressor] 25 mg PO DAILY QUEtiapine [SEROquel] 200 mg PO DAILY Discharge Medication List Albuterol Inhaler [Ventolin Hfa Inhaler] 1 puff INHALATION RT-Q4H PRN 11/04/22 [History] Budesonide/Formoterol Fumarate [Symbicort 160-4.5 Mcg Inhaler] 2 puff INHALATION RT-BID 11/04/22 [History] LORazepam [Ativan] 0.5 mg PO HS 11/04/22 [History] Montelukast [Singulair] 10 mg PO DAILY 11/04/22 [History] Primidone [Mysoline] 50 mg PO TID 11/04/22 [History] Simvastatin [Zocor] 40 mg PO DAILY 11/04/22 [History] amLODIPine [Norvasc] 10 mg PO DAILY 11/04/22 [History] Cyanocobalamin [Vitamin B-12 Injection] 1,000 mcg IM DAILY 2 Days #2 each 11/14/22 [Rx] Cyanocobalamin [Vitamin B-12] 1,000 mcg PO DAILY 30 Days #30 tab 11/14/22 [Rx] Docusate [Colace] 100 mg PO BID cap 11/14/22 [Rx] HYDROcodone/APAP 5-325MG [[place] 5-325] 1 tab PO Q12HR PRN 3 Days #6 tab 11/14/22 [Rx] Metoprolol Tartrate [Lopressor] 25 mg PO BID tab 11/14/22 [Rx] QUEtiapine [SEROquel] 25 mg PO BID PRN tab 11/14/22 [Rx] Doxycycline [Vibramycin] 100 mg PO BID 5 Days #10 capsule 11/29/22 [Rx] Moxifloxacin HCl [Avelox] 400 mg PO DAILY 5 Days #5 tab 11/29/22 [Rx] Follow up Appointment(s)/Referral(s): Chaim Street MD [Medical Doctor] - 2 Weeks (Neurologist Recommend patient undergo NEO SCAN as an outpatient. If Parkinson's is confirmed, then would recommend re-introducing Sinemet.) None,Stated [REFERRING] - 1-2 days Edgar Trimble DO [STAFF PHYSICIAN] - 2 Weeks (Neurologist Recommend patient undergo NEO SCAN as an outpatient. If Parkinson's is confirmed, then would recommend re-introducing Sinemet.) Cb Fischer MD [STAFF PHYSICIAN] - 1 Week Activity/Diet/Wound Care/Special Instructions: [facility] and recommended for NPO status and high risk for aspiration Tube feedings continued with Glucerna 1.2 at 55 mls/hr and 30 ml water flushes every 4 hours. Neurologist Recommend patient undergo NEO SCAN as an outpatient (for his tremor). If Parkinson's is confirmed, then would recommend re-introducing Sinemet. Activity as tolerated Discharge Disposition: [facility] TO [facility]
[2022-11-29 17:57] LABS: Glucose,Whole Blood 149 mg/dL (70-110)
[2022-11-29] MEDS: DAPTOmycin 500 MG in SODIUM CHLORIDE 0.9% 50 ML IVPB SCH (18:23)
--- NOTE | 2022-12-02 00:45 | P.PN ---
Subjective Progress Note Date: 11/24/22 72-year-old gentleman with past medical history significant for hypertension, hyperlipidemia, COPD presented to the ER because of altered mental status. Most of the history has been taken from the EMR. Patient was brought in by EMS after being notified by the patient's neighbor who did a wellness check on the patient as he had not seen him in a day.EMS found the patient lying on the floor, patient currently alert to self. Patient was immediately brought to the ER of [facility]. initial lab work done in the ER showedWBC 12.8, hemoglobin 13.8, platelet count 325, sodium 145, potassium 4.1, chloride 110, BUN 35, creatinine 1.29, CK 2741 Chest x-ray negative for acute pulmonary process CT brain showed age-related atrophy, no acute intracranial process Patient was admitted to internal medicine service 11/16 No new events, Per DPOA okay for feeding tubeWill consult Surgery 11/17 Right ankle swollen , X ray ordered , Denies pain 11/18 Right ankle x-ray does show joint effusion, no fracture noted. plan discussed with patient power for prosecuting attorney and [place] with feeding tube placement g eneral surgery followingNoted to have elevated platelet count peripheral smear ordered 11/19Patient is status post PEG tube placement. Continue IV antibiotics, right ankle swelling improved topical diclofenac ointment ordered 11/20> patient was noted to have fever overnight, repeat blood cultures ordered continue patient on IV antibiotic and patient remains alert and oriented to person 11/21> patient states seen and evaluated bedside, patient is easily arousable however continues to remain confused, did have fever overnight, Care plan discussed with infectious disease recommended with CT abdomen and pelvis with contrast ordered 11/22>> patient continues to remain drowsy however easily arousable. Care plan discussed with infectious disease CT findings were reviewed. Continue patient on IV Zosyn at this point we will continue to monitor blood cultures from 11/20 no growth noted, white blood cell count and CRP levels trending down. Platelet count improving as well. Hematology following likely reactive thrombocytosis noted expected length of stay another 4-5 days 11/23/2022 patient with incarcerated left inguinal hernia, status post operative repair on 11/12/2022 and subsequently did have a PEG tube placement on 11/19/2022 -the patient did have a new fever and also noticed to have worsening of his white count patient did have a CT of abdominal pelvis completed on 11/21/2022 concerning for 4.5 cm fluid collection in left inguinal area with a few foci of gas concerning for possible abscess patient benefit from drainage of this fluid, surgery is following the patient the patient fever and white count has responded to addition of daptomycin which should be continued along with Zosyn and monitor clinical course closely Time with Patient: Less than 30 11/24/2022 1patient with f incarcerated left inguinal hernia, status post operative repair on 11/12/2022 and subsequently did have a PEG tube placement on 11/19/2022 3-the patient did have a new fever and also noticed to have worsening of his whi te count patient did have a CT of abdominal pelvis completed on 11/21/2022 concerning for 4.5 cm fluid collection in left inguinal area with a few foci of gas concerning for possible abscess patient benefit from drainage of this fluid, surgery is following the patient the patient fever and white count has responded to addition of daptomycin which should be continued along with Zosyn and continue with supportive care Objective - Vital Signs Vital signs: Vital Signs Temp 98.4 F 11/24/22 08:00 Pulse 82 11/24/22 08:00 Resp 19 11/24/22 08:00 BP 130/73 11/24/22 08:00 Pulse Ox 97 11/24/22 08:00 FiO2 21 11/21/22 09:16 Intake & Output 11/23/22 11/24/22 11/24/22 18:59 06:59 18:59 Output Total 600 700 Balance -600 -700 Output: Urine 600 700 Other: Voiding Method External Catheter External Catheter External Catheter # Bowel Movements 1 - Exam GENERAL: The patient is alert and oriented x1 lethargic, not in any acute distress. Appears chronically ill, pale-appearing HEENT: Pupils are round and equally reacting to light. EOMI. No scleral icterus. No conjunctival pallor. Normocephalic, atraumatic CARDIOVASCULAR: S1 and S2 present. No murmurs, rubs, or gallops. PULMONARY: Chest is clear to auscultation, no wheezing . no crackles. ABDOMEN: Soft, nontender, not distended, . No palpable organomegaly. PEG tube in place MUSCULOSKELETAL:Right ankle swelling improved EXTREMITIES: Lower symmetry edema noted NEUROLOGICAL: New baseline, lethargic however easily arousable alert and oriented to person and schedule SKIN: No rashes. no petechiae. - Labs CBC & Chem 7: 11/27/22 07:54 11/29/22 07:06 Labs: Abnormal Lab Results - Last 24 Hours (Table) 11/23/22 11/24/22 11/24/22 Range/Units 17:05 00:38 05:55 POC Glucose (mg/dL) 166 H 206 H 190 H (70-110) mg/dL 11/24/22 Range/Units 12:03 POC Glucose (mg/dL) 218 H (70-110) mg/dL Microbiology - Last 24 Hours (Table) 11/21/22 23:15 Blood Culture - Preliminary Blood 11/18/22 09:10 Blood Culture - Final Blood 11/20/22 10:59 Blood Culture - Preliminary Blood Assessment and Plan Assessment: * Acute metabolic encephalopathy. * Acute Circumferential rectal wall thickening proctitis as per CT * Left inguinal hernia containing sigmoid colon. Possible partial incarce ration.. Status post hernia repair on 11/12/22 * Severe protein calorie Malnutrition * Bleeker Fever. Status post LP. CSF analysis showed no evidence of infection * Right lower extremity swelling DVT ruled out * Acute rhabdomyolysis resolved * Thrombocytosis reactive * Acute Kidney injury. resolved * History of mood disorder * Hypertension * Hyperlipidemia * COPD * Polypharmacy Plan: * In regards to recurrent fever >>Continue with antibiotic patient received cefepime transitioned to Zosyn on 11/20 > ID following , repeat blood cultures on 11/20 no growth to date, CT abdomen and pelvis completed on 11/21 does show postsurgical changes, however the small fluid collection 2.3 cm noted likely seroma, we'll continue to monitor continue IV Zosyn and follow-up on blood cultures * In regards to dysphagia PEG tube in place>> nutrition to assist with internal feeding * Consultants on the case including ID, neurologist and general surgery * bulk plant manager on the case for placement>> patient will need long-term placement * Noted to have elevated platelet count will monitor, seen by hematology likely reactive * Labs and medication were reviewed. * DVT prophylaxis: Subcutaneous heparin * GI Prophylaxis: Pepcid * Not medically ready for discharge, barrier to discharge his recurrent fever will need long-term care
== END 2022-11-29 18:58 | disposition hospice, inpatient (51) | DRG 853 ==
LOC: EC 15:43 → SUPCPDRO 15:43 → EEVIPCON 20:19 → 3SCARD 20:19
PROVIDERS: ADMIT Hospitalist; ATTEND Hospitalist
PROC: 009U3ZX Drainage of Spinal Canal, Percutaneous Approach, Diagnostic (ICD-10-PCS; 2022-11-08)
PROC: 0YU60JZ Supplement Left Inguinal Region with Synthetic Substitute, Open Approach (ICD-10-PCS; principal; 2022-11-12 10:15)
PROC: 0DH63UZ Insertion of Feeding Device into Stomach, Percutaneous Approach (ICD-10-PCS; 2022-11-19)
PROC: 3E0G76Z Introduction of Nutritional Substance into Upper GI, Via Natural or Artificial Opening (ICD-10-PCS; 2022-11-19)
DX: A41.9 Sepsis, unspecified organism (principal); E43 Unspecified severe protein-calorie malnutrition; G92.8 Other toxic encephalopathy; G04.90 Encephalitis and encephalomyelitis, unspecified; N17.9 Acute kidney failure, unspecified; K40.30 Unilateral inguinal hernia, with obstruction, without gangrene, not specified as recurrent; Z51.5 Encounter for palliative care; Z66 Do not resuscitate; R13.12 Dysphagia, oropharyngeal phase; R16.0 Hepatomegaly, not elsewhere classified; S30.1XXA Contusion of abdominal wall, initial encounter; D64.9 Anemia, unspecified; E86.9 Volume depletion, unspecified; I10 Essential (primary) hypertension; J44.9 Chronic obstructive pulmonary disease, unspecified; G40.909 Epilepsy, unspecified, not intractable, without status epilepticus; G31.9 Degenerative disease of nervous system, unspecified; F39 Unspecified mood [affective] disorder; F31.9 Bipolar disorder, unspecified; T79.6XXA Traumatic ischemia of muscle, initial encounter; G25.0 Essential tremor; E78.5 Hyperlipidemia, unspecified; K59.00 Constipation, unspecified; D75.838 Other thrombocytosis; M25.471 Effusion, right ankle; M79.89 Other specified soft tissue disorders; M89.58 Osteolysis, other site; G25.2 Other specified forms of tremor; K62.89 Other specified diseases of anus and rectum; N41.9 Inflammatory disease of prostate, unspecified; K52.9 Noninfective gastroenteritis and colitis, unspecified; R01.1 Cardiac murmur, unspecified; E53.8 Deficiency of other specified B group vitamins; W18.30XA Fall on same level, unspecified, initial encounter; Z20.822 Contact with and (suspected) exposure to COVID-19; Z91.51 Personal history of suicidal behavior; Z91.048 Other nonmedicinal substance allergy status; Z79.899 Other long term (current) drug therapy; Z79.51 Long term (current) use of inhaled steroids; Y92.009 Unspecified place in unspecified non-institutional (private) residence as the place of occurrence of the external cause; Z85.46 Personal history of malignant neoplasm of prostate
CPT/HCPCS: 36415; 43246; 70450; 70553; 71045; 71046; 74018; 74177; 76700; 76770; 80048; 80053; 80061; 80202; 80306; 81001; 81003; 82140; 82550; 82607; 82728; 82747; 82945; 83036; 83540; 83550; 83605; 83735; 83921; 84145; 84157; 84443; 84484; 84550; 85025; 85027; 85045; 85379; 85610; 85730; 86140; 87040; 87045; 87046; 87070; 87205; 87324; 87529; 87635; 88108; 89050; 93005; 94640; 94760; 95816; 96361; 96365; 96366; 99285